=== PATIENT | male | born 1955 | race Caucasian/White ===

== ENCOUNTER 2018-05-08 20:42 | Inpatient (IN) ==
[2018-05-08] MEDS ORDERED: MethylPREDNISolone Sod Succinate Inj 125 MG/2 ML Vial IV.PUSH ONE (20:59)
[2018-05-08] MEDS: Sod Chloride 0.9% Inj 1,000 ML IV.CONT SCH (21:07)
--- NOTE | 2018-05-08 21:09 | ED ---
HPI General Chief Complaint: Shortness of Breath/Dyspnea Stated Complaint: SOB Time Seen by Provider: 05/08/18 20:47 Source: patient and family Mode of arrival: ambulatory Limitations: no limitations History of Present Illness HPI narrative: 63-year-old male complains of chest pain and shortness of breath. Patient has history of COPD. Patient was at the intermediate in [place]. Patient was on home O2. Patient decided to move down to [place] recently. Patient arrived yesterday without oxygen or nebulizer machine or medications. Patient started having productive cough and shortness of breath 4 days ago. Patient states that he is not having substernal chest pain and worsening of short of breath about 2 hours prior to arrival. Patient states that the chest pain substernal pressure without radiation. Patient denies palpitation nausea diaphoresis. Patient states that he usually had chest pain in the past with acute exacerbation of COPD. Patient denies history of CAD. Patient denies history hypertension, diabetes, hyperlipidemia. Patient is a non -smoker. On a scale of 1-10 the chest pain is an 8. MD complaint: chest pain Complete Quality Measures for STEMI Alert Patients STEMI Alert: No Onset (ago): hour(s) Duration: constant Onset: during rest Pain location: substernal Severity: moderate Severity scale (1-10): 8 Quality: tightness and aching Pain radiation: none Relieving factors: nothing Exacerbating factors: nothing Context: other Associated symptoms: dyspnea and cough Treatments prior to arrival chest pain: none Related Data Home Medications Medication Instructions Recorded Confirmed Unable to Obtain Home Meds 05/08/18 05/08/18 Allergies Allergy/AdvReac Type Severity Reaction Status Date / Time No Known Allergies Allergy Mild unknown Uncoded 05/08/18 20:55 Review of Systems Except as stated in HPI: all other systems reviewed are negative PMFSH History History Provided By: Patient and Family Member Medical History Medical History History of COPD (Acute) Hx of emphysema (Acute) Surgical History Surgical History Hx of appendectomy (Acute) Hx of oral surgery (Acute) Social History Social History Substance History: No History of Abuse Smoking Status: Former smoker Tobacco Type: Cigarettes How Often Do You Have a Drink Containing Alcohol: Never Recent Travel in [facility] within the Last 8 Weeks: Yes Exam Narrative Exam Narrative: GENERAL: Well-nourished, well-developed patient. SKIN: Focused skin assessment warm/dry. HEAD: Normocephalic. EYES: No scleral icterus. No injection or drainage. NECK: Supple, trachea midline. No JVD or lymphadenopathy. CARDIOVASCULAR: Regular rate and rhythm without murmurs, gallops, or rubs. RESPIRATORY: Breath sounds equal bilaterally. No accessory muscle use. Patient has moderate expiratory wheezes bilaterally. Few rhonchi at the bases. GASTROINTESTINAL: Abdomen soft, non-tender, nondistended. MUSCULOSKELETAL: No cyanosis, or edema. BACK: Nontender without obvious deformity. No CVA tenderness. Neurologic exam normal. Course Initial Documented Vital Signs Temperature 98.1 F 05/08/18 20:50 Pulse Rate 91 H 05/08/18 20:50 Respiratory Rate 22 05/08/18 20:50 Blood Pressure 119/91 H 05/08/18 20:50 Pulse Oximetry 86 L 05/08/18 20:50 Last Documented Vital Signs Temperature 98.1 F 05/08/18 21:00 Pulse Rate 85 05/08/18 22:59 Respiratory Rate 20 05/08/18 22:59 Blood Pressure 117/83 05/08/18 22:59 Pulse Oximetry 92 L 05/08/18 22:59 Medical Decision Making MDM Narrative Medical decision making narrative: 63-year-old male with chest pain and shortness of breath. History of COPD. Patient has not had any home O2, albuterol treatment for the past 2 days. Albuterol with Atrovent unit dose treatment 3. Solu-Medrol 125 mg IV. Cefepime 1 g IV. Zithromax 500 mg IV. Toradol 30 mg IV. O2 2 L nasal cannula. Differential Diagnosis Differential Diagnosis: Differential diagnosis including acute exacerbation COPD , bronchitis, pneumonia, PE, pneumothorax, [place]. Lab Data Lab results reviewed: Yes I reviewed the patient's lab results. Result diagrams: 05/08/18 21:05 05/08/18 21:05 Lab Results 05/08/18 05/08/18 05/08/18 Range/Units 21:05 21:05 21:05 CBC w Diff Auto diff final WBC 9.6 (4.0-11.0) th/mm3 RBC 4.45 L (4.50-5.90) mil/mm3 Hgb 13.8 (13.0-17.0) gm/dL Hct 40.7 (39.0-51.0) % MCV 91.5 (80.0-100.0) fL MCH 30.9 (27.0-34.0) pg MCHC 33.8 (32.0-36.0) % RDW 14.1 (11.6-17.2) % Plt Count 183 (150-450) th/mm3 MPV 8.9 (7.0-11.0) fL Neut % (Auto) 64.9 (16.0-70.0) % Lymph % (Auto) 18.5 (9.0-44.0) % [place] % (Auto) 11.7 H (0.0-8.0) % Eos % (Auto) 4.4 H (0.0-4.0) % Baso % (Auto) 0.5 (0.0-2.0) % Neut # (Auto) 6.3 (1.8-7.7) th/mm3 Lymph # (Auto) 1.8 (1.0-4.8) th/mm3 [place] # (Auto) 1.1 H (0.0-0.9) th/mm3 Eos # (Auto) 0.4 (0.0-0.4) th/mm3 Baso # (Auto) 0.0 (0.0-0.2) th/mm3 WBC Differential . Differential Comment . PT 11.9 H (9.8-11.6) sec INR 1.2 Ratio APTT 27.2 (24.3-30.1) sec D-Dimer Quant (PE/DVT) 1.04 H (0.00-0.50) mg/L FEU Sodium (136-145) meq/L Potassium (3.5-5.1) meq/L Chloride (98-107) meq/L Carbon Dioxide (21.0-32.0) meq/L Anion Gap (5-15) meq/L BUN (7-18) mg/dL Creatinine (0.60-1.30) mg/dL Estimated GFR (>89) mL/min Random Glucose (74-106) mg/dL Calcium (8.5-10.1) mg/dL Total Bilirubin (0.2-1.0) mg/dL AST (15-37) U/L ALT (12-78) U/L Alkaline Phosphatase (45-117) U/L Total Creatine Kinase (39-308) U/L CK-MB (CK-2) (0.5-3.6) ng/mL Troponin I (0.02-0.05) ng/mL B-Natriuretic Peptide 19 (0-100) pg/mL Total Protein (6.4-8.2) g/dL Albumin (3.4-5.0) g/dL 05/08/18 Range/Units 21:05 CBC w Diff WBC (4.0-11.0) th/mm3 RBC (4.50-5.90) mil/mm3 Hgb (13.0-17.0) gm/dL Hct (39.0-51.0) % MCV (80.0-100.0) fL MCH (27.0-34.0) pg MCHC (32.0-36.0) % RDW (11.6-17.2) % Plt Count (150-450) th/mm3 MPV (7.0-11.0) fL Neut % (Auto) (16.0-70.0) % Lymph % (Auto) (9.0-44.0) % [place] % (Auto) (0.0-8.0) % Eos % (Auto) (0.0-4.0) % Baso % (Auto) (0.0-2.0) % Neut # (Auto) (1.8-7.7) th/mm3 Lymph # (Auto) (1.0-4.8) th/mm3 [place] # (Auto) (0.0-0.9) th/mm3 Eos # (Auto) (0.0-0.4) th/mm3 Baso # (Auto) (0.0-0.2) th/mm3 WBC Differential Differential Comment PT (9.8-11.6) sec INR Ratio APTT (24.3-30.1) sec D-Dimer Quant (PE/DVT) (0.00-0.50) mg/L FEU Sodium 139 (136-145) meq/L Potassium 4.1 (3.5-5.1) meq/L Chloride 102 (98-107) meq/L Carbon Dioxide 31.9 (21.0-32.0) meq/L Anion Gap 5 (5-15) meq/L BUN 19 H (7-18) mg/dL Creatinine 0.95 (0.60-1.30) mg/dL Estimated GFR 80 L (>89) mL/min Random Glucose 108 H (74-106) mg/dL Calcium 8.6 (8.5-10.1) mg/dL Total Bilirubin 0.5 (0.2-1.0) mg/dL AST 91 H (15-37) U/L ALT 89 H (12-78) U/L Alkaline Phosphatase 111 (45-117) U/L Total Creatine Kinase 143 (39-308) U/L CK-MB (CK-2) 1.9 (0.5-3.6) ng/mL Troponin I Less than 0.02 L (0.02-0.05) ng/mL B-Natriuretic Peptide (0-100) pg/mL Total Protein 7.6 (6.4-8.2) g/dL Albumin 3.0 L (3.4-5.0) g/dL Imaging Data Attestation: I personally reviewed and interpreted this imaging study as follows : Radiologist's impression: Chest X-Ray 05/08/18 20:56 CONCLUSION: Right upper lobe nodule. Further evaluation with chest CT recommended. Chest CTA 05/08/18 21:52 CONCLUSION: 1. Clustered nodularity in the upper right lung with measurements given above. Primary differential diagnosis is infectious in nature. Cannot exclude malignancy. 2. Severe peribronchial thickening at the lung bases with cylindrical bronchiectasis and patchy airspace disease. 3. Moderate centrilobular emphysema. 4. No adenopathy. 5. Exam suboptimal for evaluation of pulmonary embolic disease. Consider further evaluation with VQ scan if pulmonary embolus is of clinical concern. Discharge Plan Discharge Disposition Patient Disposition: 30 Still Patient Discharge Details Diagnosis: Community acquired pneumonia, Acute exacerbation of chronic obstructive airways disease Physicians Team ED Provider: Jone Chung Primary Care Provider: Primary Care Physici,No Rxs /Orders / Referrals /Forms Prescriptions: No Action Unable to Obtain Home Meds RF: 0 Status ED Status: With Doctor
[2018-05-08 21:12] LABS: Baso % (Auto) 0.5 % (0.0-2.0); Eos # (Auto) 0.4 th/mm3 (0.0-0.4); Eos % (Auto) 4.4 % (0.0-4.0); Hematocrit 40.7 % (39.0-51.0); Hemoglobin 13.8 gm/dL (13.0-17.0); Lymph # (Auto) 1.8 th/mm3 (1.0-4.8); Lymph % (Auto) 18.5 % (9.0-44.0); Mean Corpuscular HGB Conc 33.8 % (32.0-36.0); Mean Corpuscular Hemoglobin 30.9 pg (27.0-34.0); Mean Corpuscular Volume 91.5 fL (80.0-100.0); Mean Platelet Volume 8.9 fL (7.0-11.0); Mono # (Auto) 1.1 th/mm3 (0.0-0.9); Mono % (Auto) 11.7 % (0.0-8.0); Neut # (Auto) 6.3 th/mm3 (1.8-7.7); Neut % (Auto) 64.9 % (16.0-70.0); Platelet Count 183 th/mm3 (150-450); Red Blood Count 4.45 mil/mm3 (4.50-5.90); Red Cell Distribution Width 14.1 % (11.6-17.2); White Blood Count 9.6 th/mm3 (4.0-11.0)
[2018-05-08 21:20] LABS: Chloride 102 meq/L (98-107); Potassium 4.1 meq/L (3.5-5.1); Sodium 139 meq/L (136-145)
--- NOTE | 2018-05-08 21:23 | XR ---
EXAM DATE: 05/08/2018 9:18 PM EDT AGE/SEX: 63 years / Male INDICATIONS: Shortness of breath for 24 hours CLINICAL DATA: This is the patient's initial encounter. Patient reports that signs and symptoms have been present for 1 day and indicates a pain score of 0/10. MEDICAL/SURGICAL HISTORY: Chronic obstructive pulmonary disease. Emphysema. None. COMPARISON: No prior exams available for comparison. FINDINGS: There is a nodule in the right upper lobe measuring up to 1.9 cm in diameter. No prior study for comp renu. Further evaluation with chest CT recommended. There is underlying emphysema. Linear opacity l eft apex. Basilar scarring. No effusion. Heart size normal. CONCLUSION: Right upper lobe nodule. Further evaluation with chest CT recommended. Electronically signed by: Juan Caicedo MD 05/08/2018 9:21 PM EDT
[2018-05-08 21:24] LABS: Anion Gap 5 meq/L (5-15); Calcium 8.6 mg/dL (8.5-10.1); Carbon Dioxide 31.9 meq/L (21.0-32.0); Glucose,Random 108 mg/dL (74-106)
[2018-05-08 21:25] LABS: Blood Urea Nitrogen 19 mg/dL (7-18)
[2018-05-08 21:27] LABS: Alanine Aminotransferase 89 U/L (12-78); Aspartate Aminotransferase 91 U/L (15-37)
[2018-05-08 21:28] LABS: Glomerular Filtration Rate 80 mL/min (>89)
[2018-05-08 21:29] LABS: Activated Partial Thrombo Time 27.2 sec (24.3-30.1); INR 1.2 Ratio; Prothrombin Time 11.9 sec (9.8-11.6); Total Protein 7.6 g/dL (6.4-8.2)
[2018-05-08 21:30] LABS: Alkaline Phosphatase 111 U/L (45-117); Creatine Kinase 143 U/L (39-308)
[2018-05-08 21:34] LABS: D-Dimer 1.04 mg/L FEU (0.00-0.50)
[2018-05-08 21:42] LABS: Creatine Kinase MB 1.9 ng/mL (0.5-3.6)
--- NOTE | 2018-05-08 23:07 | CT ---
EXAM DATE: 05/08/2018 10:55 PM EDT AGE/SEX: 63 years / Male INDICATIONS: Shortness of breath for five days. CLINICAL DATA: This is the patient's initial encounter. Patient reports that signs and symptoms have been present for 1 day and indicates a pain score of 3/10. MEDICAL/SURGICAL HISTORY: Chronic obstructive pulmonary disease. Emphysema. Shortness of breath. Appendectomy. RADIATION DOSE: 19.00 CTDI (mGy) COMPARISON: No prior exams available for comparison. TECHNIQUE: Volumetric scanning was performed using a multi-row detector CT scanner during bolus infu aminata of 73 ml Omnipaque 350 (iohexol) nonionic water-soluble contrast as a single exam dose. The blaze a was post processed with a variety of visualization algorithms including full volume maximum intensi ty projection and sliding thin slab reformation. Using automated exposure control and adjustment of the mA and/or kV according to patient size, radiation dose was kept as low as reasonably achievable t o obtain optimal diagnostic quality images. DICOM format image data is available electronically for review and comparison. FINDINGS: The pulmonary arteries are essentially unopacified and examination is not able to assess for pulmonar y embolic disease. Consider further evaluation with VQ scan if pulmonary embolus is suspected. Lung bases demonstrate extensive peribronchial thickening and cylindrical bronchiectasis with subsegm ental airspace disease. There are irregular nodules at the right lung apex measuring up to 1.5 cm in diameter on image 30 wit h some central cavitation. Larger nodule measures up to 4 cm in maximal length and 2.4 cm in diameter . There is also some surrounding clustered nodularity. This is indeterminate for malignancy but could be infectious in nature. There are centrilobular nodules. There is also a small 5.5 mm nodule at the left lung apex. There is no hilar or mediastinal adenopathy. No pleural or pericardial effusion. Upper abdomen reveals nodular liver most characteristic of cirrhosis. CONCLUSION: 1. Clustered nodularity in the upper right lung with measurements given above. Primary differential diagnosis is infectious in nature. Cannot exclude malignancy. 2. Severe peribronchial thickening at the lung bases with cylindrical bronchiectasis and patchy airs pace disease. 3. Moderate centrilobular emphysema. 4. No adenopathy. 5. Exam suboptimal for evaluation of pulmonary embolic disease. Consider further evaluation with VQ scan if pulmonary embolus is of clinical concern. Electronically signed by: Juan Caicedo MD 05/08/2018 11:06 PM EDT
[2018-05-08] MEDS ORDERED: Azithromycin Inj 500 MG in Sodium Chlor 0.9% Inj 250 ML IV.SIG ONE (23:13)
[2018-05-08] MEDS ORDERED: Ketorolac Inj 30 MG/ML (IVP) Vial IV.PUSH ONE (23:16)
[2018-05-08] MEDS ORDERED: Bisacodyl 10 MG Supp RECTAL PRN (23:38)
[2018-05-08] MEDS ORDERED: Temazepam 15 MG Capsule PO PRN (23:38)
[2018-05-09] MEDS: Senna/Docusate Sodium 8.6/50 MG Tablet PO SCH ×3 (09:02→20:41)
[2018-05-09] MEDS: guaiFENesin 600 MG ER Tablet PO SCH ×2 (09:02→20:42)
[2018-05-09] MEDS: Sod Chloride 0.9% Inj 1,000 ML IV.CONT SCH ×2 (09:05→20:47)
[2018-05-09 09:47] LABS: Baso # (Auto) 0.2 th/mm3 (0.0-0.2); Baso % (Auto) 2.2 % (0.0-2.0); Hematocrit 39.3 % (39.0-51.0); Hemoglobin 13.1 gm/dL (13.0-17.0); Lymph # (Auto) 0.8 th/mm3 (1.0-4.8); Lymph % (Auto) 7.9 % (9.0-44.0); Mean Corpuscular HGB Conc 33.3 % (32.0-36.0); Mean Corpuscular Hemoglobin 30.8 pg (27.0-34.0); Mean Corpuscular Volume 92.4 fL (80.0-100.0); Mean Platelet Volume 8.9 fL (7.0-11.0); Mono # (Auto) 0.2 th/mm3 (0.0-0.9); Mono % (Auto) 1.7 % (0.0-8.0); Neut # (Auto) 8.8 th/mm3 (1.8-7.7); Neut % (Auto) 88.2 % (16.0-70.0); Platelet Count 154 th/mm3 (150-450); Red Blood Count 4.25 mil/mm3 (4.50-5.90); Red Cell Distribution Width 14.6 % (11.6-17.2)
[2018-05-09 10:09] LABS: Chloride 105 meq/L (98-107); Potassium 4.7 meq/L (3.5-5.1); Sodium 140 meq/L (136-145)
[2018-05-09 10:12] LABS: Calcium 8.3 mg/dL (8.5-10.1)
[2018-05-09 10:13] LABS: Albumin 2.7 g/dL (3.4-5.0); Anion Gap 6 meq/L (5-15); Blood Urea Nitrogen 28 mg/dL (7-18); Carbon Dioxide 28.6 meq/L (21.0-32.0); Glucose,Random 155 mg/dL (74-106)
[2018-05-09 10:16] LABS: Alanine Aminotransferase 82 U/L (12-78); Aspartate Aminotransferase 73 U/L (15-37); Glomerular Filtration Rate 86 mL/min (>89)
[2018-05-09 10:18] LABS: Total Protein 7.2 g/dL (6.4-8.2)
[2018-05-09 10:19] LABS: Alkaline Phosphatase 95 U/L (45-117)
--- NOTE | 2018-05-09 11:14 | P.HP ---
History of Present Illness Primary Care Physician: No Primary Care Physician Chief Complaint: Could not breathe, chest pain History of Present Illness: 63-year-old male with rather extensive history of emphysema, COPD, chronic respiratory failure, chronic back pain, bipolar disorder who originally resided in [place] in [place]. Patient does have long-standing hinge history of chronic respiratory failure in which he is on oxygen continuous at the half-way. Patient was residing in a half-way in [place], however the the family that was living up there had recently and the patient came down here in order to stay with his sister. The patient was unable to bring any of his DME equipment to include oxygen, nebulizer down to [place] because he flew on an airplane. The patient states that he was here yesterday and he started developing shortness of breath, dyspnea, pain in the middle part of his chest with increased cough, congestion, phlegm production. Patient came to emergency department for evaluation. The patient denied any nausea, vomiting, diaphoresis, lightheadedness, dizziness. Patient denies any fever or chills. Workup that was done in emergency department indicated significant abnormality with CT of the chest with multiple nodules indicating possible infection but malignancy cannot be ruled out. Patient was still hypoxic and was unable to stabilize for discharge. Patient was recommended admission for further evaluation and management. The patient denies any previous lung masses, biopsies, diagnosis of any cancer. Denies any recent hospitalizations. States that few years ago he was admitted into the hospital requiring intubation for pneumonia. - Diagnosis (1) Acute on chronic respiratory failure with hypoxia (2) Healthcare-associated pneumonia (3) Hypoxia (4) Abnormal CT scan, lung Review of Systems All other systems reviewed negative except as stated in HPI Cardiovascular: Reports chest pain Respiratory: Reports change in phlegm color, Reports chest congestion, Reports cough, Reports shortness of breath, Reports shortness of breath with activity PMFSH - History History Provided By: Patient - Medical History Medical History: Medical History (Last Updated 05/09/18 @ 10:51 by MARY JO Pierre) Chronic back pain History of COPD History of pneumonia Hx of emphysema - Surgical History Surgical History: Surgical History (Last Updated 05/09/18 @ 10:52 by MARY JO Pierre) Hx of appendectomy Hx of oral surgery S/P epidural steroid injection - Family History Family History: Family History (Last Updated 05/09/18 @ 10:53 by MARY JO Pierre) Father History of emphysema Sister History of cancer Mother History of diabetes mellitus - Tobacco History Second Hand Smoke Exposure: No Tobacco Use In Past 30 Days: No Smoking Status: Former smoker Tobacco Type: Cigarettes - Alcohol History How Often Do You Have a Drink Containing Alcohol: Never - Substance Use History Substance History: No History of Abuse - Travel History Recent Travel in the [place] Within the Last 8 Weeks: No Recent Travel Out of the Country Within the Last 8 Weeks: No - Immunization History Tetanus Immunization: <5 Years Hx Influenza Vaccine This Season: Yes Medications and Allergies Active Medications: Active Medications Acetaminophen (Tylenol) 650 mg PO Q4H PRN PRN Reason: Temp > 100.4 Al Hydroxide/Mg Hydroxide (Milk Of Magnesia Liq) 30 ml PO Q12H PRN PRN Reason: Mild Constipation Albuterol (Duoneb Neb (Prn)) 1 ampul NEB Q4HR NEB PRN PRN Reason: SOB/WHEEZING Bisacodyl (Dulcolax Supp) 10 mg RECTAL DAILY PRN PRN Reason: SEVERE CONSITIPATION Budesonide/Formoterol Fumarate (Symbicort 160/4.5 Mcg Inh) 2 puff INH BID [facility] Guaifenesin (Mucinex Er) 600 mg PO BID [facility] Last Admin: 05/09/18 09:02 Dose: 600 mg Sodium Chloride (Ns Inj) 1,000 mls @ 100 mls/hr IV.CONT .Q10H [facility] Last Admin: 05/09/18 09:05 Dose: 100 mls/hr Azithromycin 500 mg/ Sodium (Chloride) 250 mls @ 250 mls/hr IV.SIG Q24H [facility] Cefepime HCl 1,000 mg/ Sodium (Chloride) 100 mls @ 200 mls/hr IV.SIG Q12H [facility] Last Admin: 05/09/18 09:02 Dose: 200 mls/hr Lactulose (Lactulose Liq) 30 ml PO DAILY PRN PRN Reason: SEVERE CONSITIPATION Ondansetron HCl (Zofran Inj) 4 mg IV.PUSH Q6H PRN PRN Reason: NAUSEA OR VOMITING Senna/Docusate Sodium (Sisi-Colace) 1 tab PO BID [facility] Last Admin: 05/09/18 09:02 Dose: 1 tab Sennosides (Senokot) 17.2 mg PO Q12H PRN PRN Reason: Moderate Constipation Temazepam (Restoril) 15 mg PO HS PRN PRN Reason: INSOMNIA Allergies Allergy/AdvReac Type Severity Reaction Status Date / Time No Known Allergies Allergy Mild unknown Uncoded 05/08/18 20:55 Home Medications Medication Instructions Recorded Confirmed Type albuterol sulfate 2.5 mg INHALATION QID 05/09/18 05/09/18 History alprazolam [Xanax] 0.5 mg PO BID 05/09/18 05/09/18 History atorvastatin [Lipitor] 10 mg PO DAILY 05/09/18 05/09/18 History buspirone 10 mg PO BID 05/09/18 05/09/18 History citalopram [Celexa] 40 mg PO DAILY 05/09/18 05/09/18 History divalproex [Depakote ER] 1,000 mg PO DAILY 05/09/18 05/09/18 History fluticasone-vilanterol [Breo 1 inh INHALATION DAILY 05/09/18 05/09/18 History Ellipta] gabapentin 100 mg PO DAILY 05/09/18 05/09/18 History montelukast [Singulair] 10 mg PO QPM 05/09/18 05/09/18 History oxycodone 5 mg PO BID 05/09/18 05/09/18 History pantoprazole [Protonix] 40 mg PO DAILY 05/09/18 05/09/18 History risperidone [Risperdal] 0.5 mg PO HS 05/09/18 05/09/18 History tiotropium bromide [Spiriva with 1 cap INHALATION DAILY 05/09/18 05/09/18 History HandiHaler] Exam Vital signs: Vital Signs 05/08/18 20:50 05/08/18 20:58 05/08/18 21:00 Temperature 98.1 F 98.1 F Pulse Rate 91 H 91 H 91 H Respiratory Rate 22 20 22 Blood Pressure 119/91 H 119/91 H Pulse Oximetry 86 L 93 L 86 L 05/08/18 21:08 05/08/18 21:15 05/08/18 21:30 Temperature Pulse Rate 87 89 Respiratory Rate 20 20 Blood Pressure Pulse Oximetry 94 L 05/08/18 22:00 05/08/18 22:59 05/09/18 01:02 Temperature 96.5 F L Pulse Rate 90 85 77 Respiratory Rate 20 20 18 Blood Pressure 100/71 117/83 105/75 Pulse Oximetry 92 L 92 L 95 05/09/18 07:33 05/09/18 08:00 Temperature 97.5 F L Pulse Rate 65 Respiratory Rate 20 Blood Pressure 114/74 Pulse Oximetry 95 97 Intake & Output 05/08/18 05/09/18 05/09/18 18:59 06:59 18:59 Intake Total 350 / 350 1000 / 1000 Balance 350 / 350 1000 / 1000 Weight 83.9 kg Intake: IV 350 / 350 1000 / 1000 NS Inj 1,000 ML @ 100 mls/hr IV 1000 / 1000 .CONT .Q10H [facility] Rx#:[id number] Azithromycin Inj 500 MG In NS 250 / 250 Inj 250 ML @ 250 mls/hr IV.SIG ONCE ONE Rx#:[id number] Maxipime Inj 1,000 MG In NS Inj 100 / 100 100 ML @ 200 mls/hr IV.SIG ONCE ONE Rx#:[id number] Other: # Voids 1 Weight On Admission 83.9 kg Narrative: GENERAL: Well-developed, well-nourished, in no acute distress. alert and orientated HEENT: Head is normocephalic without any lesions or masses noted. Facial features are symmetric. Eyes: Pupils equal round reactive to light. Extraocular muscles are intact. Conjunctivae were clear. Oropharyngeal: Pharynx without any erythema edema. Tongue is midline without deviation. Buccal mucosa is moist without any masses or lesions NECK: Supple without any masses. Trachea midline no deviation. No JVD, no bruits are appreciated CARDIAC: Regular rhythm, regular rate. S1/S2 are heard. No murmurs gallops or rubs. LUNGS: Patient with significant wheezing and rhonchi of bilateral lungs. No rales. No use of accessory muscles on inspiration or expiration. Patient has a wet sounding cough ABDOMEN: Soft, nontender. Nondistended. Bowel sounds heard in all 4 quadrants. No organomegaly or masses. Negative rebound, negative guarding EXTREMITIES: No edema, pulses are equal bilaterally. No cyanosis or clubbing NEUROLOGY: Mood and affect appear appropriate. Cranial nerves II through XII grossly intact. Muscle strength 5/5 in upper and lower extremities bilaterally. Deep tendon reflexes are 2+ in upper and lower extremities bilaterally. Results - Labs CBC & Chem 7: 05/09/18 09:40 05/09/18 09:40 Labs: Laboratory Results - last 24 hr 05/08/18 05/08/18 05/08/18 21:05 21:05 21:05 CBC w Diff Auto diff final WBC 9.6 RBC 4.45 L Hgb 13.8 Hct 40.7 MCV 91.5 MCH 30.9 MCHC 33.8 RDW 14.1 Plt Count 183 MPV 8.9 Neut % (Auto) 64.9 Lymph % (Auto) 18.5 Sutter % (Auto) 11.7 H Eos % (Auto) 4.4 H Baso % (Auto) 0.5 Neut # (Auto) 6.3 Lymph # (Auto) 1.8 Sutter # (Auto) 1.1 H Eos # (Auto) 0.4 Baso # (Auto) 0.0 WBC Differential . Differential Comment . PT 11.9 H INR 1.2 APTT 27.2 D-Dimer Quant (PE/DVT) 1.04 H Sodium Potassium Chloride Carbon Dioxide Anion Gap BUN Creatinine Estimated GFR Random Glucose Calcium Total Bilirubin AST ALT Alkaline Phosphatase Total Creatine Kinase CK-MB (CK-2) Troponin I B-Natriuretic Peptide 19 Total Protein Albumin 05/08/18 05/09/18 05/09/18 21:05 01:50 09:40 CBC w Diff Auto diff final WBC 10.0 RBC 4.25 L Hgb 13.1 Hct 39.3 MCV 92.4 MCH 30.8 MCHC 33.3 RDW 14.6 Plt Count 154 MPV 8.9 Neut % (Auto) 88.2 H Lymph % (Auto) 7.9 L Sutter % (Auto) 1.7 Eos % (Auto) 0.0 Baso % (Auto) 2.2 H Neut # (Auto) 8.8 H Lymph # (Auto) 0.8 L Sutter # (Auto) 0.2 Eos # (Auto) 0.0 Baso # (Auto) 0.2 WBC Differential . Differential Comment . PT INR APTT D-Dimer Quant (PE/DVT) Sodium 139 Potassium 4.1 Chloride 102 Carbon Dioxide 31.9 Anion Gap 5 BUN 19 H Creatinine 0.95 Estimated GFR 80 L Random Glucose 108 H Calcium 8.6 Total Bilirubin 0.5 AST 91 H ALT 89 H Alkaline Phosphatase 111 Total Creatine Kinase 143 CK-MB (CK-2) 1.9 Troponin I Less than 0.02 L Less than 0.02 L B-Natriuretic Peptide Total Protein 7.6 Albumin 3.0 L 05/09/18 09:40 CBC w Diff WBC RBC Hgb Hct MCV MCH MCHC RDW Plt Count MPV Neut % (Auto) Lymph % (Auto) Sutter % (Auto) Eos % (Auto) Baso % (Auto) Neut # (Auto) Lymph # (Auto) Sutter # (Auto) Eos # (Auto) Baso # (Auto) WBC Differential Differential Comment PT INR APTT D-Dimer Quant (PE/DVT) Sodium 140 Potassium 4.7 Chloride 105 Carbon Dioxide 28.6 Anion Gap 6 BUN 28 H Creatinine 0.89 Estimated GFR 86 L Random Glucose 155 H Calcium 8.3 L Total Bilirubin 0.7 AST 73 H ALT 82 H Alkaline Phosphatase 95 Total Creatine Kinase CK-MB (CK-2) Troponin I Less than 0.02 L B-Natriuretic Peptide Total Protein 7.2 Albumin 2.7 L - Imaging Impressions Chest X-Ray 05/08/18 20:56 CONCLUSION: Right upper lobe nodule. Further evaluation with chest CT recommended. Chest CTA 05/08/18 21:52 CONCLUSION: 1. Clustered nodularity in the upper right lung with measurements given above. Primary differential diagnosis is infectious in nature. Cannot exclude malignancy. 2. Severe peribronchial thickening at the lung bases with cylindrical bronchiectasis and patchy airspace disease. 3. Moderate centrilobular emphysema. 4. No adenopathy. 5. Exam suboptimal for evaluation of pulmonary embolic disease. Consider further evaluation with VQ scan if pulmonary embolus is of clinical concern. Caprini VTE Risk Assessment Caprini VTE Risk Assessment: Moderate/High Risk (score >= 2) Caprini Risk Assessment Model: Point Value = 1 Point Value = 2 Point Value = 3 Point Value = 5 Age 41-60 Minor surgery BMI > 25 kg/m2 Swollen legs Varicose veins or History of unexplained or recurrent spontaneous Oral contraceptives or hormone replacement Sepsis (< 1 month) Serious lung disease, including pneumonia (< 1 month) Abnormal pulmonary function Acute myocardial infarction Congestive heart failure (< 1 month) History of inflammatory bowel disease Medical patient at bed rest Age 61-74 Arthroscopic surgery Major open surgery (> 45 min) Laparoscopic surgery (> 45 min) Malignancy Confined to bed (> 72 hours) Immobilizing plaster cast Central venous access Age >= 75 History of VTE Family history of VTE Factor V Leiden Prothrombin [id number] Lupus anticoagulant Anticardiolipin antibodies Elevated serum homocysteine Heparin-induced thrombocytopenia Other congenital or acquired thrombophilia Stroke (< 1 month) Elective arthroplasty Hip, pelvis, or leg fracture Acute spinal cord injury (< 1 month) Prophylaxis Regimen: Total Risk Factor Score Risk Level Prophylaxis Regimen 0-1 Low Early ambulation 2 Moderate Order ONE of the following: *Sequential Compression Device (SCD) *Heparin 5000 units SQ BID 3-4 Higher Order ONE of the following medications: *Heparin 5000 units SQ TID *Enoxaparin/Lovenox 40 mg SQ daily (WT < 150 kg, CrCl > 30 mL/min) *Enoxaparin/Lovenox 30 mg SQ daily (WT < 150 kg, CrCl > 10-29 mL/min) *Enoxaparin/Lovenox 30 mg SQ BID (WT < 150 kg, CrCl > 30 mL/min) AND/OR *Sequential Compression Device (SCD) 5 or more Highest Order ONE of the following medications: *Heparin 5000 units SQ TID (Preferred with Epidurals) *Enoxaparin/Lovenox 40 mg SQ daily (WT < 150 kg, CrCl > 30 mL/min) *Enoxaparin/Lovenox 30 mg SQ daily (WT < 150 kg, CrCl > 10-29 mL/min) *Enoxaparin/Lovenox 30 mg SQ BID (WT < 150 kg, CrCl > 30 mL/min) AND *Sequential Compression Device (SCD) Assessment and Plan - Assessment (1) Acute on chronic respiratory failure with hypoxia Code(s): J96.21 - Acute and chronic respiratory failure with hypoxia Status: Acute (2) Healthcare-associated pneumonia Code(s): J18.9 - Pneumonia, unspecified organism Status: Acute (3) Hypoxia Code(s): R09.02 - Hypoxemia Status: Acute (4) Abnormal CT scan, lung Code(s): R91.8 - Other nonspecific abnormal finding of lung field Status: Acute - Plan Acute on chronic hypoxic respiratory failure -Multifactorial could be secondary to not having his DME equipment, pneumonia, multiple lung nodules, infection, possible malignancy, chronic COPD exacerbation -Continue O2 sat mentation maintain O2 sat greater than 92% -Duo nebs every 6 hours while awake and every 2 hours as needed -Start Solu-Medrol 60 mg IV every 6 hours -Consult pulmonology for further recommendations and management Healthcare associated pneumonia -CT scan does indicate consolidations, abnormalities which could be an infective process -Patient did live at a nursing facility in [place] -Continue cefepime, Zithromax -Obtain sputum culture, Legionella testing, pneumococcal testing Abnormal CT of the lung -Clustered nodularity in the upper right lung Primary differential diagnosis is infectious in nature. Cannot exclude malignancy. -Pulmonology consulted for recommendations -Patient may require bronchoscopy prior to discharge for further management Chronic back pain -Home medications were continued Bipolar disorder -Home medication continued DVT prevention -Subcutaneous heparin
[2018-05-09] MEDS: ALPRAZolam 0.5 MG Tablet PO SCH ×2 (11:41→20:37)
[2018-05-09] MEDS: MethylPREDNISolone Sod Succinate Inj 125 MG/2 ML Vial IV.PUSH SCH ×2 (11:42→17:30)
[2018-05-09] MEDS: Heparin - SQ 10,000 UNITS/ML Vial SQ SCH ×2 (11:46→20:37)
[2018-05-09] MEDS: Divalproex 500 MG ER Tablet PO SCH (11:46)
[2018-05-09] MEDS: Gabapentin 100 MG Capsule PO SCH (11:46)
[2018-05-09] MEDS: Budesonide-Formoterol 160/4.5 MCG 6 GM Inhaler INH SCH ×2 (12:19→21:40)
--- NOTE | 2018-05-09 13:58 | ECG ---
Date Performed: 05/08/2018 Time Performed: 20:58:51 PTAGE: 63 years EKG: Sinus rhythm INCOMPLETE RIGHT BUNDLE BRANCH BLOCK NONSPECIFIC T-WAVE ABNORMALITY BORDERLINE ECG Artifact Since e PREVIOUS TRACING , no significant change noted PREVIOUS TRACIN07/31/1998 07.35 DOCTOR: Negra Montero Interpretating Date/Time 05/09/2018 13:56:29
--- NOTE | 2018-05-09 16:59 | MB ---
cc: Cruz Mccormick MD, Arjun D MD DATE: 05/09/2018 REQUESTING PHYSICIAN: Aristeo Cody MD REASON FOR CONSULTATION: Lung density and COPD. HISTORY OF PRESENT ILLNESS: Mr. Tovar is a 63-year-old male with COPD, emphysema and bipolar disorder. The patient used to live in [place] then now recently was living in [place] with his sister. His sister recently and he decided to come over here to live with his other sister. The patient was using oxygen, nebulizer treatment at home and he bordered a plane without any oxygen. He came over here getting more short of breath and had congestion in the chest and decided to come to the emergency room. He has shortness of breath. No fever, no chills, no nausea or vomiting. He was evaluated in the emergency room. He had a CTA of the chest done, which shows no pulmonary embolism, but he has cluster nodularity in the right upper lobe with a lung mass measuring 4 x 2.4 cm in the right upper lobe. He also has cylindrical bronchiectasis, centrilobular emphysema. His CBC showed WBC count 10.0, hemoglobin 13.1 Hematocrit 39.3, MCV 92, platelet count 154. INR is 1.2. Sodium 140, potassium 4.1, chloride 105, CO2 of 28, BUN 28, creatinine 0.89. PAST MEDICAL HISTORY: History of COPD and emphysema, bipolar disorder, pneumonia in the past. CURRENT MEDICATIONS: 1. DuoNeb nebulizer treatment. 2. Xanax 0.5 mg twice a day. 3. Lipitor 10 mg a day. 4. Zithromax 500 mg a day. 5. BuSpar 10 mg twice a day. 6. Cefepime 1 gram Q 12 hours. 7. Citalopram 40 mg a day 8. Depakote 1000 mg daily. 9. Breo Ellipta 100/25 once a day. 10. Neurontin 100 mg a day. 11. Mucinex 600 mg p.o. twice a day, 12. Heparin 5000 q. 12 hrs. 13. Solu-Medrol 60 mg q.6 hours. 14. Singulair 10 mg a day. 15. Oxycodone for pain. 16. Protonix 40 mg a day. 17. Risperdal 0.5 mg 18. Temazepam 15 mg at nighttime. ALLERGIES: NO KNOWN DRUG ALLERGIES. SOCIAL HISTORY: He has a history of smoking since age 12 with 1 pack a day, which he quit 6 months ago. Denies alcohol use or drug abuse. 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 FAMILY HISTORY: He has 2 children who live in [place]. He is . Currently he moved over here to live with his sister. REVIEW OF SYSTEMS: He can barely walk up to the door because of his shortness of breath. He has gained 50-60 pounds of weight. Sleep is okay. No DVT, pulmonary masses. No seizure, stroke or epilepsy. PHYSICAL EXAMINATION: GENERAL: Obese, elderly male, mildly short of breath. VITAL SIGNS: Blood pressure 111/71, heart rate 82, respirations 20, temperature 97. HEENT: Pupils are equal and reactive to light. Oral mucosa and nasal mucosa normal. NECK: Supple. JVD not raised. CHEST: has Bilat expiratory rhonchi. HEART: S1, S2 normal. ABDOMEN: Obese, nontender. Bowel sounds are present. EXTREMITIES: No edema. IMPRESSION: 1. Chronic obstructive pulmonary disease with mild exacerbation. 2. Bronchiectasis. 3. 4 x 0.5 cm right upper lobe density, also has additional smaller density in the right upper lobe concerning for malignancy or infection. 4. Nicotine use. 5. Chronic respiratory insufficiency. 6. Bipolar disorder. PLAN: I discussed with the patient we will give him antibiotic, IV Solu-Medrol, aerosol treatment. He will need CT-guided biopsy. I discussed the procedure and the complications, which he understands and wants to proceed with. We will schedule with interventional radiology to do a CT-guided biopsy. Further treatment will depend on the course in the hospital. Thank you, Dr. Aristeo Cody, for this consult. MD CLAIRE Barragan/ , 03:23 PM , 03:33 PM MENA
[2018-05-09] MEDS: Montelukast 10 MG Tablet PO SCH (17:30)
[2018-05-09] MEDS: Azithromycin Inj 500 MG in Sodium Chlor 0.9% Inj 250 ML IV.SIG SCH (23:57)
[2018-05-10] MEDS: MethylPREDNISolone Sod Succinate Inj 125 MG/2 ML Vial IV.PUSH SCH ×4 (00:05→17:55)
[2018-05-10] MEDS: Gabapentin 100 MG Capsule PO SCH (08:30)
[2018-05-10] MEDS: guaiFENesin 600 MG ER Tablet PO SCH ×2 (08:31→20:41)
[2018-05-10] MEDS: Heparin - SQ 10,000 UNITS/ML Vial SQ SCH ×2 (08:31→21:28)
[2018-05-10] MEDS: Divalproex 500 MG ER Tablet PO SCH (08:31)
[2018-05-10] MEDS: ALPRAZolam 0.5 MG Tablet PO SCH ×2 (08:31→21:33)
[2018-05-10] MEDS: Senna/Docusate Sodium 8.6/50 MG Tablet PO SCH ×2 (08:33→21:29)
[2018-05-10] MEDS: Sod Chloride 0.9% Inj 1,000 ML IV.CONT SCH ×3 (08:43→23:47)
[2018-05-10] MEDS: Budesonide-Formoterol 160/4.5 MCG 6 GM Inhaler INH SCH ×2 (08:43→21:35)
--- NOTE | 2018-05-10 10:59 | P.PN ---
Subjective Interval history: 63-year-old male who is seen and examined today for follow-up on acute respiratory failure, hypoxia, lung mass. Patient is sitting in bed. He was resting comfortably. No signs of respiratory distress. Patient maintaining oxygenation on oxygen. Discussed with patient the need to evaluate with a biopsy. He is in agreement as well as he can have anesthesia to do so. Vital signs are stable, patient remains afebrile. Physical Exam Vital signs: Vital Signs 05/09/18 11:12 05/09/18 15:10 05/09/18 19:40 Temperature 97.4 F L 97 F L Pulse Rate 68 82 71 Respiratory Rate 20 20 20 Blood Pressure 110/76 111/71 Pulse Oximetry 96 92 L 96 05/09/18 20:00 05/10/18 00:00 05/10/18 04:00 Temperature 96.6 F L 96.6 F L Pulse Rate 72 82 89 Respiratory Rate 20 20 22 Blood Pressure 117/79 108/74 149/82 H Pulse Oximetry 95 95 94 L 05/10/18 07:35 05/10/18 08:04 Temperature 97.9 F Pulse Rate 69 Respiratory Rate 20 Blood Pressure 132/81 Pulse Oximetry 91 L 92 L Intake & Output 05/09/18 05/10/18 05/10/18 18:59 06:59 18:59 Intake Total 2940 / 2940 2710 / 2710 Balance 2940 / 2940 2710 / 2710 Weight 85.8 kg Intake: IV 2100 / 2100 2350 / 2350 NS Inj 1,000 ML @ 100 mls/hr IV 1999 / 1999 1999 / 1999 .CONT .Q10H [facility] Rx#:[id number] Azithromycin Inj 500 MG In NS 250 / 250 Inj 250 ML @ 250 mls/hr IV.SIG Q24H [facility] Rx#:[id number] Maxipime Inj 1,000 MG In NS Inj 100 / 100 100 / 100 100 ML @ 200 mls/hr IV.SIG Q12H [facility] Rx#:[id number] Oral 840 / 840 360 / 360 Other: # Voids 3 3 Narrative: GENERAL: Well-developed, well-nourished, in no acute distress. alert and orientated HEENT: Head is normocephalic without any lesions or masses noted. Facial features are symmetric. Eyes: Extraocular muscles are intact. Conjunctivae were clear. NECK: Supple without any masses. Trachea midline no deviation. No JVD, CARDIAC: Regular rhythm, regular rate. S1/S2 are heard. No murmurs gallops or rubs. LUNGS: Patient with diminished breath sounds noted throughout, however there is no more wheeze, rhonchi or rales. No use of accessory muscles on inspiration or expiration. ABDOMEN: Soft, nontender. Nondistended. Bowel sounds heard in all 4 quadrants. No organomegaly or masses. Negative rebound, negative guarding EXTREMITIES: No edema, pulses are equal bilaterally. No cyanosis or clubbing NEUROLOGY: Mood and affect appear appropriate. Cranial nerves II through XII grossly intact. Moving all extremities, speech is clear Results - Labs CBC & Chem 7: 05/09/18 09:40 05/09/18 09:40 Laboratory Results - last 24 hr 05/09/18 20:36 POC Glucose 119 H Microbiology 05/09/18 17:00 Urine - Clean Catch Urine Streptococcus pneumoniae Antigen ( M - Final Presumptive negative for streptococcus pneumoniae antigen, suggesting no current or recent infection. Infection due to Streptococcus pneumoniae cannot be ruled out since the antigen present in the sample may be below the detection limit of the test. 05/09/18 17:00 Urine - Clean Catch Urine Legionella Antigen - Final Presumptive negative for Legionella pneumophila serogroup 1 antigen in urine, suggesting no recent or recurrent infection. Infection due to Legionella cannot be ruled out since other serogroups and species may cause disease, antigen may not be present in urine in early infection, and the level of antigen present in the urine may be below the detection limit of the test. 05/08/18 21:05 Blood - Peripheral Aerobic Blood Culture - Preliminary No growth in 1 day 05/08/18 21:05 Blood - Peripheral Anaerobic Blood Culture - Preliminary No growth in 1 day 05/08/18 21:00 Blood - Peripheral Aerobic Blood Culture - Preliminary No growth in 1 day 05/08/18 21:00 Blood - Peripheral Anaerobic Blood Culture - Preliminary No growth in 1 day Assessment and Plan - Assessment (1) Acute on chronic respiratory failure with hypoxia Code(s): J96.21 - Acute and chronic respiratory failure with hypoxia Status: Acute (2) Healthcare-associated pneumonia Code(s): J18.9 - Pneumonia, unspecified organism Status: Acute (3) Hypoxia Code(s): R09.02 - Hypoxemia Status: Acute (4) Abnormal CT scan, lung Code(s): R91.8 - Other nonspecific abnormal finding of lung field Status: Acute - Plan Acute on chronic hypoxic respiratory failure -Multifactorial could be secondary to not having his DME equipment, pneumonia, multiple lung nodules, infection, possible malignancy, chronic COPD exacerbation -Continue O2 sat mentation maintain O2 sat greater than 92% -Duo nebs every 6 hours while awake and every 2 hours as needed -Continue Solu-Medrol 60 mg IV every 6 hours -Consulted pulmonology for further recommendations and management Healthcare associated pneumonia -CT scan does indicate consolidations, abnormalities which could be an infective process -Patient did live at a nursing facility in [place] -Continue cefepime, Zithromax -Sputum culture is pending, -Legionella testing and pneumococcal testing was negative Abnormal CT of the lung -Clustered nodularity in the upper right lung Primary differential diagnosis is infectious in nature. Cannot exclude malignancy. -Pulmonology consulted for recommendations -Patient will need CT-guided biopsy of the lung. Patient does understand and does agree to have procedure done if he could be anesthetized Chronic back pain -Home medications were continued Bipolar disorder -Home medication continued DVT prevention -Subcutaneous heparin Discharge Planning: Discharge planning after biopsy performed, case management consulted for DME equipment, respiratory consulted for home oxygen walk study. Once cleared by income tax analyst. Likely 24-48 hours
[2018-05-10 16:17] LABS: Baso % (Auto) 0.2 % (0.0-2.0); Eos % (Auto) 0.1 % (0.0-4.0); Hematocrit 37.3 % (39.0-51.0); Hemoglobin 12.3 gm/dL (13.0-17.0); Lymph # (Auto) 0.7 th/mm3 (1.0-4.8); Lymph % (Auto) 3.9 % (9.0-44.0); Mean Corpuscular HGB Conc 32.8 % (32.0-36.0); Mean Corpuscular Hemoglobin 30.4 pg (27.0-34.0); Mean Corpuscular Volume 92.5 fL (80.0-100.0); Mean Platelet Volume 9.4 fL (7.0-11.0); Mono # (Auto) 0.5 th/mm3 (0.0-0.9); Mono % (Auto) 2.7 % (0.0-8.0); Neut # (Auto) 16.9 th/mm3 (1.8-7.7); Neut % (Auto) 93.1 % (16.0-70.0); Platelet Count 145 th/mm3 (150-450); Red Blood Count 4.04 mil/mm3 (4.50-5.90); Red Cell Distribution Width 14.7 % (11.6-17.2); White Blood Count 18.1 th/mm3 (4.0-11.0)
[2018-05-10 16:26] LABS: Potassium 4.1 meq/L (3.5-5.1)
[2018-05-10 16:28] LABS: Calcium 8.1 mg/dL (8.5-10.1)
[2018-05-10 16:29] LABS: Carbon Dioxide 29.2 meq/L (21.0-32.0)
--- NOTE | 2018-05-10 17:01 | P.PNPL ---
Subjective Interval history: 63 YOWM with COPD,Hypoxia, Ch resp insuff, [place]oved fr[place], did't bring his 02 CT chest lung density Breathing betetr Physical Exam Vital signs: Vital Signs 05/09/18 19:40 05/09/18 20:00 05/10/18 00:00 Temperature 96.6 F L 96.6 F L Pulse Rate 71 72 82 Respiratory Rate 20 20 20 Blood Pressure 117/79 108/74 Pulse Oximetry 96 95 95 Pulse Oximetry [Exertion on Room Air] Pulse Oximetry [Exertion with Oxygen] Pulse Oximetry [Resting on Room Air] 05/10/18 04:00 05/10/18 07:35 05/10/18 08:00 Temperature Pulse Rate 89 60 Respiratory Rate 22 Blood Pressure 149/82 H Pulse Oximetry 94 L 91 L 93 L Pulse Oximetry [Exertion on Room Air] Pulse Oximetry [Exertion with Oxygen] Pulse Oximetry [Resting on Room Air] 05/10/18 08:04 05/10/18 11:29 05/10/18 11:37 Temperature 97.9 F 97.8 F Pulse Rate 69 66 Respiratory Rate 20 20 Blood Pressure 132/81 130/76 Pulse Oximetry 92 L 93 L Pulse Oximetry [Exertion on Room Air] 86 L Pulse Oximetry [Exertion with Oxygen] 91 L Pulse Oximetry [Resting on Room Air] 89 L 05/10/18 12:28 05/10/18 15:07 Temperature 98.1 F Pulse Rate 76 Respiratory Rate 18 20 Blood Pressure 114/69 Pulse Oximetry 93 L Pulse Oximetry [Exertion on Room Air] Pulse Oximetry [Exertion with Oxygen] Pulse Oximetry [Resting on Room Air] Intake & Output 05/09/18 05/10/18 05/10/18 18:59 06:59 18:59 Intake Total 2940 / 2940 2710 / 2710 100 / 100 Balance 2940 / 2940 2710 / 2710 100 / 100 Weight 85.8 kg Intake: IV 2099 / 2099 2350 / 2350 100 / 100 NS Inj 1,000 ML @ 100 mls/hr IV 1999 / 1999 .CONT .Q10H T[facility]WO Rx#:[id number] Azithromycin Inj 500 MG In NS 250 / 250 Inj 250 ML @ 250 mls/hr IV.SIG Q24H T[facility]WO Rx#:[id number] Maxipime Inj 1,000 MG In NS Inj 100 / 100 100 / 100 100 / 100 100 ML @ 200 mls/hr IV.SIG Q12H TAIWO Rx#:[id number] Oral 840 / 840 360 / 360 Other: # Voids 3 3 GENERAL: WBWN, WM, mild sob SKIN: Warm and dry. HEAD: Normocephalic. EYES: No scleral icterus. No injection or drainage. NECK: Supple, trachea midline. No JVD or lymphadenopathy. CARDIOVASCULAR: Regular rate and rhythm without murmurs, gallops, or rubs. RESPIRATORY: Breath sounds equal bilaterally. No accessory muscle use. End exp rhonchi GASTROINTESTINAL: Abdomen soft, non-tender, nondistended. MUSCULOSKELETAL: No cyanosis, or edema. BACK: Nontender without obvious deformity. No CVA tenderness. Assessment and Plan - Plan IMPRESSION: 1. Chronic obstructive pulmonary disease with mild exacerbation. 2. Bronchiectasis. 3. 4 x 0.5 cm right upper lobe density, also has additional smaller density in the right upper lobe concerning for malignancy or infection. 4. Nicotine use. 5. Chronic respiratory insufficiency. 6. Bipolar disorder. PLAN: Aerosol nebs Supplement 02 IV Solumedrol Cont Abx CT guided lung bx
[2018-05-10] MEDS: Acetaminophen 325 MG Tablet PO PRN (17:56)
[2018-05-10] MEDS: Montelukast 10 MG Tablet PO SCH (17:57)
[2018-05-10] MEDS: Azithromycin Inj 500 MG in Sodium Chlor 0.9% Inj 250 ML IV.SIG SCH (23:47)
[2018-05-11] MEDS: MethylPREDNISolone Sod Succinate Inj 125 MG/2 ML Vial IV.PUSH SCH ×5 (01:41→23:45)
[2018-05-11] MEDS: Acetaminophen 325 MG Tablet PO PRN ×2 (04:19→14:03)
[2018-05-11] MEDS: Senna/Docusate Sodium 8.6/50 MG Tablet PO SCH ×2 (08:13→22:08)
[2018-05-11] MEDS: guaiFENesin 600 MG ER Tablet PO SCH ×2 (08:13→22:08)
[2018-05-11] MEDS: Divalproex 500 MG ER Tablet PO SCH (08:13)
[2018-05-11] MEDS: Gabapentin 100 MG Capsule PO SCH (08:13)
[2018-05-11] MEDS: ALPRAZolam 0.5 MG Tablet PO SCH ×2 (08:14→22:08)
[2018-05-11] MEDS: Budesonide-Formoterol 160/4.5 MCG 6 GM Inhaler INH SCH ×2 (08:15→22:11)
[2018-05-11] MEDS: Sod Chloride 0.9% Inj 1,000 ML IV.CONT SCH ×2 (08:25→22:51)
--- NOTE | 2018-05-11 08:28 | P.PN ---
Subjective Interval history: 63-year-old male who is seen and examined today in follow-up for pneumonia, lung mass. Patient is improving quite nicely. Exam findings are improving. Only complaint patient has that he feels if he is going through opiate withdrawal because his doctor up in [place] just decreased his oxycodone down from 15 mg to 5 mg. I reviewed his medical records, discussed with him that clinically he has not shown any objective signs of withdrawal. Patient is not tachycardic, blood pressure stable. Patient is not experiencing any nausea, vomiting, diarrhea. Patient is sleeping well at night. Her awaiting biopsy performed today. Patient remains afebrile. Physical Exam Vital signs: Vital Signs 05/10/18 11:29 05/10/18 11:37 05/10/18 12:28 Temperature 97.8 F Pulse Rate 66 Respiratory Rate 20 18 Blood Pressure 130/76 Pulse Oximetry 93 L Pulse Oximetry [Exertion on Room Air] 86 L Pulse Oximetry [Exertion with Oxygen] 91 L Pulse Oximetry [Resting on Room Air] 89 L 05/10/18 15:07 05/10/18 18:26 05/10/18 19:15 Temperature 98.1 F Pulse Rate 76 Respiratory Rate 20 18 Blood Pressure 114/69 Pulse Oximetry 93 L 94 L Pulse Oximetry [Exertion on Room Air] Pulse Oximetry [Exertion with Oxygen] Pulse Oximetry [Resting on Room Air] 05/10/18 20:00 05/11/18 00:00 05/11/18 07:52 Temperature 98.3 F 96 F L Pulse Rate 83 79 75 Respiratory Rate 20 20 20 Blood Pressure 145/99 H 146/77 H Pulse Oximetry 94 L 93 L 96 Pulse Oximetry [Exertion on Room Air] Pulse Oximetry [Exertion with Oxygen] Pulse Oximetry [Resting on Room Air] Intake & Output 05/10/18 05/11/18 05/11/18 18:59 06:59 18:59 Intake Total 1480 / 1480 1350 / 1350 Balance 1480 / 1480 1350 / 1350 Weight 86.2 kg Intake: IV 100 / 100 1350 / 1350 NS Inj 1,000 ML @ 100 mls/hr IV 1000 / 1000 .CONT .Q10H TAIWO Rx#:[id number] Azithromycin Inj 500 MG In NS 250 / 250 Inj 250 ML @ 250 mls/hr IV.SIG Q24H TAIWO Rx#:[id number] Maxipime Inj 1,000 MG In NS Inj 100 / 100 100 / 100 100 ML @ 200 mls/hr IV.SIG Q12H TAIWO Rx#:[id number] Oral 1380 / 1380 0 / 0 Other: # Voids 4 4 Date of Last Bowel Movement 05/10/18 Narrative: GENERAL: Well-developed, well-nourished, in no acute distress. alert and orientated HEENT: Head is normocephalic without any lesions or masses noted. Facial features are symmetric. Eyes: Extraocular muscles are intact. Conjunctivae were clear. NECK: Supple without any masses. Trachea midline no deviation. No JVD, CARDIAC: Regular rhythm, regular rate. S1/S2 are heard. No murmurs gallops or rubs. LUNGS: Patient with diminished breath sounds noted throughout, however there is no more wheeze, rhonchi or rales. No use of accessory muscles on inspiration or expiration. ABDOMEN: Soft, nontender. Nondistended. Bowel sounds heard in all 4 quadrants. No organomegaly or masses. Negative rebound, negative guarding EXTREMITIES: No edema, pulses are equal bilaterally. No cyanosis or clubbing NEUROLOGY: Mood and affect appear appropriate. Cranial nerves II through XII grossly intact. Moving all extremities, speech is clear Results - Labs CBC & Chem 7: 05/10/18 15:52 05/10/18 15:52 Laboratory Results - last 24 hr 05/10/18 05/10/18 05/10/18 15:52 15:52 17:14 CBC w Diff Auto diff final WBC 18.1 H RBC 4.04 L Hgb 12.3 L Hct 37.3 L MCV 92.5 MCH 30.4 MCHC 32.8 RDW 14.7 Plt Count 145 L MPV 9.4 Neut % (Auto) 93.1 H Lymph % (Auto) 3.9 L [place] % (Auto) 2.7 Eos % (Auto) 0.1 Baso % (Auto) 0.2 Neut # (Auto) 16.9 H Lymph # (Auto) 0.7 L [place] # (Auto) 0.5 Eos # (Auto) 0.0 Baso # (Auto) 0.0 WBC Differential . Differential Comment . Sodium 141 Potassium 4.1 Chloride 105 Carbon Dioxide 29.2 Anion Gap 7 BUN 19 H Creatinine 0.92 Estimated GFR 83 L POC Glucose 123 H Random Glucose 117 H Calcium 8.1 L Microbiology 05/09/18 15:35 Sputum - Expectorated Sputum Gram Stain - Final 05/08/18 21:05 Blood - Peripheral Aerobic Blood Culture - Preliminary No growth in 2 days 05/08/18 21:05 Blood - Peripheral Anaerobic Blood Culture - Preliminary No growth in 2 days 05/08/18 21:00 Blood - Peripheral Aerobic Blood Culture - Preliminary No growth in 2 days 05/08/18 21:00 Blood - Peripheral Anaerobic Blood Culture - Preliminary No growth in 2 days 05/09/18 17:00 Urine - Clean Catch Urine Streptococcus pneumoniae Antigen ( M - Final Presumptive negative for streptococcus pneumoniae antigen, suggesting no current or recent infection. Infection due to Streptococcus pneumoniae cannot be ruled out since the antigen present in the sample may be below the detection limit of the test. 05/09/18 17:00 Urine - Clean Catch Urine Legionella Antigen - Final Presumptive negative for Legionella pneumophila serogroup 1 antigen in urine, suggesting no recent or recurrent infection. Infection due to Legionella cannot be ruled out since other serogroups and species may cause disease, antigen may not be present in urine in early infection, and the level of antigen present in the urine may be below the detection limit of the test. - Imaging Impressions Chest X-Ray 05/08/18 20:56 CONCLUSION: Right upper lobe nodule. Further evaluation with chest CT recommended. Chest CTA 05/08/18 21:52 CONCLUSION: 1. Clustered nodularity in the upper right lung with measurements given above. Primary differential diagnosis is infectious in nature. Cannot exclude malignancy. 2. Severe peribronchial thickening at the lung bases with cylindrical bronchiectasis and patchy airspace disease. 3. Moderate centrilobular emphysema. 4. No adenopathy. 5. Exam suboptimal for evaluation of pulmonary embolic disease. Consider further evaluation with VQ scan if pulmonary embolus is of clinical concern. Assessment and Plan - Assessment (1) Acute on chronic respiratory failure with hypoxia Code(s): J96.21 - Acute and chronic respiratory failure with hypoxia Status: Acute (2) Healthcare-associated pneumonia Code(s): J18.9 - Pneumonia, unspecified organism Status: Acute (3) Hypoxia Code(s): R09.02 - Hypoxemia Status: Acute (4) Abnormal CT scan, lung Code(s): R91.8 - Other nonspecific abnormal finding of lung field Status: Acute - Plan Acute on chronic hypoxic respiratory failure, stable -Multifactorial could be secondary to not having his DME equipment, pneumonia, multiple lung nodules, infection, possible malignancy, chronic COPD exacerbation -Continue O2 sat mentation maintain O2 sat greater than 92% -Duo nebs every 6 hours while awake and every 2 hours as needed -Continue Solu-Medrol 60 mg IV every 6 hours -Consulted pulmonology for further recommendations and management Healthcare associated pneumonia, improving -CT scan does indicate consolidations, abnormalities which could be an infective process -Patient did live at a nursing facility up in [place] -Continue cefepime, Zithromax -Sputum culture is still pending, -Legionella testing and pneumococcal testing was negative Abnormal CT of the lung -Clustered nodularity in the upper right lung Primary differential diagnosis is infectious in nature. Cannot exclude malignancy. -Pulmonology consulted for recommendations -CT-guided biopsy of lung to be performed this morning Chronic back pain -Home medications were continued -Patient feels if he is going through withdrawal from opiates because his dose had been decreased by his pain management doctor up in [place] prior to him coming down here to [place] -Clinically, patient does not appear to be any opiate withdrawal. No signs of any tachycardia, blood pressure issues, nausea, vomiting, diarrhea, diaphoresis , patient sleeping through the night, no headache Bipolar disorder -Home medication continued DVT prevention -Subcutaneous heparin Discharge Planning: Discharge planning after biopsy performed, Once cleared by whanau support worker.
[2018-05-11] MEDS ORDERED: fentaNYL Citrate Inj 250 MCG/5 ML Ampul ONE (16:00)
--- NOTE | 2018-05-11 16:59 | P.RAD ---
Post CT Procedure Prog Note - Pre Procedure Diagnosis (1) Abnormal CT scan, lung - Post Procedure Diagnosis (1) Abnormal CT scan, lung - Procedure Information Supervising Radiologist: Tano Zhong MD Proceduralist/Assist: jayden wan Estimated blood loss (mL): 0 Anesthesia: Conscious Sedation - Plan of Activity Patient to Unit: [facility] Patient condition: Good Additional Comments: tiny right apical pneumothorax See PACS Report for procedural detail/treatment.
--- NOTE | 2018-05-11 17:47 | XR ---
EXAM DATE: 05/11/2018 5:20 PM EDT AGE/SEX: 63 years / Male INDICATIONS: Post biopsy. CLINICAL DATA: This is the patient's subsequent encounter. Patient reports that signs and symptoms h ave been present for 4 - 6 days and indicates a pain score of 5/10. MEDICAL/SURGICAL HISTORY: None. None. COMPARISON: [facility], [facility] PULMONARY W CONTRAST W 3D, 05/08/2018. . FINDINGS: There is a right-sided pneumothorax with about 2.1 cm of pleural separation in the lower right hemith orax. Right upper lobe mass status post biopsy. No acute findings on the left. Underlying emphysema. No effusion. CONCLUSION: Status post right lung biopsy with right pneumothorax and about 2.1 cm of pleural separation. Electronically signed by: Juan Caicedo MD 05/11/2018 5:46 PM EDT
--- NOTE | 2018-05-11 18:45 | XR ---
EXAM DATE: 05/11/2018 6:40 PM EDT AGE/SEX: 63 years / Male INDICATIONS: Evaluate right pneumothorax, short of breath CLINICAL DATA: This is the patient's subsequent encounter. Patient reports that signs and symptoms h ave been present for 1 day and indicates a pain score of 0/10. MEDICAL/SURGICAL HISTORY: . Pneumothorax None. COMPARISON: [facility] – [place], CHEST EXPIRATION ONLY, 05/11/2018. . FINDINGS: There has been a significant interval increase in the size of the right pneumothorax measuring 5.2 cm laterally (previously measured 2.1 cm). The trachea remains in the midline. The left lung is clear. CONCLUSION: Increasing size right lateral pneumothorax without mediastinal shift. Electronically signed by: Geronimo Johnson MD 05/11/2018 6:44 PM EDT
[2018-05-11] MEDS: Montelukast 10 MG Tablet PO SCH (18:52)
[2018-05-11] MEDS ORDERED: fentaNYL Citrate Inj 100 MCG/2 ML Ampul ONE ×2 (18:54→18:55)
--- NOTE | 2018-05-11 19:36 | P.RAD ---
Post Procedure Progress Note - Pre Procedure Diagnosis (1) Pneumothorax after biopsy - Post Procedure Diagnosis (1) Pneumothorax after biopsy - Procedure Information Procedure Date: 05/11/18 Supervising Radiologist: Geronimo Richardson Jr, MD Estimated blood loss (mL): 0 Anesthesia: Conscious Sedation - Plan of Activity Patient to Unit: [facility] Patient Condition: Good See PACS Report for procedural detail/treatment. Drainage Procedure right Chest Tube Non-Tunneled Placement Tristanian Tube Size: 12 Drainage: Pleurovac Findings: Enlarging symptomatic right PTX following biopsy. Placed 12F chest tube. Sutured in place. Plan: F/U CXR pending
[2018-05-11] MEDS ORDERED: *morphine SULFATE 4 MG/ML PERIprocedure ONLY ONE ×2 (19:54→20:06)
--- NOTE | 2018-05-11 19:56 | P.PNPL ---
Subjective Interval history: 63 YOWM with COPD,Hypoxia, Ch resp insuff, [place]oved fr[place], did't bring his 02 CT chest lung density Had CT guided rt lung bx Developed PTX Had Chest cathetor placed Seen in [facility] unit Physical Exam Vital signs: Vital Signs 05/10/18 20:00 05/11/18 00:00 05/11/18 07:52 Temperature 98.3 F 96 F L Pulse Rate 83 79 75 Respiratory Rate 20 20 20 Blood Pressure 145/99 H 146/77 H Pulse Oximetry 94 L 93 L 96 05/11/18 08:13 05/11/18 10:30 05/11/18 17:15 Temperature 97.5 F L 98 F Pulse Rate 82 105 H Respiratory Rate 18 24 Blood Pressure 126/80 169/89 H Pulse Oximetry 94 L 94 L 79 L 05/11/18 17:38 05/11/18 17:42 05/11/18 17:44 Temperature Pulse Rate 101 H Respiratory Rate 20 Blood Pressure 169/89 H Pulse Oximetry 96 96 96 05/11/18 18:00 05/11/18 18:30 Temperature Pulse Rate 113 H 122 H Respiratory Rate 24 28 H Blood Pressure 155/97 H 175/122 H Pulse Oximetry 95 89 L Intake & Output 05/11/18 05/11/18 05/12/18 06:59 18:59 06:59 Intake Total 1350 / 1350 1100 / 1100 Balance 1350 / 1350 1100 / 1100 Weight 86.2 kg Intake: IV 1350 / 1350 1100 / 1100 NS Inj 1,000 ML @ 100 mls/hr IV 1000 / 1000 1000 / 1000 .CONT .Q10H [facility]WO Rx#:[id number] Azithromycin Inj 500 MG In NS 250 / 250 Inj 250 ML @ 250 mls/hr IV.SIG Q24H [facility]AIWO Rx#:[id number] Maxipime Inj 1,000 MG In NS Inj 100 / 100 100 / 100 100 ML @ 200 mls/hr IV.SIG Q12H TAIWO Rx#:[id number] Oral 0 / 0 0 / 0 Other: # Voids 4 2 Date of Last Bowel Movement 05/10/18 05/10/18 # Bowel Movements 0 GENERAL: Elderly WM, mild sob SKIN: Warm and dry. HEAD: Normocephalic. EYES: No scleral icterus. No injection or drainage. NECK: Supple, trachea midline. No JVD or lymphadenopathy. CARDIOVASCULAR: Regular rate and rhythm without murmurs, gallops, or rubs. RESPIRATORY: Breath sounds equal bilaterally. No accessory muscle use. GASTROINTESTINAL: Abdomen soft, non-tender, nondistended. MUSCULOSKELETAL: No cyanosis, or edema. BACK: Nontender without obvious deformity. No CVA tenderness. Assessment and Plan - Plan IMPRESSION: 1. Chronic obstructive pulmonary disease with mild exacerbation. 2. Bronchiectasis. 3. 4 x 0.5 cm right upper lobe density, also has additional smaller density in the right upper lobe concerning for malignancy or infection. 4. Nicotine use. 5. Chronic respiratory insufficiency. 6. Bipolar disorder. PLAN: Aerosol nebs Supplement 02 IV Solumedrol Cont Abx Chest tube to suction
--- NOTE | 2018-05-11 20:19 | XR ---
EXAM DATE: 05/11/2018 8:11 PM EDT AGE/SEX: 63 years / Male INDICATIONS: Post chest tube placement CLINICAL DATA: This is the patient's subsequent encounter. Patient reports that signs and symptoms h ave been present for 1 day and indicates a pain score of 6/10. MEDICAL/SURGICAL HISTORY: . Pneumothorax None. COMPARISON: [facility] – [place], CHEST EXPIRATION ONLY, 05/11/2018. . FINDINGS: Interval placement of a chest catheter in the upper right chest with complete reexpansion of the righ t lung. Opacity/mass in the right upper lung. The heart is normal in size. No evidence of midline nirali ft. CONCLUSION: Interval placement of chest catheter with complete reexpansion of the right lung. Electronically signed by: Geronimo Johnson MD 05/11/2018 8:17 PM EDT
[2018-05-11] MEDS: Azithromycin Inj 500 MG in Sodium Chlor 0.9% Inj 250 ML IV.SIG SCH (23:46)
[2018-05-12] MEDS: MethylPREDNISolone Sod Succinate Inj 125 MG/2 ML Vial IV.PUSH SCH ×4 (05:29→23:48)
--- NOTE | 2018-05-12 08:01 | CT ---
EXAM DATE: 05/11/2018 5:14 PM EDT AGE/SEX: 63 years / Male INDICATIONS: Right lung mass. CLINICAL DATA: This is the patient's initial encounter. Patient reports that signs and symptoms have been present for 1 day and indicates a pain score of 0/10. MEDICAL/SURGICAL HISTORY: Chronic obstructive pulmonary disease. Appendectomy. COMPARISON: . SEDATION TIME (min): 40 BIOPSY SITE: Right lung MEDICATION(S): 3.5mg midazolam (Versed) IV 175mcg fentanyl (Sublimaze) IV DEVICE(S): 20 gauge BARD biopsy needle Three core specimen(s) sent to the laboratory for pathologic evaluation. . . PROCEDURE: CT guided Right lung biopsy Prior to the procedure informed consent was obtained. Any appropriate prior imaging studies were rev iewed. Using automated exposure control and adjustment of the mA and/or kV according to patient size , radiation dose was kept as low as reasonably achievable to obtain optimal diagnostic quality images . DICOM format image data is available electronically for review and comparison. The site was prepped in a sterile fashion. Full sterile technique was used, including cap, mask, coral rile gloves and gown and a large sterile sheet. Hand hygiene and 2% chlorhexidine and/or betadine/al cohol prep was utilized per protocol for cutaneous antisepsis. The skin and subcutaneous tissues wer e infiltrated with local anesthetic solution. With CT guidance the previously identified target was localized. Biopsy was performed using the presc ribed needle as above. Adequate hemostasis was obtained with compression at the puncture site. Follow-up CT scan reveals tiny pneumothorax. Conscious sedation was performed with the prescribed dosages and duration as above in the presence of an independent trained radiology nurse to assist in the monitoring of the patient. EKG and oximetry remained stable throughout the procedure. The patient tolerated the procedure well and there were no complications. The patient was sent to Radiology Outpatient Unit in stable condition. CONCLUSION: 1. Successful CT guided biopsy of right upper lobe mass. Electronically signed by: Tano Zhong MD 05/12/2018 8:00 AM EDT
--- NOTE | 2018-05-12 09:38 | IR ---
EXAM DATE: 05/11/2018 7:58 PM EDT AGE/SEX: 63 years / Male INDICATIONS: Patient presents post right lung biopsy with pneumothorax, in need of chest tube. CLINICAL DATA: This is the patient's initial encounter. Patient reports that signs and symptoms have been present for 1 day and indicates a pain score of 10/10. MEDICAL/SURGICAL HISTORY: Chronic obstructive pulmonary disease. Emphysema. Bipolar History of pneumonia . Patient has a right-sided pneumothorax following lung biopsy which has increased sign ificantly in size. Patient is symptomatic. COMPARISON: [facility] – [place], CHEST EXPIRATION ONLY, 05/11/2018. . FLUORO TIME (min): 2:05 IMAGE SERIES: 1 ACCESS SITE: SEDATION TIME (min): 30 MEDICATION(S): 2mg midazolam (Versed) IV 100mcg fentanyl (Sublimaze) IV DEVICE(S): 12 [place] non-locking catheter . . PROCEDURE: 1. Fluoroscopically guided right chest tube placement. 2. Conscious sedation with continuous EKG and oximetry monitoring. The risks, benefits and alternatives to the procedure were explained and verbal and written consent w as obtained. The site was prepped in sterile fashion. Full sterile technique was used, including ca p, mask, sterile gloves and gown and a large sterile sheet. Hand hygiene and 2% chlorhexidine and/or betadine/alcohol prep was utilized per protocol for cutaneous antisepsis. The skin and subcutaneous tissues were infiltrated with local anesthetic solution. With fluoroscopic guidance the chest was punctured between the first and second interspace and the pr escribed catheter was placed in the lung apex. Wall suction was applied. Post procedure images demon strate satisfactory position of the tube. The catheter was sutured in place and a Percu-Stay was nabor lied. Conscious sedation was performed with the prescribed dosages and duration as above in the presence of an independent trained radiology nurse to assist in the monitoring of the patient. EKG and oximetry remained stable throughout the procedure. The patient tolerated the procedure well and there were n o complications. The patient was sent to post anesthesia recovery in stable condition. CONCLUSION: 1. Uncomplicated right chest tube placement as above. Electronically signed by: Geronimo Richardson MD 05/12/2018 9:37 AM EDT
[2018-05-12] MEDS: guaiFENesin 600 MG ER Tablet PO SCH ×2 (09:44→20:38)
[2018-05-12] MEDS: Divalproex 500 MG ER Tablet PO SCH (09:44)
[2018-05-12] MEDS: ALPRAZolam 0.5 MG Tablet PO SCH ×2 (09:45→20:38)
[2018-05-12] MEDS: Gabapentin 100 MG Capsule PO SCH (09:45)
[2018-05-12] MEDS: Senna/Docusate Sodium 8.6/50 MG Tablet PO SCH ×2 (09:45→20:38)
[2018-05-12] MEDS: Budesonide-Formoterol 160/4.5 MCG 6 GM Inhaler INH SCH ×3 (09:52→23:54)
--- NOTE | 2018-05-12 12:09 | P.PNIM ---
Subjective Interval history: Patient is status post chest tube placement after pneumothorax development after lung biopsy. He is doing well today. Main complaint is pain. No other complaints. Physical Exam Vital signs: Vital Signs 05/11/18 17:15 05/11/18 17:38 05/11/18 17:42 Temperature 98 F Pulse Rate 105 H 101 H Respiratory Rate 24 20 Blood Pressure 169/89 H 169/89 H Pulse Oximetry 79 L 96 96 05/11/18 17:44 05/11/18 18:00 05/11/18 18:30 Temperature Pulse Rate 113 H 122 H Respiratory Rate 24 28 H Blood Pressure 155/97 H 175/122 H Pulse Oximetry 96 95 89 L 05/11/18 19:41 05/11/18 19:45 05/11/18 20:00 Temperature 98.5 F 98.5 F 98.1 F Pulse Rate 100 H 101 H 81 Respiratory Rate 16 16 20 Blood Pressure 128/83 128/83 121/81 Pulse Oximetry 98 98 94 L 05/11/18 20:30 05/11/18 21:00 05/11/18 21:16 Temperature 98.5 F 98.5 F 98.7 F Pulse Rate 80 77 77 Respiratory Rate 16 16 14 Blood Pressure 97/61 L 100/64 100/64 Pulse Oximetry 97 96 96 05/12/18 00:00 05/12/18 04:00 05/12/18 07:47 Temperature 98.0 F 97.8 F Pulse Rate 82 87 76 Respiratory Rate 20 20 12 Blood Pressure 106/59 L 148/86 H Pulse Oximetry 94 L 93 L 95 05/12/18 08:00 Temperature 98.0 F Pulse Rate 74 Respiratory Rate 18 Blood Pressure 131/81 Pulse Oximetry 95 Intake & Output 05/11/18 05/12/18 05/12/18 18:59 06:59 18:59 Intake Total 2099 580 / 580 Output Total 500 / 500 Balance 2099 80 / 80 Weight 87.9 kg Intake: IV 2099 100 / 100 NS Inj 1,000 ML @ 100 mls/hr IV 1999 .CONT .Q10H [facility] Rx#:[id number] Maxipime Inj 1,000 MG In NS Inj 100 / 100 100 / 100 100 ML @ 200 mls/hr IV.SIG Q12H [facility] Rx#:[id number] Oral 0 / 0 480 / 480 Output: Urine 500 / 500 Other: # Voids 2 Date of Last Bowel Movement 05/10/18 # Bowel Movements 0 0 Narrative: GENERAL: NAD, A&Ox3 HEAD: Normocephalic. NECK: Supple, trachea midline. No lymphadenopathy. EYES: No scleral icterus. No injection or drainage. CARDIOVASCULAR: Regular rate and rhythm without murmurs, gallops, or rubs. RESPIRATORY: Breath sounds equal bilaterally. No accessory muscle use. Right- sided chest tube in place. GASTROINTESTINAL: Abdomen soft, non-tender, nondistended. MUSCULOSKELETAL: No cyanosis, or edema. SKIN: Warm and dry. NEURO: No focal neurological deficits. Results - Labs CBC & Chem 7: 05/10/18 15:52 05/10/18 15:52 Microbiology 05/09/18 15:35 Sputum - Expectorated Sputum Gram Stain - Final 05/09/18 15:35 Sputum - Expectorated Sputum Sputum Culture - Final Heavy growth normal respiratory don 05/08/18 21:05 Blood - Peripheral Aerobic Blood Culture - Preliminary No growth in 4 days 05/08/18 21:05 Blood - Peripheral Anaerobic Blood Culture - Preliminary No growth in 4 days 05/08/18 21:00 Blood - Peripheral Aerobic Blood Culture - Preliminary No growth in 4 days 05/08/18 21:00 Blood - Peripheral Anaerobic Blood Culture - Preliminary No growth in 4 days - Imaging Impressions Chest Tube Insertion 05/11/18 00:00 CONCLUSION: 1. Uncomplicated right chest tube placement as above. Lung Biopsy CT 05/11/18 00:00 CONCLUSION: 1. Successful CT guided biopsy of right upper lobe mass. Chest X-Ray 05/11/18 16:57 CONCLUSION: Status post right lung biopsy with right pneumothorax and about 2.1 cm of pleural separation. Chest X-Ray 05/11/18 18:30 CONCLUSION: Increasing size right lateral pneumothorax without mediastinal shift. Chest X-Ray 05/11/18 19:32 CONCLUSION: Interval placement of chest catheter with complete reexpansion of the right lung. Assessment and Plan - Assessment (1) Acute on chronic respiratory failure with hypoxia Code(s): J96.21 - Acute and chronic respiratory failure with hypoxia Status: Acute (2) Healthcare-associated pneumonia Code(s): J18.9 - Pneumonia, unspecified organism Status: Acute (3) Hypoxia Code(s): R09.02 - Hypoxemia Status: Acute (4) Abnormal CT scan, lung Code(s): R91.8 - Other nonspecific abnormal finding of lung field Status: Acute - Plan 63-year-old male admitted secondary to pneumonia with COPD exacerbation, discovery of lung mass during workup. No pneumothorax present status post lung biopsy. Patient is status post chest tube placement. Acute pneumothorax, right Acquired during lung biopsy Chest tube is placed Pulmonology following Continue pain treatment Follow clinically Acute on chronic hypoxic respiratory failure Healthcare associated pneumonia Stabilized Continue oxygen supplementation as needed Continue duo nebs Continue IV steroids Pulmonology following Continue cefepime and Zithromax Lung mass Status post biopsy Follow pathology Chronic back pain Continue oxycodone Outpatient pain management Bipolar disorder Continue baseline treatment DVT prevention Heparin Discharge Planning: Charge pending removal of chest tube and resolution of pneumothorax
[2018-05-12] MEDS ORDERED: Morphine Inj 4 MG/ML Vial IV.PUSH ONE (15:56)
[2018-05-12] MEDS ORDERED: Morphine Inj 4 MG/ML Vial ONE (16:19)
--- NOTE | 2018-05-12 16:28 | XR ---
EXAM DATE: 05/12/2018 4:09 PM EDT AGE/SEX: 63 years / Male INDICATIONS: Pneumothorax, halicat. CLINICAL DATA: This is the patient's initial encounter. Patient reports that signs and symptoms have been present for 1 day and indicates a pain score of 10/10. MEDICAL/SURGICAL HISTORY: None. None. [place] [facility] [place]. . FINDINGS: A single AP view of the chest demonstrates interval removal of the right thoracostomy tube. There is recurrence of the right pneumothorax. This tracks along the lateral and upper aspects of the hemithor ax. Significant subcutaneous air is noted. No shift of the mediastinal structures observed. The heart is normal in size. CONCLUSION: Moderate sized recurrent right pneumothorax following right chest tube removal. Electronically signed by: Geronimo Richardson MD 05/12/2018 4:27 PM EDT
--- NOTE | 2018-05-12 16:42 | P.CONCC ---
History of Present Illness Service: Critical care medicine Consult date: 05/12/18 Requesting Physician: Adal Méndez Reason for Consult: Acute respiratory failure, symptomatic pneumothorax Primary Care Provider: No Primary Care Physician Family Provider: No Primary Care Physician Chief Complaint: Could not breathe, chest pain History of Present Illness: Patient is 63-year-old male with history of emphysema, COPD, chronic respiratory failure on oxygen, chronic back pain, bipolar disorder who recently moved to [place] from [place]. He presented to [facility] emergency department with shortness of breath, dyspnea, and hypoxia. Patient was admitted for acute COPD exacerbation and probable pneumonia. CTA chest done in emergency department showed right upper lobe nodularity, largest nodule 4 and 2.4 cm. Pulmonology was consulted and per pulmonology recommendation patient underwent CT-guided biopsy of the right upper lobe nodule by invasive radiology yesterday 05/11/2018. Postprocedure patient developed pneumothorax for which IR placed a 12 [place]oth[place] until chest tube, followed by near complete resolution of the pneumothorax. Patient was moved back to the floor after the procedure. Today patient was found in acute respiratory distress hypoxic tachycardic and severely tachypneic by the nurse, and the chest tube was found dislodged. A halicat was called and he was placed on 100% nonrebreather and was emergently moved to ICU. I met the patient in the ICU immediately. He was in severe distress there was extensive subcutaneous emphysema, also diminished air entry on the right side. Quick review of the chest x-ray showed large right-sided pneumothorax. I emergently place a right-sided chest tube with improvement in his symptoms Review of Systems other (Unable to obtain due to respiratory distress) PMFSH - History History Provided By: Patient - Medical History Medical History: Medical History (Last Reviewed 05/11/18 @ 09:11 by Dianne Ambrosio) Chronic back pain History of COPD History of pneumonia Hx of emphysema - Surgical History Surgical History: Surgical History (Last Reviewed 05/11/18 @ 09:11 by Dianne Ambrosio) Hx of appendectomy Hx of oral surgery S/P epidural steroid injection - Family History Family History: Family History (Last Updated 05/09/18 @ 10:53 by MARY JO Pierre) Father History of emphysema Sister History of cancer Mother History of diabetes mellitus - Tobacco History Second Hand Smoke Exposure: No Tobacco Use In Past 30 Days: No Smoking Status: Former smoker Tobacco Type: Cigarettes - Alcohol History How Often Do You Have a Drink Containing Alcohol: Never - Substance Use History Substance History: No History of Abuse - Travel History Recent Travel in the [place] Within the Last 8 Weeks: No Recent Travel Out of the Country Within the Last 8 Weeks: No - Immunization History Tetanus Immunization: <5 Years Hx Influenza Vaccine This Season: Yes Medications and Allergies Active Medications: Active Medications Acetaminophen (Tylenol) 650 mg PO Q4H PRN PRN Reason: Temp > 100.4, pain 6-10 Last Admin: 05/11/18 14:03 Dose: 650 mg Al Hydroxide/Mg Hydroxide (Milk Of Vernon Matos) 30 ml PO Q12H PRN PRN Reason: Mild Constipation Albuterol (Duoneb Neb (Prn)) 1 ampul NEB Q2HR NEB PRN PRN Reason: SHORTNESS OF BREATH/WHEEZING Albuterol (Duoneb Neb (Gibran)) 1 ampul NEB Q6HR WHILE AWAKE NEB [facility] Last Admin: 05/12/18 12:59 Dose: Not Given Alprazolam (Xanax) 0.5 mg PO BID [facility] Last Admin: 05/12/18 09:45 Dose: 0.5 mg Atorvastatin Calcium (Lipitor) 10 mg PO DAILY [facility] Last Admin: 05/12/18 09:44 Dose: 10 mg Bisacodyl (Dulcolax Supp) 10 mg RECTAL DAILY PRN PRN Reason: SEVERE CONSITIPATION Budesonide/Formoterol Fumarate (Symbicort 160/4.5 Mcg Inh) 2 puff INH BID [facility] Last Admin: 05/12/18 09:52 Dose: 2 puff Buspirone HCl (Buspar) 10 mg PO BID [facility] Last Admin: 05/12/18 09:44 Dose: 10 mg Citalopram Hydrobromide (Celexa) 40 mg PO DAILY [facility] Last Admin: 05/12/18 09:44 Dose: 40 mg Divalproex Sodium (Depakote Er) 1,000 mg PO DAILY [facility] Last Admin: 05/12/18 09:44 Dose: 1,000 mg Fluticasone/Vilanterol (Breo Ellipta 100/25 Mcg Inh) 1 puff INH DAILY [facility] Last Admin: 05/12/18 09:53 Dose: 1 puff Gabapentin (Neurontin) 100 mg PO DAILY [facility] Last Admin: 05/12/18 09:45 Dose: 100 mg Guaifenesin (Mucinex Er) 600 mg PO BID [facility] Last Admin: 05/12/18 09:44 Dose: 600 mg Heparin Sodium (Porcine) (Heparin Inj) 5,000 units SQ Q12HR [facility] Last Admin: 05/10/18 21:28 Dose: Not Given Hydromorphone HCl (Dilaudid) 2 mg PO Q4H PRN PRN Reason: BREAKTHROUGH PAIN Last Admin: 05/12/18 15:27 Dose: 2 mg Sodium Chloride (Ns Inj) 1,000 mls @ 100 mls/hr IV.CONT .Q10H [facility] Last Admin: 05/11/18 22:51 Dose: 100 mls/hr Azithromycin 500 mg/ Sodium (Chloride) 250 mls @ 250 mls/hr IV.SIG Q24H [facility] Last Admin: 05/11/18 23:46 Dose: 250 mls/hr Cefepime HCl 1,000 mg/ Sodium (Chloride) 100 mls @ 200 mls/hr IV.SIG Q12H [facility] Last Admin: 05/12/18 09:45 Dose: 100 mls/hr Lactulose (Lactulose Liq) 30 ml PO DAILY PRN PRN Reason: SEVERE CONSITIPATION Methylprednisolone Sodium Succinate (Solumedrol Inj) 60 mg IV.PUSH Q6H [facility] Last Admin: 05/12/18 12:30 Dose: 60 mg Montelukast Sodium (Singulair) 10 mg PO DAILY@1800 [facility] Last Admin: 05/11/18 18:52 Dose: Not Given Ondansetron HCl (Zofran Inj) 4 mg IV.PUSH Q6H PRN PRN Reason: NAUSEA OR VOMITING Oxycodone HCl (Roxicodone) 5 mg PO Q4H PRN PRN Reason: Pain 3 to 6 Oxycodone HCl (Roxicodone) 10 mg PO Q4H PRN PRN Reason: Pain 7 to 10 Last Admin: 05/12/18 13:17 Dose: 10 mg Pantoprazole Sodium (Protonix) 40 mg PO DAILY [facility] Last Admin: 05/12/18 09:44 Dose: 40 mg Risperidone (Risperdal) 0.5 mg PO [facility] Last Admin: 05/11/18 22:09 Dose: 0.5 mg Senna/Docusate Sodium (Sisi-Colace) 1 tab PO BID [facility] Last Admin: 05/12/18 09:45 Dose: Not Given Sennosides (Senokot) 17.2 mg PO Q12H PRN PRN Reason: Moderate Constipation Temazepam (Restoril) 15 mg PO HS PRN PRN Reason: INSOMNIA Allergies Allergy/AdvReac Type Severity Reaction Status Date / Time No Known Allergies Allergy Mild unknown Uncoded 05/08/18 20:55 Home Medications Medication Instructions Recorded Confirmed Type albuterol sulfate 2.5 mg INHALATION QID 05/09/18 05/09/18 History alprazolam [Xanax] 0.5 mg PO BID 05/09/18 05/09/18 History atorvastatin [Lipitor] 10 mg PO DAILY 05/09/18 05/09/18 History buspirone 10 mg PO BID 05/09/18 05/09/18 History citalopram [Celexa] 40 mg PO DAILY 05/09/18 05/09/18 History divalproex [Depakote ER] 1,000 mg PO DAILY 05/09/18 05/09/18 History fluticasone-vilanterol [Breo 1 inh INHALATION DAILY 05/09/18 05/09/18 History Ellipta] gabapentin 100 mg PO DAILY 05/09/18 05/09/18 History montelukast [Singulair] 10 mg PO QPM 05/09/18 05/09/18 History oxycodone 5 mg PO BID 05/09/18 05/09/18 History pantoprazole [Protonix] 40 mg PO DAILY 05/09/18 05/09/18 History risperidone [Risperdal] 0.5 mg PO HS 05/09/18 05/09/18 History tiotropium bromide [Spiriva with 1 cap INHALATION DAILY 05/09/18 05/09/18 History HandiHaler] Physical Exam Vital signs: Vital Signs 05/11/18 17:15 05/11/18 17:38 05/11/18 17:42 Temperature 98 F Pulse Rate 105 H 101 H Respiratory Rate 24 20 Blood Pressure 169/89 H 169/89 H Pulse Oximetry 79 L 96 96 05/11/18 17:44 05/11/18 18:00 05/11/18 18:30 Temperature Pulse Rate 113 H 122 H Respiratory Rate 24 28 H Blood Pressure 155/97 H 175/122 H Pulse Oximetry 96 95 89 L 05/11/18 19:41 05/11/18 19:45 05/11/18 20:00 Temperature 98.5 F 98.5 F 98.1 F Pulse Rate 100 H 101 H 81 Respiratory Rate 16 16 20 Blood Pressure 128/83 128/83 121/81 Pulse Oximetry 98 98 94 L 05/11/18 20:30 05/11/18 21:00 05/11/18 21:16 Temperature 98.5 F 98.5 F 98.7 F Pulse Rate 80 77 77 Respiratory Rate 16 16 14 Blood Pressure 97/61 L 100/64 100/64 Pulse Oximetry 97 96 96 05/12/18 00:00 05/12/18 04:00 05/12/18 07:47 Temperature 98.0 F 97.8 F Pulse Rate 82 87 76 Respiratory Rate 20 20 12 Blood Pressure 106/59 L 148/86 H Pulse Oximetry 94 L 93 L 95 05/12/18 08:00 Temperature 98.0 F Pulse Rate 74 Respiratory Rate 18 Blood Pressure 131/81 Pulse Oximetry 95 Intake & Output 05/11/18 05/12/18 05/12/18 18:59 06:59 18:59 Intake Total 2099 / 2100 580 / 580 Output Total 500 / 500 Balance 2099 / 2100 80 / 80 Weight 87.9 kg Intake: IV 2099 / 2100 100 / 100 NS Inj 1,000 ML @ 100 mls/hr IV 1999 / 1999 .CONT .Q10H [facility] Rx#:[id number] Maxipime Inj 1,000 MG In NS Inj 100 / 100 100 / 100 100 ML @ 200 mls/hr IV.SIG Q12H [facility] Rx#:[id number] Oral 0 / 0 480 / 480 Output: Urine 500 / 500 Other: # Voids 2 Date of Last Bowel Movement 05/10/18 05/10/18 # Bowel Movements 0 0 Narrative: GENERAL: Lying in bed in severe distress tachypneic tachycardic. Currently on 100% nonrebreather HEAD: Normocephalic. Atraumatic NECK: Supple, trachea midline. No lymphadenopathy. EYES: No scleral icterus. No injection or drainage. CARDIOVASCULAR: Tachycardic rate and rhythm without murmurs, gallops, or rubs. RESPIRATORY: Patient is severely tachypneic diminished air entry bilaterally predominantly decreased in right side. Significant subcutaneous emphysema over the right anterior chest and right lateral chest. Dressing placed to the right anterior upper chest GASTROINTESTINAL: Abdomen soft, non-tender, nondistended. MUSCULOSKELETAL: No cyanosis, or edema. NEURO: Patient is lying in bed in severe distress. Able to move all extremities. Exam limited due to clinical condition Septic Shock Reassessment Septic shock perfusion: reassessment completed Assessment and Plan - Problem List (1) Acute on chronic respiratory failure with hypoxia Code(s): J96.21 - Acute and chronic respiratory failure with hypoxia Status: Acute (2) Healthcare-associated pneumonia Code(s): J18.9 - Pneumonia, unspecified organism Status: Acute (3) Hypoxia Code(s): R09.02 - Hypoxemia Status: Acute (4) Abnormal CT scan, lung Code(s): R91.8 - Other nonspecific abnormal finding of lung field Status: Acute - Assessment and Plan Plan: ASSESSMENT: Acute on chronic hypoxemic respiratory failure Large right-sided symptomatic pneumothorax Accidental dislodgment of the previous chest tube Acute COPD exacerbation Status post lung biopsy for right upper lobe mass Status post chest tube for pneumothorax following lung biopsy Chronic low back pain COPD on home oxygen PLAN: NEURO: -Continue oxycodone for pain, Dilaudid for breakthrough pain RESP: -Patient developed acute respiratory distress secondary to dislodgment of the chest tube and recurrence of large pneumothorax -I emergently placed right-sided 10 F pigtail chest tube with improvement in symptoms and near complete resolution of the pneumothorax -Continue DuoNeb every 6 hours scheduled and as needed -Continue IV Solu-Medrol 60 mg every 6 hours -Continue Breo Ellipta and Singulair -Continue azithromycin, increase cefepime to 2 g IV every 8 hours for antipseudomonal coverage -Follow-up on lung biopsy -Pulmonology following Dr. Mccormick CV: -Monitor heart rate and blood pressure closely GI: -Regular diet : -Monitor renal function closely ID: -Antibiotics cefepime and azithromycin. Cefepime increased to 2 g IV every 8 hours -Follow on sputum culture HEME: -Monitor CBC, coags ENDO: -Electrolyte replacement per protocol -Sliding scale insulin PROPH: -Bilateral lower extremity SCDs. Subcu heparin on hold for 24 hours in anticipation of invasive procedures LINES: -Utilize peripheral IVs CC time 37 min, excluding procedures Code Status: Full Discussed Condition With: Dr. Méndez, bedside RN
--- NOTE | 2018-05-12 16:59 | XR ---
EXAM DATE: 05/12/2018 4:56 PM EDT AGE/SEX: 63 years / Male INDICATIONS: Post chest tube placement right chest CLINICAL DATA: This is the patient's subsequent encounter. Patient reports that signs and symptoms h ave been present for 1 day and indicates a pain score of Nonresponsive. MEDICAL/SURGICAL HISTORY: . right side pneumothorax Chest tube, right. COMPARISON: [facility], CHEST 1V SINGLE AP, 05/12/2018. . FINDINGS: Small caliber right-sided chest tube is present. Previous pneumothorax has nearly completely resolved . Subcutaneous air present predominantly on the right. Mild basilar atelectasis. CONCLUSION: Near-complete resolution of right pneumothorax with placement of a small-caliber right chest tube. Torres bcutaneous air present in the right chest wall extending into the neck bilaterally and onto the left side as well. Electronically signed by: Juan Caicedo MD 05/12/2018 4:58 PM EDT
[2018-05-12] MEDS: Sod Chloride 0.9% Inj 1,000 ML IV.CONT SCH (17:04)
[2018-05-12] MEDS: Montelukast 10 MG Tablet PO SCH (17:08)
--- NOTE | 2018-05-12 17:13 | P.PCN ---
Date of procedure: 05/12/18 Pre-op diagnosis: Respiratory failure, large right-sided pneumothorax Post-op diagnosis: same Procedure: Right-sided pigtail chest tube placement A time-out was completed verifying correct patient, procedure, site, positioning , and special equipment if applicable. The patient was positioned appropriately for right chest tube placement. The patients right chest was prepped and draped in sterile fashion. 1% Lidocaine was used to anesthetize the surrounding skin area. A 0.5 cm skin incision was made in the mid-axillary line at the inframammary crease. 18-gauge access needle was introduced into the pleural space over the inferior rib, and air was obtained. Syringe was removed and there was a figueroa of air following which a guidewire was placed. Tract was dilated with a 7 Czech dilator which was then removed. A 10 Czech pigtail chest tube was placed over the guidewire using Seldinger technique following which the guidewire and the internal stiffener was removed. The chest tube was sutured securely to the skin and a also secured with stay-fix dressing. A pleurevac was attached to the chest tube and placed on -40 suction and a chest x -ray obtained. Chest x-ray showed near complete resolution of the right pneumothorax. Anesthesia: regional Surgeon: Yolis Alves Estimated blood loss (mL): 1 Pathology: none sent Condition: critical Disposition: ICU
--- NOTE | 2018-05-12 19:22 | P.PNPL ---
Subjective Interval history: 63 YOWM with COPD,Hypoxia, Ch resp insuff, Moved fr[place], did't bring his 02 CT chest lung density Had CT guided rt lung bx Chest tube to Suction has air leak Physical Exam Vital signs: Vital Signs 05/11/18 19:41 05/11/18 19:45 05/11/18 20:00 Temperature 98.5 F 98.5 F 98.1 F Pulse Rate 100 H 101 H 81 Respiratory Rate 16 16 20 Blood Pressure 128/83 128/83 121/81 Pulse Oximetry 98 98 94 L 05/11/18 20:30 05/11/18 21:00 05/11/18 21:16 Temperature 98.5 F 98.5 F 98.7 F Pulse Rate 80 77 77 Respiratory Rate 16 16 14 Blood Pressure 97/61 L 100/64 100/64 Pulse Oximetry 97 96 96 05/12/18 00:00 05/12/18 04:00 05/12/18 07:47 Temperature 98.0 F 97.8 F Pulse Rate 82 87 76 Respiratory Rate 20 20 12 Blood Pressure 106/59 L 148/86 H Pulse Oximetry 94 L 93 L 95 05/12/18 08:00 05/12/18 17:02 Temperature 98.0 F Pulse Rate 74 Respiratory Rate 18 Blood Pressure 131/81 Pulse Oximetry 95 100 Intake & Output 05/12/18 05/12/18 05/13/18 06:59 18:59 06:59 Intake Total 580 / 580 1000 / 1000 Output Total 500 / 500 Balance 80 / 80 1000 / 1000 Weight 87.9 kg Intake: IV 100 / 100 1000 / 1000 NS Inj 1,000 ML @ 100 mls/hr IV 1000 / 1000 .CONT .Q10H [facility] Rx#:[id number] Maxipime Inj 1,000 MG In NS Inj 100 / 100 100 ML @ 200 mls/hr IV.SIG Q12H [facility] Rx#:[id number] Oral 480 / 480 Output: Urine 500 / 500 Other: Date of Last Bowel Movement 05/10/18 # Bowel Movements 0 GENERAL: MBMN WF, mild sob SKIN: Warm and dry. HEAD: Normocephalic. EYES: No scleral icterus. No injection or drainage. NECK: Supple, trachea midline. No JVD or lymphadenopathy. CARDIOVASCULAR: Regular rate and rhythm without murmurs, gallops, or rubs. RESPIRATORY: Breath sounds equal bilaterally. No accessory muscle use. Chest tube, has airleak. GASTROINTESTINAL: Abdomen soft, non-tender, nondistended. MUSCULOSKELETAL: No cyanosis, or edema. BACK: Nontender without obvious deformity. No CVA tenderness. Assessment and Plan - Plan IMPRESSION: 1. Chronic obstructive pulmonary disease with mild exacerbation. 2. Bronchiectasis. 3. 4 x 0.5 cm right upper lobe density, also has additional smaller density in the right upper lobe concerning for malignancy or infection. 4. Nicotine use. 5. Chronic respiratory insufficiency. 6. Bipolar disorder. PLAN: Aerosol nebs Supplement 02 IV Solumedrol Cont Abx Chest tube to suction
[2018-05-12] MEDS: Azithromycin Inj 500 MG in Sodium Chlor 0.9% Inj 250 ML IV.SIG SCH (23:52)
[2018-05-13] MEDS: Sod Chloride 0.9% Inj 1,000 ML IV.CONT SCH (01:41)
[2018-05-13 05:10] LABS: Hemoglobin 11.4 gm/dL (13.0-17.0); Lymph # (Auto) 0.3 th/mm3 (1.0-4.8); Lymph % (Auto) 3.3 % (9.0-44.0); Mean Corpuscular HGB Conc 33.7 % (32.0-36.0); Mean Corpuscular Hemoglobin 31.3 pg (27.0-34.0); Mean Corpuscular Volume 93.1 fL (80.0-100.0); Mono # (Auto) 0.7 th/mm3 (0.0-0.9); Mono % (Auto) 7.3 % (0.0-8.0); Neut # (Auto) 8.9 th/mm3 (1.8-7.7); Neut % (Auto) 89.4 % (16.0-70.0); Platelet Count 110 th/mm3 (150-450); Red Blood Count 3.65 mil/mm3 (4.50-5.90); Red Cell Distribution Width 15.3 % (11.6-17.2); White Blood Count 9.9 th/mm3 (4.0-11.0)
[2018-05-13] MEDS: MethylPREDNISolone Sod Succinate Inj 125 MG/2 ML Vial IV.PUSH SCH ×4 (05:12→23:30)
[2018-05-13 05:34] LABS: Albumin 2.6 g/dL (3.4-5.0); Anion Gap 5 meq/L (5-15); Aspartate Aminotransferase 35 U/L (15-37); Blood Urea Nitrogen 26 mg/dL (7-18); Calcium 7.6 mg/dL (8.5-10.1); Carbon Dioxide 36.2 meq/L (21.0-32.0); Chloride 106 meq/L (98-107); Glomerular Filtration Rate Greater Than 89 mL/min (>89); Glucose,Random 133 mg/dL (74-106); Potassium 4.7 meq/L (3.5-5.1); Sodium 147 meq/L (136-145)
[2018-05-13 05:36] LABS: Alanine Aminotransferase 62 U/L (12-78)
[2018-05-13 05:37] LABS: Alkaline Phosphatase 84 U/L (45-117); Total Protein 6.2 g/dL (6.4-8.2)
--- NOTE | 2018-05-13 06:36 | XR ---
EXAM DATE: 05/13/2018 6:32 AM EDT AGE/SEX: 63 years / Male INDICATIONS: Shortness of breath. CLINICAL DATA: This is the patient's subsequent encounter. Patient reports that signs and symptoms h ave been present for 2 days and indicates a pain score of Nonresponsive. MEDICAL/SURGICAL HISTORY: . Right pneumothorax. . Right chest tube. COMPARISON: [facility] – [place], CHEST 1V SINGLE AP, 05/12/2018. . FINDINGS: There is extensive subcutaneous emphysema over the chest and neck, patchy right basilar airspace dise ase, and focal parenchymal density at the right apex again seen. I do not see a pneumothorax. Cardiac and mediastinal contours are stable. CONCLUSION: Stable examination. Electronically signed by: Adrian Hendrix MD 05/13/2018 6:35 AM EDT
[2018-05-13] MEDS: ALPRAZolam 0.5 MG Tablet PO SCH ×2 (08:58→20:38)
[2018-05-13] MEDS: guaiFENesin 600 MG ER Tablet PO SCH ×2 (08:58→20:38)
[2018-05-13] MEDS: Divalproex 500 MG ER Tablet PO SCH (08:58)
[2018-05-13] MEDS: Gabapentin 100 MG Capsule PO SCH (08:58)
[2018-05-13] MEDS: Senna/Docusate Sodium 8.6/50 MG Tablet PO SCH ×2 (09:00→20:38)
[2018-05-13] MEDS: Budesonide-Formoterol 160/4.5 MCG 6 GM Inhaler INH SCH ×2 (09:01→20:38)
--- NOTE | 2018-05-13 10:31 | P.PNIM ---
Subjective Interval history: Chest tube dislodge yesterday. Patient entered respiratory distress secondary to this. 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 Patient has been doing well since this time. Oxygen levels are stabilized. Pain is under control. Physical Exam Vital signs: Vital Signs 05/12/18 17:02 05/12/18 18:00 05/12/18 20:00 Temperature 97.9 F Pulse Rate 112 H Respiratory Rate 13 Blood Pressure 116/75 Pulse Oximetry 100 98 93 L 05/13/18 00:00 05/13/18 04:00 05/13/18 08:24 Temperature 98.7 F 98.9 F Pulse Rate 90 82 Respiratory Rate 26 H 13 Blood Pressure 127/77 95/59 L Pulse Oximetry 93 L 98 96 05/13/18 08:26 Temperature Pulse Rate 84 Respiratory Rate 18 Blood Pressure Pulse Oximetry Intake & Output 05/12/18 05/13/18 05/13/18 18:59 06:59 18:59 Intake Total 1540 / 1540 1100 / 1100 Output Total 425 / 425 600 / 600 Balance 1115 / 1115 500 / 500 Weight 93.8 kg Intake: IV 1100 / 1100 1100 / 1100 NS Inj 1,000 ML @ 100 mls/hr IV 1000 / 1000 1000 / 1000 .CONT .Q10H TAIWO Rx#:[id number] Maxipime Inj 2,000 MG In NS Inj 100 / 100 100 / 100 100 ML @ 200 mls/hr IV.SIG Q8H TAIWO Rx#:[id number] Oral 440 / 440 Output: Urine 425 / 425 600 / 600 Other: Date of Last Bowel Movement 05/10/18 05/12/18 05/12/18 # Bowel Movements 0 Narrative: GENERAL: NAD, A&Ox2 HEAD: Normocephalic. NECK: Supple, trachea midline. No lymphadenopathy. EYES: No scleral icterus. No injection or drainage. CARDIOVASCULAR: Regular rate and rhythm without murmurs, gallops, or rubs. RESPIRATORY: Breath sounds equal bilaterally. No accessory muscle use. Right- sided chest tube in place. GASTROINTESTINAL: Abdomen soft, non-tender, nondistended. MUSCULOSKELETAL: No cyanosis, or edema. SKIN: Warm and dry. NEURO: No focal neurological deficits. Results - Labs CBC & Chem 7: 05/13/18 04:27 05/13/18 04:27 Laboratory Results - last 24 hr 05/13/18 05/13/18 04:27 04:27 WBC 9.9 RBC 3.65 L Hgb 11.4 L Hct 34.0 L MCV 93.1 MCH 31.3 MCHC 33.7 RDW 15.3 Plt Count 110 L MPV 10.0 Neut % (Auto) 89.4 H Lymph % (Auto) 3.3 L [place] % (Auto) 7.3 Eos % (Auto) 0.0 Baso % (Auto) 0.0 Neut # (Auto) 8.9 H Lymph # (Auto) 0.3 L [place] # (Auto) 0.7 Eos # (Auto) 0.0 Baso # (Auto) 0.0 WBC Differential . Differential Comment Auto diff final Sodium 147 H Potassium 4.7 Chloride 106 Carbon Dioxide 36.2 H Anion Gap 5 BUN 26 H Creatinine 0.68 Estimated GFR Greater than 89 Random Glucose 133 H Calcium 7.6 L Total Bilirubin 0.3 AST 35 ALT 62 Alkaline Phosphatase 84 Total Protein 6.2 L D Albumin 2.6 L Microbiology 05/09/18 15:35 Sputum - Expectorated Sputum Gram Stain - Final 05/09/18 15:35 Sputum - Expectorated Sputum Sputum Culture - Final Heavy growth normal respiratory don 05/08/18 21:05 Blood - Peripheral Aerobic Blood Culture - Preliminary No growth in 4 days 05/08/18 21:05 Blood - Peripheral Anaerobic Blood Culture - Preliminary No growth in 4 days 05/08/18 21:00 Blood - Peripheral Aerobic Blood Culture - Preliminary No growth in 4 days 05/08/18 21:00 Blood - Peripheral Anaerobic Blood Culture - Preliminary No growth in 4 days - Imaging Impressions Chest X-Ray 05/12/18 00:00 CONCLUSION: Moderate sized recurrent right pneumothorax following right chest tube removal. Chest X-Ray 05/12/18 16:26 CONCLUSION: Near-complete resolution of right pneumothorax with placement of a small- caliber right chest tube. Subcutaneous air present in the right chest wall extending into the neck bilaterally and onto the left side as well. Chest X-Ray 05/13/18 06:00 CONCLUSION: Stable examination. Assessment and Plan - Assessment (1) Acute on chronic respiratory failure with hypoxia Code(s): J96.21 - Acute and chronic respiratory failure with hypoxia Status: Acute (2) Healthcare-associated pneumonia Code(s): J18.9 - Pneumonia, unspecified organism Status: Acute (3) Hypoxia Code(s): R09.02 - Hypoxemia Status: Acute (4) Abnormal CT scan, lung Code(s): R91.8 - Other nonspecific abnormal finding of lung field Status: Acute - Plan 63-year-old male admitted secondary to pneumonia with COPD exacerbation, discovery of lung mass during workup. No pneumothorax present status post lung biopsy. Patient is status post repeat chest tube placement. Improved today with replacement chesty. Continue monitoring respiratory status. Continue antibiotics. Follow for pathology. Transfer out of ICU. Acute pneumothorax, right Acquired during lung biopsy Chest tube is placed Pulmonology following Continue pain treatment Follow clinically Acute on chronic hypoxic respiratory failure Healthcare associated pneumonia Stabilized Continue oxygen supplementation as needed Continue duo nebs Continue IV steroids Pulmonology following Continue cefepime and Zithromax Lung mass Status post biopsy Follow pathology Chronic back pain Continue oxycodone Outpatient pain management Bipolar disorder Continue baseline treatment DVT prevention Heparin Discharge Planning: Charge pending removal of chest tube and resolution of pneumothorax
[2018-05-13] MEDS: Azithromycin 250 MG Tablet PO SCH (13:23)
[2018-05-13] MEDS: Montelukast 10 MG Tablet PO SCH (18:02)
--- NOTE | 2018-05-13 18:33 | P.PNPL ---
Subjective Interval history: 63 YOWM with COPD,Hypoxia, Ch resp insuff, Moved fron [place], did't bring his 02 CT chest lung density Had CT guided rt lung bx Chest tube fell off, developed sob Tr to ISC New chest tube placed with reolution of ptx Path no malig, A rare AFB seen Physical Exam Vital signs: Vital Signs 05/12/18 20:00 05/13/18 00:00 05/13/18 04:00 Temperature 97.9 F 98.7 F 98.9 F Pulse Rate 112 H 90 82 Respiratory Rate 13 26 H 13 Blood Pressure 116/75 127/77 95/59 L Pulse Oximetry 93 L 93 L 98 05/13/18 08:00 05/13/18 08:24 05/13/18 08:26 Temperature 98 F Pulse Rate 90 84 Respiratory Rate 12 18 Blood Pressure 110/80 Pulse Oximetry 95 96 05/13/18 12:00 05/13/18 14:21 05/13/18 16:00 Temperature 98.2 F 98.3 F Pulse Rate 78 91 H 80 Respiratory Rate 11 L 14 20 Blood Pressure 119/76 119/74 Pulse Oximetry 96 98 Intake & Output 05/12/18 05/13/18 05/13/18 18:59 06:59 18:59 Intake Total 1540 / 1540 1100 / 1100 1820 / 1820 Output Total 425 / 425 600 / 600 1250 / 1250 Balance 1115 / 1115 500 / 500 570 / 570 Weight 93.8 kg Intake: IV 1100 / 1100 1100 / 1100 1100 / 1100 NS Inj 1,000 ML @ 100 mls/hr IV 1000 / 1000 1000 / 1000 1000 / 1000 .CONT .Q10H TAIWO Rx#:[id number] Maxipime Inj 2,000 MG In NS Inj 100 / 100 100 / 100 100 / 100 100 ML @ 200 mls/hr IV.SIG Q8H TAIWO Rx#:[id number] Oral 440 / 440 720 / 720 Output: Urine 425 / 425 600 / 600 1250 / 1250 Other: # Voids 0 Date of Last Bowel Movement 05/10/18 05/12/18 05/12/18 # Bowel Movements 0 0 GENERAL: MBMN NAD SKIN: Warm and dry. HEAD: Normocephalic. EYES: No scleral icterus. No injection or drainage. NECK: Supple, trachea midline. No JVD or lymphadenopathy. CARDIOVASCULAR: Regular rate and rhythm without murmurs, gallops, or rubs. RESPIRATORY: Breath sounds equal bilaterally. No accessory muscle use. Rt chest tube small airleak GASTROINTESTINAL: Abdomen soft, non-tender, nondistended. MUSCULOSKELETAL: No cyanosis, or edema. BACK: Nontender without obvious deformity. No CVA tenderness. Assessment and Plan - Plan IMPRESSION: 1. Chronic obstructive pulmonary disease with mild exacerbation. 2. Bronchiectasis. 3. 4 x 0.5 cm right upper lobe density, also has additional smaller density in the right upper lobe concerning for malignancy or infection. 4. Nicotine use. 5. Chronic respiratory insufficiency. 6. Bipolar disorder. PLAN: Aerosol nebs Supplement 02 IV Solumedrol Cont Abx Chest tube to suction Will consult ID for AFB in bx Sputum for AFB X 3
--- NOTE | 2018-05-13 22:37 | ECG ---
Date Performed: 05/12/2018 Time Performed: 15:58:48 PTAGE: 63 years EKG: Sinus rhythm Right bundle branch block Abnormal ECG PREVIOUS TRACING : 05/08/2018 20.58 Compared to previous tracing, RBBB IS NEW DOCTOR: Girish Reyes Interpretating Date/Time 05/13/2018 22:34:28
[2018-05-14] MEDS: MethylPREDNISolone Sod Succinate Inj 125 MG/2 ML Vial IV.PUSH SCH ×4 (06:48→23:33)
--- NOTE | 2018-05-14 08:30 | P.PN ---
Subjective Interval history: F/u PTX Physical Exam Vital signs: Vital Signs 05/13/18 08:26 05/13/18 12:00 05/13/18 14:21 Temperature 98.2 F Pulse Rate 84 78 91 H Respiratory Rate 18 11 L 14 Blood Pressure 119/76 Pulse Oximetry 96 05/13/18 16:00 05/13/18 20:00 05/13/18 20:31 Temperature 98.3 F 98.5 F Pulse Rate 80 80 80 Respiratory Rate 20 16 16 Blood Pressure 119/74 138/85 Pulse Oximetry 98 97 05/13/18 20:34 05/14/18 00:02 05/14/18 04:23 Temperature 99.0 F 98.2 F Pulse Rate 78 77 Respiratory Rate 18 18 Blood Pressure 135/81 135/82 Pulse Oximetry 97 95 98 05/14/18 07:38 Temperature Pulse Rate 97 H Respiratory Rate 16 Blood Pressure Pulse Oximetry 94 L Intake & Output 05/13/18 05/14/18 05/14/18 18:59 06:59 18:59 Intake Total 1920 / 1920 760 / 760 100 / 100 Output Total 1250 / 1250 1120 / 1120 Balance 670 / 670 -360 / -360 100 / 100 Weight 93 kg Intake: IV 1200 / 1200 100 / 100 NS Inj 1,000 ML @ 100 mls/hr IV 1000 / 1000 .CONT .Q10H TAIWO Rx#:[id number] Maxipime Inj 2,000 MG In NS Inj 200 / 200 100 / 100 100 ML @ 200 mls/hr IV.SIG Q8H TAIWO Rx#:[id number] Oral 720 / 720 760 / 760 Output: Urine 1250 / 1250 1000 / 1000 Chest Tube Drainage 120 / 120 Right Upper Mid-Axillary Chest 120 / 120 Other: # Voids 0 Date of Last Bowel Movement 05/12/18 # Bowel Movements 0 Narrative: GENERAL: NAD, A&Ox2 CARDIOVASCULAR: Regular rate and rhythm without murmurs, gallops, or rubs. RESPIRATORY: Breath sounds equal bilaterally. No accessory muscle use. Right- sided chest tube in place. GASTROINTESTINAL: Abdomen soft, non-tender, nondistended. MUSCULOSKELETAL: No cyanosis, or edema. SKIN: Warm and dry. NEURO: No focal neurological deficits. Results - Labs CBC & Chem 7: 05/13/18 04:27 05/13/18 04:27 Microbiology 05/08/18 21:05 Blood - Peripheral Aerobic Blood Culture - Final No growth in 5 days 05/08/18 21:05 Blood - Peripheral Anaerobic Blood Culture - Final No growth in 5 days 05/08/18 21:00 Blood - Peripheral Aerobic Blood Culture - Final No growth in 5 days 05/08/18 21:00 Blood - Peripheral Anaerobic Blood Culture - Final No growth in 5 days - Imaging ITS Impressions Chest CTA 05/08/18 21:52 CONCLUSION: 1. Clustered nodularity in the upper right lung with measurements given above. Primary differential diagnosis is infectious in nature. Cannot exclude malignancy. 2. Severe peribronchial thickening at the lung bases with cylindrical bronchiectasis and patchy airspace disease. 3. Moderate centrilobular emphysema. 4. No adenopathy. 5. Exam suboptimal for evaluation of pulmonary embolic disease. Consider further evaluation with VQ scan if pulmonary embolus is of clinical concern. Chest Tube Insertion 05/11/18 00:00 CONCLUSION: 1. Uncomplicated right chest tube placement as above. Lung Biopsy CT 05/11/18 00:00 CONCLUSION: 1. Successful CT guided biopsy of right upper lobe mass. Chest X-Ray 05/13/18 06:00 CONCLUSION: Stable examination. - Procedures Lung biopsy, right chest tube placement 2 Assessment and Plan - Assessment (1) Acute on chronic respiratory failure with hypoxia Code(s): J96.21 - Acute and chronic respiratory failure with hypoxia Status: Acute (2) Healthcare-associated pneumonia Code(s): J18.9 - Pneumonia, unspecified organism Status: Acute (3) Hypoxia Code(s): R09.02 - Hypoxemia Status: Acute (4) Abnormal CT scan, lung Code(s): R91.8 - Other nonspecific abnormal finding of lung field Status: Acute - Plan 63-year-old male admitted secondary to pneumonia with COPD exacerbation, discovery of lung mass during workup. No pneumothorax present status post lung biopsy. Patient is status post repeat chest tube placement. Acute pneumothorax, right Acquired during lung biopsy Chest tube is placed Pulmonology following Continue pain treatment Follow clinically Acute on chronic hypoxic respiratory failure Healthcare associated pneumonia Stabilized Continue oxygen supplementation as needed Continue duo nebs Continue IV steroids Pulmonology following +AFB on path no malignancy ID consulted Continue cefepime and Zithromax Lung mass Status post biopsy Follow pathology no cancer Chronic back pain Continue oxycodone Outpatient pain management Bipolar disorder Continue baseline treatment DVT prevention Heparin Discharge Planning: pending removal of chest tube and resolution of pneumothorax
[2018-05-14] MEDS: Azithromycin 250 MG Tablet PO SCH (08:35)
[2018-05-14] MEDS: Divalproex 500 MG ER Tablet PO SCH (08:35)
[2018-05-14] MEDS: ALPRAZolam 0.5 MG Tablet PO SCH (08:36)
[2018-05-14] MEDS: Gabapentin 100 MG Capsule PO SCH (08:36)
[2018-05-14] MEDS: guaiFENesin 600 MG ER Tablet PO SCH ×2 (08:37→20:59)
[2018-05-14] MEDS: Senna/Docusate Sodium 8.6/50 MG Tablet PO SCH ×2 (08:38→20:59)
[2018-05-14] MEDS: Budesonide-Formoterol 160/4.5 MCG 6 GM Inhaler INH SCH ×2 (08:38→20:58)
[2018-05-14] MEDS: Sod Chloride 0.9% Inj 1,000 ML IV.CONT SCH ×2 (08:39→10:58)
[2018-05-14] MEDS ORDERED: Midazolam Inj 5 MG/ML 1 ML Vial IV.PUSH ONE (09:04)
[2018-05-14] MEDS ORDERED: Etomidate Inj 40 MG/20 ML Vial IV.PUSH ONE (09:12)
[2018-05-14 09:24] LABS: ABG Base Excess 7.2 mmol/L (-2-2); ABG PO2 84 mmHg (61-120)
[2018-05-14 09:25] LABS: ABG PCO2 128 mmHg (38-42)
--- NOTE | 2018-05-14 09:25 | P.PNCC ---
Subjective Subjective Remarks/Hospital Course: Patient is 63-year-old male with history of emphysema, COPD, chronic respiratory failure on oxygen, chronic back pain, bipolar disorder who recently moved to [place] from [place]. He presented to [facility] emergency department with shortness of breath, dyspnea, and hypoxia. Patient was admitted for acute COPD exacerbation and probable pneumonia. CTA chest done in emergency department showed right upper lobe nodularity, largest nodule 4 and 2.4 cm. Pulmonology was consulted and per pulmonology recommendation patient underwent CT-guided biopsy of the right upper lobe nodule by invasive radiology yesterday 05/11/2018. Postprocedure patient developed pneumothorax for which IR placed a 12 Frisian until chest tube, followed by near complete resolution of the pneumothorax. Patient was moved back to the floor after the procedure. Today patient was found in acute respiratory distress hypoxic tachycardic and severely tachypneic by the nurse, and the chest tube was found dislodged. A halicat was called and he was placed on 100% nonrebreather and was emergently moved to ICU. I met the patient in the ICU immediately. He was in severe distress there was extensive subcutaneous emphysema, also diminished air entry on the right side. Quick review of the chest x-ray showed large right-sided pneumothorax. I emergently place a right-sided chest tube with improvement in his symptoms Critical care re consult note 05/14/18: Patient known to me. Patient had emergency chest tube placed on 05/12/2018 by myself, with resolution of the large right pneumothorax. He was seen by hospitalist yesterday and was transferred to the medical floor. Today I had a CAT was called as the patient was found unresponsive with a saturation of 52%. But the respiratory therapist about 30 minutes prior to this patient was AAO 3 talking to her while getting breathing treatment. I was immediately called to the bedside to evaluate. Patient remains unresponsive with bag and mask ventilation oxygen saturation gradually improved to mid 80s. Patient was emergently moved to the ICU. CXR is pending, chest tube appears to be functional with 1+ airleak. ABG showed severe hypercapnia acidemia and hypoxia. On 100% oxygen pH was 7.08 PCO2 128 PO2 84. Patient was emergently intubated and placed on mechanical ventilation. Brief exam showed severe expiratory wheezing. Objective Vital Signs / I&O: Vital Signs 05/13/18 12:00 05/13/18 14:21 05/13/18 16:00 Temperature 98.2 F 98.3 F Pulse Rate 78 91 H 80 Respiratory Rate 11 L 14 20 Blood Pressure 119/76 119/74 Pulse Oximetry 96 98 05/13/18 20:00 05/13/18 20:31 05/13/18 20:34 Temperature 98.5 F Pulse Rate 80 80 Respiratory Rate 16 16 Blood Pressure 138/85 Pulse Oximetry 97 97 05/14/18 00:02 05/14/18 04:23 05/14/18 07:38 Temperature 99.0 F 98.2 F Pulse Rate 78 77 97 H Respiratory Rate 18 18 16 Blood Pressure 135/81 135/82 Pulse Oximetry 95 98 94 L Intake & Output 05/13/18 05/14/18 05/14/18 18:59 06:59 18:59 Intake Total 1920 / 1920 760 / 760 100 / 100 Output Total 1250 / 1250 1120 / 1120 Balance 670 / 670 -360 / -360 100 / 100 Weight 93 kg Intake: IV 1200 / 1200 100 / 100 NS Inj 1,000 ML @ 100 mls/hr IV 1000 / 1000 .CONT .Q10H TAIWO Rx#:[id number] Maxipime Inj 2,000 MG In NS Inj 200 / 200 100 / 100 100 ML @ 200 mls/hr IV.SIG Q8H TAIWO Rx#:[id number] Oral 720 / 720 760 / 760 Output: Urine 1250 / 1250 1000 / 1000 Chest Tube Drainage 120 / 120 Right Upper Mid-Axillary Chest 120 / 120 Other: # Voids 0 Date of Last Bowel Movement 05/12/18 # Bowel Movements 0 Result Diagrams: 05/14/18 09:30 05/14/18 09:30 Objective Remarks: GENERAL: Lying in bed in unresponsive severe respiratory distress audible wheezes.. Currently receiving bag and mask ventilation HEAD: Normocephalic. ENT: Bag and mask ventilation limits exam NECK: Supple, trachea midline. EYES: Pupils reactive CARDIOVASCULAR: Tachycardic rate and rhythm, hypertensive RESPIRATORY: Patient is unresponsive receiving bag and mask ventilation, few agonal breaths. Audible expiratory wheezing. Significant subcutaneous emphysema. Right chest tube in place with 1+ airleak GASTROINTESTINAL: Abdomen soft, non-tender, nondistended. MUSCULOSKELETAL: No cyanosis, or edema. NEURO: Unresponsive intermittently opens eyes, no spontaneous movements Assessment and Plan - Problem List (1) Acute on chronic respiratory failure with hypoxia Code(s): J96.21 - Acute and chronic respiratory failure with hypoxia Status: Acute (2) Healthcare-associated pneumonia Code(s): J18.9 - Pneumonia, unspecified organism Status: Acute (3) Hypoxia Code(s): R09.02 - Hypoxemia Status: Acute (4) Abnormal CT scan, lung Code(s): R91.8 - Other nonspecific abnormal finding of lung field Status: Acute - Assessment and Plan Plan: ASSESSMENT: Acute respiratory arrest Altered mental status/unresponsiveness due to severe hypercapnia Acute on chronic hypoxemic, hypercapnic respiratory failure Acute COPD exacerbation Right sided pneumothorax following lung biopsy, recurrent Status post lung biopsy for right upper lobe mass Status post chest tube for pneumothorax following lung biopsy Dislodgment on IR chest tube requiring emergency repeat chest tube placement 05/12 Chronic low back pain COPD on home oxygen/emphysema PLAN: NEURO: -Acute change in mental status secondary to severe hypercapnia -Propofol and fentanyl for sedation and vent synchrony -Continue PRN oxycodone, Dilaudid for breakthrough pain -Hold buspirone, Celexa, Xanax. Continue divalproex RESP: -Emergently intubated and placed on mechanical ventilation for severe hypercapnic and hypoxemic respiratory failure -Postprocedure chest x-ray pending -Increase DuoNeb to every 4 hours scheduled and as needed -Solu-Medrol 125 mg IV 1 continue Solu-Medrol 60 mg q 6 hours -Continue broad-spectrum antibiotics with cefepime and azithromycin. Patient is being ruled out for tuberculosis -On 05/12/18 patient had developed acute respiratory distress secondary to dislodgment of the chest tube and recurrence of large pneumothorax -I emergently placed right-sided 10 F pigtail chest tube with improvement in symptoms and near complete resolution of the pneumothorax -Continue Singulair -Pulmonology following Dr. Mccormick -Daily spontaneous breathing trials starting in 24 hours -Post intubation CXR showed moderate sized right pneumothorax plan for large bore chest tube CV: -Monitor heart rate and blood pressure closely -Normal saline at 100 mL/h GI: -N.p.o., IV famotidine : -Monitor renal function closely ID: -Antibiotics cefepime and azithromycin. -Follow on sputum culture. AFB to rule TB HEME: -Monitor CBC, coags ENDO: -Electrolyte replacement per protocol -Sliding scale insulin PROPH: -Bilateral lower extremity SCDs. Subcu heparin on hold for additional 24 hours in anticipation of invasive procedures LINES: -Utilize peripheral IVs CC time 55 min, excluding procedures Code Status: Full
[2018-05-14] MEDS ORDERED: MethylPREDNISolone Sod Succinate Inj 125 MG/2 ML Vial IV.PUSH ONE (09:37)
--- NOTE | 2018-05-14 09:54 | P.PCN ---
Date of procedure: 05/14/18 Pre-op diagnosis: Acute hypoxemic and hypercarbic respiratory failure Post-op diagnosis: same Procedure: Emergency endotracheal intubation Patient severely hypoxemic, and developed respiratory arrest. I was emergently called to the bedside. Currently on 100% oxygen saturation 85%, getting bag and mask ventilation, remains unresponsive. Rapid sequence intubation was initiated. Patient was appropriately positioned and was administered etomidate 20 mg IV, Versed 5 mg IV, rocuronium 50 mg IV. I entered the oropharynx with direct laryngoscopy MAC 4 blade and obtained a grade 1 view. Patient was intubated with an 8.0 ET tube on single attempt. ET tube placement confirmed by directly visualizing the tube passing through the vocal cords, air entry equal bilaterally and, end-tidal CO2 color change. Patient tolerated procedure well. Postprocedure chest x-ray is pending at this time Anesthesia: CONCHITAA Surgeon: Yolis Alves Estimated blood loss (mL): 0 Pathology: other Condition: critical Disposition: ICU
[2018-05-14] MEDS: fentaNYL 10 mcg/mL Premix Drip 2,500 MCG/250 ML BAG IV.SIG PRN (10:00)
[2018-05-14 10:02] LABS: Hemoglobin 12.5 gm/dL (13.0-17.0); Lymph # (Auto) 0.7 th/mm3 (1.0-4.8); Lymph % (Auto) 4.1 % (9.0-44.0); Mean Corpuscular Volume 94.1 fL (80.0-100.0); Mono % (Auto) 6.2 % (0.0-8.0); Neut # (Auto) 14.7 th/mm3 (1.8-7.7); Neut % (Auto) 89.7 % (16.0-70.0); Platelet Count 177 th/mm3 (150-450); Red Blood Count 4.04 mil/mm3 (4.50-5.90); Red Cell Distribution Width 15.5 % (11.6-17.2); White Blood Count 16.3 th/mm3 (4.0-11.0)
--- NOTE | 2018-05-14 10:06 | XR ---
EXAM DATE: 05/14/2018 9:59 AM EDT AGE/SEX: 63 years / Male INDICATIONS: Respiratory distress. CLINICAL DATA: This is the patient's subsequent encounter. Patient reports that signs and symptoms h ave been present for 3 days and indicates a pain score of Nonresponsive. MEDICAL/SURGICAL HISTORY: . Right pneumothorax. . Right chest tube. COMPARISON: [facility], CHEST 1V SINGLE AP, 05/13/2018. . FINDINGS: Right chest tube backed out and some of the sideholes are probably outside of the thoracic cavity. A small to moderate pneumothorax is seen at the right lung base. Slight mediastinal shift to the left. Right chest wall emphysema again noted. Endotracheal tube now present, tip approximately 4 cm above the rashad. There is also a new nasogastr ic tube with tip in the stomach. CONCLUSION: 1. Right chest tube barely within the thoracic cavity. Small to moderate basilar pneumothorax with s light tension component. 2. Endotracheal tube and nasogastric tube now present, please see above. 3. Persistent chest wall emphysema. Electronically signed by: Long Hall MD 05/14/2018 10:05 AM EDT
[2018-05-14] MEDS: Propofol 1000 mg/100 ml Inj 1,000 MG/100 ML BOTTLE IV.CONT PRN ×3 (10:15→23:35)
[2018-05-14 10:23] LABS: Alanine Aminotransferase 77 U/L (12-78); Albumin 2.9 g/dL (3.4-5.0); Anion Gap 5 meq/L (5-15); Aspartate Aminotransferase 45 U/L (15-37); Blood Urea Nitrogen 28 mg/dL (7-18); Calcium 8.1 mg/dL (8.5-10.1); Carbon Dioxide 36.2 meq/L (21.0-32.0); Chloride 103 meq/L (98-107); Glomerular Filtration Rate Greater Than 89 mL/min (>89); Glucose,Random 183 mg/dL (74-106); Potassium 4.7 meq/L (3.5-5.1); Sodium 144 meq/L (136-145)
[2018-05-14 10:26] LABS: Alkaline Phosphatase 98 U/L (45-117)
[2018-05-14 10:41] LABS: INR 1.3 Ratio; Prothrombin Time 12.9 sec (9.8-11.6)
[2018-05-14 10:43] LABS: Activated Partial Thrombo Time 20.7 sec (24.3-30.1)
[2018-05-14] MEDS ORDERED: Lidocaine 1%/Epinephrine 1:100,000 Inj 30 ML Vial ONE (10:43)
[2018-05-14 11:00] LABS: Magnesium 2.1 mg/dL (1.5-2.5); Phosphorus 4.7 mg/dL (2.5-4.9)
[2018-05-14 11:10] LABS: Lymphocytes 7 % (9-44); Metamyelocytes 1 % (0-1); Monocytes 6 % (0-8); Platelet Estimate Normal (Normal); Platelet Morphology Normal (Normal); RBC Morphology Normal (Normal)
[2018-05-14 11:28] LABS: ABG Base Excess 8.8 mmol/L (-2-2); ABG PCO2 91 mmHg (38-42); ABG PO2 297 mmHg (61-120)
[2018-05-14] MEDS: Oral Hygiene Kit OROPHARYNG SCH ×3 (11:51→23:33)
--- NOTE | 2018-05-14 12:10 | XR ---
EXAM DATE: 05/14/2018 12:06 PM EDT AGE/SEX: 63 years / Male INDICATIONS: Status post right chest tube CLINICAL DATA: This is the patient's subsequent encounter. Patient reports that signs and symptoms h ave been present for 4 - 6 days and indicates a pain score of Nonresponsive. MEDICAL/SURGICAL HISTORY: . Right pneumothorax . Right chest tube COMPARISON: [facility] [place], CHEST 1V SINGLE AP, 05/14/2018. . FINDINGS: A single AP view of the chest demonstrates right-sided chest tube with right basilar pneumothorax. Mi nimal bibasilar atelectasis. 2 right-sided chest tubes are seen. Subcutaneous emphysema. Endotracheal tube and nasogastric tube unchanged. The cardiomediastinal contours are unremarkable. Osseous stru ctures are intact. CONCLUSION: Small right basilar pneumothorax less prominent on current study. Electronically signed by: Tano Zhong MD 05/14/2018 12:09 PM EDT
--- NOTE | 2018-05-14 12:29 | P.PCN ---
Date of procedure: 05/14/18 Pre-op diagnosis: Moderate right pneumothorax with tension Post-op diagnosis: same Procedure: Right-sided chest tube placement A time-out was completed verifying correct patient, procedure, site, positioning , and special equipment if applicable. The patient was positioned appropriately for right chest tube placement. The patients right chest was prepped and draped in sterile fashion. 1% Lidocaine was used to anesthetize the surrounding skin area. A 2 cm skin incision was made in the mid-axillary line at the inframammary crease. Utilizing blunt dissection a subcutaneous tunnel was created cephalad just adjacent to the superior rib. The pleural space was entered bluntly and gush of air was observed. A finger was inserted into the pleural space to check for anatomy and guide tube insertion. A 28F thoracostomy tube was inserted using a Dayanara clamp and positioned appropriately. The chest tube was sutured securely to the skin and a sterile dressing applied. A pleurevac was attached to the chest tube and a chest x-ray is pending at this time. Surgeon: Yolis Alves Estimated blood loss (mL): 2 Pathology: none sent Condition: critical Disposition: ICU
[2018-05-14 15:11] LABS: ABG Base Excess 7.2 mmol/L (-2-2); ABG PCO2 128 mmHg (38-42); ABG PO2 84 mmHg (61-120)
[2018-05-14 17:07] LABS: ABG Base Excess 12.2 mmol/L (-2-2); ABG PCO2 62 mmHg (38-42); ABG PO2 262 mmHg (61-120)
[2018-05-14] MEDS: Montelukast 10 MG Tablet PO SCH (17:11)
--- NOTE | 2018-05-14 17:25 | P.PNPL ---
Subjective Interval history: 63 YOWM with COPD,Hypoxia, Ch resp insuff, [place]oved [place], did't bring his 02 CT chest lung density Had CT guided rt lung bx Chest tube fell off, developed sob Tr to ISC Had severe resp distress Intubated large bore chest tube placed Sedated with Diprivan and Versed Physical Exam Vital signs: Vital Signs 05/13/18 20:00 05/13/18 20:31 05/13/18 20:34 Temperature 98.5 F Pulse Rate 80 80 Respiratory Rate 16 16 Blood Pressure 138/85 Pulse Oximetry 97 97 05/14/18 00:02 05/14/18 04:23 05/14/18 07:38 Temperature 99.0 F 98.2 F Pulse Rate 78 77 97 H Respiratory Rate 18 18 16 Blood Pressure 135/81 135/82 Pulse Oximetry 95 98 94 L 05/14/18 11:18 05/14/18 12:00 Temperature 97.9 F Pulse Rate 76 Respiratory Rate 14 15 Blood Pressure 103/64 Pulse Oximetry 97 98 Intake & Output 05/13/18 05/14/18 05/14/18 18:59 06:59 18:59 Intake Total 1920 / 1920 760 / 760 200 / 200 Output Total 1250 / 1250 1120 / 1120 Balance 670 / 670 -360 / -360 200 / 200 Weight 93 kg Intake: IV 1200 / 1200 200 / 200 NS Inj 1,000 ML @ 100 mls/hr IV 1000 / 1000 .CONT .Q10H [facility] Rx#:[id number] Maxipime Inj 2,000 MG In NS Inj 200 / 200 200 / 200 100 ML @ 200 mls/hr IV.SIG Q8H [facility]WO Rx#:[id number] Oral 720 / 720 760 / 760 Output: Urine 1250 / 1250 1000 / 1000 Chest Tube Drainage 120 / 120 Right Upper Mid-Axillary Chest 120 / 120 Other: # Voids 0 Date of Last Bowel Movement 05/12/18 05/12/18 # Bowel Movements 0 GENERAL: Elderly Wm, intubated, sedated SKIN: Warm and dry. HEAD: Normocephalic. EYES: No scleral icterus. No injection or drainage. NECK: Supple, trachea midline. No JVD or lymphadenopathy. CARDIOVASCULAR: Regular rate and rhythm without murmurs, gallops, or rubs. RESPIRATORY: Breath sounds equal bilaterally. No accessory muscle use. Chest tube in place SQ Emphysema. GASTROINTESTINAL: Abdomen soft, non-tender, nondistended. MUSCULOSKELETAL: No cyanosis, or edema. BACK: Nontender without obvious deformity. No CVA tenderness. - Urinary Catheter Management Indwelling Urethral Catheter Cath placed during this visit: yes Reason for continuing: Acute urinary retention Insertion date: 05/14/18 Insertion time: 12:30 Assessment and Plan - Plan IMPRESSION: 1. Chronic obstructive pulmonary disease with mild exacerbation. 2. Bronchiectasis. 3. 4 x 0.5 cm right upper lobe density, also has additional smaller density in the right upper lobe concerning for malignancy or infection. 4. Nicotine use. 5. Chronic respiratory insufficiency. 6. Bipolar disorder. 7. VDRF PLAN: Vent Support Sedation with Diprivan and Versed Aerosol nebs Supplement 02 Cont Abx Chest tube to suction DW Will Bronch in AM
--- NOTE | 2018-05-14 17:52 | P.CONID ---
History of Present Illness Service: ID Consult date: 05/14/18 Requesting Physician: Cruz Mccormick Reason for Consult: mycobactrerial pneumonia Primary Care Provider: No Primary Care Physician Family Provider: No Primary Care Physician Chief Complaint: Could not breathe, chest pain History of Present Illness: 63 yo male heavy tobacco (quit < 10 yrs ago), advanced COPD, on home O2 [place] prominent SOB his sster brought him to the hospital CTA showed nodular infiltrate in RUL and it was biopsied Procedure was complicated by R pneumothorax adn pt required chest tube. 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 His sister @ bedside gave saome scarce history She is not aware of pt's risk factors for TB, neither he was diagnosed or treated for it Review of Systems unobtainable due to endotracheal tube PMFSH - History History Provided By: Patient - Medical History Medical History: Medical History (Last Reviewed 05/15/18 @ 00:27 by Carmen Andrade MD) Chronic back pain History of COPD History of pneumonia Hx of emphysema - Surgical History Surgical History: Surgical History (Last Reviewed 05/15/18 @ 00:27 by Carmen Andrade MD) Hx of appendectomy Hx of oral surgery S/P epidural steroid injection - Family History Family History: Family History (Last Reviewed 05/15/18 @ 00:27 by Carmen Andrade MD) Father History of emphysema Sister History of cancer Mother History of diabetes mellitus - Social History I have reviewed the patient's Social History: Yes - Tobacco History Second Hand Smoke Exposure: No Tobacco Use In Past 30 Days: No Smoking Status: Former smoker Tobacco Type: Cigarettes - Alcohol History How Often Do You Have a Drink Containing Alcohol: Never - Substance Use History Substance History: No History of Abuse - Travel History Recent Travel in the [place] Within the Last 8 Weeks: No Recent Travel Out of the Country Within the Last 8 Weeks: No - Immunization History Tetanus Immunization: <5 Years Hx Influenza Vaccine This Season: Yes Medications and Allergies Active Medications: Active Medications Acetaminophen (Tylenol) 650 mg PO Q4H PRN PRN Reason: Temp > 100.4, pain 6-10 Last Admin: 05/11/18 14:03 Dose: 650 mg Al Hydroxide/Mg Hydroxide (Milk Of [place]) 30 ml PO Q12H PRN PRN Reason: Mild Constipation Albuterol (Duoneb Neb (Prn)) 1 ampul NEB Q2HR NEB PRN PRN Reason: SHORTNESS OF BREATH/WHEEZING Albuterol (Duoneb Neb (Gibran)) 1 ampul NEB Q4HR NEB [facility] Alprazolam (Xanax) 0.5 mg PO BID [facility] Last Admin: 05/14/18 08:36 Dose: 0.5 mg Atorvastatin Calcium (Lipitor) 10 mg PO DAILY [facility] Last Admin: 05/14/18 08:36 Dose: 10 mg Azithromycin (Zithromax) 500 mg PO DAILY [facility] Last Admin: 05/14/18 08:35 Dose: 500 mg Bisacodyl (Dulcolax Supp) 10 mg RECTAL DAILY PRN PRN Reason: SEVERE CONSITIPATION Budesonide/Formoterol Fumarate (Symbicort 160/4.5 Mcg Inh) 2 puff INH BID [facility] Last Admin: 05/14/18 08:38 Dose: 2 puff Chlorhexidine Gluconate (Peridex 0.12% Oral Kit) 15 ml OROPHARYNG BID@0800, 2000 [facility] Citalopram Hydrobromide (Celexa) 40 mg PO DAILY [facility] Last Admin: 05/14/18 08:36 Dose: 40 mg Divalproex Sodium (Depakote Er) 1,000 mg PO DAILY [facility] Last Admin: 05/14/18 08:35 Dose: 1,000 mg Fluticasone/Vilanterol (Breo Ellipta 100/25 Mcg Inh) 1 puff INH DAILY [facility] Last Admin: 05/14/18 08:38 Dose: 1 puff Gabapentin (Neurontin) 100 mg PO DAILY [facility] Last Admin: 05/14/18 08:36 Dose: 100 mg Guaifenesin (Mucinex Er) 600 mg PO BID [facility] Last Admin: 05/14/18 08:37 Dose: 600 mg Heparin Sodium (Porcine) (Heparin Inj) 5,000 units SQ Q12HR [facility] Last Admin: 05/10/18 21:28 Dose: Not Given Hydromorphone HCl (Dilaudid) 2 mg PO Q4H PRN PRN Reason: BREAKTHROUGH PAIN Last Admin: 05/14/18 06:51 Dose: 2 mg Sodium Chloride (Ns Inj) 1,000 mls @ 100 mls/hr IV.CONT .Q10H [facility] Last Admin: 05/14/18 08:39 Dose: 100 mls/hr Cefepime HCl 2,000 mg/ Sodium (Chloride) 100 mls @ 200 mls/hr IV.SIG Q8H [facility] Last Admin: 05/14/18 16:46 Dose: 200 mls/hr Propofol (Diprivan 1000 Mg/100 Ml Inj) 1,000 mg in 100 mls @ 2.79 mls/hr IV.CONT TITRATE PRN; Protocol PRN Reason: Per Protocol Last Admin: 05/14/18 10:15 Dose: 30 mcg/kg/min, 16.74 mls/hr Fentanyl (Fentanyl 10 Mcg/Ml Premix Drip) 2,500 mcg in 250 mls @ 5 mls/hr IV.SIG TITRATE PRN; Protocol PRN Reason: Per Protocol Last Admin: 05/14/18 10:00 Dose: 50 mcg/hr, 5 mls/hr Sodium Chloride (Ns Inj) 1,000 mls @ 100 mls/hr IV.CONT .Q10H [facility] Last Admin: 05/14/18 10:58 Dose: 100 mls/hr Lactulose (Lactulose Liq) 30 ml PO DAILY PRN PRN Reason: SEVERE CONSITIPATION Methylprednisolone Sodium Succinate (Solumedrol Inj) 60 mg IV.PUSH Q6H [facility] Last Admin: 05/14/18 17:11 Dose: 60 mg Montelukast Sodium (Singulair) 10 mg PO DAILY@1800 [facility] Last Admin: 05/14/18 17:11 Dose: 10 mg Ondansetron HCl (Zofran Inj) 4 mg IV.PUSH Q6H PRN PRN Reason: NAUSEA OR VOMITING Oxycodone HCl (Roxicodone) 5 mg PO Q4H PRN PRN Reason: Pain 3 to 6 Oxycodone HCl (Roxicodone) 10 mg PO Q4H PRN PRN Reason: Pain 7 to 10 Last Admin: 05/14/18 08:35 Dose: 10 mg Pantoprazole Sodium (Protonix) 40 mg PO DAILY [facility] Last Admin: 05/14/18 08:36 Dose: 40 mg Risperidone (Risperdal) 0.5 mg PO HS [facility] Last Admin: 05/13/18 21:14 Dose: 0.5 mg Senna/Docusate Sodium (Sisi-Colace) 1 tab PO BID [facility] Last Admin: 05/14/18 08:38 Dose: Not Given Sennosides (Senokot) 17.2 mg PO Q12H PRN PRN Reason: Moderate Constipation Allergies Allergy/AdvReac Type Severity Reaction Status Date / Time No Known Allergies Allergy Mild unknown Uncoded 05/08/18 20:55 Home Medications Medication Instructions Recorded Confirmed Type atorvastatin [Lipitor] 10 mg PO DAILY 05/09/18 05/09/18 History citalopram [Celexa] 40 mg PO DAILY 05/09/18 05/09/18 History divalproex [Depakote ER] 1,000 mg PO DAILY 05/09/18 05/09/18 History gabapentin 100 mg PO DAILY 05/09/18 05/09/18 History montelukast [Singulair] 10 mg PO QPM 05/09/18 05/09/18 History pantoprazole [Protonix] 40 mg PO DAILY 05/09/18 05/09/18 History risperidone [Risperdal] 0.5 mg PO HS 05/09/18 05/09/18 History Exam Vital signs: Vital Signs 05/13/18 20:00 05/13/18 20:31 05/13/18 20:34 Temperature 98.5 F Pulse Rate 80 80 Respiratory Rate 16 16 Blood Pressure 138/85 Pulse Oximetry 97 97 05/14/18 00:02 05/14/18 04:23 05/14/18 07:38 Temperature 99.0 F 98.2 F Pulse Rate 78 77 97 H Respiratory Rate 18 18 16 Blood Pressure 135/81 135/82 Pulse Oximetry 95 98 94 L 05/14/18 11:18 05/14/18 12:00 Temperature 97.9 F Pulse Rate 76 Respiratory Rate 14 15 Blood Pressure 103/64 Pulse Oximetry 97 98 Intake & Output 05/13/18 05/14/18 05/14/18 18:59 06:59 18:59 Intake Total 1920 / 1920 760 / 760 200 / 200 Output Total 1250 / 1250 1120 / 1120 Balance 670 / 670 -360 / -360 200 / 200 Weight 93 kg Intake: IV 1200 / 1200 200 / 200 NS Inj 1,000 ML @ 100 mls/hr IV 1000 / 1000 .CONT .Q10H [facility] Rx#:[id number] Maxipime Inj 2,000 MG In NS Inj 200 / 200 200 / 200 100 ML @ 200 mls/hr IV.SIG Q8H [facility] Rx#:[id number] Oral 720 / 720 760 / 760 Output: Urine 1250 / 1250 1000 / 1000 Chest Tube Drainage 120 / 120 Right Upper Mid-Axillary Chest 120 / 120 Other: # Voids 0 Date of Last Bowel Movement 05/12/18 05/12/18 # Bowel Movements 0 - Constitutional no acute distress, obtunded Comments: sedated int'd on mech vent'n - Routine HEENT Exam Head: Present: normocephalic, atraumatic Eye: Present: EOMI, PERRL ENT: Present: mucous membranes moist, oropharynx clear - Routine Neck Exam Present: supple, normal carotid upstroke - Routine Chest/Breast/Axilla Exam Comments: puffy edema of chest wall, CT in place - Routine Respiratory Exam Present: patient mechanically ventilated, decreased breath sounds - Routine Cardiovascular Exam Present: RRR, S1, S2 - Routine Abdominal Exam Present: soft, normoactive bowel sounds Comments: no organomegaly or masses - Routine Extremities Exam Comments: no cyanosis, clubbing or edema - Routine Skin Exam Present: intact, dry, warm - Routine Neurological Exam sedated, unresponsive - Routine Psychiatric Exam Present: unable to assess Results - Labs CBC & Chem 7: 06/01/18 03:59 05/26/18 05:44 Labs: Laboratory Results - last 24 hr 05/14/18 05/14/18 05/14/18 09:04 09:30 09:30 WBC 16.3 H RBC 4.04 L Hgb 12.5 L Hct 38.0 L MCV 94.1 MCH 31.0 MCHC 33.0 RDW 15.5 Plt Count 177 D MPV 10.0 Prelim Diff (Auto) Slide review pending Neut % (Auto) 89.7 H Lymph % (Auto) 4.1 L Weld % (Auto) 6.2 Eos % (Auto) 0.0 Baso % (Auto) 0.0 Neut # (Auto) 14.7 H Lymph # (Auto) 0.7 L Weld # (Auto) 1.0 H Eos # (Auto) 0.0 Baso # (Auto) 0.0 WBC Differential Manual diff final Seg Neuts % (Manual) 83 H Band Neuts % (Manual) 3 Lymphocytes % (Manual) 7 L Monocytes % (Manual) 6 Metamyelocytes % (Man) 1 Abs Neuts (Manual) 14.2 H Differential Comment . Platelet Estimate Normal Platelet Morphology Normal RBC Morphology Normal PT INR APTT Puncture Site Left radial Patient Temperature 98.6 O2 Saturation 91 ABG pH 7.09 L* ABG pCO2 128 H* ABG pO2 84 ABG HCO3 37 H ABG O2 Content 16.5 ABG Base Excess 7.2 H ABG Methemoglobin 1.1 Timothy Test Present Hemoglobin 12.9 Carboxyhemoglobin 0.7 O2 Delivery Device Nrb Liter Flow 15.00 Vent Setting Inspired O2 100 Critical Value Yes Sodium 144 Potassium 4.7 Chloride 103 Carbon Dioxide 36.2 H Anion Gap 5 BUN 28 H Creatinine 0.78 Estimated GFR Greater than 89 POC Glucose Random Glucose 183 H Lactic Acid Calcium 8.1 L Phosphorus 4.7 Magnesium 2.1 Total Bilirubin 0.5 AST 45 H ALT 77 Alkaline Phosphatase 98 Total Protein 7.0 D Albumin 2.9 L 05/14/18 05/14/18 05/14/18 09:30 09:30 09:30 WBC RBC Hgb Hct MCV MCH MCHC RDW Plt Count MPV Prelim Diff (Auto) Neut % (Auto) Lymph % (Auto) Weld % (Auto) Eos % (Auto) Baso % (Auto) Neut # (Auto) Lymph # (Auto) Weld # (Auto) Eos # (Auto) Baso # (Auto) WBC Differential Seg Neuts % (Manual) Band Neuts % (Manual) Lymphocytes % (Manual) Monocytes % (Manual) Metamyelocytes % (Man) Abs Neuts (Manual) Differential Comment Platelet Estimate Platelet Morphology RBC Morphology PT 12.9 H INR 1.3 APTT 20.7 L Puncture Site Patient Temperature O2 Saturation ABG pH ABG pCO2 ABG pO2 ABG HCO3 ABG O2 Content ABG Base Excess ABG Methemoglobin Timothy Test Hemoglobin Carboxyhemoglobin O2 Delivery Device Liter Flow Vent Setting Inspired O2 Critical Value Sodium Cancelled Potassium Cancelled Chloride Cancelled Carbon Dioxide Cancelled Anion Gap Cancelled BUN Cancelled Creatinine Cancelled Estimated GFR Cancelled POC Glucose Random Glucose Cancelled Lactic Acid 3.3 H Calcium Cancelled Phosphorus Cancelled Magnesium Cancelled Total Bilirubin AST ALT Alkaline Phosphatase Total Protein Albumin 05/14/18 05/14/18 05/14/18 10:35 10:35 16:50 WBC RBC Hgb Hct MCV MCH MCHC RDW Plt Count MPV Prelim Diff (Auto) Neut % (Auto) Lymph % (Auto) Weld % (Auto) Eos % (Auto) Baso % (Auto) Neut # (Auto) Lymph # (Auto) Weld # (Auto) Eos # (Auto) Baso # (Auto) WBC Differential Seg Neuts % (Manual) Band Neuts % (Manual) Lymphocytes % (Manual) Monocytes % (Manual) Metamyelocytes % (Man) Abs Neuts (Manual) Differential Comment Platelet Estimate Platelet Morphology RBC Morphology PT INR APTT Puncture Site Right radial Right radial Right radial Patient Temperature 98.6 98.6 98.6 O2 Saturation 98 91 98 ABG pH 7.23 L* 7.09 L* 7.40 ABG pCO2 91 H* 128 H* 62 H* ABG pO2 297 H 84 262 H ABG HCO3 36 H 37 H 38 H ABG O2 Content 17.9 16.5 15.4 ABG Base Excess 8.8 H 7.2 H 12.2 H ABG Methemoglobin 1.2 1.1 1.3 Timothy Test Present Present Present Hemoglobin 12.6 12.9 10.8 L Carboxyhemoglobin 0.9 0.7 1.1 O2 Delivery Device Vent Vent Vent Liter Flow Vent Setting 14/600/8/100% Prvc/14/600/8/100 Prvc/14/600/8/100 Inspired O2 100 100 100 Critical Value Yes Yes Yes Sodium Potassium Chloride Carbon Dioxide Anion Gap BUN Creatinine Estimated GFR POC Glucose Random Glucose Lactic Acid Calcium Phosphorus Magnesium Total Bilirubin AST ALT Alkaline Phosphatase Total Protein Albumin 05/14/18 17:30 WBC RBC Hgb Hct MCV MCH MCHC RDW Plt Count MPV Prelim Diff (Auto) Neut % (Auto) Lymph % (Auto) Weld % (Auto) Eos % (Auto) Baso % (Auto) Neut # (Auto) Lymph # (Auto) Weld # (Auto) Eos # (Auto) Baso # (Auto) WBC Differential Seg Neuts % (Manual) Band Neuts % (Manual) Lymphocytes % (Manual) Monocytes % (Manual) Metamyelocytes % (Man) Abs Neuts (Manual) Differential Comment Platelet Estimate Platelet Morphology RBC Morphology PT INR APTT Puncture Site Patient Temperature O2 Saturation ABG pH ABG pCO2 ABG pO2 ABG HCO3 ABG O2 Content ABG Base Excess ABG Methemoglobin Timothy Test Hemoglobin Carboxyhemoglobin O2 Delivery Device Liter Flow Vent Setting Inspired O2 Critical Value Sodium Potassium Chloride Carbon Dioxide Anion Gap BUN Creatinine Estimated GFR POC Glucose 138 H Random Glucose Lactic Acid Calcium Phosphorus Magnesium Total Bilirubin AST ALT Alkaline Phosphatase Total Protein Albumin - Imaging Impressions Chest X-Ray 05/14/18 09:12 CONCLUSION: 1. Right chest tube barely within the thoracic cavity. Small to moderate basilar pneumothorax with slight tension component. 2. Endotracheal tube and nasogastric tube now present, please see above. 3. Persistent chest wall emphysema. Chest X-Ray 05/14/18 11:49 CONCLUSION: Small right basilar pneumothorax less prominent on current study. Assessment and Plan - Plan nodular infiltrate in RUL Advanced COPD Acute VDRF Nodular infitrate with AFB on path, suspected mycobacterial pulmonary infection - BAL - fu AFB sputum clx - no empiric tx for mycobacterial infx is recommended - [employer] dw Long Kebede Shehi
[2018-05-14] MEDS: Chlorhexidine 0.12% Oral Kit 15 ML UDC OROPHARYNG SCH (20:59)
[2018-05-15] MEDS: fentaNYL 10 mcg/mL Premix Drip 2,500 MCG/250 ML BAG IV.SIG PRN ×2 (00:42→17:40)
--- NOTE | 2018-05-15 04:01 | XR ---
EXAM DATE: 05/15/2018 3:48 AM EDT AGE/SEX: 63 years / Male INDICATIONS: Pneumothorax. CLINICAL DATA: This is the patient's subsequent encounter. Patient reports that signs and symptoms h ave been present for 1 week and indicates a pain score of Nonresponsive. MEDICAL/SURGICAL HISTORY: . TB. Right sided pneumothorax. . Right chest tube COMPARISON: [facility] – [place], CHEST 1V SINGLE AP, 05/14/2018. . FINDINGS: Rotated and underinflated portable AP view of the chest demonstrates a normal-sized cardiac silhouett e. ETT and nasogastric tube remain present. Right chest tube remains present in the mid right hemitho rax. The right pneumothorax remains visualized and is stable. There is bibasilar airspace opacity. Bl unting the left costophrenic sulcus is present. There is persistent right chest wall and supraclavicu lar region subcutaneous air. CONCLUSION: 1. Right chest tube remains present with stable small right pneumothorax. 2. Bibasilar atelectasis versus airspace consolidation with small left pleural effusion. Electronically signed by: Long Fernández MD 05/15/2018 4:00 AM EDT
[2018-05-15] MEDS: Propofol 1000 mg/100 ml Inj 1,000 MG/100 ML BOTTLE IV.CONT PRN ×4 (04:25→17:40)
[2018-05-15] MEDS: Sod Chloride 0.9% Inj 1,000 ML IV.CONT SCH ×3 (05:06→16:07)
[2018-05-15] MEDS: Oral Hygiene Kit OROPHARYNG SCH ×3 (05:07→16:07)
[2018-05-15] MEDS: MethylPREDNISolone Sod Succinate Inj 125 MG/2 ML Vial IV.PUSH SCH ×3 (05:15→17:19)
[2018-05-15] MEDS: Divalproex 500 MG ER Tablet PO SCH (08:05)
[2018-05-15] MEDS: Azithromycin 250 MG Tablet PO SCH (08:05)
[2018-05-15] MEDS: Senna/Docusate Sodium 8.6/50 MG Tablet PO SCH ×2 (08:05→20:38)
[2018-05-15] MEDS: Chlorhexidine 0.12% Oral Kit 15 ML UDC OROPHARYNG SCH ×2 (08:06→20:38)
[2018-05-15] MEDS: guaiFENesin 600 MG ER Tablet PO SCH ×2 (08:06→20:38)
[2018-05-15] MEDS: Budesonide-Formoterol 160/4.5 MCG 6 GM Inhaler INH SCH ×2 (08:06→19:35)
--- NOTE | 2018-05-15 13:03 | MR ---
cc: Cruz Mccormick MD DATE: 05/15/2018 PROCEDURE: Bronchoscopy. PREOPERATIVE DIAGNOSIS: Lung infiltrate. POSTOPERATIVE DIAGNOSIS: Lung infiltrate. DESCRIPTION OF PROCEDURE: Informed consent was obtained from the patient's sister. Procedure and the complications were explained and she consented for the procedure. The patient is already on the ventilator, is sedated with Diprivan and Versed. Bronchoscopy was done through the endotracheal tube. Main rashad is sharp. Bronchoscope advanced to the right lung. Right upper, middle, and lower lobe were visualized. Small amount of mucus was suctioned. No endobronchial mucosal lesion was seen. Then, bronchoscope was advanced to the left lung. Left upper, lower, and lingular lobe were visualized. No endobronchial mucosal lesion was seen. Right upper lobe bronchial washings were done. Washing is sent for routine culture, AFB, fungal culture. He tolerated the procedure well. MD CLAIRE Barragan/octaviano , 11:13 AM , 11:20 AM
--- NOTE | 2018-05-15 13:10 | P.PNCC ---
Subjective Subjective Remarks/Hospital Course: Patient is 63-year-old male with history of emphysema, COPD, chronic respiratory failure on oxygen, chronic back pain, bipolar disorder who recently moved to [place] from [place]. He presented to [place] emergency department with shortness of breath, dyspnea, and hypoxia. Patient was admitted for acute COPD exacerbation and probable pneumonia. CTA chest done in emergency department showed right upper lobe nodularity, largest nodule 4 and 2.4 cm. Pulmonology was consulted and per pulmonology recommendation patient underwent CT-guided biopsy of the right upper lobe nodule by invasive radiology yesterday 05/11/2018. Postprocedure patient developed pneumothorax for which IR placed a 12 Amharic until chest tube, followed by near complete resolution of the pneumothorax. Patient was moved back to the floor after the procedure. Today patient was found in acute respiratory distress hypoxic tachycardic and severely tachypneic by the nurse, and the chest tube was found dislodged. A halicat was called and he was placed on 100% nonrebreather and was emergently moved to ICU. I met the patient in the ICU immediately. He was in severe distress there was extensive subcutaneous emphysema, also diminished air entry on the right side. Quick review of the chest x-ray showed large right-sided pneumothorax. I emergently place a right-sided chest tube with improvement in his symptoms Critical care re consult note 05/14/18: Patient known to me. Patient had emergency chest tube placed on 05/12/2018 by myself, with resolution of the large right pneumothorax. He was seen by hospitalist yesterday and was transferred to the medical floor. Today I had a CAT was called as the patient was found unresponsive with a saturation of 52%. But the respiratory therapist about 30 minutes prior to this patient was AAO 3 talking to her while getting breathing treatment. I was immediately called to the bedside to evaluate. Patient remains unresponsive with bag and mask ventilation oxygen saturation gradually improved to mid 80s. Patient was emergently moved to the ICU. CXR is pending, chest tube appears to be functional with 1+ airleak. ABG showed severe hypercapnia acidemia and hypoxia. On 100% oxygen pH was 7.08 PCO2 128 PO2 84. Patient was emergently intubated and placed on mechanical ventilation. Brief exam showed severe expiratory wheezing. 05/15: Gas exchange acceptable today. Small air leak persists through right chest tube. Right lung is well expanded with quite minimal pleural air. Diffuse infiltrative process persists. Tidal volumes decreased to keep plateau pressure less than 30. Objective Vital Signs / I&O: Vital Signs 05/14/18 16:00 05/14/18 20:00 05/14/18 20:06 Temperature 97.9 F 97.9 F Pulse Rate 64 58 L Respiratory Rate 14 14 14 Blood Pressure 129/89 121/79 Pulse Oximetry 100 96 96 05/14/18 21:59 05/15/18 00:00 05/15/18 00:10 Temperature 97.8 F Pulse Rate 59 L 58 L 57 L Respiratory Rate 14 14 14 Blood Pressure 104/68 Pulse Oximetry 94 L 05/15/18 00:14 05/15/18 02:09 05/15/18 03:20 Temperature Pulse Rate 60 58 L Respiratory Rate 14 14 Blood Pressure Pulse Oximetry 93 L 05/15/18 03:56 05/15/18 04:00 05/15/18 04:09 Temperature 97.4 F L Pulse Rate 61 57 L Respiratory Rate 16 14 Blood Pressure 101/72 Pulse Oximetry 95 05/15/18 06:00 05/15/18 08:00 05/15/18 08:37 Temperature 97.7 F Pulse Rate 57 L 54 L 54 L Respiratory Rate 14 14 Blood Pressure 131/85 Pulse Oximetry 98 05/15/18 10:00 05/15/18 10:50 05/15/18 12:00 Temperature 97.7 F Pulse Rate 54 L 53 L Respiratory Rate 14 Blood Pressure 103/67 Pulse Oximetry 99 Intake & Output 05/14/18 05/15/18 05/15/18 18:59 06:59 18:59 Intake Total 200 / 200 7490 / 7490 650 / 650 Output Total 1050 / 1050 820 / 820 Balance -850 / -850 6670 / 6670 650 / 650 Weight 98.9 kg Intake: IV 200 / 200 2750 / 2750 650 / 650 Diprivan 1000 mg/100 ml Inj 1, 300 / 300 200 / 200 000 mg In 100 ml @ 5 MCG/KG/MIN 2.79 mls/hr IV.CONT TITRATE PRN Rx#:[id number] NS Inj 1,000 ML @ 100 mls/hr IV 1999 / 1999 .CONT .Q10H TAIWO Rx#:[id number] Maxipime Inj 2,000 MG In NS Inj 200 / 200 200 / 200 100 / 100 100 ML @ 200 mls/hr IV.SIG Q8H TAIWO Rx#:[id number] fentaNYL 10 mcg/mL Premix Drip 250 / 250 2,500 mcg In 250 ml @ 50 MCG/HR 5 mls/hr IV.SIG TITRATE PRN Rx #:[id number] Other 4740 / 4740 Output: Urine Amount (Catheter) 900 / 900 600 / 600 Indwelling Urethral Catheter 900 / 900 600 / 600 Gastric Drainage 150 / 150 200 / 200 Orogastric Tube 150 / 150 200 / 200 Chest Tube Drainage 20 / 20 Right Upper Mid-Axillary Chest 20 / 20 Other: # Voids 0 Date of Last Bowel Movement 05/12/18 05/12/18 05/12/18 # Bowel Movements 0 Result Diagrams: 05/14/18 09:30 05/14/18 09:30 Objective Remarks: GENERAL: Lying in bed, intubated and sedated. HEAD: Normocephalic. ENT: Orotracheal intubation. NECK: Supple, trachea midline. EYES: Pupils reactive, no conjunctival icterus. CARDIOVASCULAR: Regular rhythm, rate 80s. No JVD. RESPIRATORY: Generally clear with a few light wheezes. Significant subcutaneous emphysema. Right chest tube in place with airleak GASTROINTESTINAL: Abdomen soft, non-tender, nondistended. No guarding, bowel sounds present. MUSCULOSKELETAL: No cyanosis, or edema. Warm, well-perfused. NEURO: Moves 4 limbs spontaneously. Opens eyes to loud voice. Assessment and Plan - Problem List (1) Acute on chronic respiratory failure with hypoxia Code(s): J96.21 - Acute and chronic respiratory failure with hypoxia Status: Acute (2) Healthcare-associated pneumonia Code(s): J18.9 - Pneumonia, unspecified organism Status: Acute (3) Hypoxia Code(s): R09.02 - Hypoxemia Status: Acute (4) Abnormal CT scan, lung Code(s): R91.8 - Other nonspecific abnormal finding of lung field Status: Acute - Assessment and Plan Plan: ASSESSMENT: Acute respiratory arrest Altered mental status/unresponsiveness due to severe hypercapnia Acute on chronic hypoxemic, hypercapnic respiratory failure Acute COPD exacerbation Right sided pneumothorax following lung biopsy, recurrent Status post lung biopsy for right upper lobe mass Status post chest tube for pneumothorax following lung biopsy Dislodgment on IR chest tube requiring emergency repeat chest tube placement 05/12 Chronic low back pain COPD on home oxygen/emphysema PLAN: NEURO: -Acute change in mental status secondary to severe hypercapnia -Propofol and fentanyl for sedation and vent synchrony -Continue PRN oxycodone, Dilaudid for breakthrough pain -Hold buspirone, Celexa, Xanax. Continue divalproex RESP: -Emergently intubated and placed on mechanical ventilation 05-14-18 for severe hypercapnic and hypoxemic respiratory failure -Postprocedure chest x-ray pending -Increase DuoNeb to every 4 hours scheduled and as needed -Solu-Medrol 125 mg IV 1 continue Solu-Medrol 60 mg q 6 hours -Continue broad-spectrum antibiotics with cefepime and azithromycin. Patient is being ruled out for tuberculosis -On 05/12/18 patient had developed acute respiratory distress secondary to dislodgment of the chest tube and recurrence of large pneumothorax -I emergently placed right-sided 10 F pigtail chest tube with improvement in symptoms and near complete resolution of the pneumothorax -Continue Singulair -Pulmonology following Dr. Mccormick -Daily spontaneous breathing trials starting in 24 hours -Post intubation CXR showed moderate sized right pneumothorax -> large bore chest tube CV: -Monitor heart rate and blood pressure closely -Normal saline at 100 mL/h GI: -N.p.o., IV famotidine : -Monitor renal function closely ID: -Antibiotics cefepime and azithromycin. -Follow on sputum culture. AFB to rule TB HEME: -Monitor CBC, coags ENDO: -Electrolyte replacement per protocol -Sliding scale insulin PROPH: -Bilateral lower extremity SCDs. Subcu heparin on hold for additional 24 hours in anticipation of invasive procedures LINES: -Utilize peripheral IVs Overall impression: This gentleman is critically ill with a diffuse infiltrative process involving both lungs. His pulmonary status is unstable. He requires mechanical ventilation and we are unable to wean. Airway pressures are elevated. Wheezing is slightly better controlled. Diagnostic workup continues. Critical care 38 minutes
[2018-05-15 16:40] LABS: Hemoglobin 11.7 gm/dL (13.0-17.0); Mean Corpuscular HGB Conc 34.4 % (32.0-36.0); Mean Corpuscular Hemoglobin 31.6 pg (27.0-34.0); Mean Corpuscular Volume 91.9 fL (80.0-100.0); Mean Platelet Volume 10.3 fL (7.0-11.0); Platelet Count 100 th/mm3 (150-450); Red Cell Distribution Width 15.1 % (11.6-17.2); White Blood Count 9.4 th/mm3 (4.0-11.0)
[2018-05-15 17:12] LABS: Anion Gap 2 meq/L (5-15); Blood Urea Nitrogen 42 mg/dL (7-18); Calcium 7.7 mg/dL (8.5-10.1); Carbon Dioxide 35.7 meq/L (21.0-32.0); Chloride 107 meq/L (98-107); Glomerular Filtration Rate Greater Than 89 mL/min (>89); Glucose,Random 101 mg/dL (74-106); Potassium 4.3 meq/L (3.5-5.1); Sodium 145 meq/L (136-145)
[2018-05-15] MEDS: Montelukast 10 MG Tablet PO SCH (17:19)
--- NOTE | 2018-05-15 18:42 | P.PNPL ---
Subjective Interval history: 63 YOWM with COPD,Hypoxia, Ch resp insuff, Moved fr[place], did't bring his 02 CT chest lung density Sedated with Diprivan and Versed had bronch done today, small amount of mucous Physical Exam Vital signs: Vital Signs 05/14/18 20:00 05/14/18 20:06 05/14/18 21:59 Temperature 97.9 F Pulse Rate 58 L 59 L Respiratory Rate 14 14 14 Blood Pressure 121/79 Pulse Oximetry 96 96 05/15/18 00:00 05/15/18 00:10 05/15/18 00:14 Temperature 97.8 F Pulse Rate 58 L 57 L Respiratory Rate 14 14 14 Blood Pressure 104/68 Pulse Oximetry 94 L 93 L 05/15/18 02:09 05/15/18 03:20 05/15/18 03:56 Temperature Pulse Rate 60 58 L Respiratory Rate 14 16 Blood Pressure Pulse Oximetry 95 05/15/18 04:00 05/15/18 04:09 05/15/18 06:00 Temperature 97.4 F L Pulse Rate 61 57 L 57 L Respiratory Rate 14 Blood Pressure 101/72 Pulse Oximetry 05/15/18 08:00 05/15/18 08:37 05/15/18 10:00 Temperature 97.7 F Pulse Rate 54 L 54 L 54 L Respiratory Rate 14 14 Blood Pressure 131/85 Pulse Oximetry 98 05/15/18 10:50 05/15/18 12:00 05/15/18 14:00 Temperature 97.7 F Pulse Rate 53 L 52 L Respiratory Rate 14 Blood Pressure 103/67 Pulse Oximetry 99 05/15/18 15:44 05/15/18 16:00 05/15/18 18:00 Temperature 99.4 F Pulse Rate 54 L 59 L 53 L Respiratory Rate 14 14 Blood Pressure 130/82 Pulse Oximetry 98 Intake & Output 05/14/18 05/15/18 05/15/18 18:59 06:59 18:59 Intake Total 200 / 200 7490 / 7490 2099 / 2099 Output Total 1050 / 1050 820 / 820 700 / 700 Balance -850 / -850 6670 / 6670 1400 / 1400 Weight 98.9 kg Intake: IV 200 / 200 2750 / 2750 2099 / 2099 Diprivan 1000 mg/100 ml Inj 1, 300 / 300 300 / 300 000 mg In 100 ml @ 5 MCG/KG/MIN 2.79 mls/hr IV.CONT TITRATE PRN Rx#:[id number] NS Inj 1,000 ML @ 100 mls/hr IV 1999 / 2000 1000 / 1000 .CONT .Q10H TAIWO Rx#:[id number] Maxipime Inj 2,000 MG In NS Inj 200 / 200 200 / 200 200 / 200 100 ML @ 200 mls/hr IV.SIG Q8H TAIWO Rx#:[id number] fentaNYL 10 mcg/mL Premix Drip 250 / 250 250 / 250 2,500 mcg In 250 ml @ 50 MCG/HR 5 mls/hr IV.SIG TITRATE PRN Rx #:[id number] Other 4740 / 4740 Output: Urine Amount (Catheter) 900 / 900 600 / 600 650 / 650 Indwelling Urethral Catheter 900 / 900 600 / 600 650 / 650 Gastric Drainage 150 / 150 200 / 200 50 / 50 Orogastric Tube 150 / 150 200 / 200 50 / 50 Chest Tube Drainage 20 / 20 Right Upper Mid-Axillary Chest 20 / 20 Other: # Voids 0 Date of Last Bowel Movement 05/12/18 05/12/18 05/12/18 # Bowel Movements 0 GENERAL: Elderly Wm, On vent SKIN: Warm and dry. HEAD: Normocephalic. EYES: No scleral icterus. No injection or drainage. NECK: Supple, trachea midline. No JVD or lymphadenopathy. CARDIOVASCULAR: Regular rate and rhythm without murmurs, gallops, or rubs. RESPIRATORY: Breath sounds equal bilaterally. No accessory muscle use. Rt chest tube in place GASTROINTESTINAL: Abdomen soft, non-tender, nondistended. MUSCULOSKELETAL: No cyanosis, or edema. BACK: Nontender without obvious deformity. No CVA tenderness. - Urinary Catheter Management Indwelling Urethral Catheter Cath placed during this visit: yes Reason for continuing: Acute urinary retention Insertion date: 05/14/18 Insertion time: 12:30 Assessment and Plan - Plan IMPRESSION: 1. Chronic obstructive pulmonary disease with mild exacerbation. 2. Bronchiectasis. 3. 4 x 0.5 cm right upper lobe density, also has additional smaller density in the right upper lobe concerning for malignancy or infection. 4. Nicotine use. 5. Chronic respiratory insufficiency. 6. Bipolar disorder. 7. VDRF PLAN: Vent Support Sedation with Diprivan and Versed Aerosol nebs Supplement 02 Cont Abx Chest tube to suction Check bronch results CPAP trial
--- NOTE | 2018-05-15 20:44 | P.PNID ---
Subjective Remarks: intubated On vent On 45 % FiO2 Antibiotics: azithro Allergies/Adverse Reactions: Allergies No Known Allergies Allergy (Mild, Uncoded 05/08/18 20:55) unknown Objective Vital Signs 05/14/18 21:59 05/15/18 00:00 05/15/18 00:10 Temperature 97.8 F Pulse Rate 59 L 58 L 57 L Respiratory Rate 14 14 14 Blood Pressure 104/68 Pulse Oximetry 94 L 05/15/18 00:14 05/15/18 02:09 05/15/18 03:20 Temperature Pulse Rate 60 58 L Respiratory Rate 14 14 Blood Pressure Pulse Oximetry 93 L 05/15/18 03:56 05/15/18 04:00 05/15/18 04:09 Temperature 97.4 F L Pulse Rate 61 57 L Respiratory Rate 16 14 Blood Pressure 101/72 Pulse Oximetry 95 05/15/18 06:00 05/15/18 08:00 05/15/18 08:37 Temperature 97.7 F Pulse Rate 57 L 54 L 54 L Respiratory Rate 14 14 Blood Pressure 131/85 Pulse Oximetry 98 05/15/18 10:00 05/15/18 10:50 05/15/18 12:00 Temperature 97.7 F Pulse Rate 54 L 53 L Respiratory Rate 14 Blood Pressure 103/67 Pulse Oximetry 99 05/15/18 14:00 05/15/18 15:44 05/15/18 16:00 Temperature 99.4 F Pulse Rate 52 L 54 L 59 L Respiratory Rate 14 14 Blood Pressure 130/82 Pulse Oximetry 98 05/15/18 18:00 05/15/18 19:28 05/15/18 19:35 Temperature Pulse Rate 53 L 55 L 55 L Respiratory Rate 15 15 Blood Pressure Pulse Oximetry 97 05/15/18 20:00 Temperature 99.1 F Pulse Rate 62 Respiratory Rate 14 Blood Pressure 131/80 Pulse Oximetry 97 Intake & Output 05/15/18 05/15/18 05/16/18 06:59 18:59 06:59 Intake Total 7490 / 7490 2099 / 2099 Output Total 820 / 820 700 / 700 Balance 6670 / 6670 1400 / 1400 Weight 98.9 kg Intake: IV 2750 / 2750 2099 / 2099 Diprivan 1000 mg/100 ml Inj 1, 300 / 300 300 / 300 000 mg In 100 ml @ 5 MCG/KG/MIN 2.79 mls/hr IV.CONT TITRATE PRN Rx#:[id number] NS Inj 1,000 ML @ 100 mls/hr IV 2000 / 2000 1000 / 1000 .CONT .Q10H TAIWO Rx#:[id number] Maxipime Inj 2,000 MG In NS Inj 200 / 200 200 / 200 100 ML @ 200 mls/hr IV.SIG Q8H TAIWO Rx#:[id number] fentaNYL 10 mcg/mL Premix Drip 250 / 250 250 / 250 2,500 mcg In 250 ml @ 50 MCG/HR 5 mls/hr IV.SIG TITRATE PRN Rx #:[id number] Other 4740 / 4740 Output: Urine Amount (Catheter) 600 / 600 650 / 650 Indwelling Urethral Catheter 600 / 600 650 / 650 Gastric Drainage 200 / 200 50 / 50 Orogastric Tube 200 / 200 50 / 50 Chest Tube Drainage 20 / 20 Right Upper Mid-Axillary Chest 20 / 20 Other: # Voids 0 Date of Last Bowel Movement 05/12/18 05/12/18 05/12/18 # Bowel Movements 0 05/15/18 11:18 Bronchial Washings - Right Upper Lobe Fungal Smear - Final No fungal elements seen 05/15/18 11:18 Bronchial Washings - Right Upper Lobe Fungal Culture - Pending 05/15/18 11:18 Bronchial - Right Upper Lobe Gram Stain - Final 05/15/18 11:18 Bronchial - Right Upper Lobe Bronchial Culture - Pending 05/14/18 17:00 Sputum - Expectorated Sputum Acid Fast Bacilli Smear - Final No acid fast bacilli seen 05/14/18 17:00 Sputum - Expectorated Sputum Mycobacterial Culture - Pending 05/14/18 09:30 Sputum - Endotracheal Acid Fast Bacilli Smear - Final No acid fast bacilli seen 05/14/18 09:30 Sputum - Endotracheal Mycobacterial Culture - Pending 05/14/18 09:30 Sputum - Endotracheal Gram Stain - Final 05/14/18 09:30 Sputum - Endotracheal Sputum Culture - Preliminary Heavy growth normal respiratory don at 24 hours 05/15/18 11:18 Bronchial Washings - Right Upper Lobe Acid Fast Bacilli Smear - Pending 05/15/18 11:18 Bronchial Washings - Right Upper Lobe Mycobacterial Culture - Pending 05/08/18 21:05 Blood - Peripheral Aerobic Blood Culture - Final No growth in 5 days 05/08/18 21:05 Blood - Peripheral Anaerobic Blood Culture - Final No growth in 5 days 05/08/18 21:00 Blood - Peripheral Aerobic Blood Culture - Final No growth in 5 days 05/08/18 21:00 Blood - Peripheral Anaerobic Blood Culture - Final No growth in 5 days Lab - Hematology Results 05/14/18 05/15/18 09:30 15:11 WBC 16.3 H 9.4 RBC 4.04 L 3.70 L Hgb 12.5 L 11.7 L Hct 38.0 L 34.0 L MCV 94.1 91.9 MCH 31.0 31.6 MCHC 33.0 34.4 RDW 15.5 15.1 Plt Count 177 D 100 L D MPV 10.0 10.3 Prelim Diff (Auto) Slide review pending Neut % (Auto) 89.7 H Lymph % (Auto) 4.1 L [place] % (Auto) 6.2 Eos % (Auto) 0.0 Baso % (Auto) 0.0 Neut # (Auto) 14.7 H Lymph # (Auto) 0.7 L [place] # (Auto) 1.0 H Eos # (Auto) 0.0 Baso # (Auto) 0.0 WBC Differential Manual diff final Seg Neuts % (Manual) 83 H Band Neuts % (Manual) 3 Lymphocytes % (Manual) 7 L Monocytes % (Manual) 6 Metamyelocytes % (Man) 1 Abs Neuts (Manual) 14.2 H Differential Comment . Platelet Estimate Normal Platelet Morphology Normal RBC Morphology Normal Lab - Chemistry Results 05/14/18 05/14/18 05/14/18 09:30 09:30 09:30 Sodium 144 Cancelled Potassium 4.7 Cancelled Chloride 103 Cancelled Carbon Dioxide 36.2 H Cancelled Anion Gap 5 Cancelled BUN 28 H Cancelled Creatinine 0.78 Cancelled Estimated GFR Greater than 89 Cancelled POC Glucose Random Glucose 183 H Cancelled Lactic Acid 3.3 H Calcium 8.1 L Cancelled Phosphorus 4.7 Cancelled Magnesium 2.1 Cancelled Total Bilirubin 0.5 AST 45 H ALT 77 Alkaline Phosphatase 98 Total Protein 7.0 D Albumin 2.9 L 05/14/18 05/15/18 17:30 15:11 Sodium 145 Potassium 4.3 Chloride 107 Carbon Dioxide 35.7 H Anion Gap 2 L BUN 42 H Creatinine 0.64 Estimated GFR Greater than 89 POC Glucose 138 H Random Glucose 101 Lactic Acid Calcium 7.7 L Phosphorus Magnesium Total Bilirubin AST ALT Alkaline Phosphatase Total Protein Albumin Imaging: ITS Impressions Chest CTA 05/08/18 21:52 CONCLUSION: 1. Clustered nodularity in the upper right lung with measurements given above. Primary differential diagnosis is infectious in nature. Cannot exclude malignancy. 2. Severe peribronchial thickening at the lung bases with cylindrical bronchiectasis and patchy airspace disease. 3. Moderate centrilobular emphysema. 4. No adenopathy. 5. Exam suboptimal for evaluation of pulmonary embolic disease. Consider further evaluation with VQ scan if pulmonary embolus is of clinical concern. Chest Tube Insertion 05/11/18 00:00 CONCLUSION: 1. Uncomplicated right chest tube placement as above. Lung Biopsy CT 05/11/18 00:[address] CONCLUSION: 1[address] Successful CT guided biopsy of right upper lobe mass. Chest X-Ray 05/15/18 00:00 CONCLUSION: 1. Right chest tube remains present with stable small right pneumothorax. 2. Bibasilar atelectasis versus airspace consolidation with small left pleural effusion. Physical Exam: GENERAL: sedated intubated on mech vent SKIN: Warm and dry. Ecchymoses draining blisters on BUE HEAD: Atraumatic. Normocephalic. EYES: Pupils equal and round. No scleral icterus. No injection or drainage. ENT: No nasal bleeding or discharge. Mucous membranes pink and moist. NECK: Trachea midline. No JVD. CARDIOVASCULAR: Regular rate and rhythm. RESPIRATORY: No accessory muscle use. Clear to auscultation. Breath sounds equal bilaterally. GASTROINTESTINAL: Abdomen soft, non-tender, nondistended. Hepatic and splenic margins not palpable. MUSCULOSKELETAL: Extremities without clubbing, cyanosis, or edema. No obvious deformities. NEUROLOGICAL: sedated unresponsive PSYCHIATRIC: unable to assess Assessment and Plan - Plan Advanced COPD Acute VDRF Mycobacterial lung infecvtion, R lung - path with necrotizing granuloma; cultures not available - fu BAL clx - fu AFB sputum clx - no empiric tx for mycobacterial infx is recommended - Quantiferron
[2018-05-16] MEDS: Oral Hygiene Kit OROPHARYNG SCH ×4 (01:12→16:00)
[2018-05-16] MEDS: Sod Chloride 0.9% Inj 1,000 ML IV.CONT SCH ×3 (01:49→22:30)
[2018-05-16] MEDS: Propofol 1000 mg/100 ml Inj 1,000 MG/100 ML BOTTLE IV.CONT PRN ×5 (03:16→21:27)
[2018-05-16] MEDS: MethylPREDNISolone Sod Succinate Inj 125 MG/2 ML Vial IV.PUSH SCH ×4 (05:21→17:49)
[2018-05-16] MEDS: Budesonide-Formoterol 160/4.5 MCG 6 GM Inhaler INH SCH ×2 (07:16→19:23)
[2018-05-16] MEDS: Chlorhexidine 0.12% Oral Kit 15 ML UDC OROPHARYNG SCH ×2 (07:58→20:44)
[2018-05-16] MEDS: Divalproex 500 MG ER Tablet PO SCH (08:59)
[2018-05-16] MEDS: Senna/Docusate Sodium 8.6/50 MG Tablet PO SCH ×2 (08:59→20:44)
[2018-05-16] MEDS: guaiFENesin 600 MG ER Tablet PO SCH ×2 (08:59→20:44)
[2018-05-16] MEDS: Azithromycin 250 MG Tablet PO SCH (08:59)
[2018-05-16] MEDS: fentaNYL 10 mcg/mL Premix Drip 2,500 MCG/250 ML BAG IV.SIG PRN (09:01)
--- NOTE | 2018-05-16 10:20 | P.PNCC ---
Subjective Subjective Remarks/Hospital Course: Patient is 63-year-old male with history of emphysema, COPD, chronic respiratory failure on oxygen, chronic back pain, bipolar disorder who recently moved to [place] from [place]. He presented to [facility] emergency department with shortness of breath, dyspnea, and hypoxia. Patient was admitted for acute COPD exacerbation and probable pneumonia. CTA chest done in emergency department showed right upper lobe nodularity, largest nodule 4 and 2.4 cm. Pulmonology was consulted and per pulmonology recommendation patient underwent CT-guided biopsy of the right upper lobe nodule by invasive radiology yesterday 05/11/2018. Postprocedure patient developed pneumothorax for which IR placed a 12 Hebrew until chest tube, followed by near complete resolution of the pneumothorax. Patient was moved back to the floor after the procedure. Today patient was found in acute respiratory distress hypoxic tachycardic and severely tachypneic by the nurse, and the chest tube was found dislodged. A halicat was called and he was placed on 100% nonrebreather and was emergently moved to ICU. I met the patient in the ICU immediately. He was in severe distress there was extensive subcutaneous emphysema, also diminished air entry on the right side. Quick review of the chest x-ray showed large right-sided pneumothorax. I emergently place a right-sided chest tube with improvement in his symptoms Critical care re consult note 05/14/18: Patient known to me. Patient had emergency chest tube placed on 05/12/2018 by myself, with resolution of the large right pneumothorax. He was seen by hospitalist yesterday and was transferred to the medical floor. Today I had a CAT was called as the patient was found unresponsive with a saturation of 52%. But the respiratory therapist about 30 minutes prior to this patient was AAO 3 talking to her while getting breathing treatment. I was immediately called to the bedside to evaluate. Patient remains unresponsive with bag and mask ventilation oxygen saturation gradually improved to mid 80s. Patient was emergently moved to the ICU. CXR is pending, chest tube appears to be functional with 1+ airleak. ABG showed severe hypercapnia acidemia and hypoxia. On 100% oxygen pH was 7.08 PCO2 128 PO2 84. Patient was emergently intubated and placed on mechanical ventilation. Brief exam showed severe expiratory wheezing. 05/15: Gas exchange acceptable today. Small air leak persists through right chest tube. Right lung is well expanded with quite minimal pleural air. Diffuse infiltrative process persists. Tidal volumes decreased to keep plateau pressure less than 30. 05/16: Air leak minimal today. Good bilateral breath sounds. AFB stains and cultures pending from yesterday. Continue weaning trials. Objective Vital Signs / I&O: Vital Signs 05/15/18 10:50 05/15/18 12:00 05/15/18 14:00 Temperature 97.7 F Pulse Rate 53 L 52 L Respiratory Rate 14 Blood Pressure 103/67 Pulse Oximetry 99 05/15/18 15:44 05/15/18 16:00 05/15/18 18:00 Temperature 99.4 F Pulse Rate 54 L 59 L 53 L Respiratory Rate 14 14 Blood Pressure 130/82 Pulse Oximetry 98 05/15/18 19:28 05/15/18 19:35 05/15/18 20:00 Temperature 99.1 F Pulse Rate 55 L 55 L 62 Respiratory Rate 15 15 14 Blood Pressure 131/80 Pulse Oximetry 97 97 05/15/18 22:00 05/15/18 23:02 05/16/18 00:00 Temperature 98.9 F Pulse Rate 56 L 58 L 57 L Respiratory Rate 14 14 Blood Pressure 134/81 Pulse Oximetry 98 98 05/16/18 02:00 05/16/18 04:00 05/16/18 04:13 Temperature 99.1 F Pulse Rate 63 53 L 55 L Respiratory Rate 24 14 Blood Pressure 163/95 H Pulse Oximetry 99 99 05/16/18 06:00 05/16/18 07:19 05/16/18 08:00 Temperature 98.9 F Pulse Rate 55 L 59 L 59 L Respiratory Rate 14 14 Blood Pressure 165/92 H Pulse Oximetry 99 98 05/16/18 09:56 Temperature Pulse Rate Respiratory Rate 14 Blood Pressure Pulse Oximetry 97 Intake & Output 05/15/18 05/16/18 05/16/18 18:59 06:59 18:59 Intake Total 2099 / 2099 1200 / 1200 350 / 350 Output Total 700 / 700 875 / 875 Balance 1400 / 1400 325 / 325 350 / 350 Weight 101.8 kg Intake: IV 2099 1200 / 1200 350 / 350 Diprivan 1000 mg/100 ml Inj 1, 300 / 300 100 / 100 100 / 100 000 mg In 100 ml @ 5 MCG/KG/MIN 2.79 mls/hr IV.CONT TITRATE PRN Rx#:[id number] NS Inj 1,000 ML @ 100 mls/hr IV 1000 / 1000 1000 / 1000 .CONT .Q10H [facility] Rx#:[id number] Maxipime Inj 2,000 MG In NS Inj 200 / 200 100 / 100 100 ML @ 200 mls/hr IV.SIG Q8H [facility] Rx#:[id number] fentaNYL 10 mcg/mL Premix Drip 250 / 250 250 / 250 2,500 mcg In 250 ml @ 50 MCG/HR 5 mls/hr IV.SIG TITRATE PRN Rx #:[id number] Output: Urine Amount (Catheter) 650 / 650 875 / 875 Indwelling Urethral Catheter 650 / 650 875 / 875 Gastric Drainage 50 / 50 0 / 0 Orogastric Tube 50 / 50 0 / 0 Chest Tube Drainage 0 / 0 Right Upper Mid-Axillary Chest 0 / 0 Other: Date of Last Bowel Movement 05/12/18 05/12/18 05/12/18 # Bowel Movements 0 Result Diagrams: 05/15/18 15:11 05/15/18 15:11 Objective Remarks: GENERAL: Lying in bed, intubated and sedated. HEAD: Normocephalic. ENT: Orotracheal intubation. NECK: Supple, trachea midline. EYES: Pupils reactive, no conjunctival icterus. CARDIOVASCULAR: Regular rhythm, rate 80s. No JVD. RESPIRATORY: Generally clear with a few light wheezes. Significant subcutaneous emphysema. Right chest tube in place with airleak GASTROINTESTINAL: Abdomen soft, non-tender, nondistended. No guarding, bowel sounds present. MUSCULOSKELETAL: No cyanosis, or edema. Warm, well-perfused. NEURO: Moves 4 limbs spontaneously. Opens eyes to loud voice. Assessment and Plan - Problem List (1) Acute on chronic respiratory failure with hypoxia Code(s): J96.21 - Acute and chronic respiratory failure with hypoxia Status: Acute (2) Healthcare-associated pneumonia Code(s): J18.9 - Pneumonia, unspecified organism Status: Acute (3) Hypoxia Code(s): R09.02 - Hypoxemia Status: Acute (4) Abnormal CT scan, lung Code(s): R91.8 - Other nonspecific abnormal finding of lung field Status: Acute - Assessment and Plan Plan: ASSESSMENT: Acute respiratory arrest Altered mental status/unresponsiveness due to severe hypercapnia Acute on chronic hypoxemic, hypercapnic respiratory failure Acute COPD exacerbation Right sided pneumothorax following lung biopsy, recurrent Status post lung biopsy for right upper lobe mass Status post chest tube for pneumothorax following lung biopsy Dislodgment on IR chest tube requiring emergency repeat chest tube placement 05/12 Chronic low back pain COPD on home oxygen/emphysema PLAN: NEURO: -Acute change in mental status secondary to severe hypercapnia -Propofol and fentanyl for sedation and vent synchrony -Continue PRN oxycodone, Dilaudid for breakthrough pain -Hold buspirone, Celexa, Xanax. Continue divalproex RESP: -Emergently intubated and placed on mechanical ventilation 05-14-18 for severe hypercapnic and hypoxemic respiratory failure -Postprocedure chest x-ray pending -Increase DuoNeb to every 4 hours scheduled and as needed -Solu-Medrol 125 mg IV 1 continue Solu-Medrol 60 mg q 6 hours, taper now. -Continue broad-spectrum antibiotics with cefepime and azithromycin. Patient is being ruled out for tuberculosis -On 05/12/18 patient had developed acute respiratory distress secondary to dislodgment of the chest tube and recurrence of large pneumothorax -I emergently placed right-sided 10 F pigtail chest tube with improvement in symptoms and near complete resolution of the pneumothorax -Continue Singulair -Pulmonology following Dr. Mccormick -Daily spontaneous breathing trials starting in 24 hours -Post intubation CXR showed moderate sized right pneumothorax -> large bore chest tube CV: -Monitor heart rate and blood pressure closely -Normal saline at 100 mL/h GI: -N.p.o., IV famotidine : -Monitor renal function closely ID: -Antibiotics cefepime and azithromycin. -Follow on sputum culture. AFB to rule TB HEME: -Monitor CBC, coags ENDO: -Electrolyte replacement per protocol -Sliding scale insulin PROPH: -Bilateral lower extremity SCDs. Subcu heparin on hold for additional 24 hours in anticipation of invasive procedures LINES: -Utilize peripheral IVs Overall impression: This gentleman is critically ill with a diffuse infiltrative process involving both lungs. His pulmonary status is unstable. He requires mechanical ventilation and we are unable to wean. Airway pressures are elevated. Wheezing is slightly better controlled. Diagnostic workup continues. On the positive side the air leak from the right lung has almost completely resolved. We will leave the chest tube and however for now. Critical care 37 minutes
[2018-05-16] MEDS: Montelukast 10 MG Tablet PO SCH (17:49)
[2018-05-17] MEDS: Oral Hygiene Kit OROPHARYNG SCH ×4 (01:05→16:00)
[2018-05-17] MEDS: MethylPREDNISolone Sod Succinate Inj 125 MG/2 ML Vial IV.PUSH SCH ×4 (01:05→17:55)
[2018-05-17] MEDS: Propofol 1000 mg/100 ml Inj 1,000 MG/100 ML BOTTLE IV.CONT PRN ×4 (01:56→20:58)
[2018-05-17] MEDS: fentaNYL 10 mcg/mL Premix Drip 2,500 MCG/250 ML BAG IV.SIG PRN ×2 (02:03→17:18)
[2018-05-17] MEDS: Budesonide-Formoterol 160/4.5 MCG 6 GM Inhaler INH SCH ×2 (07:11→19:43)
[2018-05-17] MEDS: Chlorhexidine 0.12% Oral Kit 15 ML UDC OROPHARYNG SCH ×2 (08:00→20:45)
--- NOTE | 2018-05-17 08:34 | P.PNCC ---
Subjective Subjective Remarks/Hospital Course: Patient is 63-year-old male with history of emphysema, COPD, chronic respiratory failure on oxygen, chronic back pain, bipolar disorder who recently moved to [place] from [place]. He presented to [facility] emergency department with shortness of breath, dyspnea, and hypoxia. Patient was admitted for acute COPD exacerbation and probable pneumonia. CTA chest done in emergency department showed right upper lobe nodularity, largest nodule 4 and 2.4 cm. Pulmonology was consulted and per pulmonology recommendation patient underwent CT-guided biopsy of the right upper lobe nodule by invasive radiology yesterday 05/11/2018. Postprocedure patient developed pneumothorax for which IR placed a 12 Uzbek until chest tube, followed by near complete resolution of the pneumothorax. Patient was moved back to the floor after the procedure. Today patient was found in acute respiratory distress hypoxic tachycardic and severely tachypneic by the nurse, and the chest tube was found dislodged. A halicat was called and he was placed on 100% nonrebreather and was emergently moved to ICU. I met the patient in the ICU immediately. He was in severe distress there was extensive subcutaneous emphysema, also diminished air entry on the right side. Quick review of the chest x-ray showed large right-sided pneumothorax. I emergently place a right-sided chest tube with improvement in his symptoms Critical care re consult note 05/14/18: Patient known to me. Patient had emergency chest tube placed on 05/12/2018 by myself, with resolution of the large right pneumothorax. He was seen by hospitalist yesterday and was transferred to the medical floor. Today I had a CAT was called as the patient was found unresponsive with a saturation of 52%. But the respiratory therapist about 30 minutes prior to this patient was AAO 3 talking to her while getting breathing treatment. I was immediately called to the bedside to evaluate. Patient remains unresponsive with bag and mask ventilation oxygen saturation gradually improved to mid 80s. Patient was emergently moved to the ICU. CXR is pending, chest tube appears to be functional with 1+ airleak. ABG showed severe hypercapnia acidemia and hypoxia. On 100% oxygen pH was 7.08 PCO2 128 PO2 84. Patient was emergently intubated and placed on mechanical ventilation. Brief exam showed severe expiratory wheezing. 05/15: Gas exchange acceptable today. Small air leak persists through right chest tube. Right lung is well expanded with quite minimal pleural air. Diffuse infiltrative process persists. Tidal volumes decreased to keep plateau pressure less than 30. 05/16: Air leak minimal today. Good bilateral breath sounds. AFB stains and cultures pending from yesterday. Continue weaning trials. 05/17: No air leak today but water level and Pleur-evac indicates that a leak is probably intermittent. Continue ventilator weaning trial. Patient gets very agitated without sedation so we will go through a period where anxiety may interfere with spontaneous trials. Objective Vital Signs / I&O: Vital Signs 05/16/18 09:56 05/16/18 11:11 05/16/18 12:00 Temperature 99 F Pulse Rate 74 57 L Respiratory Rate 14 16 14 Blood Pressure 145/87 H Pulse Oximetry 97 97 05/16/18 13:22 05/16/18 14:58 05/16/18 16:00 Temperature 98.7 F Pulse Rate 63 55 L Respiratory Rate 14 14 14 Blood Pressure 174/85 H Pulse Oximetry 98 98 05/16/18 16:08 05/16/18 19:23 05/16/18 19:28 Temperature Pulse Rate 55 L 54 L Respiratory Rate 14 14 14 Blood Pressure Pulse Oximetry 97 05/16/18 20:00 05/16/18 20:57 05/16/18 22:00 Temperature 98.8 F Pulse Rate 53 L 74 Respiratory Rate 14 14 Blood Pressure 153/95 H Pulse Oximetry 98 97 05/16/18 22:29 05/16/18 23:18 05/17/18 00:00 Temperature 98.9 F Pulse Rate 56 L 59 L Respiratory Rate 14 14 14 Blood Pressure 168/52 H Pulse Oximetry 98 97 05/17/18 01:08 05/17/18 02:00 05/17/18 03:05 Temperature Pulse Rate 57 L 55 L Respiratory Rate 14 14 Blood Pressure Pulse Oximetry 98 05/17/18 04:00 05/17/18 04:08 05/17/18 06:00 Temperature 99.1 F Pulse Rate 55 L 53 L Respiratory Rate 14 15 Blood Pressure 148/94 H Pulse Oximetry 97 97 05/17/18 07:14 Temperature Pulse Rate 52 L Respiratory Rate 14 Blood Pressure Pulse Oximetry 99 Intake & Output 05/16/18 05/17/18 05/17/18 18:59 06:59 18:59 Intake Total 1870 / 1870 1650 / 1650 Output Total 980 / 980 715 / 715 Balance 890 / 890 935 / 935 Weight 103.8 kg Intake: IV 1750 / 1750 1650 / 1650 Diprivan 1000 mg/100 ml Inj 1, 300 / 300 300 / 300 000 mg In 100 ml @ 5 MCG/KG/MIN 2.79 mls/hr IV.CONT TITRATE PRN Rx#:[id number] NS Inj 1,000 ML @ 100 mls/hr IV 1000 / 1000 1000 / 1000 .CONT .Q10H [facility] Rx#:[id number] Maxipime Inj 2,000 MG In NS Inj 200 / 200 100 / 100 100 ML @ 200 mls/hr IV.SIG Q8H [facility] Rx#:[id number] fentaNYL 10 mcg/mL Premix Drip 250 / 250 250 / 250 2,500 mcg In 250 ml @ 50 MCG/HR 5 mls/hr IV.SIG TITRATE PRN Rx #:[id number] Water Bolus Amount 120 / 120 Output: Urine Amount (Catheter) 850 / 850 675 / 675 Indwelling Urethral Catheter 850 / 850 675 / 675 Gastric Drainage 0 / 0 Orogastric Tube 0 / 0 Chest Tube Drainage 130 / 130 40 / 40 Right Upper Mid-Axillary Chest 130 / 130 40 / 40 Other: Date of Last Bowel Movement 05/12/18 05/12/18 # Bowel Movements 0 0 Result Diagrams: 05/15/18 15:11 05/15/18 15:11 Objective Remarks: GENERAL: Lying in bed, intubated and sedated. HEAD: Normocephalic. ENT: Orotracheal intubation. NECK: Supple, trachea midline. EYES: Pupils reactive, no conjunctival icterus. CARDIOVASCULAR: Regular rhythm, rate 80s. No JVD. RESPIRATORY: Generally clear with a few light wheezes. Significant subcutaneous emphysema. Right chest tube in place with no airleak GASTROINTESTINAL: Abdomen soft, non-tender, nondistended. No guarding, bowel sounds present. MUSCULOSKELETAL: No cyanosis, or edema. Warm, well-perfused. NEURO: Moves 4 limbs spontaneously. Opens eyes to loud voice. Breathes over ventilator. Assessment and Plan - Problem List (1) Acute on chronic respiratory failure with hypoxia Code(s): J96.21 - Acute and chronic respiratory failure with hypoxia Status: Acute (2) Healthcare-associated pneumonia Code(s): J18.9 - Pneumonia, unspecified organism Status: Acute (3) Hypoxia Code(s): R09.02 - Hypoxemia Status: Acute (4) Abnormal CT scan, lung Code(s): R91.8 - Other nonspecific abnormal finding of lung field Status: Acute - Assessment and Plan Plan: ASSESSMENT: Acute respiratory arrest Altered mental status/unresponsiveness due to severe hypercapnia Acute on chronic hypoxemic, hypercapnic respiratory failure Acute COPD exacerbation Right sided pneumothorax following lung biopsy, recurrent Status post lung biopsy for right upper lobe mass Status post chest tube for pneumothorax following lung biopsy Dislodgment on IR chest tube requiring emergency repeat chest tube placement 05/12 Chronic low back pain COPD on home oxygen/emphysema PLAN: NEURO: -Acute change in mental status secondary to severe hypercapnia -Propofol and fentanyl for sedation and vent synchrony -Continue PRN oxycodone, Dilaudid for breakthrough pain -Hold buspirone, Celexa, Xanax. Continue divalproex RESP: -Emergently intubated and placed on mechanical ventilation 05-14-18 for severe hypercapnic and hypoxemic respiratory failure -Postprocedure chest x-ray pending -Increase DuoNeb to every 4 hours scheduled and as needed -Solu-Medrol 125 mg IV 1 continue Solu-Medrol 60 mg q 6 hours, taper now. -Continue broad-spectrum antibiotics with cefepime and azithromycin. Patient is being ruled out for tuberculosis -On 05/12/18 patient had developed acute respiratory distress secondary to dislodgment of the chest tube and recurrence of large pneumothorax -I emergently placed right-sided 10 F pigtail chest tube with improvement in symptoms and near complete resolution of the pneumothorax -Continue Singulair -Pulmonology following Dr. Mccormick -Daily spontaneous breathing trials starting in 24 hours -Post intubation CXR showed moderate sized right pneumothorax -> large bore chest tube CV: -Monitor heart rate and blood pressure closely -Discontinue saline at 100 mL/h GI: -N.p.o., IV famotidine -Enteral tube feedings per OG : -Monitor renal function closely ID: -Antibiotics cefepime and azithromycin. Adjust per infectious disease service. -Follow on sputum culture. AFB to rule TB HEME: -Monitor CBC, coags ENDO: -Electrolyte replacement per protocol -Sliding scale insulin PROPH: -Bilateral lower extremity SCDs. Subcu heparin. LINES: -Utilize peripheral IVs Overall impression: Slowly improving gas exchange in patient with diffuse long infiltrative process. Unable to wean from ventilator today.
[2018-05-17] MEDS: Azithromycin 250 MG Tablet PO SCH (09:34)
[2018-05-17] MEDS: Senna/Docusate Sodium 8.6/50 MG Tablet PO SCH ×2 (09:34→20:45)
[2018-05-17] MEDS: Divalproex 500 MG ER Tablet PO SCH (09:34)
[2018-05-17] MEDS: Sod Chloride 0.9% Inj 1,000 ML IV.CONT SCH ×3 (09:35→20:46)
[2018-05-17] MEDS: guaiFENesin 600 MG ER Tablet PO SCH ×2 (09:35→20:45)
[2018-05-17] MEDS: Montelukast 10 MG Tablet PO SCH (17:55)
[2018-05-18] MEDS: Oral Hygiene Kit OROPHARYNG SCH ×4 (00:15→16:25)
[2018-05-18] MEDS: MethylPREDNISolone Sod Succinate Inj 125 MG/2 ML Vial IV.PUSH SCH ×4 (00:15→17:51)
[2018-05-18] MEDS: Propofol 1000 mg/100 ml Inj 1,000 MG/100 ML BOTTLE IV.CONT PRN ×2 (01:26→05:50)
[2018-05-18] MEDS: Sod Chloride 0.9% Inj 1,000 ML IV.CONT SCH ×2 (04:06→05:31)
--- NOTE | 2018-05-18 04:28 | XR ---
EXAM DATE: 05/18/2018 3:43 AM EDT AGE/SEX: 63 years / Male INDICATIONS: Short of breath. CLINICAL DATA: This is the patient's subsequent encounter. Patient reports that signs and symptoms h ave been present for 1 week and indicates a pain score of Nonresponsive. MEDICAL/SURGICAL HISTORY: . TB. Right sided pneumothorax. . Right chest tube COMPARISON: [facility] – [place], CHEST 1V SINGLE AP, 05/15/2018. . FINDINGS: A single AP view of the chest demonstrates bibasilar densities. Right upper lobe nodular density. Rig ht-sided chest tube and small right basilar pneumothorax, unchanged. Endotracheal tube and nasogastri c tube unchanged. Subcutaneous emphysema bilaterally but greater on the right. The cardiomediastinal contours are unremarkable. Osseous structures are intact. CONCLUSION: 1. Right upper lobe nodular density. 2. Bibasilar densities. 3. Right-sided chest tube and small right basilar pneumothorax. No change. Electronically signed by: Tano Zhong MD 05/18/2018 4:26 AM EDT
[2018-05-18 05:47] LABS: Baso % (Auto) 0.1 % (0.0-2.0); Hematocrit 36.1 % (39.0-51.0); Hemoglobin 12.4 gm/dL (13.0-17.0); Lymph # (Auto) 0.5 th/mm3 (1.0-4.8); Mean Corpuscular HGB Conc 34.3 % (32.0-36.0); Mean Corpuscular Hemoglobin 31.1 pg (27.0-34.0); Mean Corpuscular Volume 90.6 fL (80.0-100.0); Mean Platelet Volume 10.7 fL (7.0-11.0); Mono # (Auto) 0.4 th/mm3 (0.0-0.9); Mono % (Auto) 4.1 % (0.0-8.0); Neut # (Auto) 8.5 th/mm3 (1.8-7.7); Neut % (Auto) 90.8 % (16.0-70.0); Platelet Count 74 th/mm3 (150-450); Red Blood Count 3.99 mil/mm3 (4.50-5.90); Red Cell Distribution Width 14.7 % (11.6-17.2); White Blood Count 9.4 th/mm3 (4.0-11.0)
[2018-05-18 05:59] LABS: Alanine Aminotransferase 75 U/L (12-78); Albumin 1.8 g/dL (3.4-5.0); Alkaline Phosphatase 64 U/L (45-117); Anion Gap 4 meq/L (5-15); Aspartate Aminotransferase 55 U/L (15-37); Blood Urea Nitrogen 36 mg/dL (7-18); Calcium 7.4 mg/dL (8.5-10.1); Carbon Dioxide 29.7 meq/L (21.0-32.0); Chloride 107 meq/L (98-107); Glomerular Filtration Rate Greater Than 89 mL/min (>89); Glucose,Random 101 mg/dL (74-106); Sodium 141 meq/L (136-145); Total Protein 5.2 g/dL (6.4-8.2)
[2018-05-18 06:00] LABS: Potassium 5.3 meq/L (3.5-5.1)
[2018-05-18 08:00] LABS: Platelet Morphology Normal (Normal)
[2018-05-18] MEDS: Chlorhexidine 0.12% Oral Kit 15 ML UDC OROPHARYNG SCH ×2 (08:05→20:24)
[2018-05-18] MEDS: Senna/Docusate Sodium 8.6/50 MG Tablet PO SCH ×2 (08:05→20:23)
[2018-05-18] MEDS: Divalproex 500 MG ER Tablet PO SCH (08:05)
[2018-05-18] MEDS: Azithromycin 250 MG Tablet PO SCH (08:05)
[2018-05-18] MEDS: guaiFENesin 600 MG ER Tablet PO SCH ×2 (08:06→20:23)
[2018-05-18] MEDS: Budesonide-Formoterol 160/4.5 MCG 6 GM Inhaler INH SCH ×2 (08:17→20:24)
--- NOTE | 2018-05-18 08:48 | P.PNCC ---
Subjective Subjective Remarks/Hospital Course: Patient is 63-year-old male with history of emphysema, COPD, chronic respiratory failure on oxygen, chronic back pain, bipolar disorder who recently moved to [place] from [place]. He presented to [facility] emergency department with shortness of breath, dyspnea, and hypoxia. Patient was admitted for acute COPD exacerbation and probable pneumonia. CTA chest done in emergency department showed right upper lobe nodularity, largest nodule 4 and 2.4 cm. Pulmonology was consulted and per pulmonology recommendation patient underwent CT-guided biopsy of the right upper lobe nodule by invasive radiology yesterday 05/11/2018. Postprocedure patient developed pneumothorax for which IR placed a 12 Estonian until chest tube, followed by near complete resolution of the pneumothorax. Patient was moved back to the floor after the procedure. Today patient was found in acute respiratory distress hypoxic tachycardic and severely tachypneic by the nurse, and the chest tube was found dislodged. A halicat was called and he was placed on 100% nonrebreather and was emergently moved to ICU. I met the patient in the ICU immediately. He was in severe distress there was extensive subcutaneous emphysema, also diminished air entry on the right side. Quick review of the chest x-ray showed large right-sided pneumothorax. I emergently place a right-sided chest tube with improvement in his symptoms Critical care re consult note 05/14/18: Patient known to me. Patient had emergency chest tube placed on 05/12/2018 by myself, with resolution of the large right pneumothorax. He was seen by hospitalist yesterday and was transferred to the medical floor. Today Halicat was called as the patient was found unresponsive with a saturation of 52%. But the respiratory therapist about 30 minutes prior to this patient was AAO 3 talking to her while getting breathing treatment. I was immediately called to the bedside to evaluate. Patient remains unresponsive with bag and mask ventilation oxygen saturation gradually improved to mid 80s. Patient was emergently moved to the ICU. CXR is pending, chest tube appears to be functional with 1+ airleak. ABG showed severe hypercapnia acidemia and hypoxia. On 100% oxygen pH was 7.08 PCO2 128 PO2 84. Patient was emergently intubated and placed on mechanical ventilation. Brief exam showed severe expiratory wheezing. 05/15: Gas exchange acceptable today. Small air leak persists through right chest tube. Right lung is well expanded with quite minimal pleural air. Diffuse infiltrative process persists. Tidal volumes decreased to keep plateau pressure less than 30. 05/16: Air leak minimal today. Good bilateral breath sounds. AFB stains and cultures pending from yesterday. Continue weaning trials. 05/17: No air leak today but water level and Pleur-evac indicates that a leak is probably intermittent. Continue ventilator weaning trial. Patient gets very agitated without sedation so we will go through a period where anxiety may interfere with spontaneous trials. 05/18: Remains intubated sedated intermittent air leak. Chest x-ray shows tiny right basilar pneumothorax. Patient wakes up follows commands. Resume spontaneous breathing trials for possible extubation Objective Vital Signs / I&O: Vital Signs 05/17/18 09:59 05/17/18 12:00 05/17/18 12:05 Temperature 99.3 F Pulse Rate 96 H 102 H Respiratory Rate 9 L 9 L 9 L Blood Pressure 163/99 H Pulse Oximetry 98 95 05/17/18 13:15 05/17/18 14:55 05/17/18 16:00 Temperature 99.4 F Pulse Rate 91 H 72 Respiratory Rate 12 12 12 Blood Pressure 130/84 Pulse Oximetry 94 L 92 L 93 L 05/17/18 16:16 05/17/18 19:42 05/17/18 19:44 Temperature Pulse Rate 82 Respiratory Rate 13 12 15 Blood Pressure Pulse Oximetry 94 L 96 05/17/18 19:49 05/17/18 20:00 05/17/18 22:00 Temperature 99.2 F Pulse Rate 75 66 65 Respiratory Rate 12 12 Blood Pressure 146/90 H Pulse Oximetry 97 05/17/18 23:56 05/18/18 00:00 05/18/18 00:02 Temperature 98.3 F Pulse Rate 65 66 Respiratory Rate 12 12 12 Blood Pressure 135/87 Pulse Oximetry 96 98 05/18/18 02:00 05/18/18 03:05 05/18/18 03:07 Temperature Pulse Rate 57 L 53 L Respiratory Rate 12 12 Blood Pressure Pulse Oximetry 96 05/18/18 04:00 05/18/18 06:00 05/18/18 08:07 Temperature 99.0 F Pulse Rate 58 L 54 L Respiratory Rate 58 H 12 Blood Pressure 135/88 Pulse Oximetry 95 97 05/18/18 08:14 Temperature Pulse Rate 51 L Respiratory Rate 12 Blood Pressure Pulse Oximetry Intake & Output 05/17/18 05/18/18 05/18/18 18:59 06:59 18:59 Intake Total 1790 / 1790 2640 / 2640 100 / 100 Output Total 1120 / 1120 1875 / 1875 Balance 670 / 670 765 / 765 100 / 100 Weight 103.1 kg Intake: IV 1550 / 1550 2400 / 2400 100 / 100 Diprivan 1000 mg/100 ml Inj 1, 100 / 100 300 / 300 000 mg In 100 ml @ 5 MCG/KG/MIN 2.79 mls/hr IV.CONT TITRATE PRN Rx#:[id number] NS Inj 1,000 ML @ 100 mls/hr IV 1000 / 1000 1999 / 1999 .CONT .Q10H TAIWO Rx#:[id number] Maxipime Inj 2,000 MG In NS Inj 200 / 200 100 / 100 100 / 100 100 ML @ 200 mls/hr IV.SIG Q8H TAIWO Rx#:[id number] fentaNYL 10 mcg/mL Premix Drip 250 / 250 2,500 mcg In 250 ml @ 50 MCG/HR 5 mls/hr IV.SIG TITRATE PRN Rx #:[id number] Water Bolus Amount 240 / 240 240 / 240 Output: Urine 1000 / 1000 Urine Amount (Catheter) 900 / 900 875 / 875 Indwelling Urethral Catheter 900 / 900 875 / 875 Gastric Drainage 0 / 0 Orogastric Tube 0 / 0 Chest Tube Drainage 220 / 220 0 / 0 Right Upper Mid-Axillary Chest 220 / 220 0 / 0 Other: # Voids 0 Date of Last Bowel Movement 05/12/18 05/12/18 # Bowel Movements 0 0 Result Diagrams: 05/18/18 03:49 05/18/18 03:49 Objective Remarks: GENERAL: Lying in bed, intubated and sedated. HEAD: Normocephalic. ENT: Orotracheal intubation. NECK: Supple, trachea midline. EYES: Pupils reactive, no conjunctival icterus. CARDIOVASCULAR: Regular rhythm, rate 80s. No JVD. RESPIRATORY: Mild wheezes. Significant subcutaneous emphysema. Right chest tube in place with no airleak GASTROINTESTINAL: Abdomen soft, non-tender, nondistended. No guarding, bowel sounds present. MUSCULOSKELETAL: No cyanosis, or edema. Warm, well-perfused. NEURO: Moves 4 limbs spontaneously. Opens eyes to loud voice. Breathes over ventilator. Intermittently follows commands Assessment and Plan - Problem List (1) Acute on chronic respiratory failure with hypoxia Code(s): J96.21 - Acute and chronic respiratory failure with hypoxia Status: Acute (2) Healthcare-associated pneumonia Code(s): J18.9 - Pneumonia, unspecified organism Status: Acute (3) Hypoxia Code(s): R09.02 - Hypoxemia Status: Acute (4) Abnormal CT scan, lung Code(s): R91.8 - Other nonspecific abnormal finding of lung field Status: Acute - Assessment and Plan Plan: ASSESSMENT: Acute respiratory arrest Right sided pneumothorax following lung biopsy, recurrent Altered mental status due to severe hypercapnia-resolved Acute on chronic hypoxemic, hypercapnic respiratory failure-improving Acute COPD exacerbation Status post lung biopsy for right upper lobe mass Status post chest tube for pneumothorax following lung biopsy Dislodgment on IR chest tube requiring emergency repeat chest tube placement 05/12 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 Daily sedation vacation -Continue PRN oxycodone, Dilaudid for breakthrough pain -Hold buspirone, Celexa, Xanax. Continue divalproex RESP: -Emergently intubated and placed on mechanical ventilation 05-14-18 for severe hypercapnic and hypoxemic respiratory failure -Placed 28 Estonian right-sided chest tube on 05/14/2018 for recurrent pneumothorax -Chest x-ray now with small basilar pneumothorax -DuoNeb every 4 hours scheduled and as needed -Solu-Medrol 125 mg IV 1 continue Solu-Medrol 60 mg q 6 hours, taper now. -Continue broad-spectrum antibiotics per ID. Patient is being ruled out for tuberculosis -Previously on 05/12/18 patient had developed acute respiratory distress due to dislodgment of chest tube and recurrence of large pneumothorax -I emergently placed right-sided 10 F pigtail chest tube with improvement in symptoms and near complete resolution of the pneumothorax -Continue Singulair. Pulmonology following Dr. Mccormick. Status post bronchoscopy -Daily spontaneous breathing trials CV: -Monitor heart rate and blood pressure closely -Discontinue saline at 100 mL/h -IV Lasix 40 mg 1 GI: -N.p.o., IV famotidine -Enteral tube feedings per OG, if not extubated today : -Monitor renal function closely ID: -Antibiotics cefepime and azithromycin. Adjust per infectious disease service. -Follow on sputum culture. AFB to rule TB. QuantiFERON gold pending -No empiric treatment for AFB per ID HEME: -Monitor CBC, coags ENDO: -Electrolyte replacement per protocol -Sliding scale insulin PROPH: -Bilateral lower extremity SCDs. Subcu heparin. LINES: -Utilize peripheral IVs Overall impression: Critically ill but slowly improving gas exchange in patient with diffuse long infiltrative process. Attempt ventilator weaning CCT 32 MIN Code Status: Full
--- NOTE | 2018-05-18 09:35 | XR ---
EXAM DATE: 05/18/2018 9:24 AM EDT AGE/SEX: 63 years / Male INDICATIONS: Pneumonia. CLINICAL DATA: This is the patient's subsequent encounter. Patient reports that signs and symptoms h ave been present for 1 week and indicates a pain score of Nonresponsive. MEDICAL/SURGICAL HISTORY: . TB. Right sided pneumothorax. . Right chest tube. COMPARISON: [facility], CHEST 1V SINGLE AP, 05/18/2018. . FINDINGS: A single AP view of the chest demonstrates stable bibasilar atelectatic changes. Right-sided thoracos jacquie tube is stable in position. The loculated right basilar pneumothorax seen previously is not lizandro rly identified on the current exam. Nodular density in the right upper lung is unchanged. The tissue emphysematous changes about the right hemithorax and at the base of the neck are also stable. Endotra cheal tube appropriately positioned above the rashad with a nasogastric tube entering the stomach and extending off the inferior aspect of the image. Osseous structures are intact CONCLUSION: 1. Stable bibasilar atelectatic changes/infiltrates, left greater than right. 2. Stable position of right thoracostomy tube, nasogastric tube and endotracheal tubes. Loculated ri ght basilar pneumothorax seen previously is not identified on the current exam. 3. Stable nodular density in the right upper lung. Stable deep tissue emphysematous changes about th e right hemithorax and the base of the neck bilaterally. Electronically signed by: Marcus Meneses MD 05/18/2018 9:34 AM EDT
[2018-05-18 10:09] LABS: ABG Base Excess 9.5 mmol/L (-2-2); ABG PCO2 53 mmHg (38-42); ABG PO2 68 mmHg (61-120)
[2018-05-18 14:49] LABS: TB1 Ag minus Nil Result -0.02 IU/mL
--- NOTE | 2018-05-18 16:11 | P.PNADD ---
Addendum to Inpatient Note Additional information: AFB neg 12/06 Quantferron negative case was dw Nicole Mccormick and Malcolm dw int radiologist: pt is a high risk for biopsy Plan to complete azithromycin for COPD exacerbation Monitor P AFB clx untill final repeat CT chest in 6-8 wks from original one (done on 05/08) If his infection progresses will repeat biopsy
[2018-05-18] MEDS: Montelukast 10 MG Tablet PO SCH (17:51)
--- NOTE | 2018-05-18 20:01 | P.PNPL ---
Subjective Interval history: 63 YOWM with COPD,Hypoxia, Ch resp insuff, Moved fr[place], did't bring his 02 CT chest lung density Extubated Has Rt chest tube Awake, alert Physical Exam Vital signs: Vital Signs 05/17/18 20:00 05/17/18 22:00 05/17/18 23:56 Temperature 99.2 F Pulse Rate 66 65 Respiratory Rate 12 12 Blood Pressure 146/90 H Pulse Oximetry 97 96 05/18/18 00:00 05/18/18 00:02 05/18/18 02:00 Temperature 98.3 F Pulse Rate 65 66 57 L Respiratory Rate 12 12 Blood Pressure 135/87 Pulse Oximetry 98 05/18/18 03:05 05/18/18 03:07 05/18/18 04:00 Temperature 99.0 F Pulse Rate 53 L 58 L Respiratory Rate 12 12 58 H Blood Pressure 135/88 Pulse Oximetry 96 95 05/18/18 06:00 05/18/18 08:00 05/18/18 08:07 Temperature 98.5 F Pulse Rate 54 L 57 L Respiratory Rate 12 12 Blood Pressure 135/89 Pulse Oximetry 98 97 05/18/18 08:14 05/18/18 10:00 05/18/18 10:30 Temperature Pulse Rate 51 L 91 H Respiratory Rate 12 Blood Pressure Pulse Oximetry 92 L 05/18/18 10:48 05/18/18 11:53 05/18/18 12:00 Temperature 98.5 F Pulse Rate 90 96 H Respiratory Rate 20 16 Blood Pressure 157/99 H Pulse Oximetry 91 L 93 L 05/18/18 12:14 05/18/18 14:00 05/18/18 15:11 Temperature Pulse Rate 107 H 99 H Respiratory Rate 16 22 Blood Pressure Pulse Oximetry 05/18/18 16:00 05/18/18 16:04 05/18/18 18:00 Temperature 97.9 F Pulse Rate 112 H 92 H Respiratory Rate 18 18 Blood Pressure 156/98 H Pulse Oximetry 98 05/18/18 18:46 05/18/18 19:30 Temperature Pulse Rate 90 Respiratory Rate 16 12 Blood Pressure Pulse Oximetry 94 L Intake & Output 05/18/18 05/18/18 05/19/18 06:59 18:59 06:59 Intake Total 2640 / 2640 2030 / 2030 Output Total 1875 / 1875 2650 / 2650 Balance 765 / 765 -620 / -620 Weight 103.1 kg Intake: IV 2400 / 2400 1550 / 1550 Diprivan 1000 mg/100 ml Inj 1, 300 / 300 100 / 100 000 mg In 100 ml @ 5 MCG/KG/MIN 2.79 mls/hr IV.CONT TITRATE PRN Rx#:[id number] NS Inj 1,000 ML @ 100 mls/hr IV 2000 / 2000 1000 / 1000 .CONT .Q10H TAIWO Rx#:[id number] Maxipime Inj 2,000 MG In NS Inj 100 / 100 200 / 200 100 ML @ 200 mls/hr IV.SIG Q8H TAIWO Rx#:[id number] fentaNYL 10 mcg/mL Premix Drip 250 / 250 2,500 mcg In 250 ml @ 50 MCG/HR 5 mls/hr IV.SIG TITRATE PRN Rx #:[id number] Oral 480 / 480 Water Bolus Amount 240 / 240 Output: Urine 1000 / 1000 Urine Amount (Catheter) 875 / 875 2650 / 2650 Indwelling Urethral Catheter 875 / 875 2650 / 2650 Gastric Drainage 0 / 0 Orogastric Tube 0 / 0 Chest Tube Drainage 0 / 0 Right Upper Mid-Axillary Chest 0 / 0 Other: # Voids 0 Date of Last Bowel Movement 05/12/18 05/18/18 # Bowel Movements 0 GENERAL: Elderly WM, mild SOB SKIN: Warm and dry. HEAD: Normocephalic. EYES: No scleral icterus. No injection or drainage. NECK: Supple, trachea midline. No JVD or lymphadenopathy. CARDIOVASCULAR: Regular rate and rhythm without murmurs, gallops, or rubs. RESPIRATORY: Breath sounds equal bilaterally. No accessory muscle use. Rt chest tube, small air leak. GASTROINTESTINAL: Abdomen soft, non-tender, nondistended. MUSCULOSKELETAL: No cyanosis, or edema. BACK: Nontender without obvious deformity. No CVA tenderness. - Urinary Catheter Management Indwelling Urethral Catheter Cath placed during this visit: yes Reason for continuing: Acute urinary retention Insertion date: 05/14/18 Insertion time: 12:30 Assessment and Plan - Plan IMPRESSION: 1. Chronic obstructive pulmonary disease with mild exacerbation. 2. Bronchiectasis. 3. 4 x 0.5 cm right upper lobe density, also has additional smaller density in the right upper lobe concerning for malignancy or infection. 4. Nicotine use. 5. Chronic respiratory insufficiency. 6. Bipolar disorder. 7. VDRF PLAN: Aerosol nebs Supplement 02 Cont Abx Chest tube to suction DW Dr.Alexandria Andrade Follow cultures Will rpt CT chest 6 weeks and follow lung density.
[2018-05-19] MEDS: Oral Hygiene Kit OROPHARYNG SCH ×4 (01:47→16:15)
[2018-05-19] MEDS: MethylPREDNISolone Sod Succinate Inj 125 MG/2 ML Vial IV.PUSH SCH (01:48)
--- NOTE | 2018-05-19 03:43 | XR ---
EXAM DATE: 05/19/2018 3:40 AM EDT AGE/SEX: 63 years / Male INDICATIONS: Respiratory Disease. CLINICAL DATA: This is the patient's subsequent encounter. Patient reports that signs and symptoms h ave been present for 2 weeks and indicates a pain score of 0/10. MEDICAL/SURGICAL HISTORY: . TB. Right side pneumothorax. . Right chest tube. COMPARISON: [facility] [place]ST 1V SINGLE AP, 05/18/2018. . FINDINGS: A single AP view of the chest demonstrates right upper lobe nodule. Minimal bibasilar atelectasis. Ri ght-sided chest tube without pneumothorax. Heart normal in size. Cutaneous emphysema again seen. The cardiomediastinal contours are unremarkable. Osseous structures are intact. CONCLUSION: No pneumothorax. Minimal bibasilar atelectasis. Electronically signed by: Tano Zhong MD 05/19/2018 3:42 AM EDT
[2018-05-19 04:35] LABS: Baso % (Auto) 0.1 % (0.0-2.0); Hematocrit 39.9 % (39.0-51.0); Hemoglobin 13.4 gm/dL (13.0-17.0); Lymph # (Auto) 1.3 th/mm3 (1.0-4.8); Lymph % (Auto) 6.3 % (9.0-44.0); Mean Corpuscular HGB Conc 33.7 % (32.0-36.0); Mean Corpuscular Hemoglobin 30.8 pg (27.0-34.0); Mean Corpuscular Volume 91.4 fL (80.0-100.0); Mean Platelet Volume 11.5 fL (7.0-11.0); Mono # (Auto) 2.7 th/mm3 (0.0-0.9); Mono % (Auto) 13.3 % (0.0-8.0); Neut # (Auto) 16.6 th/mm3 (1.8-7.7); Neut % (Auto) 80.3 % (16.0-70.0); Platelet Count 120 th/mm3 (150-450); Red Blood Count 4.37 mil/mm3 (4.50-5.90); Red Cell Distribution Width 15.1 % (11.6-17.2); White Blood Count 20.7 th/mm3 (4.0-11.0)
[2018-05-19] MEDS: Labetalol HCl Inj 100 MG/20 ML Vial IV.PUSH PRN (05:29)
[2018-05-19] MEDS: Chlorhexidine 0.12% Oral Kit 15 ML UDC OROPHARYNG SCH ×2 (08:34→20:17)
[2018-05-19] MEDS ORDERED: Sod Phosphate/Sod Biphosphate (Adult) Enema 133 ML Bottle RECTAL ONE (08:51)
[2018-05-19] MEDS: Magnesium Citrate Liq 300 ML Bottle PO ONE ×2 (09:15→10:13)
[2018-05-19] MEDS: Senna/Docusate Sodium 8.6/50 MG Tablet PO SCH ×2 (09:16→20:18)
[2018-05-19] MEDS: Azithromycin 250 MG Tablet PO SCH (09:16)
[2018-05-19] MEDS: guaiFENesin 600 MG ER Tablet PO SCH ×2 (09:16→20:18)
[2018-05-19] MEDS: Carvedilol 6.25 MG Tablet PO SCH ×2 (09:16→20:17)
[2018-05-19] MEDS: MethylPREDNISolone Sod Succinate Inj 40 MG/ML Vial IV.PUSH SCH ×2 (09:17→17:21)
[2018-05-19] MEDS: Divalproex 500 MG ER Tablet PO SCH (09:17)
--- NOTE | 2018-05-19 09:44 | P.PNCC ---
Subjective Subjective Remarks/Hospital Course: Patient is 63-year-old male with history of emphysema, COPD, chronic respiratory failure on oxygen, chronic back pain, bipolar disorder who recently moved to [place] from [place]. He presented to [place] emergency department with shortness of breath, dyspnea, and hypoxia. Patient was admitted for acute COPD exacerbation and probable pneumonia. CTA chest done in emergency department showed right upper lobe nodularity, largest nodule 4 and 2.4 cm. Pulmonology was consulted and per pulmonology recommendation patient underwent CT-guided biopsy of the right upper lobe nodule by invasive radiology yesterday 05/11/2018. Postprocedure patient developed pneumothorax for which IR placed a 12 Belarusian until chest tube, followed by near complete resolution of the pneumothorax. Patient was moved back to the floor after the procedure. Today patient was found in acute respiratory distress hypoxic tachycardic and severely tachypneic by the nurse, and the chest tube was found dislodged. A halicat was called and he was placed on 100% nonrebreather and was emergently moved to ICU. I met the patient in the ICU immediately. He was in severe distress there was extensive subcutaneous emphysema, also diminished air entry on the right side. Quick review of the chest x-ray showed large right-sided pneumothorax. I emergently place a right-sided chest tube with improvement in his symptoms Critical care re consult note 05/14/18: Patient known to me. Patient had emergency chest tube placed on 05/12/2018 by myself, with resolution of the large right pneumothorax. He was seen by hospitalist yesterday and was transferred to the medical floor. Today Halicat was called as the patient was found unresponsive with a saturation of 52%. But the respiratory therapist about 30 minutes prior to this patient was AAO 3 talking to her while getting breathing treatment. I was immediately called to the bedside to evaluate. Patient remains unresponsive with bag and mask ventilation oxygen saturation gradually improved to mid 80s. Patient was emergently moved to the ICU. CXR is pending, chest tube appears to be functional with 1+ airleak. ABG showed severe hypercapnia acidemia and hypoxia. On 100% oxygen pH was 7.08 PCO2 128 PO2 84. Patient was emergently intubated and placed on mechanical ventilation. Brief exam showed severe expiratory wheezing. 05/15: Gas exchange acceptable today. Small air leak persists through right chest tube. Right lung is well expanded with quite minimal pleural air. Diffuse infiltrative process persists. Tidal volumes decreased to keep plateau pressure less than 30. 05/16: Air leak minimal today. Good bilateral breath sounds. AFB stains and cultures pending from yesterday. Continue weaning trials. 05/17: No air leak today but water level and Pleur-evac indicates that a leak is probably intermittent. Continue ventilator weaning trial. Patient gets very agitated without sedation so we will go through a period where anxiety may interfere with spontaneous trials. 05/18: Remains intubated sedated intermittent air leak. Chest x-ray shows tiny right basilar pneumothorax. Patient wakes up follows commands. Resume spontaneous breathing trials for possible extubation 05/19: Extubated yesterday tolerating well breathing comfortably. Complains of right-sided chest pain and back pain. Constipated no bowel movement for several days, bowel regimen increased give mag citrate 2, check KUB. Patient is nauseated with intermittent vomiting. Abdomen is distended tender probable ileus Objective Vital Signs / I&O: Vital Signs 05/18/18 10:00 05/18/18 10:30 05/18/18 10:48 Temperature Pulse Rate 91 H Respiratory Rate Blood Pressure Pulse Oximetry 92 L 91 L 05/18/18 11:53 05/18/18 12:00 05/18/18 12:14 Temperature 98.5 F Pulse Rate 90 96 H Respiratory Rate 20 16 16 Blood Pressure 157/99 H Pulse Oximetry 93 L 05/18/18 14:00 05/18/18 15:11 05/18/18 16:00 Temperature 97.9 F Pulse Rate 107 H 99 H 112 H Respiratory Rate 22 18 Blood Pressure 156/98 H Pulse Oximetry 98 05/18/18 16:04 05/18/18 18:00 05/18/18 18:46 Temperature Pulse Rate 92 H Respiratory Rate 18 16 Blood Pressure Pulse Oximetry 05/18/18 19:30 05/18/18 20:00 05/18/18 22:00 Temperature 98 F Pulse Rate 90 89 84 Respiratory Rate 12 18 Blood Pressure 160/90 H Pulse Oximetry 94 L 98 05/18/18 23:45 05/19/18 00:00 05/19/18 02:00 Temperature 97.8 F Pulse Rate 87 89 92 H Respiratory Rate 20 18 Blood Pressure 155/90 H Pulse Oximetry 99 05/19/18 03:30 05/19/18 04:00 05/19/18 06:00 Temperature 98 F Pulse Rate 83 85 72 Respiratory Rate 15 18 Blood Pressure 170/90 H Pulse Oximetry 95 05/19/18 08:00 05/19/18 08:35 Temperature 99.4 F Pulse Rate 73 77 Respiratory Rate 17 16 Blood Pressure 183/103 H Pulse Oximetry 92 L 92 L Intake & Output 05/18/18 05/19/18 05/19/18 18:59 06:59 18:59 Intake Total 2029 610 / 610 Output Total 2650 / 2650 1400 / 1400 Balance -620 / -620 -790 / -790 Weight 99 kg Intake: IV 1550 / 1550 100 / 100 Diprivan 1000 mg/100 ml Inj 1, 100 / 100 000 mg In 100 ml @ 5 MCG/KG/MIN 2.79 mls/hr IV.CONT TITRATE PRN Rx#:[id number] NS Inj 1,000 ML @ 100 mls/hr IV 1000 / 1000 .CONT .Q10H [facility] Rx#:[id number] Maxipime Inj 2,000 MG In NS Inj 200 / 200 100 / 100 100 ML @ 200 mls/hr IV.SIG Q8H [facility] Rx#:[id number] fentaNYL 10 mcg/mL Premix Drip 250 / 250 2,500 mcg In 250 ml @ 50 MCG/HR 5 mls/hr IV.SIG TITRATE PRN Rx #:[id number] Oral 480 / 480 360 / 360 Other 150 / 150 Output: Urine 1300 / 1300 Urine Amount (Catheter) 2650 / 2650 Indwelling Urethral Catheter 2650 / 2650 Gastric Drainage 0 / 0 Orogastric Tube 0 / 0 Chest Tube Drainage 100 / 100 Right Upper Mid-Axillary Chest 100 / 100 Other: Date of Last Bowel Movement 05/18/18 05/18/18 05/18/18 # Bowel Movements 0 Result Diagrams: 05/19/18 03:18 05/18/18 03:49 Objective Remarks: GENERAL: Sitting up in bed mild distress due to pain HEAD: Normocephalic. ENT: Oral mucosa moist, airway patent NECK: Supple, trachea midline. EYES: Pupils reactive, no conjunctival icterus. CARDIOVASCULAR: Regular rhythm, rate 80s. No JVD. RESPIRATORY: Mild wheezes. Improving subcutaneous emphysema. Right chest tube in place with no airleak GASTROINTESTINAL: Abdomen soft, distended, mildly tender. No guarding. MUSCULOSKELETAL: No cyanosis, or edema. Warm, well-perfused. NEURO: Alert awake oriented. Follows commands no focal deficits Assessment and Plan - Problem List (1) Acute on chronic respiratory failure with hypoxia Code(s): J96.21 - Acute and chronic respiratory failure with hypoxia Status: Acute (2) Healthcare-associated pneumonia Code(s): J18.9 - Pneumonia, unspecified organism Status: Acute (3) Hypoxia Code(s): R09.02 - Hypoxemia Status: Acute (4) Abnormal CT scan, lung Code(s): R91.8 - Other nonspecific abnormal finding of lung field Status: Acute - Assessment and Plan Plan: ASSESSMENT: Acute respiratory arrest-resolved Right sided pneumothorax following lung biopsy, recurrent-now resolved Altered mental status due to severe hypercapnia-resolved Acute on chronic hypoxemic, hypercapnic respiratory failure-resolved Acute COPD exacerbation 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 Continue divalproex. Xanax RESP: -Emergently intubated and placed on mechanical ventilation 05-14-18 for severe hypercapnic and hypoxemic respiratory failure -Placed 28 Belarusian right-sided chest tube on 05/14/2018 for recurrent pneumothorax -Extubated 05/18, tolerating well, pneumothorax has resolved -DuoNeb every 4 hours scheduled and as needed -Solu-Medrol 60 mg q 8 hours, taper now. Reduce to 40 mg every 8 -Continue broad-spectrum antibiotics per ID. Patient is being ruled out for tuberculosis -Previously on 05/12/18 patient had developed acute respiratory distress due to dislodgment of chest tube and recurrence of large pneumothorax -I emergently placed right-sided 10 F pigtail chest tube with improvement in symptoms and near complete resolution of the pneumothorax -Continue Singulair. Pulmonology following Dr. Mccormick. Status post bronchoscopy -Add Spiriva, continue Symbicort CV: -Monitor heart rate and blood pressure closely -Start Coreg 6.25 mg BID GI: -N.p.o. except meds, IV famotidine -KUB to rule out ileus -Continue bowel regimen, add scheduled lactulose, mag citrate 1 -Fleet Enema 1 : -Monitor renal function closely -Mild hyperkalemia noted continue to monitor ID: -Antibiotics cefepime and azithromycin. Adjust per infectious disease service. -Follow on sputum culture. AFB to rule TB. QuantiFERON gold pending -No empiric treatment for AFB per ID HEME: -Monitor CBC, coags ENDO: -Electrolyte replacement per protocol -Sliding scale insulin PROPH: -Bilateral lower extremity SCDs. Subcu heparin resumed today. LINES: -Utilize peripheral IVs Overall impression: Level 3 [facility] consulted to assume care in am 05/20/18. Continue ICU care for another 24 hours due to ileus Code Status: Full
[2018-05-19] MEDS: Tiotropium Bromide 18 MCG/ACT Inhaler INH SCH (11:31)
--- NOTE | 2018-05-19 11:51 | XR ---
EXAM DATE: 05/19/2018 10:41 AM EDT AGE/SEX: 63 years / Male INDICATIONS: Evaluate for ileus. CLINICAL DATA: This is the patient's initial encounter. Patient reports that signs and symptoms have been present for 2 days and indicates a pain score of 3/10. MEDICAL/SURGICAL HISTORY: Chronic obstructive pulmonary disease. Emphysema. Appendectomy. COMPARISON: No prior exams available for comparison. FINDINGS: There is air distention of the gastric lumen. Otherwise, distribution of bowel gas is radiographical ly normal without obstruction or obvious pneumoperitoneum. However, air density is seen along the rig ht chest wall extending into the abdominal panniculus. CONCLUSION: 1. Air distention of the gastric lumen. Otherwise, nonobstructive bowel gas pattern. 2. The tissue emphysematous changes about the right hemithorax extending into the abdominal pannicul us. Electronically signed by: Marcus Meneses MD 05/19/2018 11:49 AM EDT
[2018-05-19] MEDS: Budesonide-Formoterol 160/4.5 MCG 6 GM Inhaler INH SCH (13:14)
[2018-05-19] MEDS: Montelukast 10 MG Tablet PO SCH (17:21)
--- NOTE | 2018-05-19 18:54 | P.PNID ---
Subjective Remarks: extubated afebrile Antibiotics: azithro Allergies/Adverse Reactions: Allergies No Known Allergies Allergy (Mild, Uncoded 05/08/18 20:55) unknown Objective Vital Signs 05/18/18 19:30 05/18/18 20:00 05/18/18 22:00 Temperature 98 F Pulse Rate 90 89 84 Respiratory Rate 12 18 Blood Pressure 160/90 H Pulse Oximetry 94 L 98 05/18/18 23:45 05/19/18 00:00 05/19/18 02:00 Temperature 97.8 F Pulse Rate 87 89 92 H Respiratory Rate 20 18 Blood Pressure 155/90 H Pulse Oximetry 99 05/19/18 03:30 05/19/18 04:00 05/19/18 06:00 Temperature 98 F Pulse Rate 83 85 72 Respiratory Rate 15 18 Blood Pressure 170/90 H Pulse Oximetry 95 05/19/18 08:00 05/19/18 08:35 05/19/18 10:00 Temperature 99.4 F Pulse Rate 73 77 73 Respiratory Rate 17 16 Blood Pressure 183/103 H Pulse Oximetry 92 L 92 L 05/19/18 12:00 05/19/18 13:44 05/19/18 14:00 Temperature 99.4 F Pulse Rate 74 81 Respiratory Rate 18 19 Blood Pressure 150/88 H Pulse Oximetry 93 L 05/19/18 15:49 05/19/18 16:00 05/19/18 18:00 Temperature 99.4 F Pulse Rate 79 80 77 Respiratory Rate 16 16 Blood Pressure 143/88 H Pulse Oximetry 94 L Intake & Output 05/18/18 05/19/18 05/19/18 18:59 06:59 18:59 Intake Total 2029 / 2029 610 / 610 340 / 340 Output Total 2650 / 2650 1400 / 1400 2400 / 2400 Balance -620 / -620 -790 / -790 -2060 / -2060 Weight 99 kg 99 kg Intake: IV 1550 / 1550 100 / 100 100 / 100 Diprivan 1000 mg/100 ml Inj 1, 100 / 100 000 mg In 100 ml @ 5 MCG/KG/MIN 2.79 mls/hr IV.CONT TITRATE PRN Rx#:[id number] NS Inj 1,000 ML @ 100 mls/hr IV 1000 / 1000 .CONT .Q10H [facility] Rx#:[id number] Maxipime Inj 2,000 MG In NS Inj 200 / 200 100 / 100 100 / 100 100 ML @ 200 mls/hr IV.SIG Q8H [facility] Rx#:[id number] fentaNYL 10 mcg/mL Premix Drip 250 / 250 2,500 mcg In 250 ml @ 50 MCG/HR 5 mls/hr IV.SIG TITRATE PRN Rx #:[id number] Oral 480 / 480 360 / 360 240 / 240 Other 150 / 150 Output: Urine 1300 / 1300 Urine Amount (Catheter) 2650 / 2650 2400 / 2400 Indwelling Urethral Catheter 2650 / 2650 2400 / 2400 Gastric Drainage 0 / 0 Orogastric Tube 0 / 0 Chest Tube Drainage 100 / 100 Right Upper Mid-Axillary Chest 100 / 100 Other: Date of Last Bowel Movement 05/18/18 05/18/18 05/19/18 # Bowel Movements 0 1 # Emeses 4 05/16/18 14:06 Sputum - Endotracheal Acid Fast Bacilli Smear - Final No acid fast bacilli seen 05/16/18 14:06 Sputum - Endotracheal Mycobacterial Culture - Pending 05/15/18 11:18 Bronchial Washings - Right Upper Lobe Fungal Smear - Final No fungal elements seen 05/15/18 11:18 Bronchial Washings - Right Upper Lobe Fungal Culture - Preliminary 05/15/18 11:18 Bronchial Washings - Right Upper Lobe Acid Fast Bacilli Smear - Final No acid fast bacilli seen 05/15/18 11:18 Bronchial Washings - Right Upper Lobe Mycobacterial Culture - Pending 05/15/18 11:18 Bronchial - Right Upper Lobe Gram Stain - Final 05/15/18 11:18 Bronchial - Right Upper Lobe Bronchial Culture - Final Heavy growth normal respiratory don Lab - Hematology Results 05/18/18 05/19/18 03:49 03:18 WBC 9.4 20.7 H D RBC 3.99 L 4.37 L Hgb 12.4 L 13.4 Hct 36.1 L 39.9 MCV 90.6 91.4 MCH 31.1 30.8 MCHC 34.3 33.7 RDW 14.7 15.1 Plt Count 74 L 120 L D MPV 10.7 11.5 H Prelim Diff (Auto) Slide review pending Slide review pending Neut % (Auto) 90.8 H 80.3 H Lymph % (Auto) 5.0 L 6.3 L [place] % (Auto) 4.1 13.3 H Eos % (Auto) 0.0 0.0 Baso % (Auto) 0.1 0.1 Neut # (Auto) 8.5 H 16.6 H Lymph # (Auto) 0.5 L 1.3 [place] # (Auto) 0.4 2.7 H Eos # (Auto) 0.0 0.0 Baso # (Auto) 0.0 0.0 WBC Differential . . Diff Scan Auto diff confirmed Auto diff confirmed Differential Comment . . Platelet Estimate Low L Platelet Morphology Normal Lab - Chemistry Results 05/18/18 03:49 Sodium 141 Potassium 5.3 H Chloride 107 Carbon Dioxide 29.7 Anion Gap 4 L BUN 36 H Creatinine 0.51 L Estimated GFR Greater than 89 Random Glucose 101 Calcium 7.4 L* Prot Corrected Calcium 8.5 Total Bilirubin 0.8 AST 55 H ALT 75 Alkaline Phosphatase 64 Total Protein 5.2 L D Albumin 1.8 L Imaging: ITS Impressions Chest CTA 05/08/18 21:52 CONCLUSION: 1. Clustered nodularity in the upper right lung with measurements given above. Primary differential diagnosis is infectious in nature. Cannot exclude malignancy. 2. Severe peribronchial thickening at the lung bases with cylindrical bronchiectasis and patchy airspace disease. 3. Moderate centrilobular emphysema. 4. No adenopathy. 5. Exam suboptimal for evaluation of pulmonary embolic disease. Consider further evaluation with VQ scan if pulmonary embolus is of clinical concern. Chest Tube Insertion 05/11/18 00:00 CONCLUSION: 1. Uncomplicated right chest tube placement as above. Lung Biopsy CT 05/11/18 00:00 CONCLUSION: 1. Successful CT guided biopsy of right upper lobe mass. Abdomen X-Ray 05/19/18 00:00 CONCLUSION: 1. Air distention of the gastric lumen. Otherwise, nonobstructive bowel gas pattern. 2. The tissue emphysematous changes about the right hemithorax extending into the abdominal panniculus. Chest X-Ray 05/19/18 06:00 CONCLUSION: No pneumothorax. Minimal bibasilar atelectasis. Physical Exam: GENERAL: awake alert SKIN: Warm and dry. Ecchymoses draining blisters on BUE HEAD: Atraumatic. Normocephalic. EYES: Pupils equal and round. No scleral icterus. No injection or drainage. ENT: No nasal bleeding or discharge. Mucous membranes pink and moist. NECK: Trachea midline. No JVD. CARDIOVASCULAR: Regular rate and rhythm. RESPIRATORY: No accessory muscle use. Clear to auscultation. Breath sounds equal bilaterally. CT in place with serosang dc GASTROINTESTINAL: Abdomen soft, non-tender, nondistended. Hepatic and splenic margins not palpable. MUSCULOSKELETAL: Extremities without clubbing, cyanosis, or edema. No obvious deformities. NEUROLOGICAL: awke alert non focal PSYCHIATRIC: unable to assess Assessment and Plan - Plan Advanced COPD Acute VDRF Mycobacterial lung infection, R lung - path with necrotizing granuloma; cultures not available - quantiferon negative MTB negative histochemistry sent - Quantiferron neg - fu AFB sputum clx BAL clx untill final - no empiric tx for mycobacterial infx is recommended Plan to complete azithromycin for COPD exacerbation Monitor P AFB clx untill final repeat CT chest in 6-8 wks from original one (done on 05/08) If his infection progresses will repeat biopsy dc isolation case was dw Nicole Mccormick and [facility] int radiologist: pt is a high risk for biopsy
--- NOTE | 2018-05-19 19:18 | P.PNPL ---
Subjective Interval history: 63 YOWM with COPD,Hypoxia, Ch resp insuff, Moved fr[place], did't bring his 02 CT chest lung density Extubated Has Rt chest tube Awake, alert Feels hungry Physical Exam Vital signs: Vital Signs 05/18/18 19:30 05/18/18 20:00 05/18/18 22:00 Temperature 98 F Pulse Rate 90 89 84 Respiratory Rate 12 18 Blood Pressure 160/90 H Pulse Oximetry 94 L 98 05/18/18 23:45 05/19/18 00:00 05/19/18 02:00 Temperature 97.8 F Pulse Rate 87 89 92 H Respiratory Rate 20 18 Blood Pressure 155/90 H Pulse Oximetry 99 05/19/18 03:30 05/19/18 04:00 05/19/18 06:00 Temperature 98 F Pulse Rate 83 85 72 Respiratory Rate 15 18 Blood Pressure 170/90 H Pulse Oximetry 95 05/19/18 08:00 05/19/18 08:35 05/19/18 10:00 Temperature 99.4 F Pulse Rate 73 77 73 Respiratory Rate 17 16 Blood Pressure 183/103 H Pulse Oximetry 92 L 92 L 05/19/18 12:00 05/19/18 13:44 05/19/18 14:00 Temperature 99.4 F Pulse Rate 74 81 Respiratory Rate 18 19 Blood Pressure 150/88 H Pulse Oximetry 93 L 05/19/18 15:49 05/19/18 16:00 05/19/18 18:00 Temperature 99.4 F Pulse Rate 79 80 77 Respiratory Rate 16 16 Blood Pressure 143/88 H Pulse Oximetry 94 L Intake & Output 05/19/18 05/19/18 05/20/18 06:59 18:59 06:59 Intake Total 610 / 610 340 / 340 Output Total 1400 / 1400 2400 / 2400 Balance -790 / -790 -206 / -2060 Weight 99 kg 99 kg Intake: IV 100 / 100 100 / 100 Maxipime Inj 2,000 MG In NS Inj 100 / 100 100 / 100 100 ML @ 200 mls/hr IV.SIG Q8H [facility] Rx#:[id number] Oral 360 / 360 240 / 240 Other 150 / 150 Output: Urine 1300 / 1300 Urine Amount (Catheter) 2400 / 2400 Indwelling Urethral Catheter 2400 / 2400 Gastric Drainage 0 / 0 Orogastric Tube 0 / 0 Chest Tube Drainage 100 / 100 Right Upper Mid-Axillary Chest 100 / 100 Other: Date of Last Bowel Movement 05/18/18 05/19/18 # Bowel Movements 0 1 # Emeses 4 GENERAL: Elderly WM, NAD SKIN: Warm and dry. HEAD: Normocephalic. EYES: No scleral icterus. No injection or drainage. NECK: Supple, trachea midline. No JVD or lymphadenopathy. CARDIOVASCULAR: Regular rate and rhythm without murmurs, gallops, or rubs. RESPIRATORY: Breath sounds equal bilaterally. No accessory muscle use. GASTROINTESTINAL: Abdomen soft, non-tender, nondistended. MUSCULOSKELETAL: No cyanosis, or edema. BACK: Nontender without obvious deformity. No CVA tenderness. - Urinary Catheter Management Indwelling Urethral Catheter Cath placed during this visit: yes Reason for continuing: Acute urinary retention Insertion date: 05/14/18 Insertion time: 12:30 Assessment and Plan - Plan IMPRESSION: 1. Chronic obstructive pulmonary disease with mild exacerbation. 2. Bronchiectasis. 3. 4 x 0.5 cm right upper lobe density, also has additional smaller density in the right upper lobe concerning for malignancy or infection. 4. Nicotine use. 5. Chronic respiratory insufficiency. 6. Bipolar disorder. 7. VDRF PLAN: Aerosol nebs Supplement 02 Cont Abx Chest tube to suction DW Dr.Alexandria Andrade
[2018-05-19] MEDS: Heparin - SQ 10,000 UNITS/ML Vial SQ SCH (20:17)
[2018-05-20] MEDS: Budesonide-Formoterol 160/4.5 MCG 6 GM Inhaler INH SCH ×3 (00:15→20:04)
[2018-05-20] MEDS: MethylPREDNISolone Sod Succinate Inj 40 MG/ML Vial IV.PUSH SCH ×4 (02:18→17:45)
--- NOTE | 2018-05-20 05:09 | XR ---
EXAM DATE: 05/20/2018 4:13 AM EDT AGE/SEX: 63 years / Male INDICATIONS: Shortness of breath. CLINICAL DATA: This is the patient's subsequent encounter. Patient reports that signs and symptoms h ave been present for 2 weeks and indicates a pain score of Nonresponsive. MEDICAL/SURGICAL HISTORY: . TB. Right side pneumothorax. . Right chest tube. COMPARISON: [facility] [place]ST 1V SINGLE AP, 05/19/2018. . FINDINGS: A single AP view of the chest demonstrates right-sided chest tube. No pneumothorax. Minimal bibasilar atelectasis. Subcutaneous emphysema bilaterally. The cardiomediastinal contours are unremarkable. Osseous structures are intact. CONCLUSION: Stable chest. Electronically signed by: Tano Zhong MD 05/20/2018 5:07 AM EDT
--- NOTE | 2018-05-20 05:10 | XR ---
EXAM DATE: 05/20/2018 4:16 AM EDT AGE/SEX: 63 years / Male INDICATIONS: Distention. CLINICAL DATA: This is the patient's subsequent encounter. Patient reports that signs and symptoms h ave been present for 3 days and indicates a pain score of Nonresponsive. MEDICAL/SURGICAL HISTORY: . Chronic obstructive pulmonary disease. Emphysema. Appendectomy. COMPARISON: [facility] – [place], ABDOMEN 1V KUB, 05/19/2018. . FINDINGS: Single view the abdomen demonstrates mild gaseous distention of multiple bowel loops. No bowel obstr uction.. No abnormal masses, calcifications, or organomegaly is seen. Subcutaneous emphysema on the right. The osseous structures are unremarkable. CONCLUSION: Gaseous distention of bowel loops without obstruction. Electronically signed by: Tano Zhong MD 05/20/2018 5:08 AM EDT
[2018-05-20] MEDS: Oral Hygiene Kit OROPHARYNG SCH ×3 (05:28→16:37)
[2018-05-20] MEDS: Azithromycin 250 MG Tablet PO SCH (09:53)
[2018-05-20] MEDS: guaiFENesin 600 MG ER Tablet PO SCH ×2 (09:53→20:03)
[2018-05-20] MEDS: Divalproex 500 MG ER Tablet PO SCH (09:54)
[2018-05-20] MEDS: Heparin - SQ 10,000 UNITS/ML Vial SQ SCH ×2 (09:54→20:02)
[2018-05-20] MEDS: Carvedilol 6.25 MG Tablet PO SCH ×2 (09:54→20:03)
[2018-05-20] MEDS: Gabapentin 100 MG Capsule PO SCH (09:54)
[2018-05-20] MEDS: Chlorhexidine 0.12% Oral Kit 15 ML UDC OROPHARYNG SCH ×2 (09:56→20:03)
[2018-05-20] MEDS: Senna/Docusate Sodium 8.6/50 MG Tablet PO SCH ×2 (09:56→20:02)
[2018-05-20] MEDS: Tiotropium Bromide 18 MCG/ACT Inhaler INH SCH (09:57)
[2018-05-20] MEDS: Labetalol HCl Inj 100 MG/20 ML Vial IV.PUSH PRN (11:51)
--- NOTE | 2018-05-20 12:03 | P.PNIM ---
Subjective Interval history: Doing okay breathing better. [place] weak and was unable to get up and sit in a chair for long periods of time with physical therapy today. No pain. Physical Exam Vital signs: Vital Signs 05/19/18 12:00 05/19/18 13:44 05/19/18 14:00 Temperature 99.4 F Pulse Rate 74 81 Respiratory Rate 18 19 Blood Pressure 150/88 H Pulse Oximetry 93 L 05/19/18 15:49 05/19/18 16:00 05/19/18 17:00 Temperature 99.4 F Pulse Rate 79 80 74 Respiratory Rate 16 16 Blood Pressure 143/88 H Pulse Oximetry 94 L 94 L 05/19/18 17:14 05/19/18 17:29 05/19/18 17:44 Temperature Pulse Rate 79 76 84 Respiratory Rate Blood Pressure 129/80 165/92 H 148/90 H Pulse Oximetry 94 L 95 92 L 05/19/18 17:59 05/19/18 18:00 05/19/18 18:14 Temperature Pulse Rate 81 81 88 Respiratory Rate Blood Pressure 142/91 H 133/83 Pulse Oximetry 93 L 93 L 94 L 05/19/18 18:29 05/19/18 18:44 05/19/18 18:59 Temperature Pulse Rate 76 75 73 Respiratory Rate Blood Pressure 131/85 135/90 133/85 Pulse Oximetry 94 L 95 95 05/19/18 19:00 05/19/18 19:14 05/19/18 19:25 Temperature Pulse Rate 74 71 Respiratory Rate 16 Blood Pressure 140/88 Pulse Oximetry 95 95 05/19/18 19:29 05/19/18 19:44 05/19/18 19:59 Temperature Pulse Rate 75 69 77 Respiratory Rate Blood Pressure 138/85 143/89 H 144/88 H Pulse Oximetry 93 L 95 95 05/19/18 20:00 05/19/18 20:14 05/19/18 20:29 Temperature 99.1 F Pulse Rate 77 62 71 Respiratory Rate Blood Pressure 142/91 H 155/100 H Pulse Oximetry 95 96 94 L 05/19/18 20:44 05/19/18 20:54 05/19/18 20:55 Temperature Pulse Rate 73 71 Respiratory Rate 18 Blood Pressure 167/108 H Pulse Oximetry 95 95 05/19/18 20:59 05/19/18 21:00 05/19/18 21:14 Temperature Pulse Rate 71 72 77 Respiratory Rate Blood Pressure 156/98 H 138/88 Pulse Oximetry 96 96 94 L 05/19/18 21:29 05/19/18 21:44 05/19/18 21:59 Temperature Pulse Rate 74 74 73 Respiratory Rate Blood Pressure 137/90 146/93 H 135/84 Pulse Oximetry 94 L 94 L 94 L 05/19/18 22:00 05/19/18 22:14 05/19/18 22:29 Temperature Pulse Rate 74 72 77 Respiratory Rate Blood Pressure 140/91 H 141/88 H Pulse Oximetry 94 L 94 L 94 L 05/19/18 22:44 05/19/18 22:59 05/19/18 23:00 Temperature Pulse Rate 73 71 72 Respiratory Rate Blood Pressure 140/88 150/91 H Pulse Oximetry 94 L 94 L 94 L 05/19/18 23:14 05/19/18 23:29 05/19/18 23:44 Temperature Pulse Rate 66 69 67 Respiratory Rate Blood Pressure 151/96 H 135/84 130/82 Pulse Oximetry 95 95 94 L 05/19/18 23:59 05/20/18 00:00 05/20/18 00:14 Temperature 99.0 F Pulse Rate 67 66 62 Respiratory Rate 18 Blood Pressure 145/87 H 122/73 Pulse Oximetry 95 95 95 05/20/18 00:29 05/20/18 00:44 05/20/18 00:59 Temperature Pulse Rate 66 74 72 Respiratory Rate Blood Pressure 141/80 H 157/89 H 142/92 H Pulse Oximetry 95 96 95 05/20/18 01:00 05/20/18 01:14 05/20/18 01:29 Temperature Pulse Rate 70 69 73 Respiratory Rate Blood Pressure 141/95 H 141/93 H Pulse Oximetry 95 94 L 94 L 05/20/18 01:44 05/20/18 01:59 05/20/18 02:00 Temperature Pulse Rate 77 81 80 Respiratory Rate Blood Pressure 132/90 135/83 Pulse Oximetry 94 L 92 L 92 L 05/20/18 02:14 05/20/18 02:29 05/20/18 02:44 Temperature Pulse Rate 86 70 74 Respiratory Rate Blood Pressure 139/86 138/82 159/86 H Pulse Oximetry 93 L 95 95 05/20/18 02:59 05/20/18 03:00 05/20/18 03:14 Temperature Pulse Rate 71 70 69 Respiratory Rate Blood Pressure 150/90 H 137/81 Pulse Oximetry 94 L 94 L 95 05/20/18 03:36 05/20/18 04:00 05/20/18 05:00 Temperature 99.1 F Pulse Rate 70 72 64 Respiratory Rate 16 Blood Pressure Pulse Oximetry 96 94 L 05/20/18 05:48 05/20/18 05:49 05/20/18 05:50 Temperature Pulse Rate 65 Respiratory Rate Blood Pressure 149/86 H 146/81 H 143/82 H Pulse Oximetry 93 L 05/20/18 05:51 05/20/18 05:52 05/20/18 05:53 Temperature Pulse Rate 64 65 Respiratory Rate Blood Pressure 139/82 139/81 133/72 Pulse Oximetry 94 L 93 L 05/20/18 06:00 05/20/18 07:00 05/20/18 09:18 Temperature Pulse Rate 65 77 73 Respiratory Rate 16 Blood Pressure 132/78 171/92 H Pulse Oximetry 93 L 91 L 94 L Intake & Output 05/19/18 05/20/18 05/20/18 18:59 06:59 18:59 Intake Total 440 / 440 300 / 300 100 / 100 Output Total 2400 / 2400 1725 / 1725 Balance -1960 / -1960 -1425 / -1425 100 / 100 Weight 99 kg 94.1 kg Intake: IV 200 / 200 100 / 100 100 / 100 Maxipime Inj 2,000 MG In NS Inj 200 / 200 100 / 100 100 / 100 100 ML @ 200 mls/hr IV.SIG Q8H [facility] Rx#:[id number] Oral 240 / 240 200 / 200 Output: Urine Amount (Catheter) 2400 / 2400 1650 / 1650 Indwelling Urethral Catheter 2400 / 2400 1650 / 1650 Chest Tube Drainage 75 / 75 Right Upper Mid-Axillary Chest 75 / 75 Other: Date of Last Bowel Movement 05/19/18 05/19/18 # Bowel Movements 1 # Emeses 4 Narrative: GENERAL: This is a well-nourished, well-developed patient, in no apparent distress. CARDIOVASCULAR: Regular rate and rhythm RESPIRATORY: Diminished breath sounds in the bases and crackles Chest wall: Chest tube in place GASTROINTESTINAL: Abdomen soft, non-tender, nondistended. Normal active bowel sounds MUSCULOSKELETAL: Extremities without clubbing, cyanosis, or edema. NEURO: Alert & Oriented x4 to person, place, time, situation. Moves all ext x4 - Urinary Catheter Management Indwelling Urethral Catheter Cath placed during this visit: yes Reason for continuing: Acute urinary retention Insertion date: 05/14/18 Insertion time: 12:30 Results - Labs CBC & Chem 7: 05/19/18 03:18 05/18/18 03:49 Laboratory Results - last 24 hr 05/16/18 14:06 M.tuberculosis DNA (PCR) Not detected Microbiology 05/16/18 14:06 Sputum - Endotracheal Acid Fast Bacilli Smear - Final No acid fast bacilli seen 05/15/18 11:18 Bronchial Washings - Right Upper Lobe Fungal Smear - Final No fungal elements seen 05/15/18 11:18 Bronchial Washings - Right Upper Lobe Fungal Culture - Preliminary - Imaging Impressions Abdomen X-Ray 05/19/18 00:00 CONCLUSION: 1. Air distention of the gastric lumen. Otherwise, nonobstructive bowel gas pattern. 2. The tissue emphysematous changes about the right hemithorax extending into the abdominal panniculus. Abdomen X-Ray 05/20/18 00:00 CONCLUSION: Gaseous distention of bowel loops without obstruction. Chest X-Ray 05/20/18 06:00 CONCLUSION: Stable chest. Assessment and Plan - Assessment (1) Acute on chronic respiratory failure with hypoxia Code(s): J96.21 - Acute and chronic respiratory failure with hypoxia Status: Acute (2) Healthcare-associated pneumonia Code(s): J18.9 - Pneumonia, unspecified organism Status: Acute (3) Hypoxia Code(s): R09.02 - Hypoxemia Status: Acute (4) Abnormal CT scan, lung Code(s): R91.8 - Other nonspecific abnormal finding of lung field Status: Acute - Plan 1. Acute respiratory arrest/failure-resolved Emergently intubated and placed on mechanical ventilation 05-14-18 for severe hypercapnic and hypoxemic respiratory failure and now extubated -Placed 28 Divehi right-sided chest tube on 05/14/2018 for recurrent pneumothorax -Extubated 05/18, tolerating well, pneumothorax has resolved -DuoNeb every 4 hours scheduled and as needed -Solu-Medrol 60 mg q 8 hours, taper now. Reduce to 40 mg every 8 -Continue Zithromax per ID. Patient is being ruled out for tuberculosis -Previously on 05/12/18 patient had developed acute respiratory distress due to dislodgment of chest tube and recurrence of large pneumothorax -Dr. Alves emergently placed right-sided 10 F pigtail chest tube with improvement in symptoms and near complete resolution of the pneumothorax -Continue Singulair. Pulmonology following Dr. Mccormick. Status post bronchoscopy -Add Spiriva, continue Symbicort 2. Right sided pneumothorax following lung biopsy, recurrent-now resolved Status post lung biopsy for right upper lobe mass Status post chest tube for pneumothorax following lung biopsy Dislodgment on IR chest tube requiring emergency repeat chest tube placement 05/12 3. Hypoxia and hypercapnia encephalopathy - Altered mental status due to severe hypercapnia-resolved and now alert oriented 4 Acute on chronic hypoxemic, hypercapnic respiratory failure-resolved Acute COPD exacerbation - continue Solumedrol 40 mg IV Q 8 hours 4. 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 Andrade follow-up with final AFB sputum cultures -no empiric treatment for Mycobacterium infections recommended. QuantiFERON gold pending Recommend repeating CT chest in 6-8 weeks from original one done on May 08, if his infection progresses will need to repeat a biopsy although he is high risk for biopsy. 5. Probable ileus -encourage activity now extubated, stool softeners and monitor , KUB showed distended loops with no obstruction. Continue bowel regimen, positive bowel movement with Fleet's enema 6. Chronic low back pain -pain control 7. 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 Mood disorder - restart buspirone, restart Celexa. Continue divalproex. Xanax 9. DVT prophylaxis -Bilateral lower extremity SCDs. Subcu heparin resumed today.
[2018-05-20 12:31] LABS: Eos % (Auto) 0.1 % (0.0-4.0); Hematocrit 37.1 % (39.0-51.0); Hemoglobin 12.4 gm/dL (13.0-17.0); Lymph # (Auto) 0.8 th/mm3 (1.0-4.8); Lymph % (Auto) 5.2 % (9.0-44.0); Mean Corpuscular HGB Conc 33.3 % (32.0-36.0); Mean Corpuscular Hemoglobin 30.7 pg (27.0-34.0); Mean Corpuscular Volume 92.2 fL (80.0-100.0); Mean Platelet Volume 10.6 fL (7.0-11.0); Mono # (Auto) 1.2 th/mm3 (0.0-0.9); Mono % (Auto) 8.1 % (0.0-8.0); Neut # (Auto) 12.7 th/mm3 (1.8-7.7); Neut % (Auto) 86.6 % (16.0-70.0); Platelet Count 95 th/mm3 (150-450); Red Blood Count 4.02 mil/mm3 (4.50-5.90); Red Cell Distribution Width 14.9 % (11.6-17.2); White Blood Count 14.6 th/mm3 (4.0-11.0)
[2018-05-20 13:05] LABS: Platelet Morphology Normal (Normal); RBC Morphology Normal (Normal)
[2018-05-20 13:22] LABS: Alanine Aminotransferase 116 U/L (12-78); Albumin 2.5 g/dL (3.4-5.0); Alkaline Phosphatase 75 U/L (45-117); Anion Gap 5 meq/L (5-15); Aspartate Aminotransferase 79 U/L (15-37); Blood Urea Nitrogen 34 mg/dL (7-18); Calcium 7.9 mg/dL (8.5-10.1); Chloride 100 meq/L (98-107); Glomerular Filtration Rate Greater Than 89 mL/min (>89); Glucose,Random 107 mg/dL (74-106); Potassium 4.5 meq/L (3.5-5.1); Sodium 142 meq/L (136-145); Total Protein 5.5 g/dL (6.4-8.2)
[2018-05-20] MEDS: Montelukast 10 MG Tablet PO SCH ×2 (16:33→17:44)
--- NOTE | 2018-05-20 18:27 | P.PNID ---
Subjective Remarks: On NC O2 doing OK WBC wenrt up since started on sterroids afebrile mycobacterial clx remain negative Antibiotics: azithro Allergies/Adverse Reactions: Allergies No Known Allergies Allergy (Mild, Uncoded 05/08/18 20:55) unknown Objective Vital Signs 05/19/18 18:29 05/19/18 18:44 05/19/18 18:59 Temperature Pulse Rate 76 75 73 Respiratory Rate Blood Pressure 131/85 135/90 133/85 Pulse Oximetry 94 L 95 95 05/19/18 19:00 05/19/18 19:14 05/19/18 19:25 Temperature Pulse Rate 74 71 Respiratory Rate 16 Blood Pressure 140/88 Pulse Oximetry 95 95 05/19/18 19:29 05/19/18 19:44 05/19/18 19:59 Temperature Pulse Rate 75 69 77 Respiratory Rate Blood Pressure 138/85 143/89 H 144/88 H Pulse Oximetry 93 L 95 95 05/19/18 20:00 05/19/18 20:14 05/19/18 20:29 Temperature 99.1 F Pulse Rate 77 62 71 Respiratory Rate Blood Pressure 142/91 H 155/100 H Pulse Oximetry 95 96 94 L 05/19/18 20:44 05/19/18 20:54 05/19/18 20:55 Temperature Pulse Rate 73 71 Respiratory Rate 18 Blood Pressure 167/108 H Pulse Oximetry 95 95 05/19/18 20:59 05/19/18 21:00 05/19/18 21:14 Temperature Pulse Rate 71 72 77 Respiratory Rate Blood Pressure 156/98 H 138/88 Pulse Oximetry 96 96 94 L 05/19/18 21:29 05/19/18 21:44 05/19/18 21:59 Temperature Pulse Rate 74 74 73 Respiratory Rate Blood Pressure 137/90 146/93 H 135/84 Pulse Oximetry 94 L 94 L 94 L 05/19/18 22:00 05/19/18 22:14 05/19/18 22:29 Temperature Pulse Rate 74 72 77 Respiratory Rate Blood Pressure 140/91 H 141/88 H Pulse Oximetry 94 L 94 L 94 L 05/19/18 22:44 05/19/18 22:59 05/19/18 23:00 Temperature Pulse Rate 73 71 72 Respiratory Rate Blood Pressure 140/88 150/91 H Pulse Oximetry 94 L 94 L 94 L 05/19/18 23:14 05/19/18 23:29 05/19/18 23:44 Temperature Pulse Rate 66 69 67 Respiratory Rate Blood Pressure 151/96 H 135/84 130/82 Pulse Oximetry 95 95 94 L 05/19/18 23:59 05/20/18 00:00 05/20/18 00:14 Temperature 99.0 F Pulse Rate 67 66 62 Respiratory Rate 18 Blood Pressure 145/87 H 122/73 Pulse Oximetry 95 95 95 05/20/18 00:29 05/20/18 00:44 05/20/18 00:59 Temperature Pulse Rate 66 74 72 Respiratory Rate Blood Pressure 141/80 H 157/89 H 142/92 H Pulse Oximetry 95 96 95 05/20/18 01:00 05/20/18 01:14 05/20/18 01:29 Temperature Pulse Rate 70 69 73 Respiratory Rate Blood Pressure 141/95 H 141/93 H Pulse Oximetry 95 94 L 94 L 05/20/18 01:44 05/20/18 01:59 05/20/18 02:00 Temperature Pulse Rate 77 81 80 Respiratory Rate Blood Pressure 132/90 135/83 Pulse Oximetry 94 L 92 L 92 L 05/20/18 02:14 05/20/18 02:29 05/20/18 02:44 Temperature Pulse Rate 86 70 74 Respiratory Rate Blood Pressure 139/86 138/82 159/86 H Pulse Oximetry 93 L 95 95 05/20/18 02:59 05/20/18 03:00 05/20/18 03:14 Temperature Pulse Rate 71 70 69 Respiratory Rate Blood Pressure 150/90 H 137/81 Pulse Oximetry 94 L 94 L 95 05/20/18 03:36 05/20/18 04:00 05/20/18 05:00 Temperature 99.1 F Pulse Rate 70 72 64 Respiratory Rate 16 Blood Pressure Pulse Oximetry 96 94 L 05/20/18 05:48 05/20/18 05:49 05/20/18 05:50 Temperature Pulse Rate 65 Respiratory Rate Blood Pressure 149/86 H 146/81 H 143/82 H Pulse Oximetry 93 L 05/20/18 05:51 05/20/18 05:52 05/20/18 05:53 Temperature Pulse Rate 64 65 Respiratory Rate Blood Pressure 139/82 139/81 133/72 Pulse Oximetry 94 L 93 L 05/20/18 06:00 08/15/18 07:00 05/20/18 08:00 Temperature 99 F Pulse Rate 65 77 61 Respiratory Rate 18 Blood Pressure 132/78 171/92 H 145/85 H Pulse Oximetry 93 L 91 L 05/20/18 09:18 05/20/18 10:00 05/20/18 12:00 Temperature 99.4 F Pulse Rate 73 62 66 Respiratory Rate 16 15 Blood Pressure 126/77 Pulse Oximetry 94 L 05/20/18 16:00 05/20/18 16:10 Temperature 99.4 F Pulse Rate 60 63 Respiratory Rate 16 20 Blood Pressure Pulse Oximetry Intake & Output 05/19/18 05/20/18 05/20/18 18:59 06:59 18:59 Intake Total 440 / 440 300 / 300 100 / 100 Output Total 2400 / 2400 1725 / 1725 Balance -1960 / -1960 -1425 / -1425 100 / 100 Weight 99 kg 94.1 kg Intake: IV 200 / 200 100 / 100 100 / 100 Maxipime Inj 2,000 MG In NS Inj 200 / 200 100 / 100 100 / 100 100 ML @ 200 mls/hr IV.SIG Q8H [facility] Rx#:[id number] Oral 240 / 240 200 / 200 Output: Urine Amount (Catheter) 2400 / 2400 1650 / 1650 Indwelling Urethral Catheter 2400 / 2400 1650 / 1650 Chest Tube Drainage 75 / 75 Right Upper Mid-Axillary Chest 75 / 75 Other: Date of Last Bowel Movement 05/19/18 05/19/18 05/19/18 # Bowel Movements 1 # Emeses 4 05/16/18 14:06 Sputum - Endotracheal Acid Fast Bacilli Smear - Final No acid fast bacilli seen 05/16/18 14:06 Sputum - Endotracheal Mycobacterial Culture - Pending 05/15/18 11:18 Bronchial Washings - Right Upper Lobe Fungal Smear - Final No fungal elements seen 05/15/18 11:18 Bronchial Washings - Right Upper Lobe Fungal Culture - Preliminary 05/15/18 11:18 Bronchial Washings - Right Upper Lobe Acid Fast Bacilli Smear - Final No acid fast bacilli seen 05/15/18 11:18 Bronchial Washings - Right Upper Lobe Mycobacterial Culture - Pending Lab - Hematology Results 05/19/18 05/20/18 03:18 12:05 WBC 20.7 H D 14.6 H RBC 4.37 L 4.02 L Hgb 13.4 12.4 L Hct 39.9 37.1 L MCV 91.4 92.2 MCH 30.8 30.7 MCHC 33.7 33.3 RDW 15.1 14.9 Plt Count 120 L D 95 L MPV 11.5 H 10.6 Prelim Diff (Auto) Slide review pending Slide review pending Neut % (Auto) 80.3 H 86.6 H Lymph % (Auto) 6.3 L 5.2 L [place] % (Auto) 13.3 H 8.1 H Eos % (Auto) 0.0 0.1 Baso % (Auto) 0.1 0.0 Neut # (Auto) 16.6 H 12.7 H Lymph # (Auto) 1.3 0.8 L [place] # (Auto) 2.7 H 1.2 H Eos # (Auto) 0.0 0.0 Baso # (Auto) 0.0 0.0 WBC Differential . . Diff Scan Auto diff confirmed Auto diff confirmed Differential Comment . . Platelet Estimate Low L Platelet Morphology Normal RBC Morphology Normal Lab - Chemistry Results 05/20/18 12:05 Sodium 142 Potassium 4.5 Chloride 100 Carbon Dioxide 37.0 H Anion Gap 5 BUN 34 H Creatinine 0.61 Estimated GFR Greater than 89 Random Glucose 107 H Calcium 7.9 L Total Bilirubin 1.8 H AST 79 H ALT 116 H Alkaline Phosphatase 75 Total Protein 5.5 L Albumin 2.5 L Imaging: ITS Impressions Chest CTA 05/08/18 21:52 CONCLUSION: 1. Clustered nodularity in the upper right lung with measurements given above. Primary differential diagnosis is infectious in nature. Cannot exclude malignancy. 2. Severe peribronchial thickening at the lung bases with cylindrical bronchiectasis and patchy airspace disease. 3. Moderate centrilobular emphysema. 4. No adenopathy. 5. Exam suboptimal for evaluation of pulmonary embolic disease. Consider further evaluation with VQ scan if pulmonary embolus is of clinical concern. Chest Tube Insertion 05/11/18 00:00 CONCLUSION: 1. Uncomplicated right chest tube placement as above. Lung Biopsy CT 05/11/18 00:00 CONCLUSION: 1. Successful CT guided biopsy of right upper lobe mass. Abdomen X-Ray 05/20/18 00:00 CONCLUSION: Gaseous distention of bowel loops without obstruction. Chest X-Ray 05/20/18 06:00 CONCLUSION: Stable chest. Physical Exam: GENERAL: awake alert SKIN: Warm and dry. HEAD: Atraumatic. Normocephalic. EYES: Pupils equal and round. No scleral icterus. No injection or drainage. ENT: No nasal bleeding or discharge. Mucous membranes pink and moist. NECK: Trachea midline. No JVD. CARDIOVASCULAR: Regular rate and rhythm. RESPIRATORY: No accessory muscle use. Clear to auscultation. Breath sounds equal bilaterally. CT in place with serosang dc GASTROINTESTINAL: Abdomen soft, non-tender, nondistended. Hepatic and splenic margins not palpable. MUSCULOSKELETAL: Extremities without clubbing, cyanosis, or edema. No obvious deformities. NEUROLOGICAL: awke alert non focal PSYCHIATRIC: calm,, appropriate Assessment and Plan - Plan Advanced COPD Acute VDRF Mycobacterial lung infection, R lung - path with necrotizing granuloma; cultures not available - quantiferon negative MTB negative histochemistry sent - Quantiferron neg - fu AFB sputum clx BAL clx untill final - no empiric tx for mycobacterial infx is recommended Plan to complete azithromycin for COPD exacerbation Monitor P AFB clx untill final repeat CT chest in 6-8 wks from original one (done on 05/08); giana;ier if clincially worse If his infection progresses will repeat biopsy dc isolation pt is a high risk for biopsy awaiting histochemical stains
--- NOTE | 2018-05-20 18:36 | P.PNADD ---
Addendum to Inpatient Note Additional information: Pt has distended mildly tender abdomen on exam Emesis x 4 KUB stool for C.diff In case if we need CT A/P to eval the issu will also repaet Ct chest
--- NOTE | 2018-05-20 20:04 | P.PNPL ---
Subjective Interval history: 63 YOWM with COPD,Hypoxia, Ch resp insuff, Moved fron [place], did't bring his 02 CT chest lung density Extubated Has Rt chest tube Awake, alert NPO due to ilieus Physical Exam Vital signs: Vital Signs 05/19/18 20:14 05/19/18 20:29 05/19/18 20:44 Temperature Pulse Rate 62 71 73 Respiratory Rate Blood Pressure 142/91 H 155/100 H 167/108 H Pulse Oximetry 96 94 L 95 05/19/18 20:54 05/19/18 20:55 05/19/18 20:59 Temperature Pulse Rate 71 71 Respiratory Rate 18 Blood Pressure 156/98 H Pulse Oximetry 95 96 05/19/18 21:00 05/19/18 21:14 05/19/18 21:29 Temperature Pulse Rate 72 77 74 Respiratory Rate Blood Pressure 138/88 137/90 Pulse Oximetry 96 94 L 94 L 05/19/18 21:44 05/19/18 21:59 05/19/18 22:00 Temperature Pulse Rate 74 73 74 Respiratory Rate Blood Pressure 146/93 H 135/84 Pulse Oximetry 94 L 94 L 94 L 05/19/18 22:14 05/19/18 22:29 05/19/18 22:44 Temperature Pulse Rate 72 77 73 Respiratory Rate Blood Pressure 140/91 H 141/88 H 140/88 Pulse Oximetry 94 L 94 L 94 L 05/19/18 22:59 05/19/18 23:00 05/19/18 23:14 Temperature Pulse Rate 71 72 66 Respiratory Rate Blood Pressure 150/91 H 151/96 H Pulse Oximetry 94 L 94 L 95 05/19/18 23:29 05/19/18 23:44 05/19/18 23:59 Temperature Pulse Rate 69 67 67 Respiratory Rate Blood Pressure 135/84 130/82 145/87 H Pulse Oximetry 95 94 L 95 05/20/18 00:00 05/20/18 00:14 05/20/18 00:29 Temperature 99.0 F Pulse Rate 66 62 66 Respiratory Rate 18 Blood Pressure 122/73 141/80 H Pulse Oximetry 95 95 95 05/20/18 00:44 05/20/18 00:59 05/20/18 01:00 Temperature Pulse Rate 74 72 70 Respiratory Rate Blood Pressure 157/89 H 142/92 H Pulse Oximetry 96 95 95 05/20/18 01:14 05/20/18 01:29 05/20/18 01:44 Temperature Pulse Rate 69 73 77 Respiratory Rate Blood Pressure 141/95 H 141/93 H 132/90 Pulse Oximetry 94 L 94 L 94 L 05/20/18 01:59 05/20/18 02:00 05/20/18 02:14 Temperature Pulse Rate 81 80 86 Respiratory Rate Blood Pressure 135/83 139/86 Pulse Oximetry 92 L 92 L 93 L 05/20/18 02:29 05/20/18 02:44 05/20/18 02:59 Temperature Pulse Rate 70 74 71 Respiratory Rate Blood Pressure 138/82 159/86 H 150/90 H Pulse Oximetry 95 95 94 L 05/20/18 03:00 05/20/18 03:14 05/20/18 03:36 Temperature Pulse Rate 70 69 70 Respiratory Rate 16 Blood Pressure 137/81 Pulse Oximetry 94 L 95 05/20/18 04:00 05/20/18 05:00 05/20/18 05:48 Temperature 99.1 F Pulse Rate 72 64 65 Respiratory Rate Blood Pressure 149/86 H Pulse Oximetry 96 94 L 93 L 05/20/18 05:49 05/20/18 05:50 05/20/18 05:51 Temperature Pulse Rate Respiratory Rate Blood Pressure 146/81 H 143/82 H 139/82 Pulse Oximetry 05/20/18 05:52 05/20/18 05:53 05/20/18 06:00 Temperature Pulse Rate 64 65 65 Respiratory Rate Blood Pressure 139/81 133/72 132/78 Pulse Oximetry 94 L 93 L 93 L 05/20/18 07:00 05/20/18 08:00 05/20/18 09:18 Temperature 99 F Pulse Rate 77 61 73 Respiratory Rate 18 16 Blood Pressure 171/92 H 145/85 H Pulse Oximetry 91 L 94 L 05/20/18 10:00 05/20/18 12:00 05/20/18 16:00 Temperature 99.4 F 99.4 F Pulse Rate 62 66 60 Respiratory Rate 15 16 Blood Pressure 126/77 Pulse Oximetry 05/20/18 16:10 Temperature Pulse Rate 63 Respiratory Rate 20 Blood Pressure Pulse Oximetry Intake & Output 05/20/18 05/20/18 05/21/18 06:59 18:59 06:59 Intake Total 300 / 300 200 / 200 Output Total 1725 / 1725 1630 / 1630 Balance -1425 / -1425 -1430 / -1430 Weight 94.1 kg Intake: IV 100 / 100 100 / 100 Maxipime Inj 2,000 MG In NS Inj 100 / 100 100 / 100 100 ML @ 200 mls/hr IV.SIG Q8H [facility] Rx#:[id number] Oral 200 / 200 100 / 100 Output: Urine Amount (Catheter) 1650 / 1650 1550 / 1550 Indwelling Urethral Catheter 1650 / 1650 1550 / 1550 Chest Tube Drainage 75 / 75 80 / 80 Right Upper Mid-Axillary Chest 75 / 75 80 / 80 Other: Date of Last Bowel Movement 05/19/18 05/19/18 # Bowel Movements 0 GENERAL: MBMN WM, NAD SKIN: Warm and dry. HEAD: Normocephalic. EYES: No scleral icterus. No injection or drainage. NECK: Supple, trachea midline. No JVD or lymphadenopathy. CARDIOVASCULAR: Regular rate and rhythm without murmurs, gallops, or rubs. RESPIRATORY: Breath sounds equal bilaterally. No accessory muscle use. Chest tube to Suction GASTROINTESTINAL: Abdomen soft, non-tender, nondistended. MUSCULOSKELETAL: No cyanosis, or edema. BACK: Nontender without obvious deformity. No CVA tenderness. - Urinary Catheter Management Indwelling Urethral Catheter Cath placed during this visit: yes Reason for continuing: Acute urinary retention Insertion date: 05/14/18 Insertion time: 12:30 Assessment and Plan - Plan IMPRESSION: 1. Chronic obstructive pulmonary disease with mild exacerbation. 2. Bronchiectasis. 3. 4 x 0.5 cm right upper lobe density, also has additional smaller density in the right upper lobe concerning for malignancy or infection. 4. Nicotine use. 5. Chronic respiratory insufficiency. 6. Bipolar disorder. 7. VDRF PLAN: Aerosol nebs Supplement 02 Cont Abx Chest tube to suction DW Dr.Alexandria Andrade NPO
[2018-05-21] MEDS: Oral Hygiene Kit OROPHARYNG SCH ×5 (01:16→23:40)
[2018-05-21] MEDS: MethylPREDNISolone Sod Succinate Inj 40 MG/ML Vial IV.PUSH SCH ×3 (01:17→18:05)
[2018-05-21 04:19] LABS: Hematocrit 35.8 % (39.0-51.0); Hemoglobin 12.2 gm/dL (13.0-17.0); Lymph % (Auto) 7.8 % (9.0-44.0); Mean Corpuscular Hemoglobin 31.3 pg (27.0-34.0); Mean Platelet Volume 10.9 fL (7.0-11.0); Mono # (Auto) 1.5 th/mm3 (0.0-0.9); Mono % (Auto) 11.8 % (0.0-8.0); Neut # (Auto) 9.9 th/mm3 (1.8-7.7); Neut % (Auto) 80.4 % (16.0-70.0); Platelet Count 83 th/mm3 (150-450); Red Blood Count 3.89 mil/mm3 (4.50-5.90); Red Cell Distribution Width 14.8 % (11.6-17.2); White Blood Count 12.4 th/mm3 (4.0-11.0)
[2018-05-21 04:43] LABS: Anion Gap 7 meq/L (5-15); Blood Urea Nitrogen 31 mg/dL (7-18); Calcium 7.8 mg/dL (8.5-10.1); Carbon Dioxide 33.3 meq/L (21.0-32.0); Chloride 101 meq/L (98-107); Glomerular Filtration Rate Greater Than 89 mL/min (>89); Glucose,Random 91 mg/dL (74-106); Potassium 4.8 meq/L (3.5-5.1); Sodium 141 meq/L (136-145)
[2018-05-21 07:10] LABS: Ovalocytes 1+; Platelet Morphology Normal (Normal)
[2018-05-21] MEDS: Azithromycin 250 MG Tablet PO SCH (08:11)
[2018-05-21] MEDS: Senna/Docusate Sodium 8.6/50 MG Tablet PO SCH ×2 (08:11→20:02)
[2018-05-21] MEDS: Divalproex 500 MG ER Tablet PO SCH (08:11)
[2018-05-21] MEDS: Gabapentin 100 MG Capsule PO SCH (08:11)
[2018-05-21] MEDS: guaiFENesin 600 MG ER Tablet PO SCH ×2 (08:11→20:00)
[2018-05-21] MEDS: Carvedilol 6.25 MG Tablet PO SCH ×2 (08:12→20:01)
[2018-05-21] MEDS: Heparin - SQ 10,000 UNITS/ML Vial SQ SCH ×2 (08:13→20:01)
[2018-05-21] MEDS: Chlorhexidine 0.12% Oral Kit 15 ML UDC OROPHARYNG SCH ×2 (08:13→20:01)
[2018-05-21] MEDS: Tiotropium Bromide 18 MCG/ACT Inhaler INH SCH (08:13)
[2018-05-21] MEDS: Budesonide-Formoterol 160/4.5 MCG 6 GM Inhaler INH SCH ×2 (09:00→20:07)
--- NOTE | 2018-05-21 12:10 | P.PNIM ---
Subjective Interval history: breathing OK. no pain Physical Exam Vital signs: Vital Signs 05/20/18 16:00 05/20/18 16:10 05/20/18 20:00 Temperature 99.4 F 99 F Pulse Rate 60 63 67 Respiratory Rate 16 20 16 Blood Pressure 155/89 H Pulse Oximetry 95 05/20/18 20:29 05/20/18 21:22 05/21/18 00:00 Temperature 98.7 F Pulse Rate 63 68 Respiratory Rate 18 18 18 Blood Pressure 152/92 H Pulse Oximetry 95 93 L 05/21/18 00:39 05/21/18 03:19 05/21/18 04:00 Temperature 98.2 F Pulse Rate 62 Respiratory Rate 16 16 16 Blood Pressure 144/87 H Pulse Oximetry 94 L 05/21/18 04:52 05/21/18 08:00 05/21/18 09:23 Temperature 98.7 F Pulse Rate 86 84 Respiratory Rate 16 18 20 Blood Pressure 166/93 H Pulse Oximetry 96 05/21/18 10:00 05/21/18 12:00 Temperature Pulse Rate 66 65 Respiratory Rate Blood Pressure Pulse Oximetry Intake & Output 05/20/18 05/21/18 05/21/18 18:59 06:59 18:59 Intake Total 200 / 200 630 / 630 Output Total 1630 / 1630 2650 / 2650 Balance -1430 / -1430 -2019 / -2019 Weight 91.5 kg Intake: IV 100 / 100 Maxipime Inj 2,000 MG In NS Inj 100 / 100 100 ML @ 200 mls/hr IV.SIG Q8H [facility] Rx#:[id number] Oral 100 / 100 240 / 240 Water Bolus Amount 240 / 240 Other 150 / 150 Output: Urine 1300 / 1300 Urine Amount (Catheter) 1550 / 1550 1350 / 1350 Indwelling Urethral Catheter 1550 / 1550 1350 / 1350 Chest Tube Drainage 80 / 80 0 / 0 Right Upper Mid-Axillary Chest 80 / 80 0 / 0 Other: # Voids 0 Date of Last Bowel Movement 05/19/18 05/19/18 # Bowel Movements 0 0 Narrative: GENERAL: This is a well-nourished, well-developed patient, in no apparent distress. CARDIOVASCULAR: Regular rate and rhythm RESPIRATORY: Diminished breath sounds in the bases and crackles Chest wall: Chest tube in place GASTROINTESTINAL: Abdomen soft, non-tender, nondistended. Normal active bowel sounds MUSCULOSKELETAL: Extremities without clubbing, cyanosis, or edema. NEURO: Alert & Oriented x3 to person, place, time Moves all ext x4 - Urinary Catheter Management Indwelling Urethral Catheter Cath placed during this visit: yes Reason for continuing: Acute urinary retention Insertion date: 05/14/18 Insertion time: 12:30 Results - Labs CBC & Chem 7: 05/21/18 02:54 05/21/18 02:54 Laboratory Results - last 24 hr 05/20/18 05/20/18 05/21/18 12:05 12:05 02:54 WBC 14.6 H 12.4 H RBC 4.02 L 3.89 L Hgb 12.4 L 12.2 L Hct 37.1 L 35.8 L MCV 92.2 92.0 MCH 30.7 31.3 MCHC 33.3 34.0 RDW 14.9 14.8 Plt Count 95 L 83 L MPV 10.6 10.9 Prelim Diff (Auto) Slide review pending Slide review pending Neut % (Auto) 86.6 H 80.4 H Lymph % (Auto) 5.2 L 7.8 L Mower % (Auto) 8.1 H 11.8 H Eos % (Auto) 0.1 0.0 Baso % (Auto) 0.0 0.0 Neut # (Auto) 12.7 H 9.9 H Lymph # (Auto) 0.8 L 1.0 Mower # (Auto) 1.2 H 1.5 H Eos # (Auto) 0.0 0.0 Baso # (Auto) 0.0 0.0 WBC Differential . . Diff Scan Auto diff confirmed Auto diff confirmed Differential Comment . . Platelet Estimate Low L Low L Platelet Morphology Normal Normal RBC Morphology Normal Ovalocytes 1+ H Sodium 142 Potassium 4.5 Chloride 100 Carbon Dioxide 37.0 H Anion Gap 5 BUN 34 H Creatinine 0.61 Estimated GFR Greater than 89 Random Glucose 107 H Calcium 7.9 L Total Bilirubin 1.8 H AST 79 H ALT 116 H Alkaline Phosphatase 75 Total Protein 5.5 L Albumin 2.5 L 05/21/18 02:54 WBC RBC Hgb Hct MCV MCH MCHC RDW Plt Count MPV Prelim Diff (Auto) Neut % (Auto) Lymph % (Auto) Mower % (Auto) Eos % (Auto) Baso % (Auto) Neut # (Auto) Lymph # (Auto) Mower # (Auto) Eos # (Auto) Baso # (Auto) WBC Differential Diff Scan Differential Comment Platelet Estimate Platelet Morphology RBC Morphology Ovalocytes Sodium 141 Potassium 4.8 Chloride 101 Carbon Dioxide 33.3 H Anion Gap 7 BUN 31 H Creatinine 0.56 L Estimated GFR Greater than 89 Random Glucose 91 Calcium 7.8 L Total Bilirubin AST ALT Alkaline Phosphatase Total Protein Albumin Assessment and Plan - Assessment (1) Acute on chronic respiratory failure with hypoxia Code(s): J96.21 - Acute and chronic respiratory failure with hypoxia Status: Acute (2) Healthcare-associated pneumonia Code(s): J18.9 - Pneumonia, unspecified organism Status: Acute (3) Hypoxia Code(s): R09.02 - Hypoxemia Status: Acute (4) Abnormal CT scan, lung Code(s): R91.8 - Other nonspecific abnormal finding of lung field Status: Acute - Plan 1. Acute respiratory arrest/failure-resolved Emergently intubated and placed on mechanical ventilation 05-14-18 for severe hypercapnic and hypoxemic respiratory failure and now extubated -Placed 28 Micronesian right-sided chest tube on 05/14/2018 for recurrent pneumothorax -Extubated 05/18, tolerating well, pneumothorax has resolved -DuoNeb every 4 hours scheduled and as needed -Solu-Medrol 60 mg q 8 hours, taper now. Reduce to 40 mg every 8 -Continue Zithromax per ID. Patient is being ruled out for tuberculosis -Previously on 05/12/18 patient had developed acute respiratory distress due to dislodgment of chest tube and recurrence of large pneumothorax -Dr. Alves emergently placed right-sided 10 F pigtail chest tube with improvement in symptoms and near complete resolution of the pneumothorax -Continue Singulair. Pulmonology following Dr. Mccormick. Status post bronchoscopy -Add Spiriva, continue Symbicort 2. Right sided pneumothorax following lung biopsy, recurrent-now resolved Status post lung biopsy for right upper lobe mass Status post chest tube for pneumothorax following lung biopsy Dislodgment on IR chest tube requiring emergency repeat chest tube placement 05/12 Pulmonary following 3. Hypoxia and hypercapnia encephalopathy - Altered mental status due to severe hypercapnia-resolved Acute on chronic hypoxemic, hypercapnic respiratory failure-resolved Acute COPD exacerbation - continue Solumedrol 40 mg IV Q 8 hours 4. 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 Andrade follow-up with final AFB sputum cultures -no empiric treatment for Mycobacterium infections recommended. QuantiFERON gold pending Recommend repeating CT chest in 6-8 weeks from original one done on May 08, if his infection progresses will need to repeat a biopsy although he is high risk for biopsy. 5. Probable ileus -encourage activity now extubated, stool softeners and monitor , KUB showed distended loops with no obstruction. Continue bowel regimen, positive bowel movement with Fleet's enema 6. Chronic low back pain -pain control 7. 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 Mood disorder - restart buspirone, restart Celexa. Continue divalproex. Xanax 9. DVT prophylaxis -Bilateral lower extremity SCDs. Subcu heparin resumed today. D/c otero transfer to the floor
[2018-05-21] MEDS: Montelukast 10 MG Tablet PO SCH (18:05)
--- NOTE | 2018-05-21 18:41 | P.PNPL ---
Subjective Interval history: 63 YOWM with COPD,Hypoxia, Ch resp insuff, Moved fron [place], did't bring his 02 CT chest lung density Extubated Has Rt chest tube, no air leak Awake, alert Physical Exam Vital signs: Vital Signs 05/20/18 20:00 05/20/18 20:29 05/20/18 21:22 Temperature 99 F Pulse Rate 67 63 Respiratory Rate 16 18 18 Blood Pressure 155/89 H Pulse Oximetry 95 95 05/21/18 00:00 05/21/18 00:39 05/21/18 03:19 Temperature 98.7 F Pulse Rate 68 Respiratory Rate 18 16 16 Blood Pressure 152/92 H Pulse Oximetry 93 L 05/21/18 04:00 05/21/18 04:52 05/21/18 08:00 Temperature 98.2 F 98.7 F Pulse Rate 62 86 Respiratory Rate 16 16 18 Blood Pressure 144/87 H 166/93 H Pulse Oximetry 94 L 96 05/21/18 09:23 05/21/18 10:00 05/21/18 12:00 Temperature 98.8 F Pulse Rate 84 66 65 Respiratory Rate 20 16 Blood Pressure 133/84 Pulse Oximetry 96 05/21/18 16:00 05/21/18 16:10 05/21/18 16:57 Temperature 98.4 F Pulse Rate 74 68 Respiratory Rate 18 18 18 Blood Pressure 109/73 Pulse Oximetry 92 L Intake & Output 05/20/18 05/21/18 05/21/18 18:59 06:59 18:59 Intake Total 200 / 200 630 / 630 Output Total 1630 / 1630 2650 / 2650 630 / 630 Balance -1430 / -1430 -2020 / -2020 -630 / -630 Weight 91.5 kg Intake: IV 100 / 100 Maxipime Inj 2,000 MG In NS Inj 100 / 100 100 ML @ 200 mls/hr IV.SIG Q8H [facility] Rx#:[id number] Oral 100 / 100 240 / 240 Water Bolus Amount 240 / 240 Other 150 / 150 Output: Urine 1300 / 1300 Urine Amount (Catheter) 1550 / 1550 1350 / 1350 600 / 600 Indwelling Urethral Catheter 1550 / 1550 1350 / 1350 600 / 600 Chest Tube Drainage 80 / 80 0 / 0 30 / 30 Right Upper Mid-Axillary Chest 80 / 80 0 / 0 30 / 30 Other: # Voids 0 Date of Last Bowel Movement 05/19/18 05/19/18 # Bowel Movements 0 0 0 GENERAL: WBWN,NAD SKIN: Warm and dry. HEAD: Normocephalic. EYES: No scleral icterus. No injection or drainage. NECK: Supple, trachea midline. No JVD or lymphadenopathy. CARDIOVASCULAR: Regular rate and rhythm without murmurs, gallops, or rubs. RESPIRATORY: Breath sounds equal bilaterally. No accessory muscle use. Rt chest tube in place No airleak GASTROINTESTINAL: Abdomen soft, non-tender, nondistended. MUSCULOSKELETAL: No cyanosis, or edema. BACK: Nontender without obvious deformity. No CVA tenderness. - Urinary Catheter Management Indwelling Urethral Catheter Cath placed during this visit: yes, but has since been removed by the nurse Reason for continuing: Decision to DC catheter Insertion date: 05/14/18 Insertion time: 12:30 Removal date: 05/21/18 Removal time: 15:35 Assessment and Plan - Plan IMPRESSION: 1. Chronic obstructive pulmonary disease with mild exacerbation. 2. Bronchiectasis. 3. 4 x 0.5 cm right upper lobe density, also has additional smaller density in the right upper lobe concerning for malignancy or infection. 4. Nicotine use. 5. Chronic respiratory insufficiency. 6. Bipolar disorder. 7. VDRF PLAN: Aerosol nebs Supplement 02 Cont Abx Chest tube to water seal CXR in AM DW Dr.Alexandria Andrade
[2018-05-22] MEDS: MethylPREDNISolone Sod Succinate Inj 40 MG/ML Vial IV.PUSH SCH ×3 (01:50→18:01)
[2018-05-22] MEDS: Oral Hygiene Kit OROPHARYNG SCH ×3 (03:43→16:40)
--- NOTE | 2018-05-22 06:54 | XR ---
EXAM DATE: 05/22/2018 6:47 AM EDT AGE/SEX: 63 years / Male INDICATIONS: Pneumothorax. CLINICAL DATA: This is the patient's subsequent encounter. Patient reports that signs and symptoms h ave been present for 2 weeks and indicates a pain score of 3/10. MEDICAL/SURGICAL HISTORY: . TB. Right side pneumothorax. Chest tube, right. [place] [facility] [place]. [place], CHEST 1V SINGLE AP, 05/19/2018. . FINDINGS: There is a right-sided chest tube in place. A pneumothorax is not seen. There is subcutaneous emphyse ma seen on the right chest and the neck regions bilaterally. The heart size is normal. The lungs are grossly clear. CONCLUSION: Right chest tube without pneumothorax. Electronically signed by: Long Jerez MD 05/22/2018 6:52 AM EDT
[2018-05-22] MEDS: Heparin - SQ 10,000 UNITS/ML Vial SQ SCH ×2 (08:06→20:02)
[2018-05-22] MEDS: Azithromycin 250 MG Tablet PO SCH (08:07)
[2018-05-22] MEDS: Divalproex 500 MG ER Tablet PO SCH (08:07)
[2018-05-22] MEDS: guaiFENesin 600 MG ER Tablet PO SCH ×2 (08:07→20:02)
[2018-05-22] MEDS: Gabapentin 100 MG Capsule PO SCH (08:07)
[2018-05-22] MEDS: Budesonide-Formoterol 160/4.5 MCG 6 GM Inhaler INH SCH ×2 (08:09→21:00)
[2018-05-22] MEDS: Tiotropium Bromide 18 MCG/ACT Inhaler INH SCH (08:10)
[2018-05-22] MEDS: Carvedilol 6.25 MG Tablet PO SCH ×2 (08:10→20:02)
[2018-05-22] MEDS: Chlorhexidine 0.12% Oral Kit 15 ML UDC OROPHARYNG SCH ×2 (09:55→19:57)
[2018-05-22] MEDS: Senna/Docusate Sodium 8.6/50 MG Tablet PO SCH ×2 (09:56→20:02)
--- NOTE | 2018-05-22 13:41 | P.PNIM ---
Subjective Interval history: Patient states that he is still having problems urinating when Otero removed. Breathing okay. Try to get stronger. No active shortness of breath at this time. Physical Exam Vital signs: Vital Signs 05/21/18 16:00 05/21/18 16:10 05/21/18 16:57 Temperature 98.4 F Pulse Rate 74 68 Respiratory Rate 18 18 18 Blood Pressure 109/73 Pulse Oximetry 92 L 05/21/18 20:00 05/21/18 20:25 05/21/18 20:30 Temperature 98.3 F Pulse Rate 88 74 Respiratory Rate 18 16 18 Blood Pressure 127/83 Pulse Oximetry 95 96 05/21/18 22:26 05/22/18 00:00 05/22/18 00:08 Temperature 98.6 F Pulse Rate 70 Respiratory Rate 17 20 18 Blood Pressure 143/88 H Pulse Oximetry 95 05/22/18 02:20 05/22/18 03:21 05/22/18 04:00 Temperature 98 F Pulse Rate 64 66 Respiratory Rate 17 20 16 Blood Pressure 151/91 H Pulse Oximetry 97 05/22/18 07:05 05/22/18 08:00 05/22/18 08:38 Temperature 97.9 F Pulse Rate 71 Respiratory Rate 16 24 25 H Blood Pressure 152/89 H Pulse Oximetry 94 L 05/22/18 09:57 05/22/18 10:29 05/22/18 12:00 Temperature 98.0 F Pulse Rate 74 67 Respiratory Rate 18 20 20 Blood Pressure 129/80 Pulse Oximetry 94 L 94 L Intake & Output 05/21/18 05/22/18 05/22/18 18:59 06:59 18:59 Intake Total 450 / 450 Output Total 630 / 630 2750 / 2750 Balance -630 / -630 -2300 / -2300 Weight 91.4 kg Intake: Oral 300 / 300 Other 150 / 150 Output: Urine 1300 / 1300 Urine Amount (Catheter) 600 / 600 1450 / 1450 Indwelling Urethral Catheter 600 / 600 600 / 600 straight cath 850 / 850 Chest Tube Drainage 30 / 30 0 / 0 Right Upper Mid-Axillary Chest 30 / 30 0 / 0 Other: # Voids 0 Date of Last Bowel Movement 05/19/18 # Bowel Movements 0 0 Narrative: GENERAL: This is a well-nourished, well-developed patient, in no apparent distress. CARDIOVASCULAR: Regular rate and rhythm RESPIRATORY: Diminished breath sounds in the bases and crackles of the right side Chest wall: Chest tube in place on right GASTROINTESTINAL: Abdomen soft, non-tender, nondistended. Normal active bowel sounds MUSCULOSKELETAL: Extremities without clubbing, cyanosis, or edema. NEURO: Alert & Oriented x3 to person, place, time Moves all ext x4 - Urinary Catheter Management Indwelling Urethral Catheter Cath placed during this visit: yes, but has since been removed by the nurse Reason for continuing: Not indwelling catheter Insertion date: 05/14/18 Insertion time: 12:30 Removal date: 05/21/18 Removal time: 15:35 straight cath Cath placed during this visit: no Results - Labs CBC & Chem 7: 05/21/18 02:54 05/21/18 02:54 Microbiology 05/14/18 17:00 Sputum - Expectorated Sputum Acid Fast Bacilli Smear - Final No acid fast bacilli seen 05/14/18 17:00 Sputum - Expectorated Sputum Mycobacterial Culture - Preliminary No growth in 1 week 05/14/18 09:30 Sputum - Endotracheal Acid Fast Bacilli Smear - Final No acid fast bacilli seen 05/14/18 09:30 Sputum - Endotracheal Mycobacterial Culture - Preliminary No growth in 1 week - Imaging Impressions Chest X-Ray 05/22/18 06:41 CONCLUSION: Right chest tube without pneumothorax. Assessment and Plan - Assessment (1) Acute on chronic respiratory failure with hypoxia Code(s): J96.21 - Acute and chronic respiratory failure with hypoxia Status: Acute (2) Healthcare-associated pneumonia Code(s): J18.9 - Pneumonia, unspecified organism Status: Acute (3) Hypoxia Code(s): R09.02 - Hypoxemia Status: Acute (4) Abnormal CT scan, lung Code(s): R91.8 - Other nonspecific abnormal finding of lung field Status: Acute - Plan 1. Acute respiratory arrest/failure-resolved Emergently intubated and placed on mechanical ventilation 05-14-18 for severe hypercapnic and hypoxemic respiratory failure and now extubated -Placed 28 Haitian right-sided chest tube on 05/14/2018 for recurrent pneumothorax -Extubated 05/18, tolerating well, pneumothorax has resolved -DuoNeb every 4 hours scheduled and as needed -Solu-Medrol 60 mg q 8 hours, taper now. Reduce to 40 mg every 8 -Continue Zithromax per ID. Patient is being ruled out for tuberculosis -Previously on 05/12/18 patient had developed acute respiratory distress due to dislodgment of chest tube and recurrence of large pneumothorax -Dr. Alves emergently placed right-sided 10 F pigtail chest tube with improvement in symptoms and near complete resolution of the pneumothorax -Continue Singulair. Pulmonology following Dr. Mccormick. Status post bronchoscopy -Add Spiriva, continue Symbicort 2. Right sided pneumothorax following lung biopsy, recurrent-now resolved Status post lung biopsy for right upper lobe mass Status post chest tube for pneumothorax following lung biopsy Dislodgment on IR chest tube requiring emergency repeat chest tube placement 05/12 Pulmonary following and recommended waterseal with repeat chest x-ray that showed stability with no pneumothorax. Continue chest tube management per pulmonology. 3. Hypoxia and hypercapnia encephalopathy - Altered mental status due to severe hypercapnia-resolved Acute on chronic hypoxemic, hypercapnic respiratory failure-resolved Acute COPD exacerbation - continue Solumedrol 40 mg IV Q 8 hours 4. 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 Andrade follow-up with final AFB sputum cultures -no empiric treatment for Mycobacterium infections recommended. QuantiFERON gold pending Recommend repeating CT chest in 6-8 weeks from original one done on May 08, if his infection progresses will need to repeat a biopsy although he is high risk for biopsy. 5. Probable ileus -now improved, encourage activity now extubated, stool softeners and monitor, previous KUB showed distended loops with no obstruction. Continue bowel regimen, positive bowel movement with Fleet's enema 6. Chronic low back pain -pain control 7. 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 Mood disorder - restart buspirone, restart Celexa. Continue divalproex. Xanax 9. DVT prophylaxis -Bilateral lower extremity SCDs. Subcu heparin resumed today. D/c otero 10. Urinary retentionadd Flomax and continue straight cath will try to avoid reinsertion of the Otero catheter.
--- NOTE | 2018-05-22 14:30 | P.PNPL ---
Subjective Interval history: 63 YOWM with COPD,Hypoxia, Ch resp insuff, Moved fron [place], did't bring his 02 CT chest lung density Extubated Has Rt chest tube, no air leak Awake, alert CXR no PTX Physical Exam Vital signs: Vital Signs 05/21/18 16:00 05/21/18 16:10 05/21/18 16:57 Temperature 98.4 F Pulse Rate 74 68 Respiratory Rate 18 18 18 Blood Pressure 109/73 Pulse Oximetry 92 L 05/21/18 20:00 05/21/18 20:25 05/21/18 20:30 Temperature 98.3 F Pulse Rate 88 74 Respiratory Rate 18 16 18 Blood Pressure 127/83 Pulse Oximetry 95 96 05/21/18 22:26 05/22/18 00:00 05/22/18 00:08 Temperature 98.6 F Pulse Rate 70 Respiratory Rate 17 20 18 Blood Pressure 143/88 H Pulse Oximetry 95 05/22/18 02:20 05/22/18 03:21 05/22/18 04:00 Temperature 98 F Pulse Rate 64 66 Respiratory Rate 17 20 16 Blood Pressure 151/91 H Pulse Oximetry 97 05/22/18 07:05 05/22/18 08:00 05/22/18 08:38 Temperature 97.9 F Pulse Rate 71 Respiratory Rate 16 24 25 H Blood Pressure 152/89 H Pulse Oximetry 94 L 05/22/18 09:57 05/22/18 10:29 05/22/18 12:00 Temperature 98.0 F Pulse Rate 74 67 Respiratory Rate 18 20 20 Blood Pressure 129/80 Pulse Oximetry 94 L 94 L Intake & Output 05/21/18 05/22/18 05/22/18 18:59 06:59 18:59 Intake Total 450 / 450 Output Total 630 / 630 2750 / 2750 Balance -630 / -630 -2300 / -2300 Weight 91.4 kg Intake: Oral 300 / 300 Other 150 / 150 Output: Urine 1300 / 1300 Urine Amount (Catheter) 600 / 600 1450 / 1450 Indwelling Urethral Catheter 600 / 600 600 / 600 straight cath 850 / 850 Chest Tube Drainage 30 / 30 0 / 0 Right Upper Mid-Axillary Chest 30 / 30 0 / 0 Other: # Voids 0 Date of Last Bowel Movement 05/19/18 # Bowel Movements 0 0 GENERAL: Elderly WM, NAD SKIN: Warm and dry. HEAD: Normocephalic. EYES: No scleral icterus. No injection or drainage. NECK: Supple, trachea midline. No JVD or lymphadenopathy. CARDIOVASCULAR: Regular rate and rhythm without murmurs, gallops, or rubs. RESPIRATORY: Breath sounds equal bilaterally. No accessory muscle use. Rt chest tube to water seal GASTROINTESTINAL: Abdomen soft, non-tender, nondistended. MUSCULOSKELETAL: No cyanosis, or edema. BACK: Nontender without obvious deformity. No CVA tenderness. - Urinary Catheter Management Indwelling Urethral Catheter Cath placed during this visit: yes, but has since been removed by the nurse Reason for continuing: Not indwelling catheter Insertion date: 05/14/18 Insertion time: 12:30 Removal date: 05/21/18 Removal time: 15:35 straight cath Cath placed during this visit: no Assessment and Plan - Plan IMPRESSION: 1. Chronic obstructive pulmonary disease with mild exacerbation. 2. Bronchiectasis. 3. 4 x 0.5 cm right upper lobe density, also has additional smaller density in the right upper lobe concerning for malignancy or infection. 4. Nicotine use. 5. Chronic respiratory insufficiency. 6. Bipolar disorder. 7. VDRF PLAN: Aerosol nebs Supplement 02 Cont Abx Clamp chest tube CXR in AM DEEPAK RN at [facility]
[2018-05-22] MEDS: Montelukast 10 MG Tablet PO SCH (18:02)
[2018-05-23] MEDS: Oral Hygiene Kit OROPHARYNG SCH ×5 (00:55→23:59)
[2018-05-23] MEDS: MethylPREDNISolone Sod Succinate Inj 40 MG/ML Vial IV.PUSH SCH ×3 (02:18→17:17)
[2018-05-23] MEDS: Chlorhexidine 0.12% Oral Kit 15 ML UDC OROPHARYNG SCH ×2 (08:43→20:45)
[2018-05-23] MEDS: Azithromycin 250 MG Tablet PO SCH (08:56)
[2018-05-23] MEDS: Heparin - SQ 10,000 UNITS/ML Vial SQ SCH ×2 (08:56→20:46)
[2018-05-23] MEDS: Carvedilol 6.25 MG Tablet PO SCH ×2 (08:57→20:45)
[2018-05-23] MEDS: Gabapentin 100 MG Capsule PO SCH (08:59)
[2018-05-23] MEDS: guaiFENesin 600 MG ER Tablet PO SCH ×2 (08:59→20:45)
[2018-05-23] MEDS: Divalproex 500 MG ER Tablet PO SCH (08:59)
[2018-05-23] MEDS: Budesonide-Formoterol 160/4.5 MCG 6 GM Inhaler INH SCH ×2 (09:00→20:47)
[2018-05-23] MEDS: Tiotropium Bromide 18 MCG/ACT Inhaler INH SCH (09:00)
[2018-05-23] MEDS: Senna/Docusate Sodium 8.6/50 MG Tablet PO SCH ×2 (09:02→20:45)
--- NOTE | 2018-05-23 12:12 | P.PNIM ---
Subjective Interval history: Reports no shortness of breath doing well is able to urinate without difficulty now. Physical Exam Vital signs: Vital Signs 05/22/18 12:31 05/22/18 14:59 05/22/18 16:00 Temperature 98.0 F Pulse Rate 78 Respiratory Rate 22 25 H 25 H Blood Pressure 131/82 Pulse Oximetry 94 L 05/22/18 16:34 05/22/18 16:41 05/22/18 18:32 Temperature Pulse Rate 72 Respiratory Rate 18 20 25 H Blood Pressure Pulse Oximetry 05/22/18 20:00 05/22/18 20:06 05/23/18 00:00 Temperature 98.0 F 98.3 F Pulse Rate 75 76 72 Respiratory Rate 20 16 20 Blood Pressure 140/83 148/87 H Pulse Oximetry 95 95 96 05/23/18 03:44 05/23/18 03:57 05/23/18 04:00 Temperature 98.2 F Pulse Rate 73 62 Respiratory Rate 16 20 18 Blood Pressure 147/83 H Pulse Oximetry 96 05/23/18 06:05 05/23/18 08:00 05/23/18 10:20 Temperature 98.2 F Pulse Rate 68 69 Respiratory Rate 18 20 14 Blood Pressure 135/89 Pulse Oximetry 96 97 Intake & Output 05/22/18 05/23/18 05/23/18 18:59 06:59 18:59 Intake Total 420 / 420 360 / 360 Output Total 500 / 500 680 / 680 450 / 450 Balance -80 / -80 -680 / -680 -90 / -90 Weight 89 kg Intake: Oral 420 / 420 360 / 360 Output: Urine 500 / 500 650 / 650 450 / 450 Chest Tube Drainage 30 / 30 Right Upper Mid-Axillary Chest 30 / 30 Other: # Voids 2 Date of Last Bowel Movement 05/19/18 # Bowel Movements 0 Narrative: GENERAL: This is a well-nourished, well-developed patient, in no apparent distress. CARDIOVASCULAR: Regular rate and rhythm RESPIRATORY: Diminished breath sounds in the bases and crackles of the right side Chest wall: Chest tube in place on right GASTROINTESTINAL: Abdomen soft, non-tender, nondistended. Normal active bowel sounds MUSCULOSKELETAL: Extremities without clubbing, cyanosis, or edema. NEURO: Alert & Oriented x3 to person, place, time Moves all ext x4 - Urinary Catheter Management Indwelling Urethral Catheter Cath placed during this visit: yes, but has since been removed by the nurse Reason for continuing: Not indwelling catheter Insertion date: 05/14/18 Insertion time: 12:30 Removal date: 05/21/18 Removal time: 15:35 straight cath Cath placed during this visit: no Reason for continuing: Not indwelling catheter Results - Labs CBC & Chem 7: 05/21/18 02:54 05/21/18 02:54 Microbiology 05/15/18 11:18 Bronchial Washings - Right Upper Lobe Acid Fast Bacilli Smear - Final No acid fast bacilli seen 05/15/18 11:18 Bronchial Washings - Right Upper Lobe Mycobacterial Culture - Preliminary No growth in 1 week Assessment and Plan - Assessment (1) Acute on chronic respiratory failure with hypoxia Code(s): J96.21 - Acute and chronic respiratory failure with hypoxia Status: Acute (2) Healthcare-associated pneumonia Code(s): J18.9 - Pneumonia, unspecified organism Status: Acute (3) Hypoxia Code(s): R09.02 - Hypoxemia Status: Acute (4) Abnormal CT scan, lung Code(s): R91.8 - Other nonspecific abnormal finding of lung field Status: Acute - Plan 1. Acute respiratory arrest/failure-resolved Emergently intubated and placed on mechanical ventilation 05-14-18 for severe hypercapnic and hypoxemic respiratory failure and now extubated -Placed 28 [place] right-sided chest tube on 05/14/2018 for recurrent pneumothorax -Extubated 05/18, tolerating well, pneumothorax has resolved -DuoNeb every 4 hours scheduled and as needed -Solu-Medrol 60 mg q 8 hours, taper now. Reduce to 40 mg every 8 -Continue Zithromax per ID. Patient is being ruled out for tuberculosis -Previously on 05/12/18 patient had developed acute respiratory distress due to dislodgment of chest tube and recurrence of large pneumothorax -Dr. Alves emergently placed right-sided 10 F pigtail chest tube with improvement in symptoms and near complete resolution of the pneumothorax -Continue Kallie. Pulmonology following Dr. Mccormick. Status post bronchoscopy -Add Spiriva, continue Symbicort 2. Right sided pneumothorax following lung biopsy, recurrent-now resolved Status post lung biopsy for right upper lobe mass Status post chest tube for pneumothorax following lung biopsy Dislodgment on IR chest tube requiring emergency repeat chest tube placement 05/12 Pulmonary following and recommended clamping the chest tube this a.m. ordered with repeat chest x-ray pending. Continue chest tube management per pulmonology. 3. Hypoxia and hypercapnia encephalopathy - Altered mental status due to severe hypercapnia-resolved Acute on chronic hypoxemic, hypercapnic respiratory failure-resolved Acute COPD exacerbation - continue Solumedrol 40 mg IV Q 8 hours 4. 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 Andrade follow-up with final AFB sputum cultures -no empiric treatment for Mycobacterium infections recommended. QuantiFERON gold pending Recommend repeating CT chest in 6-8 weeks from original one done on May 08, if his infection progresses will need to repeat a biopsy although he is high risk for biopsy. 5. Probable ileus -now resolved, encourage activity now extubated, stool softeners and monitor, previous KUB showed distended loops with no obstruction. Continue bowel regimen, positive bowel movement with Fleet's enema 6. Chronic low back pain -pain control 7. 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 Mood disorder - restart buspirone, restart Celexa. Continue divalproex. Xanax 9. DVT prophylaxis -Bilateral lower extremity SCDs. Subcu heparin resumed today. D/c otero 10. Urinary retentionresolved after adding Flomax a
--- NOTE | 2018-05-23 12:12 | XR ---
EXAM DATE: 05/23/2018 12:07 PM EDT AGE/SEX: 63 years / Male INDICATIONS: Pneumothorax. CLINICAL DATA: This is the patient's subsequent encounter. Patient reports that signs and symptoms h ave been present for 2 weeks and indicates a pain score of 7/10. MEDICAL/SURGICAL HISTORY: . TB. Right side pneumothorax . Chest tube, right. COMPARISON: [facility], CHEST 1V SINGLE AP, 05/22/2018. . FINDINGS: Stable right-sided chest tube in place. No significant pneumothorax. Redemonstration of subcutaneous emphysema in the right chest wall and bilateral lower cervical soft tissues, slightly improved. Mild linear parenchymal opacities at the left lung base. Cardiomediastinal contours are within normal limi ts. Bony thorax is intact. CONCLUSION: 1. No significant interval change. 2. Stable right-sided chest tube in place without significant pneumothorax. 3. Minimally improved subcutaneous emphysema. 4. Left lung base atelectasis. Electronically signed by: Dax Prieto MD 05/23/2018 12:11 PM EDT
--- NOTE | 2018-05-23 15:05 | P.PN ---
Subjective Interval history: alert sitting in chair CT no leak Physical Exam Vital signs: Vital Signs 05/22/18 16:00 05/22/18 16:34 05/22/18 16:41 Temperature 98.0 F Pulse Rate 78 72 Respiratory Rate 25 H 18 20 Blood Pressure 131/82 Pulse Oximetry 94 L 05/22/18 18:32 05/22/18 20:00 05/22/18 20:06 Temperature 98.0 F Pulse Rate 75 76 Respiratory Rate 25 H 20 16 Blood Pressure 140/83 Pulse Oximetry 95 95 05/23/18 00:00 05/23/18 03:44 05/23/18 03:57 Temperature 98.3 F Pulse Rate 72 73 Respiratory Rate 20 16 20 Blood Pressure 148/87 H Pulse Oximetry 96 05/23/18 04:00 05/23/18 06:05 05/23/18 08:00 Temperature 98.2 F 98.2 F Pulse Rate 62 68 Respiratory Rate 18 18 20 Blood Pressure 147/83 H 135/89 Pulse Oximetry 96 96 05/23/18 10:20 05/23/18 11:39 05/23/18 12:00 Temperature Pulse Rate 69 85 Respiratory Rate 14 25 H 25 H Blood Pressure Pulse Oximetry 97 Intake & Output 05/22/18 05/23/18 05/23/18 18:59 06:59 18:59 Intake Total 420 / 420 360 / 360 Output Total 500 / 500 680 / 680 450 / 450 Balance -80 / -80 -680 / -680 -90 / -90 Weight 89 kg Intake: Oral 420 / 420 360 / 360 Output: Urine 500 / 500 650 / 650 450 / 450 Chest Tube Drainage 30 / 30 Right Upper Mid-Axillary Chest 30 / 30 Other: # Voids 2 Date of Last Bowel Movement 05/19/18 # Bowel Movements 0 Narrative: GENERAL: This is a well-nourished, well-developed patient, in no apparent distress. CARDIOVASCULAR: Regular rate and rhythm RESPIRATORY: Diminished breath sounds in the bases and crackles of the right side Chest wall: Chest tube in place on right GASTROINTESTINAL: Abdomen soft, non-tender, nondistended. Normal active bowel sounds MUSCULOSKELETAL: Extremities without clubbing, cyanosis, or edema. NEURO: Alert & Oriented x3 to person, place, time Moves all ext x4 - Urinary Catheter Management Indwelling Urethral Catheter Cath placed during this visit: yes, but has since been removed by the nurse Reason for continuing: Not indwelling catheter Insertion date: 05/14/18 Insertion time: 12:30 Removal date: 05/21/18 Removal time: 15:35 straight cath Cath placed during this visit: no Reason for continuing: Not indwelling catheter Results - Labs CBC & Chem 7: 05/21/18 02:54 05/21/18 02:54 Microbiology 05/16/18 14:06 Sputum - Endotracheal Acid Fast Bacilli Smear - Final No acid fast bacilli seen 05/16/18 14:06 Sputum - Endotracheal Mycobacterial Culture - Preliminary No growth in 1 week 05/15/18 11:18 Bronchial Washings - Right Upper Lobe Acid Fast Bacilli Smear - Final No acid fast bacilli seen 05/15/18 11:18 Bronchial Washings - Right Upper Lobe Mycobacterial Culture - Preliminary No growth in 1 week - Imaging Impressions Chest X-Ray 05/23/18 11:18 CONCLUSION: 1. No significant interval change. 2. Stable right-sided chest tube in place without significant pneumothorax. 3. Minimally improved subcutaneous emphysema. 4. Left lung base atelectasis. Assessment and Plan - Plan imp pnx post biopsy mycobacterial infection , ID following plan antibx remove CT when possible
[2018-05-23] MEDS: Montelukast 10 MG Tablet PO SCH (17:18)
[2018-05-24] MEDS: MethylPREDNISolone Sod Succinate Inj 40 MG/ML Vial IV.PUSH SCH ×3 (01:01→17:08)
[2018-05-24] MEDS: Oral Hygiene Kit OROPHARYNG SCH ×2 (03:06→16:19)
[2018-05-24] MEDS: Carvedilol 6.25 MG Tablet PO SCH ×2 (09:10→20:20)
[2018-05-24] MEDS: Gabapentin 100 MG Capsule PO SCH (09:10)
[2018-05-24] MEDS: guaiFENesin 600 MG ER Tablet PO SCH ×2 (09:10→20:20)
[2018-05-24] MEDS: Divalproex 500 MG ER Tablet PO SCH (09:10)
[2018-05-24] MEDS: Azithromycin 250 MG Tablet PO SCH (09:10)
[2018-05-24] MEDS: Heparin - SQ 10,000 UNITS/ML Vial SQ SCH ×2 (09:12→20:21)
[2018-05-24] MEDS: Senna/Docusate Sodium 8.6/50 MG Tablet PO SCH ×2 (09:12→20:20)
[2018-05-24] MEDS: Budesonide-Formoterol 160/4.5 MCG 6 GM Inhaler INH SCH ×2 (09:14→20:21)
[2018-05-24] MEDS: Tiotropium Bromide 18 MCG/ACT Inhaler INH SCH (09:15)
[2018-05-24] MEDS: Chlorhexidine 0.12% Oral Kit 15 ML UDC OROPHARYNG SCH ×2 (11:31→20:21)
--- NOTE | 2018-05-24 11:34 | P.PN ---
Subjective Interval history: Follow-up acute respiratory failure/pleural effusion status post chest tube placement May 24, 2018-patient seen and examined, denies any significant shortness of breath. Currently afebrile. Physical Exam Vital signs: Vital Signs 05/23/18 11:39 05/23/18 12:00 05/23/18 15:24 Temperature 98.4 F Pulse Rate 72 Respiratory Rate 25 H 22 22 Blood Pressure 109/70 Pulse Oximetry 96 05/23/18 16:00 05/23/18 16:30 05/23/18 20:00 Temperature 98.2 F 99.6 F Pulse Rate 73 92 H 70 Respiratory Rate 22 16 18 Blood Pressure 136/77 145/100 H Pulse Oximetry 73 L 96 05/23/18 21:00 05/24/18 00:00 05/24/18 03:35 Temperature 97.7 F Pulse Rate 70 64 63 Respiratory Rate 18 20 18 Blood Pressure 131/92 H Pulse Oximetry 92 L 05/24/18 03:37 05/24/18 04:00 05/24/18 08:00 Temperature 98.1 F 98.2 F Pulse Rate 63 63 Respiratory Rate 20 20 Blood Pressure 141/91 H 157/95 H Pulse Oximetry 97 96 96 Intake & Output 05/23/18 05/24/18 05/24/18 18:59 06:59 18:59 Intake Total 780 / 780 480 / 480 Output Total 1150 / 1150 800 / 800 20 / 20 Balance -370 / -370 -320 / -320 -20 / -20 Weight 86 kg Intake: Oral 780 / 780 480 / 480 Output: Urine 1150 / 1150 800 / 800 Chest Tube Drainage 20 / 20 Right Upper Mid-Axillary Chest 20 / 20 Other: # Voids 5 # Incontinent Voids 0 Narrative: GENERAL: NAD SKIN: Warm and dry. HEAD: Normocephalic. EYES: No scleral icterus. No injection or drainage. NECK: Supple, trachea midline. No JVD or lymphadenopathy. CARDIOVASCULAR: Regular rate and rhythm without murmurs, gallops, or rubs. RESPIRATORY: Breath sounds equal bilaterally. No accessory muscle use.right chest tube in place GASTROINTESTINAL: Abdomen soft, non-tender, nondistended. MUSCULOSKELETAL: No cyanosis, or edema. BACK: Nontender without obvious deformity. No CVA tenderness. - Urinary Catheter Management Indwelling Urethral Catheter Cath placed during this visit: yes, but has since been removed by the nurse Reason for continuing: Not indwelling catheter Insertion date: 05/14/18 Insertion time: 12:30 Removal date: 05/21/18 Removal time: 15:35 straight cath Cath placed during this visit: no Reason for continuing: Not indwelling catheter Results - Labs CBC & Chem 7: 05/21/18 02:54 05/21/18 02:54 Microbiology 05/16/18 14:06 Sputum - Endotracheal Acid Fast Bacilli Smear - Final No acid fast bacilli seen 05/16/18 14:06 Sputum - Endotracheal Mycobacterial Culture - Preliminary No growth in 1 week - Imaging Impressions Chest X-Ray 05/23/18 11:18 CONCLUSION: 1. No significant interval change. 2. Stable right-sided chest tube in place without significant pneumothorax. 3. Minimally improved subcutaneous emphysema. 4. Left lung base atelectasis. Assessment and Plan - Assessment (1) Acute on chronic respiratory failure with hypoxia Code(s): J96.21 - Acute and chronic respiratory failure with hypoxia Status: Acute (2) Healthcare-associated pneumonia Code(s): J18.9 - Pneumonia, unspecified organism Status: Acute (3) Hypoxia Code(s): R09.02 - Hypoxemia Status: Acute (4) Abnormal CT scan, lung Code(s): R91.8 - Other nonspecific abnormal finding of lung field Status: Acute - Plan 63-year-old man with 1. Acute respiratory arrest/failure-resolved -Extubated 05/18, tolerating well, pneumothorax has resolved -DuoNeb every 4 hours scheduled and as needed -Solu-Medrol 40 mg every 8 -Continue Zithromax per ID. Patient is being ruled out for tuberculosis -Continue Singulair. Pulmonology following Dr. Mccormick. Status post bronchoscopy -On Spiriva, Symbicort 2. Right sided pneumothorax following lung biopsy, recurrent-now resolved Status post lung biopsy for right upper lobe mass Status post chest tube for pneumothorax following lung biopsy Dislodgment on IR chest tube requiring emergency repeat chest tube placement 05/12 Continue chest tube management per pulmonology. 3. Hypoxia and hypercapnia encephalopathy-resolved Acute on chronic hypoxemic, hypercapnic respiratory failure-resolved Acute COPD exacerbation - continue Solumedrol 40 mg IV Q 8 hours 4. 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 QuantiFERON gold pending Recommend repeating CT chest in 6-8 weeks from original one done on May 08, if his infection progresses will need to repeat a biopsy although he is high risk for biopsy. 5. Probable ileus -now resolved Continue bowel regimen, positive bowel movement with Fleet's enema 6. Chronic low back pain -pain control 7. 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 Mood disorder - On buspirone, Celexa. Continue divalproex. Xanax 9. DVT prophylaxis -Bilateral lower extremity SCDs. Subcu heparin. 10. Urinary retentionresolved ; continue Flomax
--- NOTE | 2018-05-24 16:27 | P.PN ---
Subjective Interval history: ALERT NO SOB Physical Exam Vital signs: Vital Signs 05/23/18 16:30 05/23/18 20:00 05/23/18 21:00 Temperature 99.6 F Pulse Rate 92 H 70 70 Respiratory Rate 16 18 18 Blood Pressure 145/100 H Pulse Oximetry 96 05/24/18 00:00 05/24/18 03:35 05/24/18 03:37 Temperature 97.7 F Pulse Rate 64 63 Respiratory Rate 20 18 Blood Pressure 131/92 H Pulse Oximetry 92 L 97 05/24/18 04:00 05/24/18 08:00 05/24/18 11:25 Temperature 98.1 F 98.2 F Pulse Rate 63 63 74 Respiratory Rate 20 20 Blood Pressure 141/91 H 157/95 H 109/77 Pulse Oximetry 96 96 05/24/18 15:03 05/24/18 15:32 05/24/18 15:40 Temperature Pulse Rate 74 72 Respiratory Rate 20 Blood Pressure 114/81 Pulse Oximetry 96 Intake & Output 05/23/18 05/24/18 05/24/18 18:59 06:59 18:59 Intake Total 780 / 780 480 / 480 Output Total 1150 / 1150 800 / 800 20 / 20 Balance -370 / -370 -320 / -320 -20 / -20 Weight 86 kg Intake: Oral 780 / 780 480 / 480 Output: Urine 1150 / 1150 800 / 800 Chest Tube Drainage 20 / 20 Right Upper Mid-Axillary Chest 20 / 20 Other: # Voids 5 # Incontinent Voids 0 Date of Last Bowel Movement 05/23/18 Narrative: GENERAL: NAD SKIN: Warm and dry. HEAD: Normocephalic. EYES: No scleral icterus. No injection or drainage. NECK: Supple, trachea midline. No JVD or lymphadenopathy. CARDIOVASCULAR: Regular rate and rhythm without murmurs, gallops, or rubs. RESPIRATORY: Breath sounds equal bilaterally. No accessory muscle use.right chest tube in place GASTROINTESTINAL: Abdomen soft, non-tender, nondistended. MUSCULOSKELETAL: No cyanosis, or edema. BACK: Nontender without obvious deformity. No CVA tenderness. - Urinary Catheter Management Indwelling Urethral Catheter Cath placed during this visit: yes, but has since been removed by the nurse Reason for continuing: Not indwelling catheter Insertion date: 05/14/18 Insertion time: 12:30 Removal date: 05/21/18 Removal time: 15:35 straight cath Cath placed during this visit: no Reason for continuing: Not indwelling catheter Results - Labs CBC & Chem 7: 05/21/18 02:54 05/21/18 02:54 Microbiology 05/16/18 14:06 Sputum - Endotracheal Acid Fast Bacilli Smear - Final No acid fast bacilli seen 05/16/18 14:06 Sputum - Endotracheal Mycobacterial Culture - Preliminary No growth in 1 week Assessment and Plan - Plan imp pnx post biopsy mycobacterial infection , ID following plan antibx remove CT when possible
[2018-05-24] MEDS: Montelukast 10 MG Tablet PO SCH (17:08)
[2018-05-25] MEDS: Oral Hygiene Kit OROPHARYNG SCH ×4 (00:10→17:30)
[2018-05-25] MEDS: MethylPREDNISolone Sod Succinate Inj 40 MG/ML Vial IV.PUSH SCH ×3 (01:16→21:36)
[2018-05-25] MEDS: Carvedilol 6.25 MG Tablet PO SCH ×2 (09:35→21:35)
[2018-05-25] MEDS: Senna/Docusate Sodium 8.6/50 MG Tablet PO SCH ×2 (09:35→21:34)
[2018-05-25] MEDS: Azithromycin 250 MG Tablet PO SCH (09:35)
[2018-05-25] MEDS: guaiFENesin 600 MG ER Tablet PO SCH ×2 (09:36→21:33)
[2018-05-25] MEDS: Divalproex 500 MG ER Tablet PO SCH (09:36)
[2018-05-25] MEDS: Gabapentin 100 MG Capsule PO SCH (09:36)
[2018-05-25] MEDS: Heparin - SQ 10,000 UNITS/ML Vial SQ SCH ×2 (09:37→21:34)
--- NOTE | 2018-05-25 10:47 | P.PN ---
Subjective Interval history: Follow-up acute respiratory failure/pleural effusion status post chest tube placement May 24, 2018-patient seen and examined, denies any significant shortness of breath. Currently afebrile. May 25, 2018-patient seen and examined, still with some shortness of breath otherwise stable. Afebrile. States, he doesn't have much of an appetite today. Physical Exam Vital signs: Vital Signs 05/24/18 11:25 05/24/18 12:22 05/24/18 15:03 Temperature Pulse Rate 74 126 H Respiratory Rate Blood Pressure 109/77 Pulse Oximetry 96 05/24/18 15:32 05/24/18 15:40 05/24/18 16:00 Temperature 98.4 F Pulse Rate 74 72 96 H Respiratory Rate 20 20 Blood Pressure 114/81 134/75 Pulse Oximetry 95 05/24/18 16:12 05/24/18 19:40 05/24/18 19:41 Temperature Pulse Rate 74 78 Respiratory Rate 16 Blood Pressure Pulse Oximetry 92 L 05/24/18 20:00 05/25/18 00:00 05/25/18 01:15 Temperature 98.6 F 98.5 F Pulse Rate 75 67 Respiratory Rate 20 18 16 Blood Pressure 114/83 120/85 Pulse Oximetry 94 L 97 05/25/18 03:23 05/25/18 04:00 05/25/18 08:00 Temperature 98.7 F 99.0 F Pulse Rate 78 74 93 H Respiratory Rate 17 18 20 Blood Pressure 126/81 110/82 Pulse Oximetry 90 L 89 L 05/25/18 09:40 Temperature Pulse Rate 85 Respiratory Rate 16 Blood Pressure Pulse Oximetry 96 Intake & Output 05/24/18 05/25/18 05/25/18 18:59 06:59 18:59 Intake Total 480 / 480 870 / 870 Output Total 1170 / 1170 1550 / 1550 Balance -690 / -690 -680 / -680 Weight 86 kg Intake: Oral 480 / 480 480 / 480 Water Bolus Amount 240 / 240 Other 150 / 150 Output: Urine 1150 / 1150 700 / 700 Urine Amount (Catheter) 850 / 850 straight cath 850 / 850 Gastric Drainage 0 / 0 Orogastric Tube 0 / 0 Chest Tube Drainage 20 / 20 0 / 0 Right Upper Mid-Axillary Chest 20 / 20 0 / 0 Other: # Voids 2 # Incontinent Voids 0 Date of Last Bowel Movement 05/23/18 05/23/18 # Bowel Movements 0 # [place] 4 Narrative: GENERAL: NAD SKIN: Warm and dry. HEAD: Normocephalic. EYES: No scleral icterus. No injection or drainage. NECK: Supple, trachea midline. No JVD or lymphadenopathy. CARDIOVASCULAR: Regular rate and rhythm without murmurs, gallops, or rubs. RESPIRATORY: Breath sounds equal bilaterally. No accessory muscle use.right chest tube in place GASTROINTESTINAL: Abdomen soft, non-tender, nondistended. MUSCULOSKELETAL: No cyanosis, or edema. BACK: Nontender without obvious deformity. No CVA tenderness. - Urinary Catheter Management Indwelling Urethral Catheter Cath placed during this visit: yes, but has since been removed by the nurse Reason for continuing: Not indwelling catheter Insertion date: 05/14/18 Insertion time: 12:30 Removal date: 05/21/18 Removal time: 15:35 straight cath Cath placed during this visit: no Reason for continuing: Not indwelling catheter Results - Labs CBC & Chem 7: 05/21/18 02:54 05/21/18 02:54 Assessment and Plan - Assessment (1) Acute on chronic respiratory failure with hypoxia Code(s): J96.21 - Acute and chronic respiratory failure with hypoxia Status: Acute (2) Healthcare-associated pneumonia Code(s): J18.9 - Pneumonia, unspecified organism Status: Acute (3) Hypoxia Code(s): R09.02 - Hypoxemia Status: Acute (4) Abnormal CT scan, lung Code(s): R91.8 - Other nonspecific abnormal finding of lung field Status: Acute - Plan 63-year-old man with 1. Acute respiratory arrest/failure-resolved -Extubated 05/18, tolerating well, pneumothorax has resolved -DuoNeb every 4 hours scheduled and as needed -Solu-Medrol 40 mg every 8 -Continue Zithromax per ID. Patient is being ruled out for tuberculosis -Continue Singulair. Pulmonology following Dr. Mccormick. Status post bronchoscopy -On Spiriva, Symbicort 2. Right sided pneumothorax following lung biopsy, recurrent-now resolved Status post lung biopsy for right upper lobe mass Status post chest tube for pneumothorax following lung biopsy Dislodgment on IR chest tube requiring emergency repeat chest tube placement 05/12 Continue chest tube management per pulmonology. 3. Hypoxia and hypercapnia encephalopathy-resolved Acute on chronic hypoxemic, hypercapnic respiratory failure-resolved Acute COPD exacerbation - change Solu Medrol to 20 mg IV Q 12 hours 4. 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 QuantiFERON gold pending Recommend repeating CT chest in 6-8 weeks from original one done on May 08, if his infection progresses will need to repeat a biopsy although he is high risk for biopsy. 5. Probable ileus -now resolved Continue bowel regimen, positive bowel movement with Fleet's enema 6. Chronic low back pain -pain control 7. 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 Mood disorder - On buspirone, Celexa. Continue divalproex. Xanax 9. DVT prophylaxis -Bilateral lower extremity SCDs. Subcu heparin. 10. Urinary retentionresolved ; continue Flomax
[2018-05-25] MEDS: Chlorhexidine 0.12% Oral Kit 15 ML UDC OROPHARYNG SCH ×2 (11:12→21:31)
[2018-05-25] MEDS: Tiotropium Bromide 18 MCG/ACT Inhaler INH SCH (11:14)
[2018-05-25] MEDS: Budesonide-Formoterol 160/4.5 MCG 6 GM Inhaler INH SCH ×2 (11:16→21:37)
[2018-05-25] MEDS: Montelukast 10 MG Tablet PO SCH (17:25)
--- NOTE | 2018-05-25 17:57 | P.PNPL ---
Subjective Interval history: 63 YOWM with COPD,Hypoxia, Ch resp insuff, Moved fron [place], did't bring his 02 CT chest lung density Has Rt chest tube, no air leak Awake, alert CXR no PTX has cough with small amount of sp Physical Exam Vital signs: Vital Signs 05/24/18 19:40 05/24/18 19:41 05/24/18 20:00 Temperature 98.6 F Pulse Rate 78 75 Respiratory Rate 16 20 Blood Pressure 114/83 Pulse Oximetry 92 L 94 L 05/25/18 00:00 05/25/18 01:15 05/25/18 03:23 Temperature 98.5 F Pulse Rate 67 78 Respiratory Rate 18 16 17 Blood Pressure 120/85 Pulse Oximetry 97 05/25/18 04:00 05/25/18 08:00 05/25/18 09:40 Temperature 98.7 F 99.0 F Pulse Rate 74 76 85 Respiratory Rate 18 20 16 Blood Pressure 126/81 110/82 Pulse Oximetry 90 L 89 L 96 05/25/18 12:00 05/25/18 13:00 05/25/18 16:00 Temperature 98.5 F Pulse Rate 82 73 Respiratory Rate 20 20 Blood Pressure 117/83 Pulse Oximetry 95 05/25/18 16:36 Temperature Pulse Rate 73 Respiratory Rate 16 Blood Pressure Pulse Oximetry Intake & Output 05/24/18 05/25/18 05/25/18 18:59 06:59 18:59 Intake Total 480 / 480 870 / 870 Output Total 1170 / 1170 1550 / 1550 Balance -690 / -690 -680 / -680 Weight 86 kg Intake: Oral 480 / 480 480 / 480 Water Bolus Amount 240 / 240 Other 150 / 150 Output: Urine 1150 / 1150 700 / 700 Urine Amount (Catheter) 850 / 850 straight cath 850 / 850 Gastric Drainage 0 / 0 Orogastric Tube 0 / 0 Chest Tube Drainage 20 / 20 0 / 0 Right Upper Mid-Axillary Chest 20 / 20 0 / 0 Other: # Voids 2 # Incontinent Voids 0 Date of Last Bowel Movement 05/23/18 05/23/18 05/23/18 # Bowel Movements 0 # Emeses 4 GENERAL: MBMN WM, NAD SKIN: Warm and dry. HEAD: Normocephalic. EYES: No scleral icterus. No injection or drainage. NECK: Supple, trachea midline. No JVD or lymphadenopathy. CARDIOVASCULAR: Regular rate and rhythm without murmurs, gallops, or rubs. RESPIRATORY: Breath sounds equal bilaterally. No accessory muscle use. Rt chest tube, no air leak GASTROINTESTINAL: Abdomen soft, non-tender, nondistended. MUSCULOSKELETAL: No cyanosis, or edema. BACK: Nontender without obvious deformity. No CVA tenderness. - Urinary Catheter Management Indwelling Urethral Catheter Cath placed during this visit: yes, but has since been removed by the nurse Reason for continuing: Not indwelling catheter Insertion date: 05/14/18 Insertion time: 12:30 Removal date: 05/21/18 Removal time: 15:35 straight cath Cath placed during this visit: no Reason for continuing: Not indwelling catheter Assessment and Plan - Plan IMPRESSION: 1. Chronic obstructive pulmonary disease with mild exacerbation. 2. Bronchiectasis. 3. 4 x 0.5 cm right upper lobe density, also has additional smaller density in the right upper lobe concerning for malignancy or infection. 4. Nicotine use. 5. Chronic respiratory insufficiency. 6. Bipolar disorder. 7. VDRF PLAN: Aerosol nebs Supplement 02 Cont Abx Clamp chest tube CXR in AM DW TETO Rangel at BS
--- NOTE | 2018-05-25 18:49 | P.PNID ---
Subjective Remarks: On NC O2 feels better afebrile Antibiotics: azithro Allergies/Adverse Reactions: Allergies No Known Allergies Allergy (Mild, Uncoded 05/08/18 20:55) unknown Objective Vital Signs 05/24/18 19:40 05/24/18 19:41 05/24/18 20:00 Temperature 98.6 F Pulse Rate 78 75 Respiratory Rate 16 20 Blood Pressure 114/83 Pulse Oximetry 92 L 94 L 05/25/18 00:00 05/25/18 01:15 05/25/18 03:23 Temperature 98.5 F Pulse Rate 67 78 Respiratory Rate 18 16 17 Blood Pressure 120/85 Pulse Oximetry 97 05/25/18 04:00 05/25/18 08:00 05/25/18 09:40 Temperature 98.7 F 99.0 F Pulse Rate 74 76 85 Respiratory Rate 18 20 16 Blood Pressure 126/81 110/82 Pulse Oximetry 90 L 89 L 96 05/25/18 12:00 05/25/18 13:00 05/25/18 16:00 Temperature 98.5 F Pulse Rate 82 73 Respiratory Rate 20 20 Blood Pressure 117/83 Pulse Oximetry 95 05/25/18 16:36 Temperature Pulse Rate 73 Respiratory Rate 16 Blood Pressure Pulse Oximetry Intake & Output 05/24/18 05/25/18 05/25/18 18:59 06:59 18:59 Intake Total 480 / 480 870 / 870 Output Total 1170 / 1170 1550 / 1550 Balance -690 / -690 -680 / -680 Weight 86 kg Intake: Oral 480 / 480 480 / 480 Water Bolus Amount 240 / 240 Other 150 / 150 Output: Urine 1150 / 1150 700 / 700 Urine Amount (Catheter) 850 / 850 straight cath 850 / 850 Gastric Drainage 0 / 0 Orogastric Tube 0 / 0 Chest Tube Drainage 20 / 20 0 / 0 Right Upper Mid-Axillary Chest 20 / 20 0 / 0 Other: # Voids 2 # Incontinent Voids 0 Date of Last Bowel Movement 05/23/18 05/23/18 05/23/18 # Bowel Movements 0 # Emeses 4 05/16/18 14:06 Sputum - Endotracheal Acid Fast Bacilli Smear - Final No acid fast bacilli seen 05/16/18 14:06 Sputum - Endotracheal Mycobacterial Culture - Preliminary No growth in 1 week Imaging: ITS Impressions Chest CTA 05/08/18 21:52 CONCLUSION: 1. Clustered nodularity in the upper right lung with measurements given above. Primary differential diagnosis is infectious in nature. Cannot exclude malignancy. 2. Severe peribronchial thickening at the lung bases with cylindrical bronchiectasis and patchy airspace disease. 3. Moderate centrilobular emphysema. 4. No adenopathy. 5. Exam suboptimal for evaluation of pulmonary embolic disease. Consider further evaluation with VQ scan if pulmonary embolus is of clinical concern. Chest Tube Insertion 05/11/18 00:00 CONCLUSION: 1. Uncomplicated right chest tube placement as above. Lung Biopsy CT 05/11/18 00:00 CONCLUSION: 1. Successful CT guided biopsy of right upper lobe mass. Abdomen X-Ray 05/20/18 00:00 CONCLUSION: Gaseous distention of bowel loops without obstruction. Chest X-Ray 05/23/18 11:18 CONCLUSION: 1. No significant interval change. 2. Stable right-sided chest tube in place without significant pneumothorax. 3. Minimally improved subcutaneous emphysema. 4. Left lung base atelectasis. Physical Exam: GENERAL: awake alert SKIN: Warm and dry. HEAD: Atraumatic. Normocephalic. EYES: Pupils equal and round. No scleral icterus. No injection or drainage. ENT: No nasal bleeding or discharge. Mucous membranes pink and moist. NECK: Trachea midline. No JVD. CARDIOVASCULAR: Regular rate and rhythm. RESPIRATORY: No accessory muscle use. Clear to auscultation. Breath sounds equal bilaterally. CT in place with serosang dc, clamped GASTROINTESTINAL: Abdomen soft, non-tender, nondistended. Hepatic and splenic margins not palpable. MUSCULOSKELETAL: Extremities without clubbing, cyanosis, or edema. No obvious deformities. 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
[2018-05-26] MEDS: Oral Hygiene Kit OROPHARYNG SCH ×4 (00:33→17:29)
--- NOTE | 2018-05-26 06:52 | XR ---
EXAM DATE: 05/26/2018 6:47 AM EDT AGE/SEX: 63 years / Male INDICATIONS: Pain right chest, evaluate right pneumothorax and chest tube CLINICAL DATA: This is the patient's subsequent encounter. Patient reports that signs and symptoms h ave been present for 3 weeks and indicates a pain score of 9/10. MEDICAL/SURGICAL HISTORY: . pneumothorax Chest tube, right. [place] [facility] [place] . FINDINGS: A single AP view of the chest demonstrates a right thoracostomy tube. Subcutaneous air tracks over th e right chest and right neck. No pneumothorax observed. Chronic interstitial changes within the bases . Lungs are otherwise clear. No effusions. Heart is normal in size. CONCLUSION: Right chest tube without pneumothorax. Electronically signed by: Geronimo Richardson MD 05/26/2018 6:51 AM EDT
[2018-05-26 07:18] LABS: Baso % (Auto) 0.1 % (0.0-2.0); Eos % (Auto) 0.1 % (0.0-4.0); Hematocrit 34.7 % (39.0-51.0); Hemoglobin 11.7 gm/dL (13.0-17.0); Lymph # (Auto) 0.8 th/mm3 (1.0-4.8); Lymph % (Auto) 9.2 % (9.0-44.0); Mean Corpuscular HGB Conc 33.8 % (32.0-36.0); Mean Corpuscular Hemoglobin 31.5 pg (27.0-34.0); Mean Corpuscular Volume 93.3 fL (80.0-100.0); Mean Platelet Volume 11.4 fL (7.0-11.0); Mono # (Auto) 0.7 th/mm3 (0.0-0.9); Mono % (Auto) 7.8 % (0.0-8.0); Neut # (Auto) 7.5 th/mm3 (1.8-7.7); Neut % (Auto) 82.8 % (16.0-70.0); Platelet Count 62 th/mm3 (150-450); Red Blood Count 3.72 mil/mm3 (4.50-5.90); Red Cell Distribution Width 15.7 % (11.6-17.2); White Blood Count 9.1 th/mm3 (4.0-11.0)
[2018-05-26 07:40] LABS: Albumin 2.4 g/dL (3.4-5.0); Anion Gap 4 meq/L (5-15); Aspartate Aminotransferase 101 U/L (15-37); Blood Urea Nitrogen 21 mg/dL (7-18); Carbon Dioxide 37.5 meq/L (21.0-32.0); Chloride 98 meq/L (98-107); Glomerular Filtration Rate Greater Than 89 mL/min (>89); Glucose,Random 97 mg/dL (74-106); Potassium 4.3 meq/L (3.5-5.1); Sodium 139 meq/L (136-145)
[2018-05-26 07:43] LABS: Alanine Aminotransferase 224 U/L (12-78); Alkaline Phosphatase 96 U/L (45-117); Total Protein 5.3 g/dL (6.4-8.2)
[2018-05-26 09:10] LABS: Platelet Morphology Normal (Normal)
[2018-05-26] MEDS: Divalproex 500 MG ER Tablet PO SCH (09:26)
[2018-05-26] MEDS: Carvedilol 6.25 MG Tablet PO SCH ×2 (09:27→21:39)
[2018-05-26] MEDS: Azithromycin 250 MG Tablet PO SCH (09:27)
[2018-05-26] MEDS: Gabapentin 100 MG Capsule PO SCH (09:28)
[2018-05-26] MEDS: guaiFENesin 600 MG ER Tablet PO SCH ×2 (09:28→21:40)
[2018-05-26] MEDS: Heparin - SQ 10,000 UNITS/ML Vial SQ SCH (09:43)
[2018-05-26] MEDS: Tiotropium Bromide 18 MCG/ACT Inhaler INH SCH (09:44)
[2018-05-26] MEDS: Budesonide-Formoterol 160/4.5 MCG 6 GM Inhaler INH SCH ×2 (09:44→21:42)
[2018-05-26] MEDS: Senna/Docusate Sodium 8.6/50 MG Tablet PO SCH ×2 (09:44→21:40)
[2018-05-26] MEDS: Chlorhexidine 0.12% Oral Kit 15 ML UDC OROPHARYNG SCH ×2 (10:51→21:38)
--- NOTE | 2018-05-26 11:14 | XR ---
EXAM DATE: 05/26/2018 11:09 AM EDT AGE/SEX: 63 years / Male INDICATIONS: Chest tube removal. CLINICAL DATA: This is the patient's subsequent encounter. Patient reports that signs and symptoms h ave been present for 2 weeks and indicates a pain score of 0/10. MEDICAL/SURGICAL HISTORY: . TB. Right side pneumothorax. . Right side chest tube. COMPARISON: [facility] [place]ST 1V SINGLE AP, 05/26/2018. [facility] [place]ST 1V SINGLE AP, 05/23/2018. . FINDINGS: Portable upright AP view of the chest demonstrates a normal size cardiac silhouette. Right chest tube has been removed. There are stable emphysematous changes bilaterally with parenchymal opacity at the right lung apex. Right chest wall subcutaneous emphysema remains present and there is subcutaneous e mphysema in the supraclavicular regions. Mild subsegmental atelectasis is present at the lung bases. CONCLUSION: 1. No pneumothorax is visualized following right chest tube removal. 2. Emphysema with persistent right upper lobe apex opacity/mass. 3. Stable right chest wall and supraclavicular subcutaneous emphysema. Electronically signed by: Long Fernández MD 05/26/2018 11:13 AM EDT
[2018-05-26] MEDS: MethylPREDNISolone Sod Succinate Inj 40 MG/ML Vial IV.PUSH SCH ×2 (12:02→21:41)
--- NOTE | 2018-05-26 14:10 | P.PN ---
Subjective Interval history: sitting up, no resp. distress, right lateral ct clamped, some pain around site. no sob, no fever. Physical Exam Vital signs: Vital Signs 05/25/18 16:00 05/25/18 16:36 05/25/18 20:00 Temperature 98.1 F 98.1 F Pulse Rate 87 73 82 Respiratory Rate 20 16 20 Blood Pressure 128/89 139/88 Pulse Oximetry 95 96 05/25/18 20:25 05/25/18 22:17 05/26/18 00:00 Temperature 98.1 F Pulse Rate 72 75 Respiratory Rate 18 16 20 Blood Pressure 121/88 Pulse Oximetry 99 96 05/26/18 02:48 05/26/18 04:00 05/26/18 04:01 Temperature 97.8 F Pulse Rate 63 66 Respiratory Rate 18 18 17 Blood Pressure 133/89 Pulse Oximetry 98 98 05/26/18 08:00 05/26/18 08:51 Temperature 98.0 F Pulse Rate 72 72 Respiratory Rate 20 12 Blood Pressure 110/83 Pulse Oximetry 97 97 Intake & Output 05/25/18 05/26/18 05/26/18 18:59 06:59 18:59 Intake Total 840 / 840 240 / 240 Output Total 1325 / 1325 1750 / 1750 Balance -485 / -485 -1510 / -1510 Weight 81.8 kg Intake: Oral 840 / 840 240 / 240 Output: Urine 1325 / 1325 1750 / 1750 Other: Date of Last Bowel Movement 05/23/18 05/25/18 05/25/18 # Bowel Movements 0 0 Narrative: GENERAL: appears older than stated age, NAD SKIN: Warm and dry. HEAD: Normocephalic. EYES: No scleral icterus. No injection or drainage. NECK: Supple, trachea midline. No JVD or lymphadenopathy. CARDIOVASCULAR: Regular rate and rhythm without murmurs, gallops, or rubs. RESPIRATORY: Breath sounds equal bilaterally, diminished. No accessory muscle use.right chest tube in place GASTROINTESTINAL: Abdomen soft, non-tender, nondistended. MUSCULOSKELETAL: No cyanosis, trace pretibial edema, pedal pulses 2_ BACK: Nontender without obvious deformity. No CVA tenderness. NEURO: grossly intact - Urinary Catheter Management Indwelling Urethral Catheter Cath placed during this visit: yes, but has since been removed by the nurse Reason for continuing: Not indwelling catheter Insertion date: 05/14/18 Insertion time: 12:30 Removal date: 05/21/18 Removal time: 15:35 straight cath Cath placed during this visit: no Reason for continuing: Not indwelling catheter Results - Labs CBC & Chem 7: 05/26/18 05:44 05/26/18 05:44 Laboratory Results - last 24 hr 05/14/18 05/26/18 05/26/18 10:35 05:44 05:44 WBC 9.1 RBC 3.72 L Hgb 11.7 L Hct 34.7 L MCV 93.3 MCH 31.5 MCHC 33.8 RDW 15.7 Plt Count 62 L MPV 11.4 H Prelim Diff (Auto) Slide review pending Neut % (Auto) 82.8 H Lymph % (Auto) 9.2 [place] % (Auto) 7.8 Eos % (Auto) 0.1 Baso % (Auto) 0.1 Neut # (Auto) 7.5 Lymph # (Auto) 0.8 L [place] # (Auto) 0.7 Eos # (Auto) 0.0 Baso # (Auto) 0.0 WBC Differential . Diff Scan Auto diff confirmed Differential Comment . Platelet Estimate Low L Platelet Morphology Normal Puncture Site Right radial Patient Temperature 98.6 O2 Saturation 91 ABG pH 7.09 L* ABG pCO2 128 H* ABG pO2 84 ABG HCO3 37 H ABG O2 Content 16.5 ABG Base Excess 7.2 H ABG Methemoglobin 1.1 Timothy Test Present Hemoglobin 12.9 Carboxyhemoglobin 0.7 O2 Delivery Device Vent Vent Setting Prvc/14/600/8/100 Inspired O2 100 Critical Value Yes Sodium 139 Potassium 4.3 Chloride 98 Carbon Dioxide 37.5 H Anion Gap 4 L BUN 21 H Creatinine 0.57 L Estimated GFR Greater than 89 Random Glucose 97 Calcium 8.0 L Total Bilirubin 1.0 AST 101 H ALT 224 H Alkaline Phosphatase 96 Total Protein 5.3 L Albumin 2.4 L - Imaging Impressions Chest X-Ray 05/26/18 07:00 CONCLUSION: Right chest tube without pneumothorax. Chest X-Ray 05/26/18 10:37 CONCLUSION: 1. No pneumothorax is visualized following right chest tube removal. 2. Emphysema with persistent right upper lobe apex opacity/mass. 3. Stable right chest wall and supraclavicular subcutaneous emphysema. Assessment and Plan - Assessment (1) Acute on chronic respiratory failure with hypoxia Code(s): J96.21 - Acute and chronic respiratory failure with hypoxia Status: Acute (2) Healthcare-associated pneumonia Code(s): J18.9 - Pneumonia, unspecified organism Status: Acute (3) Hypoxia Code(s): R09.02 - Hypoxemia Status: Acute (4) Abnormal CT scan, lung Code(s): R91.8 - Other nonspecific abnormal finding of lung field Status: Acute - Plan 63-year-old man with hx of COPD, emphysema. Went into respiratory failure, had CT placed for pneumo. Eventually extubated and transferred to hospitalist services: Acute respiratory arrest/failure-resolved -Extubated 05/18, tolerating well, pneumothorax has resolved -DuoNeb every 4 hours scheduled and as needed -Solu-Medrol 20 mg every 12 -Continue Zithromax per ID. Patient is being ruled out for tuberculosis -Continue Singulair. Pulmonology following Dr. Mccormick. Status post bronchoscopy -On Spiriva, Symbicort -CT to be removed today, f/u CXR Right sided pneumothorax following lung biopsy, recurrent-now resolved -Status post lung biopsy for right upper lobe mass -Status post chest tube for pneumothorax following lung biopsy -Dislodgment on IR chest tube requiring emergency repeat chest tube placement 05/12/18 -Continue chest tube management per pulmonology. 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 QuantiFERON gold negative Recommend repeating CT chest in 6-8 weeks from original one done on May 08, if his infection progresses will need to repeat a biopsy although he is high risk for biopsy. Probable ileus -now resolved - Continue bowel regimen, positive bowel movement with Fleet's enema Chronic low back pain -pain control Mood disorder - -On buspirone, Celexa. Continue divalproex. Xanax Thrombocytopenia -Plat trending down, 95-83-62 -will stop heparin Elevated LFTs, etiology unclear -repeat in am Urinary retentionresolved -continue Flomax CM consult for dc planning, poss dc in 2 days.
[2018-05-26] MEDS: Montelukast 10 MG Tablet PO SCH (17:28)
--- NOTE | 2018-05-26 19:00 | P.PNPL ---
Subjective Interval history: 63 YOWM with COPD,Hypoxia, Ch resp insuff, Moved fron [place], did't bring his 02 CT chest lung density Awake, alert Chest tube removed today CXR no PTX has cough with small amount of sp Physical Exam Vital signs: Vital Signs 05/25/18 20:00 05/25/18 20:25 05/25/18 22:17 Temperature 98.1 F Pulse Rate 82 72 Respiratory Rate 20 18 16 Blood Pressure 139/88 Pulse Oximetry 96 99 05/26/18 00:00 05/26/18 02:48 05/26/18 04:00 Temperature 98.1 F 97.8 F Pulse Rate 75 63 Respiratory Rate 20 18 18 Blood Pressure 121/88 133/89 Pulse Oximetry 96 98 05/26/18 04:01 05/26/18 08:00 05/26/18 08:51 Temperature 98.0 F Pulse Rate 66 75 72 Respiratory Rate 17 20 12 Blood Pressure 110/83 Pulse Oximetry 98 97 97 05/26/18 12:00 05/26/18 16:00 Temperature 98.6 F Pulse Rate 77 69 Respiratory Rate 20 Blood Pressure 100/75 Pulse Oximetry 94 L Intake & Output 05/25/18 05/26/18 05/26/18 18:59 06:59 18:59 Intake Total 840 / 840 240 / 240 0 / 0 Output Total 1325 / 1325 1750 / 1750 2600 / 2600 Balance -485 / -485 -1510 / -1510 -2600 / -2600 Weight 81.8 kg Intake: Oral 840 / 840 240 / 240 Other 0 / 0 Output: Urine 1325 / 1325 1750 / 1750 1750 / 1750 Urine Amount (Catheter) 850 / 850 straight cath 850 / 850 Gastric Drainage 0 / 0 Orogastric Tube 0 / 0 Chest Tube Drainage 0 / 0 Right Upper Mid-Axillary Chest 0 / 0 Other: # Voids 2 # Incontinent Voids 0 Date of Last Bowel Movement 05/23/18 05/25/18 05/25/18 # Bowel Movements 0 0 0 # Emeses 4 GENERAL: MBMN WM, NAD SKIN: Warm and dry. HEAD: Normocephalic. EYES: No scleral icterus. No injection or drainage. NECK: Supple, trachea midline. No JVD or lymphadenopathy. CARDIOVASCULAR: Regular rate and rhythm without murmurs, gallops, or rubs. RESPIRATORY: Breath sounds equal bilaterally. No accessory muscle use. GASTROINTESTINAL: Abdomen soft, non-tender, nondistended. MUSCULOSKELETAL: No cyanosis, or edema. BACK: Nontender without obvious deformity. No CVA tenderness. - Urinary Catheter Management Indwelling Urethral Catheter Cath placed during this visit: yes, but has since been removed by the nurse Reason for continuing: Not indwelling catheter Insertion date: 05/14/18 Insertion time: 12:30 Removal date: 05/21/18 Removal time: 15:35 straight cath Cath placed during this visit: no Reason for continuing: Not indwelling catheter Assessment and Plan - Plan IMPRESSION: 1. Chronic obstructive pulmonary disease with mild exacerbation. 2. Bronchiectasis. 3. 4 x 0.5 cm right upper lobe density, also has additional smaller density in the right upper lobe concerning for malignancy or infection. 4. Nicotine use. 5. Chronic respiratory insufficiency. 6. Bipolar disorder. 7. VDRF PLAN: Stable after chest tube removal Aerosol nebs Supplement 02 Cont Abx DW RN Claire at BS
[2018-05-27] MEDS: Oral Hygiene Kit OROPHARYNG SCH ×4 (00:24→18:43)
[2018-05-27] MEDS: Senna/Docusate Sodium 8.6/50 MG Tablet PO SCH ×2 (08:15→21:05)
[2018-05-27 08:20] LABS: Hematocrit 35.7 % (39.0-51.0); Hemoglobin 12.1 gm/dL (13.0-17.0); Mean Corpuscular HGB Conc 33.8 % (32.0-36.0); Mean Corpuscular Hemoglobin 31.1 pg (27.0-34.0); Mean Corpuscular Volume 91.8 fL (80.0-100.0); Mean Platelet Volume 11.1 fL (7.0-11.0); Platelet Count 65 th/mm3 (150-450); Red Blood Count 3.89 mil/mm3 (4.50-5.90); Red Cell Distribution Width 15.9 % (11.6-17.2)
[2018-05-27 08:40] LABS: Albumin 2.5 g/dL (3.4-5.0)
[2018-05-27] MEDS: Chlorhexidine 0.12% Oral Kit 15 ML UDC OROPHARYNG SCH ×2 (08:40→21:04)
[2018-05-27 08:41] LABS: Total Protein 5.5 g/dL (6.4-8.2)
[2018-05-27] MEDS: Azithromycin 250 MG Tablet PO SCH (08:45)
[2018-05-27] MEDS: Carvedilol 6.25 MG Tablet PO SCH ×2 (08:46→21:07)
[2018-05-27] MEDS: Gabapentin 100 MG Capsule PO SCH (08:46)
[2018-05-27] MEDS: guaiFENesin 600 MG ER Tablet PO SCH ×2 (08:47→21:06)
[2018-05-27] MEDS: Divalproex 500 MG ER Tablet PO SCH (08:47)
[2018-05-27] MEDS: MethylPREDNISolone Sod Succinate Inj 40 MG/ML Vial IV.PUSH SCH (08:48)
[2018-05-27] MEDS: Tiotropium Bromide 18 MCG/ACT Inhaler INH SCH (08:48)
[2018-05-27] MEDS: Budesonide-Formoterol 160/4.5 MCG 6 GM Inhaler INH SCH ×2 (08:48→21:08)
--- NOTE | 2018-05-27 10:06 | P.DCO ---
- Physical Therapy Order: Evaluate and treat - Home Health Nursing Order: Medical education, Oxygen administration education (already on oxygen at home ), Nursing assessment with vital signs - Certification I have seen patient Craig Tovar on 05/27/18. My clinical findings support the need for the requested home health care services because: COPD, emphysema, recent resp. failure, debilitated, sob with activity Patient has SOB, Deconditioned with increased weakness, Need for psychosocial assistance I certify that my clinical findings support that this patient is homebound because: Hx COPD - exertion dyspnea/weakness
--- NOTE | 2018-05-27 10:11 | P.PN ---
Subjective Interval history: Chest tube removed yesterday, no shortness of breath, occasional cough with sputum that is white, no chest pain, chronic back pain No fever, overall feels much better. Patient indicates he lives with sister, already was on oxygen at home. Agreeable with home health care Physical Exam Vital signs: Vital Signs 05/26/18 12:00 05/26/18 16:00 05/26/18 20:00 Temperature 98.6 F 98.0 F 98.4 F Pulse Rate 77 78 74 Respiratory Rate 20 20 20 Blood Pressure 100/75 131/77 118/70 Pulse Oximetry 94 L 96 96 05/27/18 00:00 05/27/18 00:24 05/27/18 04:00 Temperature 98.0 F 98.1 F Pulse Rate 62 66 Respiratory Rate 18 18 18 Blood Pressure 136/87 114/81 Pulse Oximetry 97 98 05/27/18 08:00 05/27/18 08:16 Temperature 97.8 F Pulse Rate 65 Respiratory Rate 16 Blood Pressure 130/79 Pulse Oximetry 97 97 Intake & Output 05/26/18 05/27/18 05/27/18 18:59 06:59 18:59 Intake Total 840 / 840 240 / 240 Output Total 2875 / 2875 1000 / 1000 Balance -2035 / -2035 -760 / -760 Weight 81.1 kg Intake: Oral 840 / 840 240 / 240 Other 0 / 0 Output: Urine 2024 / 2024 1000 / 1000 Urine Amount (Catheter) 850 / 850 straight cath 850 / 850 Gastric Drainage 0 / 0 Orogastric Tube 0 / 0 Chest Tube Drainage 0 / 0 Right Upper Mid-Axillary Chest 0 / 0 Other: # Voids 1 # Incontinent Voids 0 Date of Last Bowel Movement 05/25/18 05/25/18 # Bowel Movements 1 0 # Emeses 4 Narrative: GENERAL: appears older than stated age, NAD SKIN: Warm and dry. Legs with skin dry and flaky HEAD: Normocephalic. EYES: No scleral icterus. No injection or drainage. NECK: Supple, trachea midline. No JVD or lymphadenopathy. CARDIOVASCULAR: Regular rate and rhythm without murmurs, gallops, or rubs. RESPIRATORY: right ant. chest with suture in place, CT removed. Faint ronchi with exp. wheezing. GASTROINTESTINAL: Abdomen soft, non-tender, nondistended. MUSCULOSKELETAL: No cyanosis, trace pretibial edema, pedal pulses 2 BACK: Nontender without obvious deformity. No CVA tenderness. NEURO: grossly intact - Urinary Catheter Management Indwelling Urethral Catheter Cath placed during this visit: yes, but has since been removed by the nurse Reason for continuing: Not indwelling catheter Insertion date: 05/14/18 Insertion time: 12:30 Removal date: 05/21/18 Removal time: 15:35 straight cath Cath placed during this visit: no Reason for continuing: Not indwelling catheter Results - Labs CBC & Chem 7: 05/27/18 06:42 05/26/18 05:44 Laboratory Results - last 24 hr 05/14/18 05/27/18 05/27/18 10:35 06:42 06:42 WBC 10.0 RBC 3.89 L Hgb 12.1 L Hct 35.7 L MCV 91.8 MCH 31.1 MCHC 33.8 RDW 15.9 Plt Count 65 L MPV 11.1 H Puncture Site Right radial Patient Temperature 98.6 O2 Saturation 91 ABG pH 7.09 L* ABG pCO2 128 H* ABG pO2 84 ABG HCO3 37 H ABG O2 Content 16.5 ABG Base Excess 7.2 H ABG Methemoglobin 1.1 Timothy Test Present Hemoglobin 12.9 Carboxyhemoglobin 0.7 O2 Delivery Device Vent Vent Setting Prvc/14/600/8/100 Inspired O2 100 Critical Value Yes Total Bilirubin 1.1 H Direct Bilirubin 0.4 H Indirect Bilirubin 0.7 AST 79 H ALT 201 H Alkaline Phosphatase 101 Total Protein 5.5 L Albumin 2.5 L - Imaging Impressions Chest X-Ray 05/26/18 10:37 CONCLUSION: 1. No pneumothorax is visualized following right chest tube removal. 2. Emphysema with persistent right upper lobe apex opacity/mass. 3. Stable right chest wall and supraclavicular subcutaneous emphysema. Assessment and Plan - Assessment (1) Acute on chronic respiratory failure with hypoxia Code(s): J96.21 - Acute and chronic respiratory failure with hypoxia Status: Acute (2) Healthcare-associated pneumonia Code(s): J18.9 - Pneumonia, unspecified organism Status: Acute (3) Hypoxia Code(s): R09.02 - Hypoxemia Status: Acute (4) Abnormal CT scan, lung Code(s): R91.8 - Other nonspecific abnormal finding of lung field Status: Acute - Plan 63-year-old man with hx of COPD, emphysema. Went into respiratory failure, had CT placed for pneumo. Eventually extubated and transferred to hospitalist services: Acute respiratory arrest/failure-resolved -Extubated 05/18, tolerating well, pneumothorax has resolved -DuoNeb every 4 hours scheduled and as needed -Change to p.o. prednisone 20 mg p.o. daily -Continue Zithromax per ID. -Continue Singulair. Pulmonology following Dr. Mccormick. Status post bronchoscopy -On Spiriva, Symbicort -CT removed 05/26, tolerated well, post removal CXR no pneumo Right sided pneumothorax following lung biopsy, recurrent-now resolved -Status post lung biopsy for right upper lobe mass -Status post chest tube for pneumothorax following lung biopsy -Dislodgment on IR chest tube requiring emergency repeat chest tube placement 05/12/18 -Continue chest tube management per pulmonology. Hypoxia and hypercapnia encephalopathy-resolved Acute on chronic hypoxemic, hypercapnic respiratory failure-resolved Acute COPD exacerbation -P.o. 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 QuantiFERON gold negative Recommend repeating CT chest in 6-8 weeks from original one done on May 08, if his infection progresses will need to repeat a biopsy although he is high risk for biopsy. Probable ileus -now resolved - Continue bowel regimen, positive bowel movement with Fleet's enema Chronic low back pain -pain control Mood disorder - -On buspirone, Celexa. Continue divalproex. Xanax Thrombocytopenia -Plat trending down, 95-83-62 -will stop heparin Elevated LFTs, etiology unclear -repeat in am Urinary retentionresolved -continue Flomax CM consult for dc planning, arrange home health care, possible DC tomorrow Cleared per infectious disease We will need follow-up CT in 6-8 weeks Waiting for pulmonary clearance
--- NOTE | 2018-05-27 16:22 | P.PNPL ---
Subjective Interval history: 63 YOWM with COPD,Hypoxia, Ch resp insuff, Moved fron [place], did't bring his 02 CT chest lung density Awake, alert CXR no PTX has cough with small amount of sp Weak, mild sob Physical Exam Vital signs: Vital Signs 05/26/18 20:00 05/27/18 00:00 05/27/18 00:24 Temperature 98.4 F 98.0 F Pulse Rate 74 62 Respiratory Rate 20 18 18 Blood Pressure 118/70 136/87 Pulse Oximetry 96 97 05/27/18 04:00 05/27/18 08:00 05/27/18 08:16 Temperature 98.1 F 97.8 F Pulse Rate 66 62 Respiratory Rate 18 16 Blood Pressure 114/81 130/79 Pulse Oximetry 98 97 97 05/27/18 12:00 Temperature 98.4 F Pulse Rate 78 Respiratory Rate 16 Blood Pressure 102/67 Pulse Oximetry 92 L Intake & Output 05/26/18 05/27/18 05/27/18 18:59 06:59 18:59 Intake Total 840 / 840 240 / 240 Output Total 2875 / 2875 1000 / 1000 Balance -2035 / -2035 -760 / -760 Weight 81.1 kg Intake: Oral 840 / 840 240 / 240 Other 0 / 0 Output: Urine 2024 / 2024 1000 / 1000 Urine Amount (Catheter) 850 / 850 straight cath 850 / 850 Gastric Drainage 0 / 0 Orogastric Tube 0 / 0 Chest Tube Drainage 0 / 0 Right Upper Mid-Axillary Chest 0 / 0 Other: # Voids 1 # Incontinent Voids 0 Date of Last Bowel Movement 05/25/18 05/25/18 05/25/18 # Bowel Movements 1 0 # Emeses 4 GENERAL: MBMN, NAD SKIN: Warm and dry. HEAD: Normocephalic. EYES: No scleral icterus. No injection or drainage. NECK: Supple, trachea midline. No JVD or lymphadenopathy. CARDIOVASCULAR: Regular rate and rhythm without murmurs, gallops, or rubs. RESPIRATORY: Breath sounds equal bilaterally. No accessory muscle use. GASTROINTESTINAL: Abdomen soft, non-tender, nondistended. MUSCULOSKELETAL: No cyanosis, or edema. BACK: Nontender without obvious deformity. No CVA tenderness. - Urinary Catheter Management Indwelling Urethral Catheter Cath placed during this visit: yes, but has since been removed by the nurse Reason for continuing: Not indwelling catheter Insertion date: 05/14/18 Insertion time: 12:30 Removal date: 05/21/18 Removal time: 15:35 straight cath Cath placed during this visit: no Reason for continuing: Not indwelling catheter Assessment and Plan - Plan IMPRESSION: 1. Chronic obstructive pulmonary disease with mild exacerbation. 2. Bronchiectasis. 3. 4 x 0.5 cm right upper lobe density, also has additional smaller density in the right upper lobe concerning for malignancy or infection. 4. Nicotine use. 5. Chronic respiratory insufficiency. 6. Bipolar disorder. 7. VDRF PLAN: Stable after chest tube removal Aerosol nebs Supplement 02 Cont Abx DC Plans underway.
[2018-05-27] MEDS: Montelukast 10 MG Tablet PO SCH (18:42)
[2018-05-28] MEDS: Oral Hygiene Kit OROPHARYNG SCH ×5 (00:34→23:50)
[2018-05-28] MEDS: Gabapentin 100 MG Capsule PO SCH (09:00)
[2018-05-28] MEDS: guaiFENesin 600 MG ER Tablet PO SCH ×2 (09:00→20:37)
[2018-05-28] MEDS: predniSONE 20 MG Tablet PO SCH (09:00)
[2018-05-28] MEDS: Senna/Docusate Sodium 8.6/50 MG Tablet PO SCH ×2 (09:00→20:38)
[2018-05-28] MEDS: Divalproex 500 MG ER Tablet PO SCH (09:01)
[2018-05-28] MEDS: Carvedilol 6.25 MG Tablet PO SCH ×2 (09:01→20:37)
[2018-05-28] MEDS: Chlorhexidine 0.12% Oral Kit 15 ML UDC OROPHARYNG SCH ×2 (09:02→19:22)
[2018-05-28] MEDS: Budesonide-Formoterol 160/4.5 MCG 6 GM Inhaler INH SCH ×2 (09:05→20:39)
[2018-05-28 11:03] LABS: Hematocrit 41.3 % (39.0-51.0); Hemoglobin 13.7 gm/dL (13.0-17.0); Mean Corpuscular HGB Conc 33.2 % (32.0-36.0); Mean Corpuscular Hemoglobin 31.3 pg (27.0-34.0); Mean Corpuscular Volume 94.2 fL (80.0-100.0); Mean Platelet Volume 11.3 fL (7.0-11.0); Platelet Count 93 th/mm3 (150-450); Red Blood Count 4.38 mil/mm3 (4.50-5.90); White Blood Count 15.6 th/mm3 (4.0-11.0)
[2018-05-28 11:35] LABS: Total Protein 6.3 g/dL (6.4-8.2)
[2018-05-28] MEDS: Tiotropium Bromide 18 MCG/ACT Inhaler INH SCH (11:56)
--- NOTE | 2018-05-28 12:39 | P.PN ---
Subjective Interval history: No chest pain Minimal shortness of breath No sputum No fever Indicates he is not walking very much, prefers to go to a rehab facility not home with his sister. Physical Exam Vital signs: Vital Signs 05/27/18 16:00 05/27/18 17:33 05/27/18 20:00 Temperature 97.8 F 98.2 F Pulse Rate 74 72 Respiratory Rate 16 18 Blood Pressure 107/72 108/82 Pulse Oximetry 95 92 L 98 05/27/18 23:51 05/28/18 00:00 05/28/18 04:00 Temperature 97.9 F 98.5 F Pulse Rate 71 72 Respiratory Rate 18 18 18 Blood Pressure 98/65 L 123/69 Pulse Oximetry 98 91 L 05/28/18 08:00 Temperature 97.9 F Pulse Rate 69 Respiratory Rate 20 Blood Pressure 102/73 Pulse Oximetry 93 L Intake & Output 05/27/18 05/28/18 05/28/18 18:59 06:59 18:59 Intake Total 600 / 600 840 / 840 Output Total 400 / 400 1300 / 1300 Balance 200 / 200 -460 / -460 Weight 81.1 kg Intake: Oral 600 / 600 600 / 600 Water Bolus Amount 240 / 240 Other 0 / 0 Output: Urine 400 / 400 1300 / 1300 Gastric Drainage 0 / 0 Orogastric Tube 0 / 0 Chest Tube Drainage 0 / 0 Right Upper Mid-Axillary Chest 0 / 0 Other: # Voids 3 # Incontinent Voids 0 Date of Last Bowel Movement 05/25/18 05/25/18 # Bowel Movements 0 # Emeses 4 Narrative: GENERAL: appears older than stated age, NAD SKIN: Warm and dry. Legs with skin dry and flaky HEAD: Normocephalic. EYES: No scleral icterus. No injection or drainage. NECK: Supple, trachea midline. No JVD or lymphadenopathy. CARDIOVASCULAR: Regular rate and rhythm without murmurs, gallops, or rubs. RESPIRATORY: right ant. chest with suture in place, CT removed. Faint ronchi with exp. wheezing. GASTROINTESTINAL: Abdomen soft, non-tender, nondistended. MUSCULOSKELETAL: No cyanosis, trace pretibial edema, pedal pulses 2 BACK: Nontender without obvious deformity. No CVA tenderness. NEURO: grossly intact - Urinary Catheter Management Indwelling Urethral Catheter Cath placed during this visit: yes, but has since been removed by the nurse Reason for continuing: Not indwelling catheter Insertion date: 05/14/18 Insertion time: 12:30 Removal date: 05/21/18 Removal time: 15:35 straight cath Cath placed during this visit: no Reason for continuing: Not indwelling catheter Results - Labs CBC & Chem 7: 05/28/18 09:48 05/26/18 05:44 Laboratory Results - last 24 hr 05/28/18 05/28/18 09:48 09:48 WBC 15.6 H RBC 4.38 L Hgb 13.7 Hct 41.3 MCV 94.2 MCH 31.3 MCHC 33.2 RDW 16.0 Plt Count 93 L D MPV 11.3 H Total Bilirubin 1.6 H Direct Bilirubin 0.5 H Indirect Bilirubin 1.1 H AST 139 H ALT 257 H Alkaline Phosphatase 101 Total Protein 6.3 L D Albumin 3.0 L Assessment and Plan - Assessment (1) Acute on chronic respiratory failure with hypoxia Code(s): J96.21 - Acute and chronic respiratory failure with hypoxia Status: Acute (2) Healthcare-associated pneumonia Code(s): J18.9 - Pneumonia, unspecified organism Status: Acute (3) Hypoxia Code(s): R09.02 - Hypoxemia Status: Acute (4) Abnormal CT scan, lung Code(s): R91.8 - Other nonspecific abnormal finding of lung field Status: Acute - Plan 63-year-old man with hx of COPD, emphysema. Went into respiratory failure, had CT placed for pneumo. Eventually extubated and transferred to hospitalist services: Acute respiratory arrest/failure-resolved -Extubated 05/18, tolerating well, pneumothorax has resolved -DuoNeb every 4 hours scheduled and as needed -Change to p.o. prednisone 20 mg p.o. daily -Discontinue Zithromax, discuss with ID and pulmonology -Continue Singulair. -Pulmonology following Dr. Mccormick. -Status post bronchoscopy -On Spiriva, Symbicort -CT removed 05/26, tolerated well, post removal CXR no pneumo Right sided pneumothorax following lung biopsy, recurrent-now resolved -Status post lung biopsy for right upper lobe mass -Status post chest tube for pneumothorax following lung biopsy -Dislodgment on IR chest tube requiring emergency repeat chest tube placement 05/12/18 -Continue chest tube management per pulmonology. Hypoxia and hypercapnia encephalopathy-resolved Acute on chronic hypoxemic, hypercapnic respiratory failure-resolved Acute COPD exacerbation -P.o. 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 QuantiFERON gold negative Recommend repeating CT chest in 6-8 weeks from original one done on May 08, if his infection progresses will need to repeat a biopsy although he is high risk for biopsy. -Path report noted, negative for AFB Probable ileus -now resolved - Continue bowel regimen, positive bowel movement with Fleet's enema Chronic low back pain -pain control Mood disorder - -On buspirone, Celexa. Continue divalproex. Xanax Thrombocytopenia -Plat trending down, 95-83-62-93 --Platelets improving, continue to hold heparin Elevated LFTs, etiology unclear. -LFTs inc. today, they have been intermittently elevated throughout hospitalization -will check hepatitis panel. Leukocytosis, on steroids. No fever -follow CBC Urinary retentionresolved -continue Flomax Discussed with case management, will find an SNF facility Cleared per infectious disease and pulm Will need follow-up CT in 6-8 weeks, d/w Dr. Mccormick, he will take care of it at follow up visit. D/W pt. verbalizes understanding
[2018-05-28 14:55] LABS: Hepatitits B Surface Antigen Nonreactive (Nonreactive)
[2018-05-28 15:14] LABS: Hepatitis A IgM Antibody Nonreactive (Nonreactive)
--- NOTE | 2018-05-28 15:49 | US ---
EXAM DATE: 05/28/2018 3:34 PM EDT AGE/SEX: 63 years / Male INDICATIONS: Evaluate common bile duct. CLINICAL DATA: This is the patient's initial encounter. Patient reports that signs and symptoms have been present for 1 day and indicates a pain score of 0/10. MEDICAL/SURGICAL HISTORY: Chronic obstructive pulmonary disease. Emphysema. Pneumonia. Chronic back pain. Bipolar disorder. Appendectomy. Epidural steroid injection. COMPARISON: [facility], [facility] PULMONARY W CONTRAST W 3D, 05/08/2018. . MEASUREMENTS: Liver:__ Unable to obtain. Not visualized.. Common Bile Duct:__ 6mm. FINDINGS: Liver: The visualized portions of the liver appear to be within normal limits. No dilated biliary du cts are demonstrated. No evidence of ascites. There is some limited visualization due to the subcutan eous emphysema in the soft tissues of the body wall. Portal Vein: Limited visualization of the portal system. Common Duct: No intraluminal mass or stone visualized. Gallbladder: Not visualized. Pancreas: The visualized portions are within normal limits Right Kidney: Normal echotexture and cortical thickness. No mass or hydronephrosis. Other: CONCLUSION: 1. Limited visualization due to subcutaneous emphysema in the soft tissues. 2. Common bile duct appears to be within normal limits at 6 mm. No dilated biliary ducts are demonst rated. Electronically signed by: Benja Albert MD 05/28/2018 3:47 PM EDT
[2018-05-28] MEDS: Montelukast 10 MG Tablet PO SCH (18:03)
--- NOTE | 2018-05-28 18:14 | P.PNPL ---
Subjective Interval history: 63 YOWM with COPD,Hypoxia, Ch resp insuff, Moved fron [place], did't bring his 02 CT chest lung density Awake, alert CXR no PTX has cough with small amount of sp Weak, mild sob Wants to go to rehab. Physical Exam Vital signs: Vital Signs 05/27/18 20:00 05/27/18 23:51 05/28/18 00:00 Temperature 98.2 F 97.9 F Pulse Rate 72 71 Respiratory Rate 18 Blood Pressure 108/82 98/65 L Pulse Oximetry 98 98 05/28/18 04:00 05/28/18 08:00 05/28/18 12:00 Temperature 98.5 F 97.9 F 98.1 F Pulse Rate 72 69 70 Respiratory Rate 18 20 20 Blood Pressure 123/69 102/73 93/60 L Pulse Oximetry 91 L 93 L 96 05/28/18 16:00 Temperature 98.6 F Pulse Rate 72 Respiratory Rate 20 Blood Pressure 90/62 L Pulse Oximetry 97 Intake & Output 05/27/18 05/28/18 05/28/18 18:59 06:59 18:59 Intake Total 600 / 600 840 / 840 240 / 240 Output Total 400 / 400 1300 / 1300 550 / 550 Balance 200 / 200 -460 / -460 -310 / -310 Weight 81.1 kg Intake: Oral 600 / 600 600 / 600 240 / 240 Water Bolus Amount 240 / 240 Other 0 / 0 Output: Urine 400 / 400 1300 / 1300 550 / 550 Gastric Drainage 0 / 0 Orogastric Tube 0 / 0 Chest Tube Drainage 0 / 0 Right Upper Mid-Axillary Chest 0 / 0 Other: # Voids 3 # Incontinent Voids 0 Date of Last Bowel Movement 05/25/18 05/25/18 # Bowel Movements 0 # Emeses 4 GENERAL: Elderly WM, NAD SKIN: Warm and dry. HEAD: Normocephalic. EYES: No scleral icterus. No injection or drainage. NECK: Supple, trachea midline. No JVD or lymphadenopathy. CARDIOVASCULAR: Regular rate and rhythm without murmurs, gallops, or rubs. RESPIRATORY: Breath sounds equal bilaterally. No accessory muscle use. GASTROINTESTINAL: Abdomen soft, non-tender, nondistended. MUSCULOSKELETAL: No cyanosis, or edema. BACK: Nontender without obvious deformity. No CVA tenderness. - Urinary Catheter Management Indwelling Urethral Catheter Cath placed during this visit: yes, but has since been removed by the nurse Reason for continuing: Not indwelling catheter Insertion date: 05/14/18 Insertion time: 12:30 Removal date: 05/21/18 Removal time: 15:35 straight cath Cath placed during this visit: no Reason for continuing: Not indwelling catheter Assessment and Plan - Plan IMPRESSION: 1. Chronic obstructive pulmonary disease with mild exacerbation. 2. Bronchiectasis. 3. 4 x 0.5 cm right upper lobe density, also has additional smaller density in the right upper lobe concerning for malignancy or infection. 4. Nicotine use. 5. Chronic respiratory insufficiency. 6. Bipolar disorder. 7. VDRF PLAN: Stable after chest tube removal Aerosol nebs Supplement 02 Cont Abx DC Plans underwayfor rehab
[2018-05-29] MEDS: Oral Hygiene Kit OROPHARYNG SCH ×4 (05:03→23:41)
[2018-05-29] MEDS: predniSONE 20 MG Tablet PO SCH (08:12)
[2018-05-29] MEDS: guaiFENesin 600 MG ER Tablet PO SCH ×2 (08:12→20:06)
[2018-05-29] MEDS: Gabapentin 100 MG Capsule PO SCH (08:12)
[2018-05-29] MEDS: Carvedilol 6.25 MG Tablet PO SCH ×2 (08:13→20:06)
[2018-05-29] MEDS: Divalproex 500 MG ER Tablet PO SCH (08:13)
[2018-05-29] MEDS: Senna/Docusate Sodium 8.6/50 MG Tablet PO SCH ×2 (08:15→20:06)
[2018-05-29] MEDS: Budesonide-Formoterol 160/4.5 MCG 6 GM Inhaler INH SCH ×2 (08:18→20:07)
[2018-05-29] MEDS: Tiotropium Bromide 18 MCG/ACT Inhaler INH SCH (08:19)
[2018-05-29] MEDS: Chlorhexidine 0.12% Oral Kit 15 ML UDC OROPHARYNG SCH ×2 (08:21→20:06)
[2018-05-29 09:03] LABS: Albumin 2.5 g/dL (3.4-5.0)
[2018-05-29 09:12] LABS: Total Protein 5.4 g/dL (6.4-8.2)
--- NOTE | 2018-05-29 11:29 | P.PN ---
Subjective Interval history: some cough, little sputum, no fever. Weak. Having bms. C/O chronic pain, abdomen , back, chest. Asking when his next pain medication. Informed that hep panel + hep C antibody. 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 Okay with following up with GI as OP. Would like me to notify his sister. Physical Exam Vital signs: Vital Signs 05/28/18 12:00 05/28/18 16:00 05/28/18 18:16 Temperature 98.1 F 98.6 F Pulse Rate 70 72 70 Respiratory Rate 20 20 Blood Pressure 93/60 L 90/62 L 98/63 L Pulse Oximetry 96 97 05/28/18 20:00 05/29/18 00:00 05/29/18 04:00 Temperature 98.1 F 97.8 F 98.8 F Pulse Rate 73 70 72 Respiratory Rate 19 16 15 Blood Pressure 103/65 103/53 L 94/56 L Pulse Oximetry 96 94 L 93 L 05/29/18 08:00 Temperature 98.2 F Pulse Rate 77 Respiratory Rate 20 Blood Pressure 103/66 Pulse Oximetry 96 Intake & Output 05/28/18 05/29/18 05/29/18 18:59 06:59 18:59 Intake Total 240 / 240 240 / 240 Output Total 550 / 550 1850 / 1850 Balance -310 / -310 -1610 / -1610 Weight 78.2 kg Intake: Oral 240 / 240 240 / 240 Output: Urine 550 / 550 1850 / 1850 Other: # Bowel Movements 1 Narrative: GENERAL: appears older than stated age, NAD SKIN: Warm and dry. Legs with skin dry and flaky HEAD: Normocephalic. EYES: No scleral icterus. No injection or drainage. NECK: Supple, trachea midline. No JVD or lymphadenopathy. CARDIOVASCULAR: Regular rate and rhythm without murmurs, gallops, or rubs. RESPIRATORY: right ant. chest with suture in place, CT removed. Faint ronchi with exp. wheezing. GASTROINTESTINAL: Abdomen soft, non-tender, nondistended. MUSCULOSKELETAL: No cyanosis, trace pretibial edema, pedal pulses 2 BACK: Nontender without obvious deformity. No CVA tenderness. NEURO: grossly intact - Urinary Catheter Management Indwelling Urethral Catheter Cath placed during this visit: yes, but has since been removed by the nurse Reason for continuing: Not indwelling catheter Insertion date: 05/14/18 Insertion time: 12:30 Removal date: 05/21/18 Removal time: 15:35 straight cath Cath placed during this visit: no Reason for continuing: Not indwelling catheter Results - Labs CBC & Chem 7: 05/28/18 09:48 05/26/18 05:44 Laboratory Results - last 24 hr 05/28/18 05/28/18 05/28/18 09:48 09:48 13:35 WBC 15.6 H RBC 4.38 L Hgb 13.7 Hct 41.3 MCV 94.2 MCH 31.3 MCHC 33.2 RDW 16.0 Plt Count 93 L D MPV 11.3 H Total Bilirubin 1.6 H Direct Bilirubin 0.5 H Indirect Bilirubin 1.1 H AST 139 H ALT 257 H Alkaline Phosphatase 101 Total Protein 6.3 L D Albumin 3.0 L Hepatitis A IgM Ab Nonreactive Hep Bs Antigen Nonreactive Hep B Core IgM Ab Nonreactive Hep C IgG Ab Reactive H 05/29/18 07:24 WBC RBC Hgb Hct MCV MCH MCHC RDW Plt Count MPV Total Bilirubin 1.6 H Direct Bilirubin 0.6 H Indirect Bilirubin 1.0 H AST 114 H ALT 213 H Alkaline Phosphatase 79 Total Protein 5.4 L D Albumin 2.5 L Hepatitis A IgM Ab Hep Bs Antigen Hep B Core IgM Ab Hep C IgG Ab Microbiology 05/14/18 17:00 Sputum - Expectorated Sputum Acid Fast Bacilli Smear - Final No acid fast bacilli seen 05/14/18 17:00 Sputum - Expectorated Sputum Mycobacterial Culture - Preliminary No growth in 2 weeks 05/14/18 09:30 Sputum - Endotracheal Acid Fast Bacilli Smear - Final No acid fast bacilli seen 05/14/18 09:30 Sputum - Endotracheal Mycobacterial Culture - Preliminary No growth in 2 weeks - Imaging Impressions Gallbladder Ultrasound 05/28/18 00:00 CONCLUSION: 1. Limited visualization due to subcutaneous emphysema in the soft tissues. 2. Common bile duct appears to be within normal limits at 6 mm. No dilated biliary ducts are demonstrated. Assessment and Plan - Assessment (1) Acute on chronic respiratory failure with hypoxia Code(s): J96.21 - Acute and chronic respiratory failure with hypoxia Status: Acute (2) Healthcare-associated pneumonia Code(s): J18.9 - Pneumonia, unspecified organism Status: Acute (3) Hypoxia Code(s): R09.02 - Hypoxemia Status: Acute (4) Abnormal CT scan, lung Code(s): R91.8 - Other nonspecific abnormal finding of lung field Status: Acute - Plan 63-year-old man with hx of COPD, emphysema. Went into respiratory failure, had CT placed for pneumo. Eventually extubated and transferred to hospitalist services: Acute respiratory arrest/failure-resolved -Extubated 05/18, tolerating well, pneumothorax has resolved -DuoNeb every 4 hours scheduled and as needed -Continue p.o. prednisone 20 mg p.o. daily -Discontinue Zithromax, discuss with ID and pulmonology -Continue Singulair. -Pulmonology following Dr. Mccormick. -Status post bronchoscopy -On Spiriva, Symbicort -CT removed 05/26, tolerated well, post removal CXR no pneumo Right sided pneumothorax following lung biopsy, recurrent-now resolved -Status post lung biopsy for right upper lobe mass -Status post chest tube for pneumothorax following lung biopsy -Dislodgment on IR chest tube requiring emergency repeat chest tube placement 05/12/18 -Continue chest tube management per pulmonology. Hypoxia and hypercapnia encephalopathy-resolved Acute on chronic hypoxemic, hypercapnic respiratory failure-resolved Acute COPD exacerbation -P.o. 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 QuantiFERON gold negative Recommend repeating CT chest in 6-8 weeks from original one done on May 08, if his infection progresses will need to repeat a biopsy although he is high risk for biopsy. -Path report noted, negative for AFB Probable ileus -now resolved - Continue bowel regimen, positive bowel movement with Fleet's enema Chronic low back pain -pain control Mood disorder - -On buspirone, Celexa. Continue divalproex. Xanax Chronic back pain Chronic opioid use -continue with present meds Thrombocytopenia -Plat trending down, [id number] --Platelets improving, continue to hold heparin Elevated LFTs -LFTs better today -Hep panel results noted, hep C ab reactive. 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 Unclear what type and any treatment. Denies IVDU. Pt. needs to follow up with GI as OP for further work up and treatment. Spoke to his sister per his request. Leukocytosis, on steroids. No fever -follow CBC Urinary retentionresolved -continue Flomax Discussed with case management, currently being evaluated. Bed pending. Pt. lived at SNF for 2 years in [place]. Cleared per infectious disease and pulm Will need follow-up CT in 6-8 weeks, d/w Dr. Mccormick, he will take care of it at follow up visit. Spoke to pt's sister at length, she is the only family member available to help. Pt. has another brother with brain cancer. Reviewed pt's condition, lab results of Hep C. Informed of need to follow up with Pulmonology and GI as OP. She verbalizes understanding.
[2018-05-29] MEDS: Montelukast 10 MG Tablet PO SCH (17:29)
--- NOTE | 2018-05-29 17:49 | P.PNPL ---
Subjective Interval history: 63 YOWM with COPD,Hypoxia, Ch resp insuff, Moved fr[place], did't bring his 02 CT chest lung density has cough with small amount of sp Weak, mild sob Wants to go to rehab Physical Exam Vital signs: Vital Signs 05/28/18 18:16 05/28/18 20:00 05/29/18 00:00 Temperature 98.1 F 97.8 F Pulse Rate 70 73 70 Respiratory Rate 19 16 Blood Pressure 98/63 L 103/65 103/53 L Pulse Oximetry 96 94 L 05/29/18 04:00 05/29/18 08:00 05/29/18 09:00 Temperature 98.8 F 98.2 F Pulse Rate 72 77 69 Respiratory Rate 15 20 Blood Pressure 94/56 L 103/66 Pulse Oximetry 93 L 96 05/29/18 11:42 05/29/18 12:00 05/29/18 14:18 Temperature 98.1 F Pulse Rate 75 75 80 Respiratory Rate 18 Blood Pressure 102/66 90/60 L Pulse Oximetry 96 Intake & Output 05/28/18 05/29/18 05/29/18 18:59 06:59 18:59 Intake Total 240 / 240 240 / 240 Output Total 550 / 550 1850 / 1850 Balance -310 / -310 -1610 / -1610 Weight 78.2 kg Intake: Oral 240 / 240 240 / 240 Output: Urine 550 / 550 1850 / 1850 Other: # Bowel Movements 1 GENERAL: Elderly WM, NAD SKIN: Warm and dry. HEAD: Normocephalic. EYES: No scleral icterus. No injection or drainage. NECK: Supple, trachea midline. No JVD or lymphadenopathy. CARDIOVASCULAR: Regular rate and rhythm without murmurs, gallops, or rubs. RESPIRATORY: Breath sounds equal bilaterally. No accessory muscle use. GASTROINTESTINAL: Abdomen soft, non-tender, nondistended. MUSCULOSKELETAL: No cyanosis, or edema. BACK: Nontender without obvious deformity. No CVA tenderness. - Urinary Catheter Management Indwelling Urethral Catheter Cath placed during this visit: yes, but has since been removed by the nurse Reason for continuing: Not indwelling catheter Insertion date: 05/14/18 Insertion time: 12:30 Removal date: 05/21/18 Removal time: 15:35 straight cath Cath placed during this visit: no Reason for continuing: Not indwelling catheter Assessment and Plan - Plan IMPRESSION: 1. Chronic obstructive pulmonary disease with mild exacerbation. 2. Bronchiectasis. 3. 4 x 0.5 cm right upper lobe density, also has additional smaller density in the right upper lobe concerning for malignancy or infection. 4. Nicotine use. 5. Chronic respiratory insufficiency. 6. Bipolar disorder. 7. VDRF PLAN: Stable after chest tube removal Aerosol nebs Supplement 02 Cont Abx DC Plans underwayfor rehab Available prn over wekend.
[2018-05-30] MEDS: Oral Hygiene Kit OROPHARYNG SCH ×3 (04:29→17:06)
[2018-05-30] MEDS: guaiFENesin 600 MG ER Tablet PO SCH ×2 (08:14→22:07)
[2018-05-30] MEDS: Carvedilol 6.25 MG Tablet PO SCH ×2 (08:14→22:07)
[2018-05-30] MEDS: Divalproex 500 MG ER Tablet PO SCH (08:14)
[2018-05-30] MEDS: Gabapentin 100 MG Capsule PO SCH (08:14)
[2018-05-30] MEDS: predniSONE 20 MG Tablet PO SCH (08:14)
[2018-05-30] MEDS: Senna/Docusate Sodium 8.6/50 MG Tablet PO SCH ×2 (08:15→22:06)
[2018-05-30] MEDS: Chlorhexidine 0.12% Oral Kit 15 ML UDC OROPHARYNG SCH ×2 (08:17→22:17)
[2018-05-30] MEDS: Budesonide-Formoterol 160/4.5 MCG 6 GM Inhaler INH SCH ×2 (08:19→22:09)
[2018-05-30] MEDS: Tiotropium Bromide 18 MCG/ACT Inhaler INH SCH (08:19)
[2018-05-30 08:20] LABS: Hematocrit 35.6 % (39.0-51.0); Hemoglobin 11.9 gm/dL (13.0-17.0); Mean Corpuscular HGB Conc 33.4 % (32.0-36.0); Mean Corpuscular Hemoglobin 31.4 pg (27.0-34.0); Mean Corpuscular Volume 94.1 fL (80.0-100.0); Mean Platelet Volume 10.5 fL (7.0-11.0); Platelet Count 76 th/mm3 (150-450); Red Blood Count 3.79 mil/mm3 (4.50-5.90); Red Cell Distribution Width 16.5 % (11.6-17.2); White Blood Count 14.7 th/mm3 (4.0-11.0)
--- NOTE | 2018-05-30 10:53 | P.PN ---
Subjective Interval history: Follow-up for respiratory failure, pneumonia. Patient sitting up in bed, on oxygen at 2 L. Complains of pain to chest tube site and back, unchanged. No nausea, no vomiting. Minimal sputum. No fever. No acute changes overnight Physical Exam Vital signs: Vital Signs 05/29/18 11:42 05/29/18 12:00 05/29/18 14:18 Temperature 98.1 F Pulse Rate 75 75 80 Respiratory Rate 18 Blood Pressure 102/66 90/60 L Pulse Oximetry 96 05/29/18 16:00 05/29/18 17:00 05/29/18 20:00 Temperature 98.2 F 98.2 F Pulse Rate 72 75 80 Respiratory Rate 20 15 Blood Pressure 104/76 107/70 Pulse Oximetry 98 95 05/30/18 00:00 05/30/18 00:10 05/30/18 04:00 Temperature 98.5 F 99.1 F Pulse Rate 74 64 77 Respiratory Rate 17 18 Blood Pressure 111/84 105/73 Pulse Oximetry 97 93 L 05/30/18 08:36 05/30/18 09:00 Temperature Pulse Rate 73 Respiratory Rate Blood Pressure Pulse Oximetry 96 Intake & Output 05/29/18 05/30/18 05/30/18 18:59 06:59 18:59 Intake Total 560 / 560 480 / 480 Output Total 900 / 900 1650 / 1650 Balance -340 / -340 -1170 / -1170 Weight 77 kg Intake: Oral 560 / 560 480 / 480 Output: Urine 900 / 900 1650 / 1650 Other: Date of Last Bowel Movement 05/29/18 05/29/18 # Bowel Movements 0 Narrative: GENERAL: appears older than stated age, NAD SKIN: Warm and dry. Legs with skin dry and flaky HEAD: Normocephalic. EYES: No scleral icterus. No injection or drainage. NECK: Supple, trachea midline. No JVD or lymphadenopathy. CARDIOVASCULAR: Regular rate and rhythm without murmurs, gallops, or rubs. RESPIRATORY: right ant. chest with suture in place, CT removed. Faint ronchi with exp. wheezing. GASTROINTESTINAL: Abdomen soft, non-tender, nondistended. MUSCULOSKELETAL: No cyanosis, trace pretibial edema, pedal pulses 2 BACK: Nontender without obvious deformity. No CVA tenderness. NEURO: grossly intact - Urinary Catheter Management Indwelling Urethral Catheter Cath placed during this visit: yes, but has since been removed by the nurse Reason for continuing: Not indwelling catheter Insertion date: 05/14/18 Insertion time: 12:30 Removal date: 05/21/18 Removal time: 15:35 straight cath Cath placed during this visit: no Reason for continuing: Not indwelling catheter Results - Labs CBC & Chem 7: 05/30/18 07:22 05/26/18 05:44 Laboratory Results - last 24 hr 05/30/18 07:22 WBC 14.7 H RBC 3.79 L Hgb 11.9 L Hct 35.6 L MCV 94.1 MCH 31.4 MCHC 33.4 RDW 16.5 Plt Count 76 L MPV 10.5 Microbiology 05/15/18 11:18 Bronchial Washings - Right Upper Lobe Acid Fast Bacilli Smear - Final No acid fast bacilli seen 05/15/18 11:18 Bronchial Washings - Right Upper Lobe Mycobacterial Culture - Preliminary No growth in 2 weeks Assessment and Plan - Assessment (1) Acute on chronic respiratory failure with hypoxia Code(s): J96.21 - Acute and chronic respiratory failure with hypoxia Status: Acute (2) Healthcare-associated pneumonia Code(s): J18.9 - Pneumonia, unspecified organism Status: Acute (3) Hypoxia Code(s): R09.02 - Hypoxemia Status: Acute (4) Abnormal CT scan, lung Code(s): R91.8 - Other nonspecific abnormal finding of lung field Status: Acute - Plan 63-year-old man with hx of COPD, emphysema. Went into respiratory failure, had CT placed for pneumo. Eventually extubated and transferred to hospitalist services: Acute respiratory arrest/failure-resolved -Extubated 05/18, tolerating well, pneumothorax has resolved -DuoNeb every 4 hours scheduled and as needed -Continue p.o. prednisone 20 mg p.o. daily -Discontinue Zithromax, discuss with ID and pulmonology -Continue Singulair. -Pulmonology following Dr. Mccormick. -Status post bronchoscopy -On Spiriva, Symbicort -CT removed 05/26, tolerated well, post removal CXR no pneumo Right sided pneumothorax following lung biopsy, recurrent-now resolved -Status post lung biopsy for right upper lobe mass -Status post chest tube for pneumothorax following lung biopsy -Dislodgment on IR chest tube requiring emergency repeat chest tube placement 05/12/18 -Continue chest tube management per pulmonology. Hypoxia and hypercapnia encephalopathy-resolved Acute on chronic hypoxemic, hypercapnic respiratory failure-resolved Acute COPD exacerbation -P.o. 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 QuantiFERON gold negative Recommend repeating CT chest in 6-8 weeks from original one done on May 08, if his infection progresses will need to repeat a biopsy although he is high risk for biopsy. -Path report noted, negative for AFB Probable ileus -now resolved - Continue bowel regimen Chronic low back pain -pain control Mood disorder - -On buspirone, Celexa. Continue divalproex. Xanax Chronic back pain Chronic opioid use -continue with present meds Thrombocytopenia -Plat trending down, [id number] -continue to hold heparin Elevated LFTs -LFTs better today -Hep panel results noted, hep C ab reactive. 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 Unclear what type and any treatment. Denies IVDU. Pt. needs to follow up with GI as OP for further work up and treatment. Spoke to his sister per his request. Leukocytosis, on steroids. No fever -follow CBC, WBC improving 14.7 Urinary retentionresolved -continue Flomax Discussed with case management, currently being evaluated. Bed pending. Pt. lived at SNF for 2 years in [place]. Cleared per infectious disease and pulm Will need follow-up CT in 6-8 weeks, d/w Dr. Mccormick, he will take care of it at follow up visit. Spoke to pt's sister at length, she is the only family member available to help. Pt. has another brother with brain cancer. Reviewed pt's condition, lab results of Hep C. Informed of need to follow up with Pulmonology and GI as OP. She verbalizes understanding. bed placement pending labs reviewed.
[2018-05-30] MEDS: Montelukast 10 MG Tablet PO SCH (17:07)
[2018-05-31] MEDS: Oral Hygiene Kit OROPHARYNG SCH ×4 (00:15→16:45)
[2018-05-31] MEDS: Carvedilol 6.25 MG Tablet PO SCH (08:03)
[2018-05-31] MEDS: Gabapentin 100 MG Capsule PO SCH (08:03)
[2018-05-31] MEDS: guaiFENesin 600 MG ER Tablet PO SCH ×2 (08:03→20:48)
[2018-05-31] MEDS: predniSONE 20 MG Tablet PO SCH (08:03)
[2018-05-31] MEDS: Chlorhexidine 0.12% Oral Kit 15 ML UDC OROPHARYNG SCH ×2 (08:04→20:50)
[2018-05-31] MEDS: Senna/Docusate Sodium 8.6/50 MG Tablet PO SCH ×2 (08:05→20:48)
[2018-05-31] MEDS: Divalproex 500 MG ER Tablet PO SCH (08:05)
[2018-05-31] MEDS: Tiotropium Bromide 18 MCG/ACT Inhaler INH SCH (08:08)
[2018-05-31] MEDS: Budesonide-Formoterol 160/4.5 MCG 6 GM Inhaler INH SCH ×2 (08:08→20:51)
--- NOTE | 2018-05-31 11:30 | P.PN ---
Subjective Interval history: Follow-up for respiratory failure, pneumonia. Patient sitting up in bed, on oxygen at 2 L. Slept okay. No sob at rest, no cough, no cp. No acute changes overnight Physical Exam Vital signs: Vital Signs 05/30/18 12:00 05/30/18 13:00 05/30/18 16:00 Temperature 99.2 F 98.1 F Pulse Rate 75 70 85 Respiratory Rate 18 17 Blood Pressure 90/54 L 102/71 Pulse Oximetry 97 95 05/30/18 17:00 05/30/18 19:45 05/30/18 20:00 Temperature 98.5 F Pulse Rate 66 76 77 Respiratory Rate 18 Blood Pressure 114/63 Pulse Oximetry 96 05/30/18 23:45 05/31/18 00:00 05/31/18 00:15 Temperature 98.1 F Pulse Rate 64 64 Respiratory Rate 18 18 Blood Pressure 106/64 Pulse Oximetry 96 05/31/18 04:00 05/31/18 05:38 05/31/18 08:00 Temperature 98.3 F 98.5 F Pulse Rate 72 72 Respiratory Rate 16 18 Blood Pressure 100/62 92/52 L Pulse Oximetry 93 L 92 L 95 05/31/18 09:00 05/31/18 10:45 Temperature Pulse Rate 71 Respiratory Rate Blood Pressure Pulse Oximetry 97 Intake & Output 05/30/18 05/31/18 05/31/18 18:59 06:59 18:59 Intake Total 956 / 956 240 / 240 Output Total 2040 / 2040 650 / 650 Balance -1084 / -1084 -410 / -410 Weight 75.6 kg Intake: Oral 956 / 956 240 / 240 Other 0 / 0 Output: Urine 1190 / 1190 650 / 650 Urine Amount (Catheter) 850 / 850 straight cath 850 / 850 Other: # Voids 3 # Incontinent Voids 0 Date of Last Bowel Movement 05/29/18 05/30/18 05/30/18 # Bowel Movements 0 0 Narrative: GENERAL: appears older than stated age, NAD SKIN: Warm and dry. Legs with skin dry and flaky HEAD: Normocephalic. EYES: No scleral icterus. No injection or drainage. NECK: Supple, trachea midline. No JVD or lymphadenopathy. CARDIOVASCULAR: Regular rate and rhythm without murmurs, gallops, or rubs. RESPIRATORY: small amount of crepitus right anterior chest wall. Lungs essentially clear, no wheezing. GASTROINTESTINAL: Abdomen soft, non-tender, nondistended. MUSCULOSKELETAL: No cyanosis, trace pretibial edema, pedal pulses 2 BACK: Nontender without obvious deformity. No CVA tenderness. NEURO: grossly intact - Urinary Catheter Management Indwelling Urethral Catheter Cath placed during this visit: yes, but has since been removed by the nurse Reason for continuing: Not indwelling catheter Insertion date: 05/14/18 Insertion time: 12:30 Removal date: 05/21/18 Removal time: 15:35 straight cath Cath placed during this visit: no Reason for continuing: Not indwelling catheter Results - Labs CBC & Chem 7: 05/30/18 07:22 05/26/18 05:44 Microbiology 05/16/18 14:06 Sputum - Endotracheal Acid Fast Bacilli Smear - Final No acid fast bacilli seen 05/16/18 14:06 Sputum - Endotracheal Mycobacterial Culture - Preliminary No growth in 2 weeks Assessment and Plan - Assessment (1) Acute on chronic respiratory failure with hypoxia Code(s): J96.21 - Acute and chronic respiratory failure with hypoxia Status: Acute (2) Healthcare-associated pneumonia Code(s): J18.9 - Pneumonia, unspecified organism Status: Acute (3) Hypoxia Code(s): R09.02 - Hypoxemia Status: Acute (4) Abnormal CT scan, lung Code(s): R91.8 - Other nonspecific abnormal finding of lung field Status: Acute - Plan 63-year-old man with hx of COPD, emphysema. Went into respiratory failure, had CT placed for pneumo. Eventually extubated and transferred to hospitalist services: Acute respiratory arrest/failure-resolved -Extubated 05/18, tolerating well, pneumothorax has resolved -DuoNeb every 4 hours scheduled and as needed -Continue p.o. prednisone 20 mg p.o. daily -Discontinue Zithromax, discuss with ID and pulmonology -Continue Singulair. -Pulmonology following Dr. Mccormick. -Status post bronchoscopy -On Spiriva, Symbicort -CT removed 05/26, tolerated well, post removal CXR no pneumo Right sided pneumothorax following lung biopsy, recurrent-now resolved -Status post lung biopsy for right upper lobe mass -Status post chest tube for pneumothorax following lung biopsy -Dislodgment on IR chest tube requiring emergency repeat chest tube placement 05/12/18 -stable, small amount of crepitus, no resp. distress. Hypoxia and hypercapnia encephalopathy-resolved Acute on chronic hypoxemic, hypercapnic respiratory failure-resolved Acute COPD exacerbation -P.o. 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 QuantiFERON gold negative Recommend repeating CT chest in 6-8 weeks from original one done on May 08, if his infection progresses will need to repeat a biopsy although he is high risk for biopsy. -Path report noted, negative for AFB Probable ileus -now resolved - Continue bowel regimen Chronic low back pain -pain control Mood disorder - -On buspirone, Celexa. Continue divalproex. Xanax Chronic back pain Chronic opioid use -continue with present meds Thrombocytopenia -Plat trending down, [id number] -continue to hold heparin Elevated LFTs -LFTs better today -Hep panel results noted, hep C ab reactive. 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 Unclear what type and any treatment. Denies IVDU. Pt. needs to follow up with GI as OP for further work up and treatment. Spoke to his sister per his request. Leukocytosis, on steroids. No fever -follow CBC, WBC improving 14.7 Urinary retentionresolved -continue Flomax Discussed with case management, currently being evaluated. Bed pending. Pt. lived at SNF for 2 years in [place]. Cleared per infectious disease and pulm Will need follow-up CT in 6-8 weeks, d/w Dr. Mccormick, he will take care of it at follow up visit. Spoke to pt's sister at length, she is the only family member available to help. Pt. has another brother with brain cancer. Reviewed pt's condition, lab results of Hep C. Informed of need to follow up with Pulmonology and GI as OP. She verbalizes understanding. bed placement pending d/w [facility], currently [facility] evaluating repeat labs in am
[2018-05-31] MEDS ORDERED: Sod Chloride 0.9% Inj 1,000 ML IV.SIG SCH (12:00)
--- NOTE | 2018-05-31 13:04 | XR ---
EXAM DATE: 05/31/2018 12:59 PM EDT AGE/SEX: 63 years / Male INDICATIONS: Shortness of breath and right sided chest pain around chest tube removal site. CLINICAL DATA: This is the patient's subsequent encounter. Patient reports that signs and symptoms h ave been present for 2 days and indicates a pain score of 4/10. MEDICAL/SURGICAL HISTORY: Chronic obstructive pulmonary disease. Pneumothorax, right. . Chest tube, right. Chest tube removal, right. COMPARISON: [facility] [place], CHEST 1V SINGLE AP, 05/26/2018. . FINDINGS: Mild diffuse interstitial prominence. Improving subcutaneous emphysema in the right inferior chest wa ll. No significant pneumothorax. Redemonstration of right apical masslike opacity. Cardiomediastinal contours are within normal limits. Remainder of the exam is unchanged. CONCLUSION: 1. No significant pneumothorax. 2. Improving chest wall subcutaneous emphysema. 3. Redemonstration of right upper lobe masslike opacity. Electronically signed by: Dax Prieto MD 05/31/2018 1:02 PM EDT
[2018-05-31] MEDS: Lidocaine 5% Patch T-DERMAL SCH (13:07)
--- NOTE | 2018-05-31 15:06 | MB ---
cc: Arthur Odonnell MD DATE: 05/31/2018 REASON FOR CONSULTATION: Atypical chest pain. HISTORY OF PRESENT ILLNESS: The patient is a pleasant 63-year-old gentleman who has had a lengthy hospitalization for right-sided pneumothorax following lung biopsy, status post intubation and extubation as well as chest tube placement, which has now been removed. Today, the patient was noted to have lower blood pressures, so an EKG was taken, which showed some diffuse ST elevations and thus I was consulted. The patient is feeling about as well as he has felt in days. He does still describe some pleuritic chest discomfort at the chest tube site, primarily on the right side, though perhaps some left lower chest discomfort as well, again, which has been chronic. He is comfortable, eating lunch and clearly, in no distress. PAST MEDICAL HISTORY: COPD, respiratory failure, lung mass. Chest tube placement, bipolar disorder, chronic pain, thrombocytopenia. No known coronary disease. CURRENT MEDICATIONS: 1. Aspirin 81 mg daily. 2. Lipitor 10 mg daily. 3. Coreg 3.125 mg b.i.d. ALLERGIES: NO KNOWN DRUG ALLERGIES. PHYSICAL EXAMINATION: VITAL SIGNS: Afebrile, pulse 60, respiratory rate 93/52, saturating 97 on 3 liters. GENERAL: Pleasant gentleman in no distress. NECK: No JVD. LUNGS: Decreased breath sounds in all jack. CARDIOVASCULAR: Regular rate and rhythm. No murmurs appreciated. ABDOMEN: Benign. EXTREMITIES: No edema. LABORATORY DATA: Sodium 139, potassium 4.3, chloride 98, bicarbonate 37.5, BUN 21, creatinine 0.57. Troponin is negative x1. EKG from today shows sinus/ectopic atrial rhythm with fairly diffuse ST elevations that do appear new from prior EKGs. IMPRESSION: Abnormal EKG. The patient's abnormal EKG, if anything, may represent some mild pericarditis due to the patient's other systemic processes. This does not appear to be an ST-elevation myocardial infarction given the diffuseness of these changes as well as the patient's clinical stability and lack of any new symptoms. He has had some chronic pleuritic chest discomfort the entire time he has been here, but his troponin today is normal. I did get an echocardiogram to ensure good wall motion as well as the absence of a pericardial effusion as well as a nuclear stress test would be helpful, but if these are normal, he could be discharged as was unplanned prior to today's episode. With regard to his hypotension, he appears quite dry by his urine and he has already been started on some fluids. Thank you again for the opportunity to participate in this patient's care. MD JOO Mckeon/tadeo , 02:10 PM , 02:17 PM
[2018-05-31] MEDS: Montelukast 10 MG Tablet PO SCH (17:23)
[2018-05-31 19:18] LABS: Creatine Kinase 117 U/L (39-308)
--- NOTE | 2018-05-31 20:28 | ECG ---
Date Performed: 05/31/2018 Time Performed: 12:16:52 PTAGE: 63 years EKG: Sinus rhythm . Diffuse ST elevation Abnormal ECG Compared to PREVIOUS TRACING , slower rate, narrow QRS and diffuse ST elevation present DOCTOR: Nicole Stein Interpretating Date/Time 05/31/2018 20:26:00
[2018-06-01 01:01] LABS: Creatine Kinase 108 U/L (39-308)
[2018-06-01] MEDS: Oral Hygiene Kit OROPHARYNG SCH ×4 (04:31→17:44)
[2018-06-01 05:13] LABS: Hematocrit 30.9 % (39.0-51.0); Hemoglobin 10.6 gm/dL (13.0-17.0); Mean Corpuscular HGB Conc 34.3 % (32.0-36.0); Mean Corpuscular Hemoglobin 31.8 pg (27.0-34.0); Mean Corpuscular Volume 92.8 fL (80.0-100.0); Mean Platelet Volume 10.2 fL (7.0-11.0); Platelet Count 80 th/mm3 (150-450); Red Blood Count 3.33 mil/mm3 (4.50-5.90); Red Cell Distribution Width 16.6 % (11.6-17.2); White Blood Count 7.3 th/mm3 (4.0-11.0)
--- NOTE | 2018-06-01 08:01 | P.PN ---
Subjective Interval history: Pt still notes general pain, wants more pain meds; no clear cardiac sx. Physical Exam Vital signs: Vital Signs 05/31/18 08:00 05/31/18 09:00 05/31/18 10:45 Temperature 98.5 F Pulse Rate 72 71 Respiratory Rate 18 Blood Pressure 92/52 L Pulse Oximetry 95 97 05/31/18 13:00 05/31/18 13:14 05/31/18 16:00 Temperature 98 F Pulse Rate 68 66 65 Respiratory Rate 16 18 Blood Pressure 93/52 L 110/74 Pulse Oximetry 96 05/31/18 17:00 05/31/18 19:50 05/31/18 20:00 Temperature 96.8 F L Pulse Rate 64 73 79 Respiratory Rate 20 Blood Pressure 111/68 Pulse Oximetry 95 05/31/18 23:45 06/01/18 00:00 06/01/18 04:00 Temperature 97.2 F L 98.0 F Pulse Rate 73 70 69 Respiratory Rate 16 18 Blood Pressure 109/69 107/67 Pulse Oximetry 96 95 Intake & Output 05/31/18 06/01/18 06/01/18 18:59 06:59 18:59 Intake Total 1560 / 1560 240 / 240 Output Total 400 / 400 Balance 1560 / 1560 -160 / -160 Weight 75.5 kg Intake: IV 1000 / 1000 NS Inj 1,000 ML @ Wide Open IV. 1000 / 1000 SIG BOLUS TAIWO Rx#:[id number] Oral 560 / 560 240 / 240 Output: Urine 400 / 400 Other: Date of Last Bowel Movement 05/30/18 # Bowel Movements 0 - Constitutional no acute distress - Routine HEENT Exam Head: Present: normocephalic Eye: Present: EOMI ENT: Present: mucous membranes moist - Routine Neck Exam Absent: JVD - Routine Respiratory Exam Present: CTA bilaterally - Routine Cardiovascular Exam Present: RRR. Absent: murmur - Routine Abdominal Exam Present: soft - Routine Extremities Exam Absent: edema - Urinary Catheter Management Indwelling Urethral Catheter Cath placed during this visit: yes, but has since been removed by the nurse Reason for continuing: Not indwelling catheter Insertion date: 05/14/18 Insertion time: 12:30 Removal date: 05/21/18 Removal time: 15:35 straight cath Cath placed during this visit: no Reason for continuing: Not indwelling catheter Results - Labs CBC & Chem 7: 06/01/18 03:59 05/26/18 05:44 Laboratory Results - last 24 hr 05/31/18 05/31/18 05/31/18 12:35 12:35 18:22 WBC RBC Hgb Hct MCV MCH MCHC RDW Plt Count MPV Total Creatine Kinase 100 117 Troponin I Less than 0.02 L Less than 0.02 L 06/01/18 06/01/18 00:09 03:59 WBC 7.3 RBC 3.33 L Hgb 10.6 L Hct 30.9 L MCV 92.8 MCH 31.8 MCHC 34.3 RDW 16.6 Plt Count 80 L MPV 10.2 Total Creatine Kinase 108 Troponin I Less than 0.02 L - Imaging Impressions Chest X-Ray 05/31/18 00:00 CONCLUSION: 1. No significant pneumothorax. 2. Improving chest wall subcutaneous emphysema. 3. Redemonstration of right upper lobe masslike opacity. Assessment and Plan - Assessment (1) Atypical chest pain Code(s): R07.89 - Other chest pain Status: Acute Plan: plan for nuclear stress today, normal trops. (2) Abnormal EKG Code(s): R94.31 - Abnormal electrocardiogram [ECG] [EKG] Status: Acute Plan: some slight st elevations diffusely, will get an echo to ensure no pericardial effusion, doesn't clinically seem like pericarditis. - Attending Attestation If no ischemia on nuc stress and echo w/o major abnormalities, would be ok w/ d/ c as planned.
[2018-06-01] MEDS: Divalproex 500 MG ER Tablet PO SCH (09:05)
[2018-06-01] MEDS: predniSONE 20 MG Tablet PO SCH (09:05)
[2018-06-01] MEDS: Chlorhexidine 0.12% Oral Kit 15 ML UDC OROPHARYNG SCH ×2 (09:05→19:13)
[2018-06-01] MEDS: guaiFENesin 600 MG ER Tablet PO SCH ×2 (09:06→20:57)
[2018-06-01] MEDS: Gabapentin 100 MG Capsule PO SCH (09:06)
[2018-06-01] MEDS: Senna/Docusate Sodium 8.6/50 MG Tablet PO SCH ×2 (09:07→20:57)
[2018-06-01] MEDS: Budesonide-Formoterol 160/4.5 MCG 6 GM Inhaler INH SCH ×2 (09:10→20:58)
[2018-06-01] MEDS: Tiotropium Bromide 18 MCG/ACT Inhaler INH SCH (09:10)
[2018-06-01] MEDS: Lidocaine 5% Patch T-DERMAL SCH (09:11)
[2018-06-01] MEDS ORDERED: Regadenoson Inj 0.4 MG/5 ML Syringe IV.PUSH ONE (12:50)
--- NOTE | 2018-06-01 12:55 | P.PN ---
Subjective Interval history: Follow-up for respiratory failure, pneumonia. Patient sitting up in bed, on oxygen at 2 L. Yesterday dropped blood pressure down to 80s, no tachycardia, no chest pain, no shortness of breath. EKG done, EKG changes noted. Received IV fluids 1000 cc bolus, blood pressure improved. BP back to baseline 100s, feels okay. Asking for Oxycodone. Going for STT today Physical Exam Vital signs: Vital Signs 05/31/18 13:00 05/31/18 13:14 05/31/18 16:00 Temperature 98 F Pulse Rate 68 66 65 Respiratory Rate 16 18 Blood Pressure 93/52 L 110/74 Pulse Oximetry 96 05/31/18 17:00 05/31/18 19:50 05/31/18 20:00 Temperature 96.8 F L Pulse Rate 64 73 79 Respiratory Rate 20 Blood Pressure 111/68 Pulse Oximetry 95 05/31/18 23:45 06/01/18 00:00 06/01/18 04:00 Temperature 97.2 F L 98.0 F Pulse Rate 73 70 69 Respiratory Rate 16 18 Blood Pressure 109/69 107/67 Pulse Oximetry 96 95 06/01/18 08:00 06/01/18 12:00 Temperature 98.0 F 98.7 F Pulse Rate 69 71 Respiratory Rate 20 20 Blood Pressure 94/60 L 94/63 L Pulse Oximetry 96 94 L Intake & Output 05/31/18 06/01/18 06/01/18 18:59 06:59 18:59 Intake Total 1560 / 1560 240 / 240 Output Total 400 / 400 Balance 1560 / 1560 -160 / -160 Weight 75.5 kg Intake: IV 1000 / 1000 NS Inj 1,000 ML @ Wide Open IV. 1000 / 1000 SIG BOLUS TAIWO Rx#:[id number] Oral 560 / 560 240 / 240 Output: Urine 400 / 400 Other: Date of Last Bowel Movement 05/30/18 05/31/18 # Bowel Movements 0 Narrative: GENERAL: appears older than stated age, NAD SKIN: Warm and dry. Legs with skin dry and flaky HEAD: Normocephalic. EYES: No scleral icterus. No injection or drainage. NECK: Supple, trachea midline. No JVD or lymphadenopathy. CARDIOVASCULAR: Regular rate and rhythm without murmurs, gallops, or rubs. RESPIRATORY: small amount of crepitus right anterior chest wall. Lungs essentially clear, no wheezing. GASTROINTESTINAL: Abdomen soft, non-tender, nondistended. MUSCULOSKELETAL: No cyanosis, trace pretibial edema, pedal pulses 2 BACK: Nontender without obvious deformity. No CVA tenderness. NEURO: grossly intact - Urinary Catheter Management Indwelling Urethral Catheter Cath placed during this visit: yes, but has since been removed by the nurse Reason for continuing: Not indwelling catheter Insertion date: 05/14/18 Insertion time: 12:30 Removal date: 05/21/18 Removal time: 15:35 straight cath Cath placed during this visit: no Reason for continuing: Not indwelling catheter Results - Labs CBC & Chem 7: 06/01/18 03:59 05/26/18 05:44 Laboratory Results - last 24 hr 05/31/18 05/31/18 05/31/18 12:35 12:35 18:22 WBC RBC Hgb Hct MCV MCH MCHC RDW Plt Count MPV ESR Total Creatine Kinase 100 117 Troponin I Less than 0.02 L Less than 0.02 L 06/01/18 06/01/18 06/01/18 00:09 03:59 08:55 WBC 7.3 RBC 3.33 L Hgb 10.6 L Hct 30.9 L MCV 92.8 MCH 31.8 MCHC 34.3 RDW 16.6 Plt Count 80 L MPV 10.2 ESR 10 Total Creatine Kinase 108 Troponin I Less than 0.02 L - Imaging Impressions Chest X-Ray 05/31/18 00:00 CONCLUSION: 1. No significant pneumothorax. 2. Improving chest wall subcutaneous emphysema. 3. Redemonstration of right upper lobe masslike opacity. Assessment and Plan - Assessment (1) Acute on chronic respiratory failure with hypoxia Code(s): J96.21 - Acute and chronic respiratory failure with hypoxia Status: Acute (2) Healthcare-associated pneumonia Code(s): J18.9 - Pneumonia, unspecified organism Status: Acute (3) Hypoxia Code(s): R09.02 - Hypoxemia Status: Acute (4) Abnormal CT scan, lung Code(s): R91.8 - Other nonspecific abnormal finding of lung field Status: Acute - Plan 63-year-old man with hx of COPD, emphysema. Went into respiratory failure, had CT placed for pneumo. Eventually extubated and transferred to hospitalist services: Hypotension 05/31 with EKG changes, r/O ACS, appeared dehydrated. serial trop x 3 negative -appreciate card input -IV 1 liter bolus given 05/31, BP better today -STT today, f/u results -Continue ASA 81 mg po daily -Echo pending Acute respiratory arrest/failure-resolved -Extubated 05/18, tolerating well, pneumothorax has resolved -DuoNeb every 4 hours scheduled and as needed -Continue p.o. prednisone 20 mg p.o. daily, wean off at SNF -Discontinue Zithromax, discuss with ID and pulmonology -Continue Singulair. -Pulmonology following Dr. Mccormick. -Status post bronchoscopy -On Spiriva, Symbicort -CT removed 05/26, tolerated well, post removal CXR no pneumo Right sided pneumothorax following lung biopsy, recurrent-now resolved -Status post lung biopsy for right upper lobe mass -Status post chest tube for pneumothorax following lung biopsy -Dislodgment on IR chest tube requiring emergency repeat chest tube placement 05/12/18 -stable, small amount of crepitus, no resp. distress. Hypoxia and hypercapnia encephalopathy-resolved Acute on chronic hypoxemic, hypercapnic respiratory failure-resolved Acute COPD exacerbation -P.o. 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 QuantiFERON gold negative Recommend repeating CT chest in 6-8 weeks from original one done on May 08, if his infection progresses will need to repeat a biopsy although he is high risk for biopsy. -Path report noted, negative for AFB Probable ileus -now resolved - Continue bowel regimen Chronic low back pain -pain control Mood disorder - -On buspirone, Celexa. Continue divalproex. Xanax Chronic back pain Chronic opioid use -continue with present meds -Dec. Dilaudid, add Lidocaine patch. Thrombocytopenia -Plat trending down, [id number] -continue to hold heparin Elevated LFTs -LFTs better today -Hep panel results noted, hep C ab reactive. 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 Unclear what type and any treatment. Denies IVDU. Pt. needs to follow up with GI as OP for further work up and treatment. Spoke to his sister per his request. Leukocytosis, on steroids. No fever -follow CBC, WBC improving 14.7 Urinary retentionresolved -continue Flomax Cleared per infectious disease and pulm Will need follow-up CT in 6-8 weeks, d/w Dr. Mccormick, he will take care of it at follow up visit. Spoke to pt's sister at length, she is the only family member available to help. Pt. has another brother with brain cancer. Reviewed pt's condition, lab results of Hep C. Informed of need to follow up with Pulmonology and GI as OP. She verbalizes understanding. EVAN for dc planning, accepted at [facility] dc today after STT done waiting for echo report E Force checked for benzodiazepine and narcotic prescription.
--- NOTE | 2018-06-01 14:14 | NM ---
EXAM DATE: 06/01/2018 2:09 PM EDT AGE/SEX: 63 years / Male INDICATIONS:Angina. . Chest pain. CLINICAL DATA: This is the patient's initial encounter. Patient reports that signs and symptoms have been present for 1 day and indicates a pain score of 0/10. MEDICAL/SURGICAL HISTORY: Chronic obstructive pulmonary disease. Appendectomy. COMPARISON: No prior exams available for comparison. DOSE: 8.5 mCi Tc 99m Myoview at rest 27.3 mCi [id number] at stress 0.4 mg Lexiscan STRESS SYMPTOMS: Dyspnea and lightheaded. EJECTION FRACTION: 62 % TECHNIQUE: The patient underwent pharmacologic stress with infusion of prescribed dose. Continuous ECG tracing was monitored during stress. Gated SPECT imaging was performed after stress and conventi onal SPECT imaging was performed at rest. The examination was performed on a SPECT/CT scanner, both attenuation and non-corrected datasets were reviewed. FINDINGS: Distribution: The maximum perfused segment at stress is in the wall. Perfusion Study: The pattern of perfusion at stress is within normal limits. Gated Study: There are intact wall motion and wall thickening without hypokinetic or dyskinetic segm ents. The ejection fraction is calculated at 62%. RISK CATEGORY: Low (<1% Annual Motality Rate) CONCLUSION: 1. Negative for stress-induced ischemia Electronically signed by: Chucky Galicia MD 06/01/2018 2:13 PM EDT
[2018-06-01] MEDS: Montelukast 10 MG Tablet PO SCH (17:44)
--- NOTE | 2018-06-01 17:47 | ECHRPT ---
Indication: CHEST PAIN CONCLUSIONS Normal left ventricular size. Mild concentric left ventricular hypertrophy. Normal left ventricular systolic function with an ejection fraction of 60-65%. Right ventricular hypertrophy. There is trace tricuspid valve regurgitation. Trace pericardial effusion. BP: / HR: Rhythm: Sinus MEASUREMENTS (Male / Female) Normal Values Technical Quality:Very technically difficult study M-MODE LV Diastolic Diameter MM 4.3 cm 4.2 - 5.9 / 3.9 - 5.3 cm LV Systolic Diameter MM 2.8 cm LV Ejection Fraction MM Teich 65.3 % IVS Diastolic Thickness MM 1.5 cm 0.6 - 1.0 / 0.6 - 0.9 cm LVPW Diastolic Thickness MM 1.2 cm 0.6 - 1.0 / 0.6 - 0.9 cm LV Relative Wall Thickness MM 0.6 0.24 - 0.42 / 0.22 - 0.42 RV Diastolic Diameter MM 1.6 cm DOPPLER AV Peak Velocity 91.0 cm/s AV Peak Gradient 3.3 mmHg AV Mean Gradient 2.0 mmHg AV Velocity Time Integral 16.6 cm LVOT Peak Velocity 61.7 cm/s LVOT Peak Gradient 1.5 mmHg LVOT Velocity Time Integral 11.0 cm Mitral E Point Velocity 44.6 cm/s Mitral A Point Velocity 35.0 cm/s Mitral E to A Ratio 1.3 LV E' Lateral Velocity 7.5 cm/s Mitral E to LV E' Lateral Ratio 5.9 LV E' Septal Velocity 5.6 cm/s Mitral E to LV E' Septal Ratio 8.0 PV Peak Velocity 51.9 cm/s PV Peak Gradient 1.1 mmHg FINDINGS LEFT VENTRICLE Normal left ventricular size. Mild concentric left ventricular hypertrophy. The left ventricular systolic function is normal with an estimated ejection fraction in the range of 60-65%. RIGHT VENTRICLE Normal right ventricular size and systolic function. RV hypertrophy. LEFT ATRIUM The left atrial size is normal. RIGHT ATRIUM The right atrial size is normal. ATRIAL SEPTUM No atrial level shunt is demonstrated by color flow Doppler interrogation. AORTA The aortic root and proximal ascending aorta are not well visualized. MITRAL VALVE The mitral valve is not well visualized. AORTIC VALVE Trileaflet aortic valve. No aortic valve stenosis or regurgitation. TRICUSPID VALVE There is trace tricuspid valve regurgitation. PULMONARY VALVE No pulmonary valve regurgitation or stenosis. VESSELS The inferior vena cava is normal in size. PERICARDIUM Trace pericardial effusion. Nicole Stein MD, FACC (Electronically Signed) Final Date:01 June 2018 17:46
--- NOTE | 2018-06-01 17:48 | P.PNPL ---
Subjective Interval history: 63 YOWM with COPD,Hypoxia, Ch resp insuff, Moved fron [place], did't bring his 02 CT chest lung density has cough with small amount of sp Weak, mild sob Had Nuclear stress test, no reversible ischemia. Physical Exam Vital signs: Vital Signs 05/31/18 19:50 05/31/18 20:00 05/31/18 23:45 Temperature 96.8 F L Pulse Rate 73 79 73 Respiratory Rate 20 Blood Pressure 111/68 Pulse Oximetry 95 06/01/18 00:00 06/01/18 04:00 06/01/18 08:00 Temperature 97.2 F L 98.0 F 98.0 F Pulse Rate 70 69 69 Respiratory Rate 16 18 20 Blood Pressure 109/69 107/67 94/60 L Pulse Oximetry 96 95 96 06/01/18 12:00 06/01/18 16:00 Temperature 98.7 F 97.7 F Pulse Rate 71 69 Respiratory Rate 20 20 Blood Pressure 94/63 L 105/77 Pulse Oximetry 94 L 94 L Intake & Output 05/31/18 06/01/18 06/01/18 18:59 06:59 18:59 Intake Total 1560 / 1560 240 / 240 Output Total 400 / 400 203 / 203 Balance 1560 / 1560 -160 / -160 -203 / -203 Weight 75.5 kg Intake: IV 1000 / 1000 NS Inj 1,000 ML @ Wide Open IV. 1000 / 1000 SIG BOLUS TAIWO Rx#:[id number] Oral 560 / 560 240 / 240 Output: Urine 400 / 400 202 / 202 Stool 1 / 1 Other: Date of Last Bowel Movement 05/30/18 06/01/18 # Bowel Movements 0 GENERAL: Elderly WM, NAD SKIN: Warm and dry. HEAD: Normocephalic. EYES: No scleral icterus. No injection or drainage. NECK: Supple, trachea midline. No JVD or lymphadenopathy. CARDIOVASCULAR: Regular rate and rhythm without murmurs, gallops, or rubs. RESPIRATORY: Breath sounds equal bilaterally. No accessory muscle use. GASTROINTESTINAL: Abdomen soft, non-tender, nondistended. MUSCULOSKELETAL: No cyanosis, or edema. BACK: Nontender without obvious deformity. No CVA tenderness. - Urinary Catheter Management Indwelling Urethral Catheter Cath placed during this visit: yes, but has since been removed by the nurse Reason for continuing: Not indwelling catheter Insertion date: 05/14/18 Insertion time: 12:30 Removal date: 05/21/18 Removal time: 15:35 straight cath Cath placed during this visit: no Reason for continuing: Not indwelling catheter Assessment and Plan - Plan IMPRESSION: 1. Chronic obstructive pulmonary disease with mild exacerbation. 2. Bronchiectasis. 3. 4 x 0.5 cm right upper lobe density, also has additional smaller density in the right upper lobe concerning for malignancy or infection. 4. Nicotine use. 5. Chronic respiratory insufficiency. 6. Bipolar disorder. 7. VDRF PLAN: Stable after chest tube removal Aerosol nebs Supplement 02 Cont Abx DC Plans underwayfor rehab
--- NOTE | 2018-06-01 18:11 | P.DS ---
<Lillian Villatoro - Last Filed: 06/01/18 18:04> Date of admission: 05/09/18 11:08 Primary care physician: No Primary Care Physician Attending physician on discharge: Rolo Gonzales Anticipated date of discharge: 06/01/18 Brief History from admission: 63-year-old male with rather extensive history of emphysema, COPD, chronic respiratory failure, chronic back pain, bipolar disorder who originally resided in [place] in [place]. Patient does have long-standing hinge history of chronic respiratory failure in which he is on [facility]. Patient was residing in a penitentiary in [place], however the the family that was living up there had recently and the patient came down here in order to stay with his sister. The patient was unable to bring any of his DME equipment to include oxygen, nebulizer down to [place] because he flew on an airplane. The patient states that he was here yesterday and he started developing shortness of breath, dyspnea, pain in the middle part of his chest with increased cough, congestion, phlegm production. Patient came to emergency department for evaluation. The patient denied any nausea, vomiting, diaphoresis, lightheadedness, dizziness. Patient denies any fever or chills. Workup that was done in emergency department indicated significant abnormality with CT of the chest with multiple nodules indicating possible infection but malignancy cannot be ruled out. Patient was still hypoxic and was unable to stabilize for discharge. Patient was recommended admission for further evaluation and management. The patient denies any previous lung masses, biopsies, diagnosis of any cancer. Denies any recent hospitalizations. States that few years ago he was admitted into the hospital requiring intubation for pneumonia. DS: Diagnosis - Discharge Diagnosis (1) Acute on chronic respiratory failure with hypoxia Status: Acute (2) Healthcare-associated pneumonia Status: Acute (3) Hypoxia Status: Acute (4) Abnormal CT scan, lung Status: Acute DS: Summary Hospital Course: 63-year-old man with hx of COPD, emphysema. Went into respiratory failure, had CT placed for pneumo. Eventually extubated and transferred to hospitalist services. Patient was followed by filenet developer, chest was eventually removed on May 26. He tolerated well. Post removal chest x-ray was stable. He had some residual subcutaneous emphysema. He completed antibiotics. He was transitioned to p.o. steroids. He was followed by infectious disease for possible mycobacterial right lung infection, necrotizing granuloma on path. No empiric treatment for Mycobacterium was recommended. QuantiFERON gold negative. Pulmonology and ID recommended follow-up CT in 6-8 weeks. He did have an ileus which resolved. On May 31, had a hypotensive episode with EKG changes. Troponins were negative. Cardiology evaluated. Stress test was done on 06/01/2018 that was negative. Echo was done, EF was 65%. He was continued on aspirin. Episode was likely secondary to dehydration, he was given 1 L on IV fluids and blood pressure improved. Patient had history of chronic back pain and opiate use. He was continued on some of his pain medications and some of them were titrated down. He was put on a lidocaine patch. He was noted with thrombocytopenia, heparin was discontinued. He was continued on buspirone, Celexa, Depakote and Xanax for mood disorder. He was noted with elevated LFTs, had prior history of hepatitis. Hepatitis panel was done, hep C antibody reactive. It was recommended that patient follow-up with gastroenterology as outpatient, this was discussed with patient's sister. He was treated with Flomax for urinary retention. Patient remained weak and debilitated, physical therapy was ordered. His respiratory status improved. Case management was consulted for discharge planning, SNF was recommended. Patient was discharged to SNF in stable condition - Time Spent with Patient Total time spent providing and/or coordinating discharge services: 35 minutes Greater than 30 minutes - Quality: VTE Deep Vein Thrombosis/Pulmonary Embolism Present on Admission: No Exam Vital signs: Vital Signs 05/31/18 19:50 05/31/18 20:00 05/31/18 23:45 Temperature 96.8 F L Pulse Rate 73 79 73 Respiratory Rate 20 Blood Pressure 111/68 Pulse Oximetry 95 06/01/18 00:00 06/01/18 04:00 06/01/18 08:00 Temperature 97.2 F L 98.0 F 98.0 F Pulse Rate 70 69 69 Respiratory Rate 16 18 20 Blood Pressure 109/69 107/67 94/60 L Pulse Oximetry 96 95 96 06/01/18 12:00 06/01/18 16:00 Temperature 98.7 F 97.7 F Pulse Rate 71 69 Respiratory Rate 20 20 Blood Pressure 94/63 L 105/77 Pulse Oximetry 94 L 94 L Intake & Output 05/31/18 06/01/18 06/01/18 18:59 06:59 18:59 Intake Total 1560 / 1560 240 / 240 Output Total 400 / 400 203 / 203 Balance 1560 / 1560 -160 / -160 -203 / -203 Weight 75.5 kg Intake: IV 1000 / 1000 NS Inj 1,000 ML @ Wide Open IV. 1000 / 1000 SIG BOLUS TAIWO Rx#:[id number] Oral 560 / 560 240 / 240 Output: Urine 400 / 400 202 / 202 Stool Other: Date of Last Bowel Movement 05/30/18 06/01/18 # Bowel Movements 0 Results Procedures completed during hospitalization: CT insertion STT Labs on day of discharge: Labs from last 24 hours 06/01/18 06/01/18 06/01/18 08:55 03:59 00:09 WBC 7.3 RBC 3.33 L Hgb 10.6 L Hct 30.9 L MCV 92.8 MCH 31.8 MCHC 34.3 RDW 16.6 Plt Count 80 L MPV 10.2 ESR 10 Total Creatine Kinase 108 Troponin I Less than 0.02 L 05/31/18 18:22 WBC RBC Hgb Hct MCV MCH MCHC RDW Plt Count MPV ESR Total Creatine Kinase 117 Troponin I Less than 0.02 L Preliminary micro results at discharge 05/16/18 14:06 Mycobacterial Culture - Preliminary Sputum - Endotracheal No growth in 2 weeks 05/15/18 11:18 Mycobacterial Culture - Preliminary Bronchial Washings - Right Upper Lobe No growth in 2 weeks 05/14/18 17:00 Mycobacterial Culture - Preliminary Sputum - Expectorated Sputum No growth in 2 weeks 05/14/18 09:30 Mycobacterial Culture - Preliminary Sputum - Endotracheal No growth in 2 weeks 05/15/18 11:18 Fungal Culture - Preliminary Bronchial Washings - Right Upper Lobe - Impressions ITS Impressions Chest CTA 05/08/18 21:52 CONCLUSION: 1. Clustered nodularity in the upper right lung with measurements given above. Primary differential diagnosis is infectious in nature. Cannot exclude malignancy. 2. Severe peribronchial thickening at the lung bases with cylindrical bronchiectasis and patchy airspace disease. 3. Moderate centrilobular emphysema. 4. No adenopathy. 5. Exam suboptimal for evaluation of pulmonary embolic disease. Consider further evaluation with VQ scan if pulmonary embolus is of clinical concern. Chest Tube Insertion 05/11/18 00:00 CONCLUSION: 1. Uncomplicated right chest tube placement as above. Lung Biopsy CT 05/11/18 00:00 CONCLUSION: 1. Successful CT guided biopsy of right upper lobe mass. Abdomen X-Ray 05/20/18 00:00 CONCLUSION: Gaseous distention of bowel loops without obstruction. Gallbladder Ultrasound 05/28/18 00:00 CONCLUSION: 1. Limited visualization due to subcutaneous emphysema in the soft tissues. 2. Common bile duct appears to be within normal limits at 6 mm. No dilated biliary ducts are demonstrated. Chest X-Ray 05/31/18 00:00 CONCLUSION: 1. No significant pneumothorax. 2. Improving chest wall subcutaneous emphysema. 3. Redemonstration of right upper lobe masslike opacity. Myocardial Perfusion Scan Nuc Med 06/01/18 00:00 CONCLUSION: 1. Negative for stress-induced ischemia <Isaac Arias - Last Filed: 06/03/18 08:41> Date of admission: 05/09/18 11:08 Primary care physician: No Primary Care Physician DS: Diagnosis - Discharge Diagnosis (1) Acute on chronic respiratory failure with hypoxia Status: Acute (2) Healthcare-associated pneumonia Status: Acute (3) Hypoxia Status: Acute (4) Abnormal CT scan, lung Status: Acute DS: Summary Hospital Course: Acid fast organism growing in BAL culture. ID was reconsulted and recommended outpt follow-up. Pulmonology was also made aware of the finding. Repeat CXR was stable. The pt will be discharged to SNF 06/03. - Time Spent with Patient Total time spent providing and/or coordinating discharge services: Exam Vital signs: Vital Signs 06/02/18 09:00 06/02/18 12:00 06/02/18 14:11 Temperature Pulse Rate 72 67 Respiratory Rate Blood Pressure Pulse Oximetry 97 06/02/18 16:00 06/02/18 20:00 06/03/18 00:00 Temperature 98.4 F 98.1 F Pulse Rate 63 70 60 Respiratory Rate 17 17 Blood Pressure 124/80 121/79 Pulse Oximetry 96 97 06/03/18 04:00 06/03/18 07:47 Temperature 99 F Pulse Rate 64 Respiratory Rate 15 Blood Pressure 144/99 H Pulse Oximetry 97 95 Intake & Output 06/02/18 06/03/18 06/03/18 18:59 06:59 18:59 Output Total 500 / 500 Balance -500 / -500 Weight 76 kg Output: Urine 500 / 500 Results Labs on day of discharge: Preliminary micro results at discharge 05/15/18 11:18 Mycobacterial Culture - Preliminary Bronchial Washings - Right Upper Lobe Acid Fast Organism 05/16/18 14:06 Mycobacterial Culture - Preliminary Sputum - Endotracheal No growth in 2 weeks 05/14/18 17:00 Mycobacterial Culture - Preliminary Sputum - Expectorated Sputum No growth in 2 weeks 05/14/18 09:30 Mycobacterial Culture - Preliminary Sputum - Endotracheal No growth in 2 weeks 05/15/18 11:18 Fungal Culture - Preliminary Bronchial Washings - Right Upper Lobe - Impressions ITS Impressions Chest CTA 05/08/18 21:52 CONCLUSION: 1. Clustered nodularity in the upper right lung with measurements given above. Primary differential diagnosis is infectious in nature. Cannot exclude malignancy. 2. Severe peribronchial thickening at the lung bases with cylindrical bronchiectasis and patchy airspace disease. 3. Moderate centrilobular emphysema. 4. No adenopathy. 5. Exam suboptimal for evaluation of pulmonary embolic disease. Consider further evaluation with VQ scan if pulmonary embolus is of clinical concern. Chest Tube Insertion 05/11/18 00:00 CONCLUSION: 1. Uncomplicated right chest tube placement as above. Lung Biopsy CT 05/11/18 00:00 CONCLUSION: 1. Successful CT guided biopsy of right upper lobe mass. Abdomen X-Ray 05/20/18 00:00 CONCLUSION: Gaseous distention of bowel loops without obstruction. Gallbladder Ultrasound 05/28/18 00:00 CONCLUSION: 1. Limited visualization due to subcutaneous emphysema in the soft tissues. 2. Common bile duct appears to be within normal limits at 6 mm. No dilated biliary ducts are demonstrated. Myocardial Perfusion Scan Nuc Med 06/01/18 00:00 CONCLUSION: 1. Negative for stress-induced ischemia Chest X-Ray 06/03/18 06:00 CONCLUSION: 1. Mild bibasilar atelectasis not significantly changed. 2. Biapical scarring again noted. 3. No effusion or pneumothorax. 4. Decreasing small amount of right chest wall emphysema. Discharge Plan - Discharge Order Discharge Orders: Discharge Order (Routine); Ordered 06/03/18 Ordered By: Isaac Arias - Discharge Details Anticipated Discharge Date: 06/03/18 - Physicians Team Primary Care Provider: Primary Care Zach,Vidhya Attending Provider: Isaac Arias Other Providers: Cruz Mccormick MD ; Yolis Alves MD ; Carmen Andrade MD ; Harish Ervin [facility] ; [facility] ; [facility], Agency ; Rehab,[facility] ; Arthur Odonnell MD
[2018-06-02] MEDS: Oral Hygiene Kit OROPHARYNG SCH ×3 (04:07→16:24)
[2018-06-02] MEDS: Gabapentin 100 MG Capsule PO SCH (08:20)
[2018-06-02] MEDS: predniSONE 20 MG Tablet PO SCH (08:21)
[2018-06-02] MEDS: guaiFENesin 600 MG ER Tablet PO SCH ×2 (08:21→20:09)
[2018-06-02] MEDS: Divalproex 500 MG ER Tablet PO SCH (08:22)
[2018-06-02] MEDS: Lidocaine 5% Patch T-DERMAL SCH (08:23)
[2018-06-02] MEDS: Chlorhexidine 0.12% Oral Kit 15 ML UDC OROPHARYNG SCH ×2 (08:34→20:18)
[2018-06-02] MEDS: Senna/Docusate Sodium 8.6/50 MG Tablet PO SCH ×2 (08:34→20:18)
[2018-06-02] MEDS: Budesonide-Formoterol 160/4.5 MCG 6 GM Inhaler INH SCH ×2 (08:34→20:17)
[2018-06-02] MEDS: Tiotropium Bromide 18 MCG/ACT Inhaler INH SCH (08:34)
--- NOTE | 2018-06-02 09:07 | P.PNIM ---
Subjective Interval history: The patient was resting comfortably in bed. He said he has been having regular bowel movements. He does get short of breath with ambulation. He says he is very weak. He is looking forward to working with physical therapy at rehab. Discussed with nursing. Physical Exam Vital signs: Vital Signs 06/01/18 12:00 06/01/18 16:00 06/01/18 20:00 Temperature 98.7 F 97.7 F Pulse Rate 70 88 67 Respiratory Rate 20 20 Blood Pressure 94/63 L 105/77 Pulse Oximetry 94 L 94 L 06/01/18 21:06 06/02/18 00:00 06/02/18 04:00 Temperature 98.2 F 97.7 F Pulse Rate 64 71 Respiratory Rate 18 18 Blood Pressure 108/72 111/74 106/60 Pulse Oximetry 93 L 93 L Intake & Output 06/01/18 06/02/18 06/02/18 18:59 06:59 18:59 Intake Total 440 / 440 Output Total 205 / 205 800 / 800 Balance -205 / -205 -360 / -360 Weight 76.3 kg Intake: Oral 440 / 440 Output: Urine 203 / 203 800 / 800 Stool 2 / 2 Other: Date of Last Bowel Movement 06/01/18 06/01/18 Narrative: GENERAL: NAD SKIN: Warm and dry. Legs with skin dry and flaky HEAD: Normocephalic. EYES: No scleral icterus. No injection or drainage. NECK: Supple, trachea midline. No JVD or lymphadenopathy. CARDIOVASCULAR: Regular rate and rhythm without murmurs, gallops, or rubs. RESPIRATORY: Lungs essentially clear, no wheezing. GASTROINTESTINAL: Abdomen soft, non-tender, nondistended. MUSCULOSKELETAL: No cyanosis, trace pretibial edema. BACK: Nontender without obvious deformity. No CVA tenderness. NEURO: grossly intact. - Urinary Catheter Management Indwelling Urethral Catheter Cath placed during this visit: yes, but has since been removed by the nurse Reason for continuing: Not indwelling catheter Insertion date: 05/14/18 Insertion time: 12:30 Removal date: 05/21/18 Removal time: 15:35 straight cath Cath placed during this visit: no Reason for continuing: Not indwelling catheter Results - Labs CBC & Chem 7: 06/01/18 03:59 05/26/18 05:44 Laboratory Results - last 24 hr 06/01/18 08:55 ESR 10 - Imaging Impressions Myocardial Perfusion Scan Nuc Med 06/01/18 00:00 CONCLUSION: 1. Negative for stress-induced ischemia - Procedures CT insertion STT Assessment and Plan - Assessment (1) Acute on chronic respiratory failure with hypoxia Code(s): J96.21 - Acute and chronic respiratory failure with hypoxia Status: Acute (2) Healthcare-associated pneumonia Code(s): J18.9 - Pneumonia, unspecified organism Status: Acute (3) Hypoxia Code(s): R09.02 - Hypoxemia Status: Acute (4) Abnormal CT scan, lung Code(s): R91.8 - Other nonspecific abnormal finding of lung field Status: Acute - Plan 63-year-old man with hx of COPD, emphysema. Went into respiratory failure, had CT placed for pneumo. Eventually extubated and transferred to hospitalist services: Hypotension 05/31 with EKG changes, r/O ACS, appeared dehydrated. serial trop x 3 negative -appreciate card input -IV 1 liter bolus given 05/31, BP better -stress test negative. -Continue ASA 81 mg po daily -Echo with normal EF. Acute respiratory arrest/failure-resolved -Extubated 05/18, tolerating well, pneumothorax has resolved -DuoNeb every 4 hours scheduled and as needed -Continue p.o. prednisone 20 mg p.o. daily, wean off at SNF -Discontinue Zithromax, discussed with ID and pulmonology -Continue Singulair. -Pulmonology following Dr. Mccormick. -Status post bronchoscopy -On Spiriva, Symbicort -CT removed 05/26, tolerated well, post removal CXR no pneumo Right sided pneumothorax following lung biopsy, recurrent-now resolved -Status post lung biopsy for right upper lobe mass -Status post chest tube for pneumothorax following lung biopsy -Dislodgment on IR chest tube requiring emergency repeat chest tube placement 05/12/18 -stable, small amount of crepitus, no resp. distress. Hypoxia and hypercapnia encephalopathy-resolved Acute on chronic hypoxemic, hypercapnic respiratory failure-resolved Acute COPD exacerbation -P.o. 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 QuantiFERON gold negative Recommend repeating CT chest in 6-8 weeks from original one done on May 08, if his infection progresses will need to repeat a biopsy although he is high risk for biopsy. -Path report noted, negative for AFB Probable ileus -now resolved - Continue bowel regimen Chronic low back pain -pain control Mood disorder - -On buspirone, Celexa. Continue divalproex. Xanax Chronic back pain Chronic opioid use -continue with present meds -Dec. Dilaudid, add Lidocaine patch. Thrombocytopenia -Plat trending down, [id number] -continue to hold heparin Elevated LFTs -Hep panel results noted, hep C ab reactive. 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 Unclear what type and any treatment. Denies IVDU. Pt. needs to follow up with GI as OP for further work up and treatment. Spoke to his sister per his request. Leukocytosis, on steroids. No fever -follow CBC, WBC improving 14.7 Urinary retentionresolved -continue Flomax Cleared per infectious disease and pulm Will need follow-up CT in 6-8 weeks, d/w Dr. Mccormick, he will take care of it at follow up visit.
--- NOTE | 2018-06-02 18:50 | P.PNID ---
Subjective Remarks: On NC O2 c/o feeling worse, more SOB afebrile growing AFB from 05/15 culture from BAL, ID P Antibiotics: none Allergies/Adverse Reactions: Allergies No Known Allergies Allergy (Mild, Uncoded 05/08/18 20:55) unknown Objective Vital Signs 06/01/18 20:00 06/01/18 21:06 06/02/18 00:00 Temperature 98.2 F Pulse Rate 67 64 Respiratory Rate 18 Blood Pressure 108/72 111/74 Pulse Oximetry 93 L 06/02/18 04:00 06/02/18 08:00 06/02/18 09:00 Temperature 97.7 F 98.1 F Pulse Rate 71 68 72 Respiratory Rate 18 20 Blood Pressure 106/60 110/73 Pulse Oximetry 93 L 93 L 06/02/18 12:00 06/02/18 14:11 Temperature Pulse Rate 67 Respiratory Rate Blood Pressure Pulse Oximetry 97 Intake & Output 06/01/18 06/02/18 06/02/18 18:59 06:59 18:59 Intake Total 440 / 440 Output Total 205 / 205 800 / 800 Balance -205 / -205 -360 / -360 Weight 76.3 kg Intake: Oral 440 / 440 Output: Urine 203 / 203 800 / 800 Stool 2 / 2 Other: Date of Last Bowel Movement 06/01/18 06/01/18 05/15/18 11:18 Bronchial Washings - Right Upper Lobe Acid Fast Bacilli Smear - Final No acid fast bacilli seen 05/15/18 11:18 Bronchial Washings - Right Upper Lobe Mycobacterial Culture - Preliminary Acid Fast Organism Lab - Hematology Results 06/01/18 06/01/18 03:59 08:55 WBC 7.3 RBC 3.33 L Hgb 10.6 L Hct 30.9 L MCV 92.8 MCH 31.8 MCHC 34.3 RDW 16.6 Plt Count 80 L MPV 10.2 ESR 10 Lab - Chemistry Results 05/31/18 06/01/18 18:22 00:09 Total Creatine Kinase 117 108 Troponin I Less than 0.02 L Less than 0.02 L Imaging: ITS Impressions Chest CTA 05/08/18 21:52 CONCLUSION: 1. Clustered nodularity in the upper right lung with measurements given above. Primary differential diagnosis is infectious in nature. Cannot exclude malignancy. 2. Severe peribronchial thickening at the lung bases with cylindrical bronchiectasis and patchy airspace disease. 3. Moderate centrilobular emphysema. 4. No adenopathy. 5. Exam suboptimal for evaluation of pulmonary embolic disease. Consider further evaluation with VQ scan if pulmonary embolus is of clinical concern. Chest Tube Insertion 05/11/18 00:00 CONCLUSION: 1. Uncomplicated right chest tube placement as above. Lung Biopsy CT 05/11/18 00:00 CONCLUSION: 1. Successful CT guided biopsy of right upper lobe mass. Abdomen X-Ray 05/20/18 00:00 CONCLUSION: Gaseous distention of bowel loops without obstruction. Gallbladder Ultrasound 05/28/18 00:00 CONCLUSION: 1. Limited visualization due to subcutaneous emphysema in the soft tissues. 2. Common bile duct appears to be within normal limits at 6 mm. No dilated biliary ducts are demonstrated. Chest X-Ray 05/31/18 00:00 CONCLUSION: 1. No significant pneumothorax. 2. Improving chest wall subcutaneous emphysema. 3. Redemonstration of right upper lobe masslike opacity. Myocardial Perfusion Scan Nuc Med 06/01/18 00:00 CONCLUSION: 1. Negative for stress-induced ischemia Physical Exam: GENERAL: awake alert SKIN: Warm and dry. HEAD: Atraumatic. Normocephalic. EYES: Pupils equal and round. No scleral icterus. No injection or drainage. ENT: No nasal bleeding or discharge. Mucous membranes pink and moist. NECK: Trachea midline. No JVD. CARDIOVASCULAR: Regular rate and rhythm. RESPIRATORY: No accessory muscle use. Clear to auscultation. Breath sounds equal bilaterally. CT in place with serosang dc, clamped GASTROINTESTINAL: Abdomen soft, non-tender, nondistended. Hepatic and splenic margins not palpable. MUSCULOSKELETAL: Extremities without clubbing, cyanosis, or edema. No obvious deformities. NEUROLOGICAL: awke alert non focal PSYCHIATRIC: calm,, appropriate Assessment and Plan - Plan Advanced COPD Acute VDRF Mycobacterial lung infection, R lung - path with necrotizing granuloma; cultures not available - quantiferon negative MTB negative histochemistry sent - Quantiferron neg - fu AFB sputum clx BAL clx untill final - no empiric tx for mycobacterial infx is recommended Plan repeat CXR in am Monitor AFB clx untill final Treatment can be postponed and started as o/p once ID/S is available fu with pulmonry and ID (Dr Walker) upon dc dw Anny Mujica RN OK to dc from ID standpoint unless CXR/clinicaly worse
[2018-06-02] MEDS: Montelukast 10 MG Tablet PO SCH (19:17)
--- NOTE | 2018-06-02 19:17 | P.PNPL ---
Subjective Interval history: 63 YOWM with COPD,Hypoxia, Ch resp insuff, Moved fr[place], did't bring his 02 CT chest lung density has cough with small amount of sp Weak, mild sob Had Nuclear stress test, no reversible ischemia. BAL from 05/13 showes AFB positive Physical Exam Vital signs: Vital Signs 06/01/18 20:00 06/01/18 21:06 06/02/18 00:00 Temperature 98.2 F Pulse Rate 67 64 Respiratory Rate 18 Blood Pressure 108/72 111/74 Pulse Oximetry 93 L 06/02/18 04:00 06/02/18 08:00 06/02/18 09:00 Temperature 97.7 F 98.1 F Pulse Rate 71 68 72 Respiratory Rate 18 20 Blood Pressure 106/60 110/73 Pulse Oximetry 93 L 93 L 06/02/18 12:00 06/02/18 14:11 Temperature Pulse Rate 67 Respiratory Rate Blood Pressure Pulse Oximetry 97 Intake & Output 06/02/18 06/02/18 06/03/18 06:59 18:59 06:59 Intake Total 440 / 440 Output Total 800 / 800 Balance -360 / -360 Weight 76.3 kg Intake: Oral 440 / 440 Output: Urine 800 / 800 Other: Date of Last Bowel Movement 06/01/18 GENERAL: MBMN NAD SKIN: Warm and dry. HEAD: Normocephalic. EYES: No scleral icterus. No injection or drainage. NECK: Supple, trachea midline. No JVD or lymphadenopathy. CARDIOVASCULAR: Regular rate and rhythm without murmurs, gallops, or rubs. RESPIRATORY: Breath sounds equal bilaterally. No accessory muscle use. GASTROINTESTINAL: Abdomen soft, non-tender, nondistended. MUSCULOSKELETAL: No cyanosis, or edema. BACK: Nontender without obvious deformity. No CVA tenderness. - Urinary Catheter Management Indwelling Urethral Catheter Cath placed during this visit: yes, but has since been removed by the nurse Reason for continuing: Not indwelling catheter Insertion date: 05/14/18 Insertion time: 12:30 Removal date: 05/21/18 Removal time: 15:35 straight cath Cath placed during this visit: no Reason for continuing: Not indwelling catheter Assessment and Plan - Plan IMPRESSION: 1. Chronic obstructive pulmonary disease with mild exacerbation. 2. Bronchiectasis. 3. 4 x 0.5 cm right upper lobe density, also has additional smaller density in the right upper lobe concerning for malignancy or infection. 4. Nicotine use. 5. Chronic respiratory insufficiency. 6. Bipolar disorder. 7. Positive AFB in BAL PLAN: Stable after chest tube removal Aerosol nebs Supplement 02 Cont Abx DW pt AFB result Check final ID of AFB DW Dr.Alexandria Andrade
[2018-06-03] MEDS: Oral Hygiene Kit OROPHARYNG SCH ×3 (00:21→11:24)
--- NOTE | 2018-06-03 06:51 | XR ---
EXAM DATE: 06/03/2018 6:46 AM EDT AGE/SEX: 63 years / Male INDICATIONS: Cough. CLINICAL DATA: This is the patient's subsequent encounter. Patient reports that signs and symptoms h ave been present for 4 - 6 days and indicates a pain score of Nonresponsive. MEDICAL/SURGICAL HISTORY: . Chronic obstructive pulmonary disease. Pneumothorax, right. . Ches t tube, right. Chest tube removal, right. . COMPARISON: [facility] [place], CHEST 1V SINGLE AP, 05/31/2018. . FINDINGS: Mild bibasilar atelectasis not significantly changed. There is scarring of both apices again noted. N o pleural effusion or pneumothorax seen. Mild chest wall emphysema on the right appears to be decreas ing. CONCLUSION: 1. Mild bibasilar atelectasis not significantly changed. 2. Biapical scarring again noted. 3. No effusion or pneumothorax. 4. Decreasing small amount of right chest wall emphysema. Electronically signed by: Long Hall MD 06/03/2018 6:49 AM EDT
[2018-06-03] MEDS: Chlorhexidine 0.12% Oral Kit 15 ML UDC OROPHARYNG SCH (07:33)
[2018-06-03] MEDS: Gabapentin 100 MG Capsule PO SCH (08:38)
[2018-06-03] MEDS: predniSONE 20 MG Tablet PO SCH (08:38)
[2018-06-03] MEDS: guaiFENesin 600 MG ER Tablet PO SCH (08:38)
--- NOTE | 2018-06-03 08:38 | P.PNIM ---
Subjective Interval history: The patient was resting comfortably in bed. He had no acute complaints. He was still anxious to leave the hospital. He said he was not able to work with physical therapy yesterday. He was waiting for his breakfast. Discussed with nursing at the bedside. Physical Exam Vital signs: Vital Signs 06/02/18 09:00 06/02/18 12:00 06/02/18 14:11 Temperature Pulse Rate 72 67 Respiratory Rate Blood Pressure Pulse Oximetry 97 06/02/18 16:00 06/02/18 20:00 06/03/18 00:00 Temperature 98.4 F 98.1 F Pulse Rate 63 70 60 Respiratory Rate 17 17 Blood Pressure 124/80 121/79 Pulse Oximetry 96 97 06/03/18 04:00 06/03/18 07:47 Temperature 99 F Pulse Rate 64 Respiratory Rate 15 Blood Pressure 144/99 H Pulse Oximetry 97 95 Intake & Output 06/02/18 06/03/18 06/03/18 18:59 06:59 18:59 Output Total 500 / 500 Balance -500 / -500 Weight 76 kg Output: Urine 500 / 500 Narrative: GENERAL: NAD SKIN: Warm and dry. Legs with skin dry and flaky HEAD: Normocephalic. EYES: No scleral icterus. No injection or drainage. NECK: Supple, trachea midline. No JVD or lymphadenopathy. CARDIOVASCULAR: Regular rate and rhythm without murmurs, gallops, or rubs. RESPIRATORY: Lungs essentially clear, no wheezing. GASTROINTESTINAL: Abdomen soft, non-tender, nondistended. MUSCULOSKELETAL: No cyanosis, trace pretibial edema. BACK: Nontender without obvious deformity. No CVA tenderness. NEURO: grossly intact. - Urinary Catheter Management Indwelling Urethral Catheter Cath placed during this visit: yes, but has since been removed by the nurse Reason for continuing: Not indwelling catheter Insertion date: 05/14/18 Insertion time: 12:30 Removal date: 05/21/18 Removal time: 15:35 straight cath Cath placed during this visit: no Reason for continuing: Not indwelling catheter Results - Labs CBC & Chem 7: 06/01/18 03:59 05/26/18 05:44 Microbiology 05/15/18 11:18 Bronchial Washings - Right Upper Lobe Acid Fast Bacilli Smear - Final No acid fast bacilli seen 05/15/18 11:18 Bronchial Washings - Right Upper Lobe Mycobacterial Culture - Preliminary Acid Fast Organism - Imaging Impressions Chest X-Ray 06/03/18 06:00 CONCLUSION: 1. Mild bibasilar atelectasis not significantly changed. 2. Biapical scarring again noted. 3. No effusion or pneumothorax. 4. Decreasing small amount of right chest wall emphysema. - Procedures CT insertion STT Assessment and Plan - Assessment (1) Acute on chronic respiratory failure with hypoxia Code(s): J96.21 - Acute and chronic respiratory failure with hypoxia Status: Acute (2) Healthcare-associated pneumonia Code(s): J18.9 - Pneumonia, unspecified organism Status: Acute (3) Hypoxia Code(s): R09.02 - Hypoxemia Status: Acute (4) Abnormal CT scan, lung Code(s): R91.8 - Other nonspecific abnormal finding of lung field Status: Acute - Plan 63-year-old man with hx of COPD, emphysema. Went into respiratory failure, had CT placed for pneumo. Eventually extubated and transferred to hospitalist services: Hypotension 05/31 with EKG changes, r/O ACS, appeared dehydrated. serial trop x 3 negative -appreciate card input -IV 1 liter bolus given 05/31, BP better -stress test negative. -Continue ASA 81 mg po daily -Echo with normal EF. Acute respiratory arrest/failure-resolved -Extubated 05/18, tolerating well, pneumothorax has resolved -DuoNeb every 4 hours scheduled and as needed -Continue p.o. prednisone 20 mg p.o. daily, wean off at SNF -Discontinue Zithromax, discussed with ID and pulmonology -Continue Singulair. -Pulmonology following Dr. Mccormick. -Status post bronchoscopy. BAL growing acid fast organism. Discussed with ID. DEBBY for discharge with outpt ID follow-up. -On Spiriva, Symbicort -CT removed 05/26, tolerated well, post removal CXR no pneumo Right sided pneumothorax following lung biopsy, recurrent-now resolved -Status post lung biopsy for right upper lobe mass -Status post chest tube for pneumothorax following lung biopsy -Dislodgment on IR chest tube requiring emergency repeat chest tube placement 05/12/18 -stable, small amount of crepitus, no resp. distress. Hypoxia and hypercapnia encephalopathy-resolved Acute on chronic hypoxemic, hypercapnic respiratory failure-resolved Acute COPD exacerbation -P.o. 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 QuantiFERON gold negative Recommend repeating CT chest in 6-8 weeks from original one done on May 08, if his infection progresses will need to repeat a biopsy although he is high risk for biopsy. -Path report noted, negative for AFB Probable ileus -now resolved - Continue bowel regimen Chronic low back pain -pain control Mood disorder - -On buspirone, Celexa. Continue divalproex. Xanax Chronic back pain Chronic opioid use -continue with present meds -Dec. Dilaudid, add Lidocaine patch. Thrombocytopenia -Plat trending down, [id number] -continue to hold heparin Elevated LFTs -Hep panel results noted, hep C ab reactive. 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 Unclear what type and any treatment. Denies IVDU. Pt. needs to follow up with GI as OP for further work up and treatment. Spoke to his sister per his request. Leukocytosis, on steroids. No fever -follow CBC, WBC improving 14.7 Urinary retentionresolved -continue Flomax Cleared per infectious disease and pulm Will need follow-up CT in 6-8 weeks, d/w Dr. Mccormick, he will take care of it at follow up visit. Discharge Planning: D/c to SNF with outpt ID and pulmonary follow-up
[2018-06-03] MEDS: Divalproex 500 MG ER Tablet PO SCH (08:39)
[2018-06-03] MEDS: Lidocaine 5% Patch T-DERMAL SCH (08:39)
[2018-06-03] MEDS: Tiotropium Bromide 18 MCG/ACT Inhaler INH SCH (08:40)
[2018-06-03] MEDS: Senna/Docusate Sodium 8.6/50 MG Tablet PO SCH (08:40)
[2018-06-03] MEDS: Budesonide-Formoterol 160/4.5 MCG 6 GM Inhaler INH SCH (08:40)
== END 2018-06-03 15:10 ==
LOC: PHED 20:42 → PHEDA 20:42 → PH3 05-09 01:13 → N04 05-11 12:19 → N03 05-12 16:18 → N07 05-13 17:50 → N03 05-14 09:14 → N04 05-23 17:06
PROVIDERS: ADMIT Hospitalist; ATTEND Hospitalist